=== PATIENT | female | born 1970 | race Caucasian/White ===

== ENCOUNTER → 2017-08-01 09:49 | Outpatient (CLI) | payer MEDICAID, SELFPAY ==
--- NOTE | 2017-08-01 09:52 | XR_ITS ---
XR wrist RT min 3V HISTORY pain ITS.REASON: right wrist ganglion cyst ORDERING PHYSICIAN: Max Hunter MD PATIENT AGE: 46 years COMPARISON: None FINDINGS: There is a dense area of sclerosis involving the distal aspect of the radius at the styloid process region. This measures 15 x 8 mm. No other anomalies are evident. No fracture or dislocation or significant degenerative change. IMPRESSION: Sclerotic focus of the distal radius laterally which may represent prominent bone island otherwise negative. Follow-up recommended stability
--- NOTE | 2017-08-01 09:52 | XR_ITS ---
XR hand LT min 3V HISTORY: Palpable abnormality in the right wrist with pain and edema ITS.REASON: left 4th digit ganglion cyst ORDERING PHYSICIAN: Max Hunter MD PATIENT AGE: 46 years COMPARISON: FINDINGS: No fracture or dislocation. No lytic or blastic change. There is normal mineralization.. The joint spaces are well-preserved. No significant degenerative/arthritic changes. No erosive changes evident.. IMPRESSION: Negative, no acute finding
== END ==
PROVIDERS: PCP Family Medicine; Visit Provider Orthopaedic Surgery
DX: M79.642 Pain in left hand (principal); M79.641 Pain in right hand
CPT/HCPCS: 73110; 73130

== ENCOUNTER → 2017-10-05 09:32 | Outpatient (CLI) | payer MEDICAID, SELFPAY ==
--- NOTE | 2017-10-05 09:33 | XR_ITS ---
XR ankle RT min 3V HISTORY: Right ankle pain ITS.REASON: pain ORDERING PHYSICIAN: Bouchra Larose DPM PATIENT AGE: 46 years Comparison: None FINDINGS: No fracture or dislocation. No lytic or blastic change. There is normal mineralization.. The joint spaces are well-preserved. No significant degenerative/arthritic changes. No erosive changes evident. The talar dome has an unremarkable appearance IMPRESSION: Negative ankle, no acute finding
--- NOTE | 2017-10-05 09:33 | XR_ITS ---
XR ankle LT min 3V HISTORY: ITS.REASON: pain ORDERING PHYSICIAN: Bouchra Larose DPM PATIENT AGE: 46 years Comparison: None FINDINGS: No fracture or dislocation. No lytic or blastic change. There is normal mineralization.. The joint spaces are well-preserved. No significant degenerative/arthritic changes. No erosive changes evident. The talar dome is an unremarkable appearance IMPRESSION: Negative ankle, no acute finding
== END ==
PROVIDERS: Visit Provider Podiatrist
DX: M72.2 Plantar fascial fibromatosis (principal); M76.61 Achilles tendinitis, right leg; M76.62 Achilles tendinitis, left leg; M25.571 Pain in right ankle and joints of right foot; M25.572 Pain in left ankle and joints of left foot
CPT/HCPCS: 73610

== ENCOUNTER 2017-11-13 07:56 | Outpatient (RCR) | payer MEDICAID, SELFPAY ==
--- NOTE | 2017-11-13 15:42 | HMH.PTOPEV ---
PT Outpatient Evaluation Rehab PT Outpatient Evaluation Start: 11/13/17 08:30 Freq: Status: Active Protocol: Document 11/13/17 08:46 MADAN (Rec: 11/13/17 09:02 MELODYCHUCK [id number]) Electronically Signed By Mark Reyna, PT 11/13/17 08:46 Outpatient Therapy Subjective History Subjective History Pt is a 46 year old female presenting to outpatient PT with reports of L ankle pain. Pt reports an initial inversion ankle sprain in 2004 after fall from a window at home. Diagnostics negative for fracture. Patient reports that she was previously experinecing R foot pain, but R foot no longer symptomatic since wearing a CAM walker for a short period. Most recent L ankle exacerbation started approximately 3 months ago after an episode where she tried to run and felt a twinge and symptoms progressively worsened. Comorbidities: fibromyalgia, OA, DDD, spinal stenosis, plantar fasciitis. She reports that she has been intermittently using a corset ankle brace and topical anti- inflammatory cream that has provided some relief. Chief Complaint Pain Stiff Clicks Swelling Gives out/Unstable Weakness Symptom Type Ache Sharp Stabbing Burning Symptoms Relieved By Rest/Positioning Ice Brace/Support Prior Functional Limitations None Current Functional Limitations Housework Standing Squatting Recreation Activity Walking Stairs Balance Symptom Description Intermittent Level of pain today (0-10) 0 Pain scale - at its best (0-10) 0 Pain scale -
== END 2017-11-13 07:57 | disposition home or self-care (01) ==
LOC: PT 07:56
PROVIDERS: Visit Provider Podiatrist
DX: M76.71 Peroneal tendinitis, right leg (principal); M25.572 Pain in left ankle and joints of left foot; G89.29 Other chronic pain
CPT/HCPCS: 97163

== ENCOUNTER → 2018-04-11 09:38 | Outpatient (CLI) | payer MEDICAID, SELFPAY ==
--- NOTE | 2018-04-11 09:42 | MR_ITS ---
MR ankle LT wo/w con CLINICAL INDICATION: Left ankle pain with constant swelling and instability ITS.REASON: chronic left ankle instability ORDERING PHYSICIAN: Bouchra Larose DPM PATIENT AGE: 47 years Comparison: 10/05/2017 TECHNIQUE: Multiplanar multiecho sequences performed without and with gadolinium enhancement FINDINGS: No rapture or dislocation. No bone bruise is evident. The talar dome has an unremarkable appearance. The anterior and posterior tibiofibular ligament appear intact as does the posterior talofibular ligament. The anterior talofibular ligament appears slightly thin but does appear to be intact. Lobular fluid collection is present along the anterior lateral aspect of the talus having a somewhat loculated appearance measuring up to 2.5 cm AP and 1.2 cm transverse. The posterior tibialis, flexor digitorum longus, and flexor hallucis longus tendons appear intact as does the Achilles tendon. There is some lobulation involving the peroneal longus tendon at the mid calcaneal level with thinning of the tendon distal to this region with the tendon becoming normal in appearance at the calcaneocuboid region. This is felt to be related to produce longus tendon tear with retraction as opposed to magic angle artifact. No other significant anomalies are evident. The peroneal brevis tendon has an unremarkable appearance. IMPRESSION: 1. Findings consistent with tear of the peroneal longus tendon. The tendon ends are retracted by approximately 2.5 cm 2. Small loculated fluid collection along the anterior distal lateral aspect of the talus 3. Suspect prior sprain of the ATFL
--- NOTE | 2018-04-11 10:54 | HMH.ITSHM ---
Current Home Medications as stated by this patient Jenae Lang or personal service representative. []DULOXETINE 60MG ROPINIROLE 0.5MG HYDROCHLOROTHIAZIDE 25MG OMEPRAZOLE 40MG POTASSIUM 99MG VITAMIN E VITAMIN D MAGNESIUM EQUATE MENOPAUSE SUPPORT LEGATRIN PM
== END ==
PROVIDERS: PCP Family Medicine; Visit Provider Podiatrist
DX: M25.372 Other instability, left ankle (principal); M25.572 Pain in left ankle and joints of left foot
CPT/HCPCS: 73223; A9576

== ENCOUNTER → 2018-04-16 15:57 | Outpatient (CLI) | payer MEDICAID, SELFPAY ==
--- NOTE | 2018-04-16 16:21 | XR_ITS ---
XR chest 2V HISTORY: ITS.REASON: HYPERTENSION ORDERING PHYSICIAN: Bouchra Larose DPM PATIENT AGE: 47 years COMPARISON: None FINDINGS: The cardiomediastinal silhouette and pulmonary vascularity are within normal limits. The lungs are clear without infiltrates, suspicious nodules, or pleural effusions. No acute bony abnormalities. IMPRESSION: Negative chest, no acute finding
[2018-04-16 16:49] LABS: Basophils # 0.1 K/mm3 (0-0.2); Basophils % 0.5 % (0.1-2.0); Eosinophils # 0.1 K/mm3 (0.0-0.4); Eosinophils % 1.3 % (0.1-12.0); Hematocrit 41.7 % (37.0-47.0); Hemoglobin 13.9 g/dL (12.2-16.2); Lymphocytes # 2.7 K/mm3 (0.7-4.5); Lymphocytes % 28.5 % (10-50); Mean Corpuscular HGB Conc 33.3 g/dL (31.8-35.4); Mean Corpuscular Hemoglobin 30.6 pg (27.0-31.2); Mean Platelet Volume 6.5 fl (7.4-10.4); Monocytes # 0.5 K/mm3 (0.1-1.0); Monocytes % 5.2 % (1.7-9.3); Neutrophils # 6.1 K/mm3 (1.8-7.8); Neutrophils % 64.5 % (37.0-80.0); Platelet Count 411 K/mm3 (142-424); Red Blood Count 4.53 M/mm3 (4.20-5.40); White Blood Count 9.4 K/mm3 (4.8-10.8)
[2018-04-16 17:56] LABS: Anion Gap 11.4 mEq/L (5-15); Blood Urea Nitrogen 16 mg/dL (7-18); Carbon Dioxide 30 mmol/L (21.0-32.0); Chloride 102 mmol/L (98-107); Creatinine,Serum 0.82 mg/dL (0.55-1.02); Estimated Glomerular Filt Rate 74 ml/min (>60); GFR (African American) 90 ML/MIN (>60); Glucose 104 mg/dL (74-106); Potassium 3.4 mmoL/L (3.5-5.1); Sodium 140 mmol/L (136-145)
[2018-04-16 18:02] LABS: HCG Qualitative, Serum Negative (Negative)
== END ==
PROVIDERS: Visit Provider Podiatrist
DX: Z01.818 Encounter for other preprocedural examination (principal); M76.72 Peroneal tendinitis, left leg
CPT/HCPCS: 36415; 71046; 80048; 84703; 85025; 93005

== ENCOUNTER → 2018-05-13 10:28 | Outpatient (CLI) | payer MEDICAID, SELFPAY ==
--- NOTE | 2018-05-13 10:38 | XR_ITS ---
XR foot wt bearing LT 3V HISTORY: Follow-up surgery ITS.REASON: Post-op ORDERING PHYSICIAN: Bouchra Larose DPM PATIENT AGE: 47 years COMPARISON: None FINDINGS: No fracture or dislocation. No lytic or blastic change. There is normal mineralization.. The joint spaces are well-preserved. No significant degenerative/arthritic changes. No erosive changes evident. Posterior splint has been removed IMPRESSION: Negative, no acute finding
[2018-05-13 10:45] LABS: Basophils % 0.3 % (0.1-2.0); Eosinophils # 0.1 K/mm3 (0.0-0.4); Hematocrit 36.9 % (37.0-47.0); Hemoglobin 12.7 g/dL (12.2-16.2); Lymphocytes % 17.6 % (10-50); Mean Corpuscular HGB Conc 34.3 g/dL (31.8-35.4); Mean Corpuscular Hemoglobin 31.5 pg (27.0-31.2); Mean Corpuscular Volume 91.6 fl (81-99); Mean Platelet Volume 6.7 fl (7.4-10.4); Monocytes # 0.6 K/mm3 (0.1-1.0); Monocytes % 4.9 % (1.7-9.3); Neutrophils # 8.5 K/mm3 (1.8-7.8); Neutrophils % 76.2 % (37.0-80.0); Platelet Count 347 K/mm3 (142-424); Red Blood Count 4.02 M/mm3 (4.20-5.40); Red Cell Distribution Width 13.8 % (11.5-17.5); White Blood Count 11.2 K/mm3 (4.8-10.8)
[2018-05-13 11:29] LABS: Erythrocyte Sedimentation Rate 37 mm/hr (0-20)
[2018-05-13 11:37] LABS: C-Reactive Protein 2.1 mg/L (0.0-0.9)
== END ==
PROVIDERS: PCP Family Medicine; Visit Provider Podiatrist
DX: Z98.890 Other specified postprocedural states (principal)
CPT/HCPCS: 36415; 73630; 85025; 85651; 86140

== ENCOUNTER → 2018-05-28 11:51 | Outpatient (CLI) | payer MEDICAID, SELFPAY ==
[2018-05-28 12:45] LABS: Basophils # 0.1 K/mm3 (0-0.2); Basophils % 0.5 % (0.1-2.0); Eosinophils # 0.4 K/mm3 (0.0-0.4); Eosinophils % 3.5 % (0.1-12.0); Hematocrit 40.9 % (37.0-47.0); Hemoglobin 13.6 g/dL (12.2-16.2); Lymphocytes # 2.9 K/mm3 (0.7-4.5); Lymphocytes % 27.2 % (10-50); Mean Corpuscular HGB Conc 33.2 g/dL (31.8-35.4); Mean Corpuscular Hemoglobin 30.8 pg (27.0-31.2); Mean Corpuscular Volume 92.7 fl (81-99); Mean Platelet Volume 6.9 fl (7.4-10.4); Monocytes # 0.7 K/mm3 (0.1-1.0); Monocytes % 6.3 % (1.7-9.3); Neutrophils # 6.7 K/mm3 (1.8-7.8); Neutrophils % 62.5 % (37.0-80.0); Platelet Count 408 K/mm3 (142-424); Red Blood Count 4.41 M/mm3 (4.20-5.40); Red Cell Distribution Width 13.5 % (11.5-17.5); White Blood Count 10.8 K/mm3 (4.8-10.8)
[2018-05-28 15:16] LABS: Erythrocyte Sedimentation Rate 18 mm/hr (0-20)
[2018-05-28 19:44] LABS: C-Reactive Protein < 0.2 mg/L (0.0-0.9)
== END ==
PROVIDERS: Visit Provider Podiatrist
DX: Z98.890 Other specified postprocedural states (principal)
CPT/HCPCS: 36415; 85025; 85651; 86140

== ENCOUNTER 2018-06-25 09:00 | Outpatient (RCR) | payer MEDICAID, SELFPAY ==
--- NOTE | 2018-06-17 09:25 | HMH.PTOPEV ---
PT Outpatient Evaluation Rehab PT Outpatient Evaluation Start: 06/17/18 09:17 Freq: Status: Active Protocol: Document 06/17/18 09:17 RIP (Rec: 06/17/18 09:25 RIP [id number]) Electronically Signed By Eliel James, PT 06/17/18 09:17 Outpatient Therapy Subjective History Subjective History Pt presents s/p L ankle preoneal tendon(s) repair on . Pt reports some difficulty w/incision healing and swelling, however, reports strength and ROM 'feel pretty good'. Pt reports 25% PWB on LLE, and some discomfort/pain around L lat. malleolus since sx. Chief Complaint Pain Stiff Swelling Weakness Symptom Type Ache Throb Sharp Dull Symptoms Relieved By Rest/Positioning Symptoms Aggravated By Standing Physical Activity Walking Prior Functional Limitations Standing Walking Stairs Balance Current Functional Limitations Housework Standing Walking Stairs Balance Symptom Description Constant but Variable Level of pain today (0-10) 5 Pain scale - at its best (0-10) 4 Pain scale - at its worst (0-10) 6 Ankle/Foot Eval Gait Observation General Gait Pattern Observation Antalgic Gait Decrease Weight Bear (L) Assistive Device Ambulation Assistive Device Axillary Crutches Palpation Tenderness left Ankle/Foot Palpation Findings Tenderness Ankle/Foot Palpation Overall Comment 2-3/4 ROM Ankle/Foot Dorsiflexion w/Knee Extended 0-2 Active Range Motion (degrees) Ankle/Foot Plantar Flexion Active Range 0-45 of Motion (degrees) Ankle/Foot Eversion Active Range of 0-15 Motion (degrees) Ankle/Foot Inversion Active Range of 0-35 Motion (degrees) Ankle/Foot ROM Limitations Soft Tissue Tightness Pain MMT Ankle Dorsiflexion Strength Grade 4 Good Ankle Plantarflexion Strength Grade 4 Good Foot Eversion Strength Grade 3+ Fair+ Foot Inversion Strength Grade 4- Good- Outpatient Therapy Assessment Impairments
== END 2018-06-25 09:05 | disposition home or self-care (01) ==
LOC: PT 09:00
PROVIDERS: Visit Provider Podiatrist
DX: Z98.890 Other specified postprocedural states (principal); M79.672 Pain in left foot
CPT/HCPCS: 97110; 97140; 97163

== ENCOUNTER → 2018-07-22 13:01 | Outpatient (CLI) | payer MEDICAID, SELFPAY ==
--- NOTE | 2018-07-22 | NVE_ITS ---
Venous Exam Indications: 729.81 Swelling of limb. IMPRESSIONS 1. No evidence of deep or superficial vein thrombosis involving the right lower extremity 2. No evidence of deep or superficial vein thrombosis involving the left lower extremity History: Swelling of both lower extremities. Risk factors: Recent surgery: Lt ankle Apr 2018. Complete lower extremity venous duplex evaluation. Doppler flow study including spectral analysis, color and brown scale imaging. Location: Vascular laboratory. Patient status: Outpatient. Tables: Venous flow and imaging: + +-------+ + Location Overall Flow properties + +-------+ + Right common femoral Patent Normal phasicity; spontaneous; normal augmentation; compressible + +-------+ + Right saphenofemoral junction Patent Compressible + +-------+ + Right profunda femoral Patent Compressible + +-------+ + Right femoral Patent Normal phasicity; spontaneous; normal augmentation; compressible; no reflux + +-------+ + Right greater saphenous Patent Normal phasicity; spontaneous; normal augmentation; compressible + +-------+ + Right popliteal Patent Normal phasicity; spontaneous; normal augmentation; compressible + +-------+ + Right posterior tibial Patent Compressible + +-------+ + Right peroneal Patent Compressible + +-------+ + Right gastrocnemius Patent Compressible + +-------+ + Right soleal Patent Compressible + +-------+ + Left common femoral Patent Normal phasicity; spontaneous; normal augmentation; compressible + +-------+ + Left saphenofemoral junction Patent Compressible + +-------+ + Left profunda femoral Patent Compressible + +-------+ + Left femoral Patent Normal phasicity; spontaneous; normal augmentation; compressible + +-------+ + Left greater saphenous Patent Normal phasicity; spontaneous; normal augmentation; compressible + +-------+
== END ==
PROVIDERS: PCP Nurse Practitioner Family; Visit Provider Nurse Practitioner Family
DX: M79.89 Other specified soft tissue disorders (principal); R60.0 Localized edema
CPT/HCPCS: 93970

== ENCOUNTER → 2018-09-03 06:27 | Outpatient (CLI) | payer MEDICAID, SELFPAY ==
--- NOTE | 2018-09-03 06:27 | NM_ITS ---
SPECT MYOCARDIAL PERFUSION SCAN, REST AND STRESS: EXERCISE STRESS: [facility] - BEND REVIEW QGS EF AND WALL MOTION EVALUATION: QPS - PERFUSION EVALUATION: HISTORY: Chest pain, SOB, HTN, Family history PROCEDURE: Rest imaging performed after administration of9.96 millicuries Tc MIBI. Dose administered at 6:35 a.m., with imaging thereafter. Stress imaging was then performed following5 minutes of exercise stress. The patient achieved a heart [id number] with projected heart rate of146 . Resting BP116/72 with stress 166/75. At maximum exercise stress,32.1 millicuries Tc MIBI administered at8:15 a.m. with [id number] minutes thereafter. FINDINGS: Perfusion Evaluation: The single slice spect images as well as the [facility] bull's-eye data summary were reviewed. Wall Motion and Ejection Fraction Evaluation: Gated SPECT review and analysis used to evaluate these features. There is a 62 % left ventricular ejection fraction. There seems to be good wall motion Stress images revealed decreased activity in the mid anterior apical wall while rest images reveal no significant change in the anterior apical wall however they're slightly decreased activity in a portion of the lateral wall. Patient did experience chest pain with exercise IMPRESSION: Exercise-induced chest pain. Abnormal images as described above with reverse redistribution in the lateral wall. Clinical correlation is advised normal ejection fraction normal wall motion
--- NOTE | 2018-09-03 06:27 | US_ITS ---
US Arterial Ankle Brachial Ind History: ITS.REASON: leg swelling and discoloration Claudication, rest pain ORDERING PHYSICIAN: Amelia Davila APRN PATIENT AGE: 47 years TECHNIQUE: Segmental pressures obtained of both right and left leg. These are compared to brachial blood pressure to yield index at each level sampled including summary NAMAN. The data sheets from the procedure are available in PACS FINDINGS The report is delayed due to the fact there were no images to interpret and are only made available today.. Rest study only performed today No prior studies available for comparison. Blood pressures reported are in millimeters mercury. RIGHT LEG NAMAN = 1.1. RIGHT LEG TBI=0.8 Brachial BP: 137 Thigh BP: 128 Calf BP: 131 Ankle PT: 147 Ankle DP : 140 Digit =111 LEFT LEG NAMAN = 1.0 LEFT LEG TBI= 0.8 Brachial BPD: 132 Thigh BP: 138 Calf BP: 127 Ankle PT:135 Ankle DP: 140 Digit = 105 Pulses and waveforms: Normal IMPRESSION: The ABIs as reported above are within normal limits. Waveforms and pulses are also unremarkable.
--- NOTE | 2018-09-03 06:27 | CA_ITS ---
PROCEDURE: 2-D M-mode and color Doppler study INDICATIONS FOR THE TEST: Chest pain X COPD Heart Murmur Tobacco Smoking PalpitationsX Fatigue Syncope Edema HypertensionXDiabetes Mellitus Rheumatic Fever SOBXDOE Obesity Hyperlipidemia Family History HD Additional History PATIENT INFORMATION HEIGHT: 64 WEIGHT:191 GENDER: Female B/P:133/90 2-D/M-MODE INTERPRETATION: 2-D MEASUREMENTS OBSERVED VALUES IN CMS Right Ventricular Dimension (RVDd) 1.8 Interventricular Septum (Thickness)(IVsd) 1.2 Left Ventricular Internal Dimensions(LVIDd) 4.5 Left Ventricular Posterior Wall (Thickness)(LVPWd) 1.0 Aortic Root 3.1 Aortic Cusp Separation 2.0 Left Atrial Dimensions (LAD) 3.9 2D 1. Left atrium is mildly enlarged, left ventricle is normal size, mild concentric left ventricular hypertrophy, visually estimated ejection fraction 55% with no regional wall motion abnormality. 2. The right atrium and right ventricle are normal size and contractility. 3. The aortic, mitral and tricuspid valvular grossly normal. 4. The pulmonic valve is poorly visualized. 5. No significant pericardial effusion noted. DOPPLER INTERROGATION: Doppler interrogation of the aortic, mitral and tricuspid valvular presence of mild mitral and tricuspid regurgitation, tricuspid regurgitation jet velocity is inadequate for calculation of the right ventricular systolic pressure, grade 1 diastolic dysfunction seen with tissue Doppler evidence of raised left atrial pressure. CONCLUSION: 1. Mildly enlarged left atrium, normal left ventricular size, mild concentric left ventricular hypertrophy, visually estimated ejection fraction is 55% with no regional wall motion abnormality, grade 1 diastolic dysfunction seen with tissue Doppler evidence of raised left atrial pressure. 2. Mild mitral and tricuspid regurgitation 3. No significant pericardial effusion noted.
--- NOTE | 2018-09-03 07:21 | HMH.ITSHM ---
Current Home Medications as stated by this patient Jenae Lang or leasing representative. []PANTOPRAZOLE ROPINIROLE LISINOPRIL D3 STOOL SOFTNER IBUPROFEN DULOXETINE IRON POTASSIUM PROBIOTIC LEGATRIN PM HCTZ
== END ==
PROVIDERS: PCP Family Medicine; Visit Provider Urology
DX: R07.9 Chest pain, unspecified (principal); R06.00 Dyspnea, unspecified; R00.2 Palpitations; R42 Dizziness and giddiness; R60.0 Localized edema
CPT/HCPCS: 78452; 93017; 93306; 93922; A9502

== ENCOUNTER → 2018-11-08 13:06 | Outpatient (CLI) | payer MEDICAID, SELFPAY ==
--- NOTE | 2018-11-08 13:11 | XR_ITS ---
XR foot wt bearing RT 3V HISTORY: ITS.REASON: foot and ankle pain ORDERING PHYSICIAN: Bouchra Larose DPM PATIENT AGE: 47 years COMPARISON: None FINDINGS: No fracture or dislocation. No lytic or blastic change. There is normal mineralization.. The joint spaces are well-preserved. No significant degenerative/arthritic changes. No erosive changes evident. Incidental note made of a small calcaneal spur IMPRESSION: Negative, no acute finding
--- NOTE | 2018-11-08 13:11 | XR_ITS ---
XR ankle wt bearing RT min 3V HISTORY: ITS.REASON: foot and ankle pain ORDERING PHYSICIAN: Bouchra Larose DPM PATIENT AGE: 47 years Comparison: None FINDINGS: No fracture or dislocation. No lytic or blastic change. There is normal mineralization.. The joint spaces are well-preserved. No significant degenerative/arthritic changes. No erosive changes evident. IMPRESSION: Negative ankle, no acute finding
--- NOTE | 2018-11-08 13:11 | XR_ITS ---
XR ankle wt bearing LT min 3V HISTORY: ITS.REASON: Foot and ankle pain ORDERING PHYSICIAN: Bouchra Larose DPM PATIENT AGE: 47 years Comparison: None FINDINGS: No fracture or dislocation. No lytic or blastic change. There is normal mineralization.. The joint spaces are well-preserved. No significant degenerative/arthritic changes. No erosive changes evident. IMPRESSION: Negative ankle, no acute finding
== END ==
PROVIDERS: PCP Family Medicine; Visit Provider Podiatrist
DX: M79.672 Pain in left foot (principal); M79.671 Pain in right foot
CPT/HCPCS: 73610; 73630

== ENCOUNTER 2018-12-19 09:30 | Outpatient (RCR) | payer MEDICAID, SELFPAY ==
--- NOTE | 2018-12-03 10:59 | HMH.PTOPEV ---
PT Outpatient Evaluation Rehab PT Outpatient Evaluation Start: 12/03/18 10:34 Freq: Status: Active Protocol: Document 12/03/18 10:39 YAKOV (Rec: 12/03/18 10:58 YAKOV [id number]) Electronically Signed By Teryr Ramsay PT 12/03/18 10:39 Outpatient Therapy Subjective History Subjective History 48 year old femal pt. is referred to PT for R plantar fascitis. Pt. reports that she had similar condition on L side. Pt. eventually had surgery on left foot a couple of year ago. States that pn. has been going on for a few months now. Tried old treatments that she used for L foot but they have not been working well. States that he pn. is worst when she wakes up in the morning and WB or when she is sitting for a long time and then stands up. Note and eval done by student PT Thai Dela Cruz Chief Complaint Pain Symptom Type Sharp Symptoms Relieved By Rest/Positioning,Ice Symptoms Aggravated By Standing,Physical Activity, Walking Prior Functional Limitations None Current Functional Limitations Housework,Standing,Recreation Activity,Walking Symptom Description Intermittent Level of pain today (0-10) 0 Pain scale - at its best (0-10) 0 Pain scale - at its worst (0-10) 8 Ankle/Foot Eval ROM left Ankle/Foot Dorsiflexion w/Knee Extended 5 Active Range Motion (degrees) Ankle/Foot Plantar Flexion Active Range 70 of Motion (degrees) Ankle/Foot Eversion Active Range of 10 Motion (degrees) Ankle/Foot Inversion Active Range of 30 Motion (degrees) Great Toe Metatarsophalangeal Extension WNL Active Range Motion (degrees) Great Toe Metatarsophalangeal Flexion WNL Active Range of Motion (degrees) right Ankle/Foot Dorsiflexion w/Knee Extended 5 Active Range Motion (degrees) Ankle/Foot Plantar Flexion Active Range 70 of Motion (degrees) Ankle/Foot Eversion Active Range of 30 Motion (degrees) Ankle/Foot Inversion Active Range of 40 Motion (degrees) Great Toe Metatarsophalangeal Extension WNL Active Range Motion (degrees) Great Toe Metatarsophalangeal Flexion WNL Active Range of Motion (degrees) MMT left Ankle Dorsiflexion Strength Grade 5 No
== END 2018-12-19 09:35 | disposition home or self-care (01) ==
LOC: PT 09:30
PROVIDERS: Visit Provider Podiatrist
DX: M72.2 Plantar fascial fibromatosis (principal)
CPT/HCPCS: 97033; 97035; 97110; 97140; 97163; 97760

== ENCOUNTER 2018-12-24 14:00 | Outpatient (RCR) | payer MEDICAID, SELFPAY ==
--- NOTE | 2018-12-10 10:19 | HMH.PTOPEV ---
PT Outpatient Evaluation Rehab PT Outpatient Evaluation Start: 12/10/18 09:21 Freq: Status: Active Protocol: Document 12/10/18 10:10 BRENT (Rec: 12/10/18 10:18 PHORJEANNE [id number]) Electronically Signed By Chirag Lipscomb, PT 12/10/18 10:10 Outpatient Therapy Subjective History Subjective History Pt is 48 yowf who presents with c/o pain in the low back and B LE, worse on right side, x ~ 8 yrs with steadily worsening symptoms. She reports pain is increased with prolonged standing, walking, and bending forward. She also reports intermittent numbness in B feet. She reports recent left ankle surgery which resulted in some weight gain and this has exacerbated her symptoms in the back as well. She reports hx of fibromyalgia , restless leg syndrome,. HTN, OA, myocardial bridge. Chief Complaint Pain Symptom Type Sharp,Burning Symptoms Relieved By Rest/Positioning,Heat Symptoms Aggravated By Bending/Stooping,Walking Prior Functional Limitations None Current Functional Limitations Walking,Stairs,Bending/ Stooping Symptom Description Constant but Variable Level of pain today (0-10) 2 Pain scale - at its worst (0-10) 10 Lumbopelvic Eval Palapation tenderness bilateral lumbar spinal tenderness Yes buttock tenderness Yes Lumbar/Sacral Palpation Findings Tenderness Lumbar/Sacral Palpation Overall Comment B SI very tender. Accessory Movement T-spine Vertebrae Accessory Movements [facility] [employer] [place] that [place] Symptoms L3 bilateral L4 bilateral L5 bilateral S1 bilateral Range of Motion Lumbar Spine Active Flexion Range of 0-55 Motion (degrees) Lumbar Spine Active Extension Range of 0-15 Motion (degrees) Left Lumbar Spine Lateral Flexion Active 0-15 Range of Motion (degrees) Right Lumbar Spine Lateral Flexion 0-15 Active Range of Motion (degrees) Manual Muscle Test Bilateral Knee Extension Strength Grade 5 Normal Knee Flexion Strength Grade 5 Normal Hip Flexion Strength Grade 5 Normal Hip Abduction Strength Grade 5 Normal Hip Adduction Strength Grade 5 Normal Extensor Hallucis Longus Strength Grade 5 Normal Ankle
== END 2018-12-24 14:05 | disposition home or self-care (01) ==
LOC: PT 14:00
PROVIDERS: Visit Provider Nurse Practitioner Family
DX: M54.41 Lumbago with sciatica, right side (principal); M51.26 Other intervertebral disc displacement, lumbar region; M79.7 Fibromyalgia; R20.0 Anesthesia of skin
CPT/HCPCS: 97010; 97014; 97110; 97163; G0283

== ENCOUNTER → 2019-01-06 13:19 | Outpatient (POV) | payer MEDICAID, SELFPAY | PROVIDERS: Visit Provider Specialist | DX: R20.0 Anesthesia of skin (principal) | CPT/HCPCS: 95886; 95908 ==

== ENCOUNTER 2019-05-05 23:00 | Observation (INO) ==
[2019-05-05 23:20] LABS: Basophils # 0.1 K/mm3 (0-0.2); Basophils % 0.5 % (0.1-2.0); Eosinophils # 0.2 K/mm3 (0.0-0.4); Eosinophils % 1.8 % (0.1-12.0); Hematocrit 41.1 % (37.0-47.0); Lymphocytes # 2.9 K/mm3 (0.7-4.5); Lymphocytes % 27.4 % (10-50); Mean Corpuscular HGB Conc 34.2 g/dL (31.8-35.4); Mean Corpuscular Volume 90.3 fl (81-99); Mean Platelet Volume 7.2 fl (7.4-10.4); Monocytes # 0.7 K/mm3 (0.1-1.0); Monocytes % 6.3 % (1.7-9.3); Neutrophils # 6.7 K/mm3 (1.8-7.8); Neutrophils % 64.1 % (37.0-80.0); Platelet Count 355 K/mm3 (142-424); Red Blood Count 4.55 M/mm3 (4.20-5.40); Red Cell Distribution Width 13.2 % (11.5-17.5); White Blood Count 10.4 K/mm3 (4.8-10.8)
[2019-05-05 23:36] LABS: Alanine Aminotransferase 23 U/L (12-78); Albumin Level 3.6 gm/dL (3.4-5.0); Alkaline Phosphatase 84 U/L (46-116); Aspartate Amino Transferase 13 U/L (15-37); Bilirubin,Total 0.3 mg/dL (0.2-1.0); Blood Urea Nitrogen 18 mg/dL (7-18); C-Reactive Protein 1.4 mg/dL (0.0-0.9); Calcium 8.9 mg/dL (8.5-10.1); Carbon Dioxide 26 mmol/L (21.0-32.0); Chloride 102 mmol/L (98-107); Globulin 3.5 gm/dl (1.3-3.2); Glucose 90 mg/dL (74-106); Sodium 141 mmol/L (136-145); Total Protein,Serum 7.1 gm/dL (6.4-8.2)
[2019-05-05 23:56] LABS: Erythrocyte Sedimentation Rate 26 mm/hr (0-20)
--- NOTE | 2019-05-06 00:36 | Emergency Department Note ---
ED Disposition Clinical Impression: Chest pain Qualifiers: Chest pain type: precordial pain Qualified Code(s): R07.2 - Precordial pain Disposition: Admitted as Observation Condition on Discharge: Good Referrals: Provider,Referral, [Primary Care Provider] - - Critical Care Critical Care Time: No Attestation: On 05/05/19, the high probability of a clinically significant, sudden or life threatening deterioration of the following system(s) required my full and direct attention, intervention and personal management. The time I documented below is in addition to time spent performing reported procedures but includes the following listed in this critical care notation. Medical Decision Making - Medical Records Medical records reviewed: Yes: I reviewed the patient's medical records. - Nikolai Inquiry Pt receiving controlled substance: No Vital Signs: 05/05/19 23:00 05/06/19 00:37 Temperature 98.0 F Temperature Source Oral Pulse Rate [Right Radial] 102 H 89 Respiratory Rate 18 16 Blood Pressure [Left Arm] 165/88 H 128/83 Blood Pressure Mean [Left Arm] 113 98 02 Sat by Pulse Oximetry 96 99 Oxygen Delivery Method Room Air Room Air - Lab Data Lab results reviewed: Yes: I reviewed the patient's lab results. Lab Results 05/05/19 23:11: WBC 10.4, RBC 4.55, Hgb 14.0, Hct 41.1, MCV 90.3, MCH 30.8, MCHC 34.2, RDW 13.2, Plt Count 355, MPV 7.2 L, Neut % (Auto) 64.1, Lymph % (Auto) 27.4, [place]kin % (Auto) 6.3, Eos % (Auto) 1.8, Baso % (Auto) 0.5, Neut # (Auto) 6.7, Lymph # (Auto) 2.9, [place]kin # (Auto) 0.7, Eos # (Auto) 0.2, Baso # (Auto) 0.1, ESR 26 H 05/05/19 23:11: Sodium 141, Potassium 3.0 L, Chloride 102, Carbon Dioxide 26, Anion Gap 16.0 H, BUN 18, Creatinine 0.92, Estimated Creat Clear 101, Estimated GFR 65, Est GFR ( Amer) 79, Glucose 90, Calcium 8.9, Total Bilirubin 0.3, AST 13 L, ALT 23, Alkaline Phosphatase 84, Troponin I < 0.02, C-Reactive Protein 1.4 H, Total Protein 7.1, Albumin 3.6, Globulin 3.5 H, Albumin/Globulin Ratio 1.0 L Result diagrams: 05/05/19 23:11 05/05/19 23:11 Orders (Tests/Meds): ED MEDICATIONS Generic Name Dose Route Start Last Admin Trade Name Freq PRN Reason Stop Dose Admin Nitroglycerin 0.4 mg 05/05/19 23:11 05/05/19 23:15 Nitrostat 0.4mg Sl Tablet SL 06/04/19 23:10 0.4 mg Q5MINP PRN Administration Chest Pain Discontinued Medications Generic Name Dose Route Start Last Admin Trade Name Freq PRN Reason Stop Dose Admin Aspirin 324 mg 05/05/19 23:11 05/05/19 23:16 Aspirin 81mg Chewable Tablet PO 05/05/19 23:12 324 mg ONCE ONE Administration Nitroglycerin 1 gm 05/06/19 00:12 05/06/19 00:13 Nitroglycerin 1 Inch Oint Udp TD 05/06/19 00:13 1 gm ONCE ONE Administration ORDERS Category Date Time Status XR chest 2V Stat Exams 05/05/19 23:11 Taken Troponin I Q3H Lab 05/06/19 02:15 Ordered Troponin I Q3H Lab 05/06/19 05:15 Ordered - Radiology Data #1 Image(s): Chest Image Reviewed: Yes I reviewed the patient's radiology image Preliminary Findings: Normal/NAD - ECG Data Tracing #1 Normal Sinus Rhythm: Yes Ischemic changes: non-specific ST-T wave changes - Physician Consults Physician Consulted: eugenia Reason -: Admission Chest Pain HPI - General Chief Complaint: Chest Pain Stated Complaint: chest pain Time Seen by Provider: 05/05/19 23:40 Mode of Arrival: Ambulatory Source of Information: Patient, Spouse, Medical Record Limitations: No Limitations Description of Symptoms (Recalled from ER Triage Doc. by RN): chest pain and L arm pain that started tonight [employer]. patient describes the pain as a squeezing sensation in her chest - History of Present Illness HPI narrative: this wf presented to ed with lt chest pain with nausea and vascular flush with episode of palpitations - MD complaint: chest pain indicative of cardiac Onset (ago): hour(s) Duration: intermittent Activity at onset: during rest Pain location: left chest Severity: moderate Quality: tightness Pain radiation: LUE Associated symptoms: nausea, palpitations Risk Factors for CAD: Family Hx of CAD Treatments prior to or on arrival for Cardiac Chest Pain: none - OLLIE Score for Non-Stemi Age of Patient: 40-49 years old Heart Rate: 90-109 bpm Systolic Blood Pressure: 160-199 mmHg Serum Creatinine: 0.80-1.19 mg/dl CHF Killip Class: I-No CHF Other Risk Factors: None Non-Stemi Risk Score: 57 - Related Data Prior Cardiac Testing/Procedures: Cardiac Angiogram Home Medications Medication Instructions Recorded Confirmed duloxetine 60 mg capsule,delayed 60 mg PO DAILY 30 Days #30 05/08/17 05/05/19 release ropinirole 0.5 mg tablet 0.5 mg PO DAILY 30 Days #90 05/08/17 05/05/19 cholecalciferol (vitamin D3) 3,000 2,000 unit PO ONCE tab 08/01/17 05/05/19 unit tablet potassium 99 mg tablet 99 mg PO ONCE 08/01/17 05/05/19 sennosides 25 mg tablet 25 mg PO ONCE tab 08/01/17 05/05/19 triamterene 37.5 1 tab PO DAILY #30 tab 08/21/18 05/05/19 mg-hydrochlorothiazide 25 mg tablet lisinopril 10 mg tablet 10 mg PO DAILY 10/15/18 05/05/19 ciclopirox 8 % topical solution 1 % TOPICAL DAILY #7 ml 11/25/18 05/05/19 diphenhydramine 50 1 tab PO NEEDED PRN tab 11/25/18 05/05/19 mg-acetaminophen 500 mg tablet omeprazole 40 mg capsule,delayed 40 mg PO DAILY 11/25/18 05/05/19 release Metoprolol Succinate 25 mg PO DAILY 05/05/19 05/05/19 Ranolazine [Ranolazine ER] 500 mg PO BID 05/05/19 05/05/19 Previous Rx's Medication Instructions Recorded meloxicam 7.5 mg tablet 7.5 mg PO ONCE #30 tab 02/27/19 Allergies Allergy/AdvReac Type Severity Reaction Status Date / Time desmopressin Allergy Severe Arrythmia Verified 02/27/19 13:07 amitriptyline [From Elavil] Allergy Unknown Dizziness, Verified 02/27/19 13:07 Headache cyclobenzaprine Allergy Unknown Dizziness, Verified 02/27/19 13:07 [From Flexeril] Sleepy isosorbide AdvReac Intermediate Headache Verified 02/27/19 13:07 povidone-iodine AdvReac Itchy, Verified 02/27/19 13:07 [From Betadine] Redness to the site of application soap [From Betadine] AdvReac Itchy, Verified 02/27/19 13:07 Redness to the site of application [facility] History - Hepatitis A Screen Drug use history?: No High risk sexual behaviors?: No History of sexually transmitted infection?: No Currently employed?: No Childcare worker?: No Do you have indoor plumbing?: Yes Do you have electricity?: Yes Attestation statement:: This patient has been screened for Hepatitis A risk factors. I have reviewed the patient's past medical history: Yes Medical History: Reports:: Gastroesophageal Reflux Disease(GERD), Hypertension, Migraine Denies:: Cancer, Diabetes Mellitus Type 1, Diabetes Mellitus Type 2, Internal Pacemaker, MRSA, Seizures Other Medical History: Reports: Arthritis, Fibromyalgia, Other. Denies: Blood Transfusion Reaction Comment: Spinal Stenosis, Cyst on right kidney, DJD, polyarthritis, Restless leg syndrome, Laterality Cases: Bilateral: Lumpectomy Other Surgeries: Yes: No Previous Surgery, Cardiac Catheterization, , Other. No: Pacemaker Amputation: No Fractures: No Comment: wisdom teeth removed. - Social History Smoking Status: Never smoker Tobacco Type: cigarettes # Packs/Day (cigarettes): 0 #Yrs smoked (if former smoker): 0 Alcohol Intake: never Alcohol Intake Frequency:: other Substance Use Type: denies use Occupational Status: unemployed Housing: house Household Members: spouse Family Hx:: Diabetes, Coronary Artery Disease, Cancer, Hypertension Comment: Father-NH@45. Mother-CHF ROS Obtained: Yes All systems reviewed & no additional complaints - Constitutional Constitutional: Denies fever(s) - Eyes Eyes: Denies change in vision - ENT Ears, Nose, Mouth, and Throat: Denies sore throat - Cardiovascular Cardiovascular: Reports as per HPI, Reports chest pain, Reports dyspnea - Respiratory Respiratory: No cough - Gastrointestinal Gastrointestingal: Denies: abdominal pain - Genitourinary Female Genitourinary: Denies hematuria - Musculoskeletal Musculoskeletal: Denies joint pain, Denies joint swelling - Integumentary/Breasts Skin/Breast: Denies rash - Neurologic Neurologic: Denies focal weakness, Denies seizure-like activity Physical Exam - General General appearance: alert, obese - Head Head exam: normocephalic - Eye Eye exam: Present: PERRL, EOMI. Absent: scleral icterus - ENT ENT exam: Present: mucous membranes dry - Neck Neck exam: Present: trachea midline - Respiratory Respiratory exam: Present: normal lung sounds bilaterally. Absent: respiratory distress - Cardiovascular Cardiovascular exam: Present: regular rate, systolic murmur - Abdominal Exam Abdominal exam: Present: soft - Extremities Exam Extremities exam: Present: full ROM - Neurological Exam Neurological exam: Present: alert, oriented X3, CN II-XII intact - Psychiatric Psychiatric exam: Present: normal affect - Skin Skin exam: Absent: rash
[2019-05-06 06:13] LABS: Basophils % 0.4 % (0.1-2.0); Eosinophils # 0.2 K/mm3 (0.0-0.4); Mean Corpuscular HGB Conc 33.8 g/dL (31.8-35.4); Monocytes # 0.6 K/mm3 (0.1-1.0); Monocytes % 6.6 % (1.7-9.3); Neutrophils # 6.2 K/mm3 (1.8-7.8)
[2019-05-06 06:21] LABS: Hematocrit 37.1 % (37.0-47.0); Lymphocytes # 2.3 K/mm3 (0.7-4.5); Lymphocytes % 24.2 % (10-50); Neutrophils % 66.8 % (37.0-80.0); Platelet Count 289 K/mm3 (142-424); Red Blood Count 4.08 M/mm3 (4.20-5.40); Red Cell Distribution Width 13.2 % (11.5-17.5); White Blood Count 9.4 K/mm3 (4.8-10.8)
[2019-05-06 06:23] LABS: Anion Gap 15.1 mEq/L (5-15); Calcium 8.2 mg/dL (8.5-10.1)
[2019-05-06 06:24] LABS: Hemoglobin 12.6 g/dL (12.2-16.2)
--- NOTE | 2019-05-06 07:21 | H&P/Discharge Summary ---
General - General Admission date:: 05/06/19 Discharge date: 05/06/19 *Admission Date: 05/06/19 *Chief complaint: Left shoulder and chest pain *History of present illness: 48-year-old female with thorough cardiac work-up in September 2018 presented to the emergency department yesterday evening with chest discomfort. Patient reports initially she developed an aching sensation in the left shoulder like she had some stiff muscles. As her evening progressed the sensation spread down to her chest until she felt like her heart was beating very hard. Each heartbeat had associated sharp pain. She also developed nausea and diaphoresis and had one episode of vomiting. When the chest discomfort did not resolve patient decided to come to the emergency department. In the ER patient underwent evaluation and first troponin was normal and EKG did not reveal any evidence of ischemia or infarct. Patient was admitted for observation. Patient underwent a cardiac work-up in August and September 2018 in which she had an abnormal Myoview stress test which led to left heart catheterization which revealed a myocardial bridge as well as elevated left ventricular end-diastolic pressures. Patient reports she has been compliant with medications and follow- up. Left heart catheterization findings are described below: ANGIOGRAPHIC RESULTS: 1. The left main artery normal 2. The left anterior descending artery has proximal mild luminal irregularities within mid vessel 50% myocardial bridge with systole 3. The circumflex artery nondominant normal 4. The right coronary artery dominant and normal 5. The PETERSON ventriculogram reveals normal 65% 6. The left ventricular end-diastolic pressure 20 mmHg [facility] History I have reviewed the patient's past medical history: Yes Medical History: Reports:: Gastroesophageal Reflux Disease(GERD), Hypertension, Migraine Denies:: Cancer, Diabetes Mellitus Type 1, Diabetes Mellitus Type 2, Internal Pacemaker, MRSA, Seizures *Have you ever received a pneumonia vaccine?: No *Have you received a flu vaccine this season?: No Other Medical History: Reports: Arthritis, Fibromyalgia, Other. Denies: Blood Transfusion Reaction Laterality Cases: Right: Lumpectomy Other Surgeries: Yes: No Previous Surgery, Cardiac Catheterization, , Other (Left foot tendon repair.). No: Pacemaker Amputation: No Fractures: No - *Social History Educational Level: Attended College Smoking Status: Never smoker Tobacco Type: cigarettes # Packs/Day (cigarettes): 0 #Yrs smoked (if former smoker): 0 Alcohol Intake: never Alcohol Intake Frequency:: other Substance Use Type: denies use *Occupational Status:: unemployed Housing: house Household Members: spouse *Travel in the last 8 weeks: None Family Hx:: Anemia, Asthma, Bleeding Disorder, Cancer, Diabetes, Heart Attack, Hyperlipidemia, Hypertension, Stroke, Substance abuse, Alcoholism, Mental illness Review of Systems - Review of Systems See HPI - *Neurologic Denies localized weakness, Denies seizure-like activity Exam Vital signs and Labs for Last 24 Hours: Temp Pulse Resp BP Pulse Ox 97.8 F 89 18 116/67 95 05/06/19 04:00 05/06/19 04:00 05/06/19 04:00 05/06/19 04:00 05/06/19 04:00 Laboratory Results - last 24 hr 05/05/19 23:11: WBC 10.4, RBC 4.55, Hgb 14.0, Hct 41.1, MCV 90.3, MCH 30.8, MCHC 34.2, RDW 13.2, Plt Count 355, MPV 7.2 L, Neut % (Auto) 64.1, Lymph % (Auto) 27.4, [place] % (Auto) 6.3, Eos % (Auto) 1.8, Baso % (Auto) 0.5, Neut # (Auto) 6.7, Lymph # (Auto) 2.9, [place] # (Auto) 0.7, Eos # (Auto) 0.2, Baso # (Auto) 0.1, ESR 26 H 05/05/19 23:11: Sodium 141, Potassium 3.0 L, Chloride 102, Carbon Dioxide 26, Anion Gap 16.0 H, BUN 18, Creatinine 0.92, Estimated Creat Clear 101, Estimated GFR 65, Est GFR ( Amer) 79, Glucose 90, Calcium 8.9, Total Bilirubin 0.3, AST 13 L, ALT 23, Alkaline Phosphatase 84, Troponin I < 0.02, C-Reactive Protein 1.4 H, Total Protein 7.1, Albumin 3.6, Globulin 3.5 H, Albumin/Globulin Ratio 1.0 L 05/06/19 02:10: Troponin I < 0.02 05/06/19 05:18: Troponin I < 0.02 05/06/19 05:18: WBC 9.4, RBC 4.08 L, Hgb 12.6, Hct 37.1, MCV 91.0, MCH 30.8, MCHC 33.8, RDW 13.2, Plt Count 289, MPV 7.0 L, Neut % (Auto) 66.8, Lymph % (Auto) 24.2, [place] % (Auto) 6.6, Eos % (Auto) 2.0, Baso % (Auto) 0.4, Neut # (Auto) 6.2, Lymph # (Auto) 2.3, [place] # (Auto) 0.6, Eos # (Auto) 0.2, Baso # (Auto) 0.0 05/06/19 05:18: Sodium 142, Potassium 3.1 L, Chloride 104, Carbon Dioxide 26, Anion Gap 15.1 H, BUN 14, Creatinine 0.85, Estimated Creat Clear 108, Estimated GFR 71, Est GFR ( Amer) 86, Glucose 111 H D, Calcium 8.2 L, Magnesium 2.0 I & O for Last 24 hours: Intake & Output 05/03/19 05/04/19 05/05/19 05/06/19 11:59 11:59 11:59 11:59 Intake Total 124 / 124 Balance 124 / 124 Weight 189 lb 3 oz - Constitutional no acute distress - *Routine HEENT Exam Head: Present: normocephalic Eye: Present: EOMI ENT: Present: mucous membranes moist - *Routine Neck Exam Present: supple, full ROM. Absent: JVD, carotid bruit - *Routine Respiratory Exam Present: CTA bilaterally - *Routine Cardiovascular Exam Present: RRR, Normal S1, Normal S2 - *Routine Abdominal Exam Present: soft, normoactive bowel sounds. Absent: tenderness - *Routine Extremities Exam Absent: cyanosis, clubbing, edema Hospital Course Hospital Course: Patient was admitted and ruled out for PA. Cardiology consultation the next morning resulted in medication adjustments which include discontinuation of her Ranexa, isosorbide, lisinopril and the addition of verapamil to her home regimen. Patient was discharged home Results Labs on day of discharge: Labs from last 24 hours 05/06/19 05/06/19 05/06/19 05:18 05:18 05:18 WBC 9.4 RBC 4.08 L Hgb 12.6 Hct 37.1 MCV 91.0 MCH 30.8 MCHC 33.8 RDW 13.2 Plt Count 289 MPV 7.0 L Neut % (Auto) 66.8 Lymph % (Auto) 24.2 [place] % (Auto) 6.6 Eos % (Auto) 2.0 Baso % (Auto) 0.4 Neut # (Auto) 6.2 Lymph # (Auto) 2.3 [place] # (Auto) 0.6 Eos # (Auto) 0.2 Baso # (Auto) 0.0 ESR Sodium 142 Potassium 3.1 L Chloride 104 Carbon Dioxide 26 Anion Gap 15.1 H BUN 14 Creatinine 0.85 Estimated Creat Clear 108 Estimated GFR 71 Est GFR ( Amer) 86 Glucose 111 H D Calcium 8.2 L Magnesium 2.0 Total Bilirubin AST ALT Alkaline Phosphatase Troponin I < 0.02 C-Reactive Protein Total Protein Albumin Globulin Albumin/Globulin Ratio 05/06/19 05/05/19 05/05/19 02:10 23:11 23:11 WBC 10.4 RBC 4.55 Hgb 14.0 Hct 41.1 MCV 90.3 MCH 30.8 MCHC 34.2 RDW 13.2 Plt Count 355 MPV 7.2 L Neut % (Auto) 64.1 Lymph % (Auto) 27.4 [place] % (Auto) 6.3 Eos % (Auto) 1.8 Baso % (Auto) 0.5 Neut # (Auto) 6.7 Lymph # (Auto) 2.9 [place] # (Auto) 0.7 Eos # (Auto) 0.2 Baso # (Auto) 0.1 ESR 26 H Sodium 141 Potassium 3.0 L Chloride 102 Carbon Dioxide 26 Anion Gap 16.0 H BUN 18 Creatinine 0.92 Estimated Creat Clear 101 Estimated GFR 65 Est GFR ( Amer) 79 Glucose 90 Calcium 8.9 Magnesium Total Bilirubin 0.3 AST 13 L ALT 23 Alkaline Phosphatase 84 Troponin I < 0.02 < 0.02 C-Reactive Protein 1.4 H Total Protein 7.1 Albumin 3.6 Globulin 3.5 H Albumin/Globulin Ratio 1.0 L DS: Diagnosis - Discharge Diagnosis (1) Chest pain Status: Acute (2) Coronary-myocardial bridge Status: Chronic (3) Diastolic dysfunction Status: Chronic (4) HTN (hypertension) Status: Chronic Discharge Plan - Patient Discharge Instructions ACTIVITY: Continue current activity DIET: continue same diet Patient Instructions: DI for Chest Pain - Follow up Plan Follow up with: Levi Kapoor MD [Primary Care Provider] - Efra Shaikh PA [Physician Supervisor [employer]] - Disposition: Home, Self-Retirement Medications: Home Medications Medication Instructions Recorded Confirmed Type duloxetine 60 mg capsule,delayed 60 mg PO DAILY 30 Days #30 05/08/17 05/05/19 History release ropinirole 0.5 mg tablet 0.5 mg PO TID 30 Days #90 05/08/17 05/06/19 History cholecalciferol (vitamin D3) 3,000 2,000 unit PO DAILY tab 08/01/17 05/06/19 History unit tablet potassium 99 mg tablet 100 mg PO DAILY 08/01/17 05/06/19 History sennosides 25 mg tablet 25 mg PO DAILY tab 08/01/17 05/06/19 History triamterene 37.5 1 tab PO DAILY #30 tab 08/21/18 05/06/19 History mg-hydrochlorothiazide 25 mg tablet lisinopril 10 mg tablet 10 mg PO DAILY 10/15/18 05/05/19 History ciclopirox 8 % topical solution 1 % TOPICAL QIDP PRN #7 ml 11/25/18 05/06/19 History omeprazole 40 mg capsule,delayed 40 mg PO DAILY 11/25/18 05/05/19 History release Metoprolol Succinate 25 mg PO HS 05/05/19 05/06/19 History Ranolazine [Ranolazine ER] 500 mg PO BID 05/05/19 05/05/19 History Meloxicam 7.5 mg PO DAILY 05/06/19 05/06/19 History Ubidecarenone [Coq10] 100 mg PO DAILY 05/06/19 05/06/19 History Verapamil HCl [Verapamil ER] 120 mg PO DAILY #30 cap24h.pel 05/06/19 Rx Prescriptions/Medication Reconciliation: New Verapamil HCl [Verapamil ER] 120 mg PO DAILY #30 cap24h.pel Continued duloxetine 60 mg capsule,delayed release 60 mg PO DAILY 30 Days #30 ropinirole 0.5 mg tablet 0.5 mg PO TID 30 Days #90 cholecalciferol (vitamin D3) 3,000 unit tablet 2,000 unit PO DAILY tab potassium 99 mg tablet 100 mg PO DAILY sennosides 25 mg tablet 25 mg PO DAILY tab lisinopril 10 mg tablet 10 mg PO DAILY ciclopirox 8 % topical solution 1 % TOPICAL QIDP PRN #7 ml PRN Reason: nerve pain omeprazole 40 mg capsule,delayed release 40 mg PO DAILY Metoprolol Succinate 25 mg PO HS Ubidecarenone [Coq10] 100 mg PO DAILY Discontinued triamterene 37.5 mg-hydrochlorothiazide 25 mg tablet 1 tab PO DAILY #30 tab Ranolazine [Ranolazine ER] 500 mg PO BID No Action Meloxicam 7.5 mg PO DAILY - Problem Reconciliation Problems Reviewed?: Yes
--- NOTE | 2019-05-06 07:37 | Consult Report ---
History of Present Illness Consult date: 05/06/19 Requesting physician: Levi Kapoor Consult reason: chest pain Chief complaint: chest pain Additional Medical History:: 1. History of fibromyalgia 2. History of arthritis 3. Left heart catheterization, 09/25 revealing normal coronary arteries with a mid LAD myocardial bridge with recommendation for medical therapy History of present illness: 48-year-old white female presented to the emergency department for evaluation of chest discomfort. Patient describes left shoulder discomfort that progressed to include left-sided sharp shooting chest discomfort along with a flush sensation and emesis x2. She denies any fever, chills or diarrhea. Patient was admitted through the ER after getting some improvement in symptoms with nitroglycerin sublingual. Symptoms did not resolve completely for at least a half an hour. EKG showed sinus rhythm with no acute ST segment changes and troponins overnight have returned normal. Preliminary echocardiogram this morning shows normal left ventricular ejection fraction with only mild valvular heart disease. Patient denies tobacco use or history of diabetes. She denies missing any doses of her medications or any recent history of exertional chest discomfort. [facility] History Medical History: Reports:: Gastroesophageal Reflux Disease(GERD), Hypertension, Migraine Denies:: Cancer, Diabetes Mellitus Type 1, Diabetes Mellitus Type 2, Internal Pacemaker, MRSA, Seizures *Have you ever received a pneumonia vaccine?: No *Have you received a flu vaccine this season?: No Other Medical History: Reports: Arthritis, Fibromyalgia, Other. Denies: Blood Transfusion Reaction Laterality Cases: Right: Lumpectomy Other Surgeries: Yes: No Previous Surgery, Cardiac Catheterization, , Other (Left foot tendon repair.). No: Pacemaker Amputation: No Fractures: No - *Social History Educational Level: Attended College Smoking Status: Never smoker Tobacco Type: cigarettes # Packs/Day (cigarettes): 0 #Yrs smoked (if former smoker): 0 Alcohol Intake: never Alcohol Intake Frequency:: other Substance Use Type: denies use *Occupational Status:: unemployed Housing: house Household Members: spouse *Travel in the last 8 weeks: None Family Hx:: Anemia, Asthma, Bleeding Disorder, Cancer, Diabetes, Heart Attack, Hyperlipidemia, Hypertension, Stroke, Substance abuse, Alcoholism, Mental illness Meds Home Medications Medication Instructions Recorded Confirmed Type duloxetine 60 mg capsule,delayed 60 mg PO DAILY 30 Days #30 05/08/18 05/05/19 History release ropinirole 0.5 mg tablet 0.5 mg PO TID 30 Days #90 05/08/17 05/06/19 History cholecalciferol (vitamin D3) 3,000 2,000 unit PO DAILY tab 08/01/17 05/06/19 History unit tablet potassium 99 mg tablet 100 mg PO DAILY 08/01/17 05/06/19 History sennosides 25 mg tablet 25 mg PO DAILY tab 08/01/17 05/06/19 History triamterene 37.5 1 tab PO DAILY #30 tab 08/21/18 05/06/19 History mg-hydrochlorothiazide 25 mg tablet lisinopril 10 mg tablet 10 mg PO DAILY 10/15/18 05/05/19 History ciclopirox 8 % topical solution 1 % TOPICAL QIDP PRN #7 ml 11/25/18 05/06/19 History omeprazole 40 mg capsule,delayed 40 mg PO DAILY 11/25/18 05/05/19 History release Metoprolol Succinate 25 mg PO HS 05/05/19 05/06/19 History Ranolazine [Ranolazine ER] 500 mg PO BID 05/05/19 05/05/19 History Meloxicam 7.5 mg PO DAILY 05/06/19 05/06/19 History Ubidecarenone [Coq10] 100 mg PO DAILY 05/06/19 05/06/19 History Verapamil HCl [Verapamil ER] 120 mg PO DAILY #30 [email or web address] 05/06/19 Rx Allergies Allergy/AdvReac Type Severity Reaction Status Date / Time desmopressin Allergy Severe Arrythmia Verified 05/06/19 02:01 amitriptyline [From Elavil] Allergy Unknown Dizziness, Verified 05/06/19 02:01 Headache cyclobenzaprine Allergy Unknown Dizziness, Verified 05/06/19 02:01 [From Flexeril] Sleepy isosorbide AdvReac Intermediate Headache Verified 05/06/19 02:01 povidone-iodine AdvReac Itchy, Verified 05/06/19 02:01 [From Betadine] Redness to the site of application soap [From Betadine] AdvReac Itchy, Verified 05/06/19 02:01 Redness to the site of application Review of Systems - Review of Systems Review of systems:: pertinent systems reviewed and negative unless documented below - *Cardiovascular Reports chest pain, Denies shortness of breath - *Respiratory Denies shortness of breath - *Gastrointestinal Reports vomiting, Denies loose stools, Denies nausea - *Genitourinary Denies blood in urine - *Musculoskeletal Denies joint pain, Denies back pain - *Neurologic Denies localized weakness, Denies seizure-like activity Exam Vital signs and Labs for Last 24 Hours: Temp Pulse Resp BP Pulse Ox 97.8 F 89 18 116/67 95 05/06/19 04:00 05/06/19 04:00 05/06/19 04:00 05/06/19 04:00 05/06/19 04:00 Laboratory Results - last 24 hr 05/05/19 23:11: WBC 10.4, RBC 4.55, Hgb 14.0, Hct 41.1, MCV 90.3, MCH 30.8, MCHC 34.2, RDW 13.2, Plt Count 355, MPV 7.2 L, Neut % (Auto) 64.1, Lymph % (Auto) 27.4, O'Brien % (Auto) 6.3, Eos % (Auto) 1.8, Baso % (Auto) 0.5, Neut # (Auto) 6.7, Lymph # (Auto) 2.9, O'Brien # (Auto) 0.7, Eos # (Auto) 0.2, Baso # (Auto) 0.1, ESR 26 H 05/05/19 23:11: Sodium 141, Potassium 3.0 L, Chloride 102, Carbon Dioxide 26, Anion Gap 16.0 H, BUN 18, Creatinine 0.92, Estimated Creat Clear 101, Estimated GFR 65, Est GFR ( Amer) 79, Glucose 90, Calcium 8.9, Total Bilirubin 0.3, AST 13 L, ALT 23, Alkaline Phosphatase 84, Troponin I < 0.02, C-Reactive Protein 1.4 H, Total Protein 7.1, Albumin 3.6, Globulin 3.5 H, Albumin/Globulin Ratio 1.0 L 05/06/19 02:10: Troponin I < 0.02 05/06/19 05:18: Troponin I < 0.02 05/06/19 05:18: WBC 9.4, RBC 4.08 L, Hgb 12.6, Hct 37.1, MCV 91.0, MCH 30.8, MCHC 33.8, RDW 13.2, Plt Count 289, MPV 7.0 L, Neut % (Auto) 66.8, Lymph % (Auto) 24.2, O'Brien % (Auto) 6.6, Eos % (Auto) 2.0, Baso % (Auto) 0.4, Neut # (Auto) 6.2, Lymph # (Auto) 2.3, O'Brien # (Auto) 0.6, Eos # (Auto) 0.2, Baso # (Auto) 0.0 05/06/19 05:18: Sodium 142, Potassium 3.1 L, Chloride 104, Carbon Dioxide 26, Anion Gap 15.1 H, BUN 14, Creatinine 0.85, Estimated Creat Clear 108, Estimated GFR 71, Est GFR ( Amer) 86, Glucose 111 H D, Calcium 8.2 L, Magnesium 2.0 I & O for Last 24 hours: Intake & Output 05/03/19 05/04/19 05/05/19 05/06/19 11:59 11:59 11:59 11:59 Intake Total 124 / 124 Balance 124 / 124 Weight 189 lb 3 oz - *Routine HEENT Exam Head: Present: normocephalic Eye: Present: EOMI, PERRL ENT: Present: mucous membranes moist - *Routine Neck Exam Present: supple. Absent: JVD, carotid bruit - *Routine Respiratory Exam Present: CTA bilaterally. Absent: accessory muscle use, rales, rhonchi, wheezes - *Routine Cardiovascular Exam Present: RRR. Absent: murmur, gallop, rubs - *Routine Abdominal Exam Present: soft. Absent: tenderness, distended, guarding - *Routine Extremities Exam Absent: edema, calf tenderness - *Routine Neurological Exam Present: alert, oriented X3, moving all extremities Assessment and Plan (1) Chest pain Current visit: Yes Status: Acute Qualifiers: Chest pain type: precordial pain Qualified Code(s): R07.2 - Precordial pain Category: Medical Code(s): R07.9 - Chest pain, unspecified (2) Coronary-myocardial bridge Current visit: No Status: Chronic Category: Medical Code(s): Q24.5 - Malformation of coronary vessels (3) Diastolic dysfunction Current visit: No Status: Chronic Category: Medical Code(s): I51.89 - Other ill-defined heart diseases (4) HTN (hypertension) Current visit: No Status: Chronic Qualifiers: Hypertension type: essential hypertension Qualified Code(s): I10 - Essential (primary) hypertension Category: Medical Code(s): I10 - Essential (primary) hypertension - Assessment and plan all Dx Assessment and Plan for all problems:: 1. Chest pain with shoulder discomfort, diaphoresis and emesis x2. EKG with no acute ST segment changes, troponin is normal x3 and echocardiogram with normal ejection fraction. Normal coronary arteries in September 2018 with mid myocardial bridge noted. Recommend adjusting medications including discontinuing lisinopril, ranolazine and Maxide in favor of a combination of metoprolol XL 25 mg nightly and verapamil extended release 120 mg daily. Patient is okay for discharge from cardiology standpoint. Follow-up in our office in [address] Kapoor. 2. Hypokalemia, likely related to emesis, will give one dose of KCL.
--- NOTE | 2019-05-06 07:38 | Pharmacy Consult Notes ---
[facility] Pharmacy VTE Monitoring - Patient Demographics Admission date: 05/06/19 Report Date: 05/06/19 Time: 07:38 Allergies/Adverse Reactions: Patient Allergies desmopressin Allergy (Severe, Verified 05/06/19 02:01) Arrythmia amitriptyline [From Elavil] Allergy (Unknown, Verified 05/06/19 02:01) Dizziness, Headache cyclobenzaprine [From Flexeril] Allergy (Unknown, Verified 05/06/19 02:01) Dizziness, Sleepy isosorbide Adverse Reaction (Intermediate, Verified 05/06/19 02:01) Headache povidone-iodine [From Betadine] Adverse Reaction (Verified 05/06/19 02:01) Itchy, Redness to the site of application soap [From Betadine] Adverse Reaction (Verified 05/06/19 02:01) Itchy, Redness to the site of application Height: 1.63 m Weight: 85.814 kg Patient Problems: Current Active Problems Chest pain (Acute) - VTE Risk Labs: VTE Related Lab Results Hgb 12.6 g/dL (12.2-16.2) 05/06/19 05:18 Hct 37.1 % (37.0-47.0) 05/06/19 05:18 Plt Count 289 K/mm3 (142-424) 05/06/19 05:18 BUN 14 mg/dL (7-18) 05/06/19 05:18 Creatinine 0.85 mg/dL (0.55-1.02) 05/06/19 05:18 Estimated Creat Clear 108 mL/min (50-200) 05/06/19 05:18 VTE Score: 4 VTE Risk Level: Low Risk - Prophylaxis VTE Prophylaxis Ordered?: Yes Types of VTE Prophylaxis: TEDS Knee High Location of Applied Device: Bilateral Lower Extremeties - VTE Diagnosis Confirmed Treatment or plan recommended: Continue Current Treatment
--- NOTE | 2019-05-06 08:59 | Electrocardiograph Report ---
APPROVED REPORT Exam: Resting ECG HR:100 bpm ECG Measurements Heart Rate 100 AXES WY 170 P 28 QRSd 82 QRS -24 QT 366 T3 QTc 472 <Conclusion> Normal sinus rhythm Possible Left atrial enlargement Nonspecific ST abnormality Incomplete RBBB Abnormal ECG Electronically signed by : Modesto House, 05/06/2019 08:59:28
--- NOTE | 2019-05-06 20:40 | Cardiology Report ---
APPROVED REPORT EXAM: Comprehensive 2D, Doppler, and color-flow Echocardiogram Police Dispatcher: Nneka Garcia RT(R) Ht: 5 ft 4 in Wt: 190lbs BSA: 1.91 BP: 128/83 mmHg Indications: Chest Pain, Shortness of Breath, Palpitations, Hypertension/HDD, GERD, 2D Dimensions LVOT 1.95 cm (M/F) 1.5-2.5 M-Mode Dimensions RVDd 2.06 cm (0.9-2.6)LVDd 4.87 cm (3.5-5.7) LVDs 3.10 cm (3.5-5.7)IVSd 0.84 cm (0.6-1.1) PWd 0.87 cm (0.6-1.1)EF (Teich) 65.90% FS 36.30% EDV (Teich) 111.20 mL ESV (Teich) 37.90 mL LV Diastology E/A Ratio 0.79 Mitral Valve MV A Velocity 95.00 (40-130 cm/s) Left Ventricle Left atrium is normal size, left ventricle is normal size, mild concentric left ventricular hypertrophy, visually estimated ejection fraction 55% with no regional wall motion abnormality. Grade 1 diastolic dysfunction seen without tissue Doppler evidence of raise left atrial pressure. Right Ventricle Right atrium and right ventricular normal size and contractility. Aortic Valve Aortic valve is minimally thickened and fibrosed. There is no aortic stenosis or aortic insufficiency. Mitral Valve Mitral valve grossly normal, there is mild mitral regurgitation. Tricuspid Valve Tricuspid valve is grossly normal, there is mild tricuspid regurgitation. Pulmonic Valve Pulmonic valve is poorly visualized. Great Vessels Aortic root is normal size. Pericardium No significant pericardial effusion noted. Conclusion 1. Normal left ventricular size, mild concentric left ventricular hypertrophy, visually estimated ejection fraction is 55% with no regional wall motion abnormality, grade 1 diastolic dysfunction seen without tissue Doppler evidence of raise left atrial pressure. 2. Mild mitral and tricuspid regurgitation. 3. No significant pericardial effusion noted. Electronically signed by : Paul Owens, 05/06/2019 20:39:38
== END 2019-05-06 08:55 | disposition home or self-care (01) ==
LOC: 2ND 23:00 → ER 23:00 → 2ND 05-06 01:49
PROVIDERS: ADMIT Internal Medicine Adolescent Medicine; ATTEND Family Medicine
CPT/HCPCS: 36415; 71020; 71046; 80048; 80053; 83735; 84484; 85025; 85651; 86140; 93005; 93306; 99284; G0378

== ENCOUNTER → 2019-05-13 10:36 | Outpatient (CLI) | payer OTHER, SELFPAY | PROVIDERS: Visit Provider Nurse Practitioner Family | DX: R06.02 Shortness of breath (principal); R00.2 Palpitations; R60.9 Edema, unspecified | CPT/HCPCS: 36415; 83880 ==

== ENCOUNTER → 2019-05-20 15:15 | Outpatient (CLI) | payer OTHER, SELFPAY ==
[2019-05-20 16:50] LABS: Anion Gap 10.8 mEq/L (5-15); Blood Urea Nitrogen 23 mg/dL (7-18); Carbon Dioxide 32 mmol/L (21.0-32.0); Chloride 103 mmol/L (98-107); Creatinine,Serum 1.12 mg/dL (0.55-1.02); Estimated Glomerular Filt Rate 52 ml/min (>60); GFR (African American) 63 ML/MIN (>60); Glucose 91 mg/dL (74-106); Potassium 3.8 mmoL/L (3.5-5.1); Sodium 142 mmol/L (137-145)
== END ==
PROVIDERS: Visit Provider Physician Assistant
DX: I10 Essential (primary) hypertension (principal); I51.89 Other ill-defined heart diseases; Q24.5 Malformation of coronary vessels; R06.00 Dyspnea, unspecified; R42 Dizziness and giddiness
CPT/HCPCS: 36415; 80048

== ENCOUNTER → 2019-07-31 10:55 | Outpatient (CLI) | payer OTHER, SELFPAY ==
--- NOTE | 2019-07-31 11:00 | XR_ITS ---
PROCEDURE: XR ANKLE WT BEARING RT MIN 3V CLINICAL INDICATION: ankle pain COMPARISON: ANKCMLT XR ankle LT min 3V from 10/05/2017 ANKCMRT XR ankle RT min 3V from 10/05/2017 XR FOOT WT BEARING RT 3V from 07/31/2019 FINDINGS: There is normal alignment. There is a faint density measuring approximately 3 mm along the distal aspect of the medial malleolus which could be due to small avulsion injury seen only on the AP image. There is a small calcaneal spur with minimal calcification noted anterior to the spur. No other significant anomalies are evident. IMPRESSION: 1. Small calcific density at the tip of the medial malleolus suggesting a small avulsion injury age indeterminate the not readily apparent on 10/05/2017 2. Small calcaneal spur with minimal calcification anterior to the spur which could be seen with plantar fasciitis Dictated by: Gavin Mora MD 07/31/2019 12:09 Electronically signed by Gavin Mora MD in [place] 07/31/2019 12:09
== END ==
PROVIDERS: PCP Family Medicine; Visit Provider Podiatrist
DX: M79.671 Pain in right foot (principal); M25.571 Pain in right ankle and joints of right foot
CPT/HCPCS: 73610; 73630

== ENCOUNTER → 2019-09-24 10:24 | Outpatient (CLI) | payer OTHER, SELFPAY ==
--- NOTE | 2019-09-24 10:33 | MM_ITS ---
PROCEDURE: MM DIG SCREENING MAMM BI W/CAD Digital Breast Tomosynthesis Included CLINICAL INDICATION: SCREENING There is a history of breast cancer patient's great aunt. There has been a previous biopsy right breast for benign disease. COMPARISON: DMDXUR DIG MAMM-DX UNI-RT from 02/26/2013 DMSB DIG MAMM-SCREEN ELLI from 03/19/2014 DMSB DIG MAMM-SCREEN ELLI from 08/27/2015 TECHNIQUE: Standard CC and MLO images and 3D Tomosynthesis was obtained. R2 CAD reviewed. FINDINGS: There is a markedly dense and heterogenic parenchymal pattern definitely lessening the sensitivity of mammography. Eliseo images are most helpful in evaluating the breast parenchyma. There are multiple scattered microcalcifications in each breast most of which are typical of sclerosing adenosis. There is a biopsy clip right breast. Upper outer quadrant right breast best seen on the eliseo images. There are other smaller cystic-appearing lesions in the central portion of the right breast. Eliseo images reveal small cystic-appearing lesions in the left breast centrally as well. Recommend the patient return for ultrasound survey of both breasts for additional evaluation. IMPRESSION: Markedly dense and heterogenic parenchymal pattern likely secondary to prominent fibrocystic changes BI-RAD Category: 0 Need Additional Imaging Evaluation FOLLOW-UP: IMM Immediate Follow-up Recommended (A letter has been sent to the patient regarding results of the study.) Dictated by: Dr. Nitin Howard MD 09/25/2019 08:[address] Nitin Howard MD in [place] 09/25/2019 08:40
== END ==
PROVIDERS: PCP Family Medicine; Visit Provider Nurse Practitioner Family
DX: Z12.31 Encounter for screening mammogram for malignant neoplasm of breast (principal)
CPT/HCPCS: 77063; 77067

== ENCOUNTER → 2019-10-02 14:12 | Outpatient (CLI) | payer OTHER, SELFPAY ==
--- NOTE | 2019-10-02 14:18 | US_ITS ---
PROCEDURE: US BREAST RT COMPLETE Ultrasound breast left complete CLINICAL INDICATION: ABN MAMM Follow-up abnormal mammogram COMPARISON: MM DIG SCREENING MAMM BI W/CAD from 09/24/2019 US BREAST LT COMPLETE from 10/02/2019 FINDINGS: Right breast: There are numerous cysts throughout the right breast measuring up to 2.8 cm in the 8 o'clock region. 2.2 cm cyst noted at 9 o'clock. 1.6 cm cyst at 12 o'clock. There are other smaller cyst also noted. No solid lesions evident. Left breast: Numerous cysts are present in the left breast. There is a hypoechoic nodule at 12 o'clock measuring 9 mm and may represent a complicated cyst. 14 mm cyst at 12 o'clock with some thickened lao. Complicated cyst at 3 o'clock at 5 mm with thickened wall. Complicated cyst at 4 o'clock at 16 by armendariz by 5 mm. Complicated cyst at 8 o'clock at 10 x 5 mm. Other smaller cysts are also noted. IMPRESSION: Probably benign findings. Recommend bilateral 6 month mammographic and sonographic follow-up Dictated by: Gavin Mora MD 10/10/2019 12:59 Electronically signed by Gavin Mora MD in [place] 10/10/2019 12:59
== END ==
PROVIDERS: PCP Family Medicine; Visit Provider Nurse Practitioner Family
DX: R92.8 Other abnormal and inconclusive findings on diagnostic imaging of breast (principal)
CPT/HCPCS: 76641

== ENCOUNTER → 2020-03-10 10:53 | Outpatient (CLI) | payer OTHER, SELFPAY ==
--- NOTE | 2020-03-10 10:55 | US_ITS ---
PROCEDURE: US BREAST RT COMPLETE CLINICAL INDICATION: ABN MAMM COMPARISON: MG MM DIG SCREENING MAMM BI W/CAD from 09/24/2019 US US BREAST RT COMPLETE from 10/02/2019 US BREAST LT COMPLETE from 10/02/2019 US BREAST LT COMPLETE from 03/10/2020 FINDINGS: There are numerous complicated cyst including a 8 mm complicated cyst at 12 o'clock, 7 mm complicated cyst 1 o'clock, 6 mm cyst at 6 o'clock. At 9 o'clock there is a 17 x 12 mm cyst. At 10 o'clock there is a 14 x 11 mm cyst. At 11 o'clock there is a lobulated 12 mm cyst. No suspicious nodules are evident. Left breast ultrasound: 9 x 5 mm complicated cyst at 12 o'clock. 16 x 9 mm complicated cyst at 1 o'clock. 6 mm complicated cyst 5 o'clock. 9 x 4 mm complicated cyst at 8 o'clock probably unchanged. Behind the nipple there is a 14 mm complicated cyst not demonstrated previously.. IMPRESSION: Multiple cysts of the right breast. Benign findings. BI-RADS category 2 benign. Recommend six-month mammographic follow-up to put patient back on schedule Dictated by: Gavin Mora MD 03/19/2020 18:39 Gavin Mora MD in [place] 03/19/2020 18:39
== END ==
PROVIDERS: PCP Family Medicine; Visit Provider Nurse Practitioner Family
DX: R92.8 Other abnormal and inconclusive findings on diagnostic imaging of breast (principal); Z09 Encounter for follow-up examination after completed treatment for conditions other than malignant neoplasm
CPT/HCPCS: 76641

== ENCOUNTER → 2020-04-13 11:23 | Outpatient (CLI) | payer OTHER, SELFPAY ==
--- NOTE | 2020-04-13 11:31 | XR_ITS ---
PROCEDURE: XR HAND RT MIN 3V CLINICAL INDICATION: RT HAND PAIN COMPARISON: DX [id number] XR hand LT min 3V from 08/01/2017 FINDINGS: No fracture or dislocation. No lytic or blastic change. There is normal mineralization. Mild osteoarthritic changes are present at the 2nd 3rd 4th and 5th DIP joint Other findings:There is a sclerotic focus involving the radial styloid process. This measures approximately 13 mm. IMPRESSION: Mild osteoarthritic change. Focal sclerotic focus of the radial styloid process which may be related to a bone island. Follow-up may confirm stability. Dictated by: Gavin Mora MD 04/13/2020 18:17 Gavin Mora MD in [place] 04/13/2020 18:17
--- NOTE | 2020-04-13 11:31 | XR_ITS ---
PROCEDURE: XR HAND LT MIN 3V CLINICAL INDICATION: LT HAND PAIN COMPARISON: DX [id number] XR hand LT min 3V from 08/01/2017 FINDINGS: No fracture or dislocation. No lytic or blastic change. There is normal mineralization. There are mild osteoarthritic changes at the DIP joint of the 2nd 3rd and 4th finger and to lesser extent the 5th finger. Other findings:None. IMPRESSION: Osteoarthritis Dictated by: Gavin Mora MD 04/13/2020 18:18 Gavin Mora MD in [place] 04/13/2020 18:18
--- NOTE | 2020-04-13 11:31 | XR_ITS ---
PROCEDURE: XR CERVICAL SPINE 5V CLINICAL INDICATION: CERVICALGIA COMPARISON: No exams were available for comparison FINDINGS: There is slight reversal of the upper cervical lordosis nonspecific and may be due to positioning or mild spasm. No fracture or dislocation. No lytic or blastic change. There is some mild facet hypertrophic changes at C3-C4 C5 and C6. The foramina are widely patent. Other findings:None. IMPRESSION: Mild facet arthritic change otherwise negative Dictated by: Gavin Mora MD 04/13/2020 18:10 Gavin Mora MD in [place] 04/13/2020 18:10
== END ==
PROVIDERS: PCP Nurse Practitioner Family; Visit Provider Nurse Practitioner Family
DX: M54.2 Cervicalgia (principal); M79.642 Pain in left hand; M25.642 Stiffness of left hand, not elsewhere classified; M79.641 Pain in right hand; M25.641 Stiffness of right hand, not elsewhere classified
CPT/HCPCS: 72050; 73130

== ENCOUNTER → 2020-05-05 14:16 | Outpatient (CLI) | payer OTHER, SELFPAY ==
--- NOTE | 2020-05-05 14:25 | XR_ITS ---
PROCEDURE: XR ANKLE WT BEARING RT MIN 3V CLINICAL INDICATION: pain COMPARISON: CR ANKCMLT XR ankle LT min 3V from 10/05/2017 CR ANKCMRT XR ankle RT min 3V from 10/05/2017 CR ANKCMLT XR ankle LT min 3V from 04/24/2018 CR XR ANKLE WT BEARING RT MIN 3V from 07/31/2019 CR XR FOOT WT BEARING RT 3V from 05/05/2020 FINDINGS: No fracture or dislocation. No lytic or blastic change. There is normal mineralization. The joint spaces are well-preserved. No significant degenerative/arthritic changes. No erosive changes evident. Other findings:There is faint calcification at the tip of the medial malleolus unchanged. There is also some minimal calcification along the tip of the calcaneal spur nonspecific. IMPRESSION: No acute findings. Dictated by: Gavin Mora MD 05/05/2020 16:35 Gavin Mora MD in [place] 05/05/2020 16:35
== END ==
PROVIDERS: PCP Family Medicine; Visit Provider Podiatrist
DX: M79.671 Pain in right foot (principal); M25.571 Pain in right ankle and joints of right foot
CPT/HCPCS: 73610; 73630

== ENCOUNTER → 2020-05-14 10:24 | Outpatient (CLI) | payer OTHER, SELFPAY ==
--- NOTE | 2020-05-14 10:24 | MR_ITS ---
PROCEDURE: MR ANKLE RT WO/W CON CLINICAL INDICATION: right ankle pain DIFFUSE RT ANKLE PAIN WITH INABALITY TO BEAR WEIGHT SINCE MULTIPLE FALLS IN LATE 2019. COMPARISON: CR XR ANKLE WT BEARING RT MIN 3V from 05/05/2020 TECHNIQUE: Routine multiplanar multi echo sequences are performed without and with gadolinium enhancement. FINDINGS: The tibiofibular ligaments appear intact as does the ATFL and PT FL. The deltoid ligament also appears intact. The there is diffuse increased T2 signal involving the mid to distal aspect of the calcaneus extending from subtalar region inferiorly to the plantar surface consistent with bone bruise. Faint thin irregular signal also present in this region suspicious for microfracture. The posterior tibialis, flexor digitorum longus, and flexor hallucis longus tendons appear intact. The peroneus brevis tendon appears intact. There is diffuse increased T2 signal involving the peroneal longus tendon between the calcaneal tubercle and the cuboid region some of which may be due to magic angle artifact. Partial tear and or tendon strain is also suspected. The anterior extensor tendons have an unremarkable appearance IMPRESSION: 1. Abnormal signal intensity involving the mid to aspect of the calcaneus at the central subtalar region consistent with bone bruise. Also suspect microfracture 2. Increased T2 signal of the peroneal longus tendon between the calcaneal tubercle and the cuboid region some which may be due to magic angle artifact. Also suspect either partial tear or tendon strain Dictated by: Gavin Mora MD 05/17/2020 13:15 Gavin Mora MD in [place] 05/17/2020 13:15
== END ==
PROVIDERS: PCP Family Medicine; Visit Provider Podiatrist
DX: M25.371 Other instability, right ankle (principal); M25.571 Pain in right ankle and joints of right foot; M76.71 Peroneal tendinitis, right leg
CPT/HCPCS: 73723; A9576

== ENCOUNTER 2020-06-24 13:00 | Outpatient (RCR) | payer OTHER, SELFPAY ==
--- NOTE | 2020-06-16 10:21 | HMH.PTOPEV ---
PT Outpatient Evaluation Rehab PT Outpatient Evaluation Start: 06/16/20 09:47 Freq: Status: Active Protocol: Document 06/16/20 10:11 RIP (Rec: 06/16/20 10:20 RIP [id number]) Electronically Signed By Eliel James, PT 06/16/20 10:11 Outpatient Therapy Subjective History Subjective History Pt reports insidious onset R foot, ankle, heel pain beginning around Frederic 20 . Pt reports severe pain around R calcaneus that referred pain 'up into my ankle'. Pt reports s/s have decreased significantly, however, recent MRI (05/14) shows calcaneal stress fx, peroneal and achilles tendinits on RLE. Pt reports ' very little pain now', and is ambulating w/o AD, 'just really concerned with how this how happened'. Chief Complaint Pain,Stiff,Swelling,Weakness Symptom Type Ache,Dull Symptoms Relieved By Rest/Positioning,Ice Symptoms Aggravated By Standing,Physical Activity, Walking Prior Functional Limitations Standing,Walking,Stairs Current Functional Limitations Housework,Standing,Walking, Stairs Symptom Description Constant but Variable Level of pain today (0-10) 3 Pain scale - at its best (0-10) 0 Pain scale - at its worst (0-10) 1 Ankle/Foot Eval Gait Observation General Gait Pattern Observation Antalgic Gait Assistive Device Ambulation Assistive Device None Palpation Tenderness right Ankle/Foot Palpation Findings Tenderness Ankle/Foot Palpation Overall Comment ACHILLES TENDON 2-3/4 ROM Ankle/Foot Dorsiflexion w/Knee Extended 0-12 Active Range Motion (degrees) Ankle/Foot Plantar Flexion Active Range 0-65 of Motion (degrees) Ankle/Foot Eversion Active Range of 0-25 Motion (degrees) Ankle/Foot Inversion Active Range of 0-55 Motion (degrees) MMT Ankle Dorsiflexion Strength Grade 4 Good Ankle Plantarflexion Strength Grade 4 Good Foot Eversion Strength Grade 4 Good Foot Inversion Strength Grade 4 Good Special Tests Ankle Anterior Drawer Test Negative Right Talar Tilt Test Negative Right Foot/Heel Tap/Percussion Test Negative Right Outpatient Therapy Assessment Impairments Problems/Impairmments Palpation Tenderness,Impaired Strength,Impaired Gait Pattern
== END 2020-06-24 13:05 | disposition home or self-care (01) ==
LOC: PT 13:00
PROVIDERS: PCP Family Medicine; Visit Provider Podiatrist
DX: M25.571 Pain in right ankle and joints of right foot (principal); M25.371 Other instability, right ankle; M84.374A Stress fracture, right foot, initial encounter for fracture; S86.311A Strain of muscle(s) and tendon(s) of peroneal muscle group at lower leg level, right leg, initial encounter
CPT/HCPCS: 97010; 97014; 97110; 97112; 97163; G0283

== ENCOUNTER → 2020-06-25 09:34 | Outpatient (CLI) | payer OTHER, SELFPAY ==
--- NOTE | 2020-06-25 09:36 | XR_ITS ---
PROCEDURE: XR DEXA AXIAL SKELETON CLINICAL HISTORY: STRESS FRACTURE OF RT FOOT, W/ ROUTINE HEALING COMPARISON: No exams were available for comparison FINDINGS: The right hip BMD is 0.761 with a T-score of -0.8. The left hip BMD is 0.811 with a T-score of -0.3. The lumbar spine BMD is 1.021 with a T-score of -0.2. IMPRESSION: This patient is considered normal according to the World Health Organization criteria. Fracture risk is low. Based on these results a follow-up exam is recommended in 2 year. Dictated by: Gavin Mora MD 06/26/2020 09:08 Gavin Mora MD in [place] 06/26/2020 09:08
== END ==
PROVIDERS: PCP Family Medicine; Visit Provider Nurse Practitioner Family
DX: M84.374D Stress fracture, right foot, subsequent encounter for fracture with routine healing (principal)
CPT/HCPCS: 77080

== ENCOUNTER → 2021-01-17 14:06 | Outpatient (CLI) | payer OTHER, SELFPAY ==
--- NOTE | 2021-01-17 14:08 | CT_ITS ---
PROCEDURE: CT FACIAL BONES WO CON CLINICAL HISTORY: LEFT TEMPOROMANDIBULAR JOINT DISORDER, JAW PAIN COMPARISON: No exams were available for comparison TECHNIQUE: Axial images obtained with sagittal and coronal reformats. All CT scans at the facility use one or more dose reduction, viz: automated exposure control, ma/kV adjustment per patient size (including targeted exams where dose is matched to indication, i.e. head), or iterative reconstruction technique. FINDINGS: Right TMJ has an unremarkable appearance. There are mild osteoarthritic changes of the left TMJ with loss of joint space and osteophyte formation along the head of the mandibular condyle. There is a 3 by 2 cm retention cyst in the posterior aspect of the left maxillary sinus. No air-fluid levels of the sinuses. The orbits have an unremarkable appearance. Small nodes are present in the neck on both sides. 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 3 cm left maxillary sinus retention cyst Dictated by: Gavin Mora MD 01/18/2021 13:45 Gavin Mora MD in [facility] 01/18/2021 13:45
== END ==
PROVIDERS: PCP Family Medicine; Visit Provider Nurse Practitioner Family
DX: M26.602 Left temporomandibular joint disorder, unspecified (principal); R68.84 Jaw pain
CPT/HCPCS: 70486

== ENCOUNTER → 2021-03-14 13:33 | Outpatient (CLI) | payer OTHER, SELFPAY ==
--- NOTE | 2021-03-14 13:35 | MM_ITS ---
PROCEDURE INFORMATION: Exam: MG Bilateral Diagnostic Breast Tomosynthesis Exam date and time: 03/14/2021 1:35 PM Age: 50 years old Clinical indication: Lump of axillary tail of lt breast, pain bilat breasts TECHNIQUE: Imaging protocol: Bilateral Diagnostic tomosynthesis and 2D mammography including computer-aided detection (CAD) when performed. Unilateral or bilateral exam. COMPARISON: 1. MG MM DIG SCREENING MAMM BI W/CAD 09/24/2019 10:33 AM 2. MG DMSB DIG MAMM-SCREEN ELLI 08/27/2015 9:16 AM FINDINGS: MAMMOGRAPHY: The breast tissue is extremely dense, which lowers the sensitivity of mammography. There is no stellate mass, architectural distortion or suspicious microcalcifications in either breast to suggest malignancy. Additional spot compression view of the left axillary tail does not demonstrate any suspicious masses. No skin thickening or axillary adenopathy. IMPRESSION: Patient to return for complete bilateral breast ultrasound for full evaluation of the patient's complaint of a left axillary tail palpable mass as well as for further evaluation of bilateral breast pain ASSESSMENT: BI-RADS Category 0: Incomplete- Need Additional Imaging Evaluation and/or Prior Mammograms for Comparison
== END ==
PROVIDERS: PCP Family Medicine; Visit Provider Nurse Practitioner Family
DX: N64.4 Mastodynia (principal); N63.20 Unspecified lump in the left breast, unspecified quadrant
CPT/HCPCS: 76641; 77062; 77066; G0279

== ENCOUNTER → 2021-04-01 09:21 | Outpatient (CLI) | payer OTHER, SELFPAY ==
--- NOTE | 2021-04-01 09:23 | US_ITS ---
PROCEDURE INFORMATION: Exam: US Left Breast, Complete US Right Breast, Complete Exam date and time: 04/01/2021 9:23 AM Age: 50 years old Clinical indication: Pain and palpable abnormality in the left axilla TECHNIQUE: Imaging protocol: Complete ultrasound of all four quadrants of the Left breast and the retroareolar regions, including ultrasound of the axilla when performed. Complete ultrasound of all four quadrants of the Right breast and the retroareolar regions, including ultrasound of the axilla when performed. COMPARISON: US BREAST LT COMPLETE 03/14/2021 2:10 PM FINDINGS: Breast: Sonographic images of both breasts including the retroareolar regions, all 4 quadrants and the axilla do not demonstrate any solid masses. Bilateral cystic change is present measuring to 1.0 cm in the right 10 o'clock periareolar region and to 2.3 cm in the left 12 o'clock periareolar region. No architectural distortion or acoustical shadowing. No skin thickening or axillary adenopathy. Several fat containing benign-appearing left axillary lymph nodes are noted measuring up to 3.2 cm in greatest dimension. IMPRESSION: No sonographic evidence of malignancy. Palpable abnormality in the left axilla corresponds to several fat containing benign-appearing axillary lymph nodes.Further evaluation of a palpable abnormality should be based on clinical grounds regardless of radiographic findings or lack thereof. Bilateral benign cystic change. Annual mammographic screening is recommended unless otherwise clinically indicated. ASSESSMENT: BI-RADS Category 2: Benign
== END ==
PROVIDERS: PCP Family Medicine; Visit Provider Nurse Practitioner Family
DX: R92.8 Other abnormal and inconclusive findings on diagnostic imaging of breast (principal)
CPT/HCPCS: 76641

== ENCOUNTER → 2021-04-25 09:31 | Outpatient (CLI) | payer OTHER, SELFPAY ==
[2021-04-25 09:59] LABS: Basophils # 0.1 K/mm3 (0-0.2); Basophils % 0.8 % (0.1-2.0); Eosinophils # 0.1 K/mm3 (0.0-0.4); Eosinophils % 1.1 % (0.1-12.0); Hematocrit 45.3 % (37.0-47.0); Lymphocytes # 2.2 K/mm3 (0.7-4.5); Lymphocytes % 26.5 % (10-50); Mean Corpuscular HGB Conc 33.1 g/dL (31.8-35.4); Mean Corpuscular Hemoglobin 32.3 pg (27.0-31.2); Mean Corpuscular Volume 97.4 fl (81-99); Mean Platelet Volume 7.4 fl (7.4-10.4); Monocytes # 0.5 K/mm3 (0.1-1.0); Monocytes % 6.4 % (1.7-9.3); Neutrophils # 5.5 K/mm3 (1.8-7.8); Neutrophils % 65.2 % (37.0-80.0); Platelet Count 413 K/mm3 (142-424); Red Blood Count 4.65 M/mm3 (4.20-5.40); Red Cell Distribution Width 13.4 % (11.5-17.5); White Blood Count 8.4 K/mm3 (4.8-10.8)
[2021-04-25 10:31] LABS: Chloride 100 mmol/L (98-107)
[2021-04-25 10:32] LABS: Potassium 3.9 mmoL/L (3.5-5.1); Sodium 138 mmol/L (136-145)
[2021-04-25 10:34] LABS: Blood Urea Nitrogen 19 mg/dl (7-17); Estimated Glomerular Filt Rate 105 ml/min (>60); GFR (African American) 128 ML/MIN (>60)
[2021-04-25 10:35] LABS: Anion Gap 11.9 mEq/L (5-15); Calcium 9.3 mg/dl (8.4-10.2); Carbon Dioxide 30 mmol/L (22.0-30.0); Glucose 124 mg/dl (74-100)
== END ==
PROVIDERS: PCP Nurse Practitioner Family; Visit Provider Surgery
DX: Z01.812 Encounter for preprocedural laboratory examination (principal); Z11.52 Encounter for screening for COVID-19; R22.30 Localized swelling, mass and lump, unspecified upper limb
CPT/HCPCS: 36415; 80048; 85025; C9803; U0003; U0005

== ENCOUNTER 2021-04-26 09:03 | Day surgery (SDC) | payer OTHER, SELFPAY ==
[2021-04-25 10:30] VITALS: BMI 34.9
[2021-04-26] VITALS (10 sets, daily range): BP systolic 120–168; BP diastolic 72–108; PULSE 85–93; RESP 13–19; TEMP 36.2–36.9; O2SAT 93–99
[2021-04-26 07:58] LABS: HCG Qualitative, Serum Negative (Negative)
--- NOTE | 2021-04-26 10:19 | HMH.ANESCL ---
[facility] Anesthesia Checklist - Patient Identification Patient Identification: Arm Band - Structural Data Admitted From: Home Planned Operative Procedure/s: Excision axillary mass Consent for Planned Operative Procedure(s) Verified: Yes - NPO Status Verified Time NPO: 00:00 - Additional verifications Anesthesia Reactions: No Hx Blood Transfusions: No Blood Transfusion Reaction: No - Airway Assessment C-Spine Mobility Assessed: Yes TMJ Mobility Assessed: Yes Dentition: Good Dentition - Neurological Assessment Level of Consciousness: Awake Hx Seizures: No Numbness or tingling in extremities: No - Anesthesia Plan Anesthesia Risk discussed: Yes Anesthesia Plan: Verified ASA Class: II Anesthesia Type: General [facility] History I have reviewed the patient's past medical history: Yes Medical History: Reports:: Congenital Heart Disease (Myocardial bridge), Gastroesophageal Reflux Disease(GERD), Hypertension, Migraine Denies:: Cancer, Diabetes Mellitus Type 1, Diabetes Mellitus Type 2, Internal Pacemaker, MRSA, Seizures *Have you ever received a pneumonia vaccine?: No *Have you received a flu vaccine this season?: No Other Medical History: Reports: Arthritis, Fibromyalgia, Other. Denies: Blood Transfusion Reaction Anesthesia experience/problems:: None Laterality Cases: Right: Lumpectomy Other Surgeries: Yes: No Previous Surgery, Cardiac Catheterization, , Other (Left foot tendon repair.). No: Pacemaker Amputation: No Fractures: No - *Social History Last grade of school completed: Some college Smoking Status: Never smoker Tobacco Type: cigarettes # Packs/Day (cigarettes): 0 #Yrs smoked (if former smoker): 0 Alcohol Intake: never Alcohol Intake Frequency:: other Substance Use Type: denies use *Occupational Status:: unemployed Housing: house Household Members: spouse *Travel in the last 8 weeks: None Family Hx:: Asthma, Cancer, Diabetes, Heart Attack, Hypertension, Stroke
--- NOTE | 2021-04-26 13:12 | P.OP_ITS ---
Date of procedure: 04/26/21 Pre-op Diagnosis:: Left axillary mass Post-op Diagnosis:: Same Procedure performed:: Excision of large left deep axillary mass Surgeon:: Carlton Quiñonez MD [employer]:: Wes Keller Anesthesia: HOWARD Estimated blood loss (mL): 25 Clinical Note:: Patient is a 50-year-old female referred by Elizabeth Garrett for left axillary lymph node. She states that she first noted a swelling in the left axillary, left breast upper outer quadrant, at the beginning of February. She underwent a course of antibiotics. She does state that it has significantly continued to increase in size. She underwent imaging including diagnostic mammogram and ultrasound. This revealed benign findings with benign fatty lymph nodes measuring about 3 cm. However, patient states that the area has continued to increase in size. She has had continued increasing tenderness. She also has some pain in the region of the brachiocephalic nerve. She was seen in the office yesterday on 04/25/2021. She had an obvious large palpable left axillary mass. This was felt to be possibly a large lipoma. The options were discussed with the patient and she wished to pursue excision. Operative findings:: Consistent with large fatty mass measuring 11 cm x 8 cm x 6 cm. Well- circumscribed and encapsulated. She did have some prominent fatty lymph nodes as well. Operative note:: Patient was taken to the operating room. She was given preoperative intravenous antibiotics. In the operating room she is placed in a supine position. General anesthesia was induced. The left axilla and left upper extremity were prepped and draped in the standard surgical fashion. The lesion was palpable and somewhat mobile. Curvilinear incision was made in the left axilla area anteriorly. Dissection was carried down through subcutaneous tissues and axillary fascia. Mass was encountered. It appeared to be large fatty mass encapsulated. Using mostly blunt dissection it was dissected free from the surrounding structures. The mass was ultimately delivered through the wound. Remaining attachments were incised with electrocautery. The mass measured 11 cm x 8 cm x 6 cm. It was within the deep axilla. Inspection of the axilla was carried out. There was some relatively well demarcated fatty tissue containing lymph nodes adjacent to this. This was dissected free with blunt dissection. The lymphatic vessels were clipped with hemoclips. This was sent off as specimen axillary lymph node along with the primary specimen. Wound was irrigated. Hemostasis was achieved with use of hemoclips with limited use of electrocautery. Axillary fascia was reapproximated with several interrupted 2-0 Vicryl sutures. Subdermal tissues were closed with running 3-0 Vicryl. Skin was closed with 4-0 Monocryl in a running subcuticular fashion. Bulky clean dry sterile dressing was applied. Condition: stable Disposition: PACU Specimens:: Left axillary mass and the lymph node Complications:: None immediately apparent
--- NOTE | 2021-04-26 13:14 | HMH.ANESI ---
[facility] Anesthesia Record Part I Intake, IV Amount: 1,000 Estimated blood loss (mL): 10 Urine output (mL): 0 Blood Pressure: 168/108 SaO2: 94 Pulse Rate: 93 Respiratory Rate: 16 Temperature: 97.2 F Patient is:: Drowsy, Stable Stable to PACU at:: 13:10
--- NOTE | 2021-04-26 14:27 | P.PN_ITS ---
[facility] Anesthesia Record Part II Discharge Time: 13:40 Destination: Surgical Day Care (OP Surgery) PACU nurse assessment reviewed?: Yes Patient Condition:: Good Anesthesia Complications:: None Swallowing reflex intact?: Yes Cyanosis?: No Blood Pressure: 139/87 Pulse Rate: 85 Temperature: 98.4 F Mental Status: Alert & Oriented Pain level:: 2 Nausea and/or vomitting:: None Intake, IV Amount: 0
== END 2021-04-26 14:15 | disposition home or self-care (01) ==
LOC: OR 09:04
PROVIDERS: PCP Family Medicine; Visit Provider Surgery
PROC: (CPT 38525; principal; 2021-04-26 10:45)
DX: N63.32 Unspecified lump in axillary tail of the left breast (principal); K21.9 Gastro-esophageal reflux disease without esophagitis; I10 Essential (primary) hypertension; G43.909 Migraine, unspecified, not intractable, without status migrainosus; M19.90 Unspecified osteoarthritis, unspecified site; M79.7 Fibromyalgia; Q24.5 Malformation of coronary vessels; Z82.5 Family history of asthma and other chronic lower respiratory diseases; Z80.9 Family history of malignant neoplasm, unspecified; Z83.3 Family history of diabetes mellitus; Z82.3 Family history of stroke; Z82.49 Family history of ischemic heart disease and other diseases of the circulatory system; Z88.8 Allergy status to other drugs, medicaments and biological substances
CPT/HCPCS: 38525; 84703; 96374; J2405

== ENCOUNTER → 2021-07-26 10:38 | Outpatient (CLI) | payer OTHER, SELFPAY ==
--- NOTE | 2021-07-26 10:42 | XR_ITS ---
FINAL REPORT CLINICAL HISTORY: LT KNEE SWELLING,LT KNEE INJURY left knee swelling on the lateral side x since sunday pt stated knee popped and knee has been giving out FINDINGS: Three views of the left knee reveal no evidence of fracture or dislocation. The bony alignment is normal. The joint spaces are preserved. There is no evidence of joint effusion. No localized soft tissue abnormality is seen. IMPRESSION: No acute abnormality identified. Reviewed, Interpreted and Dictated by Carlton Shukla III, MD Transcribed by Yadira Baltazar Authenticated by Carlton Shukla III, MD on 07/26/2021 12:36:20 PM [facility]
== END ==
PROVIDERS: PCP Nurse Practitioner Family; Visit Provider Nurse Practitioner Family
DX: S89.92XA Unspecified injury of left lower leg, initial encounter (principal); M25.462 Effusion, left knee
CPT/HCPCS: 73562

== ENCOUNTER 2021-08-26 10:00 | Outpatient (RCR) | payer OTHER, SELFPAY | END 2021-08-26 10:05 | disposition home or self-care (01) | LOC: PT 10:00 | PROVIDERS: PCP Nurse Practitioner Family; Visit Provider Nurse Practitioner Family | DX: M25.462 Effusion, left knee (principal); S89.92XD Unspecified injury of left lower leg, subsequent encounter | CPT/HCPCS: 97010; 97014; 97033; 97110; 97112; 97163; G0283 ==

== ENCOUNTER → 2021-10-25 09:52 | Outpatient (CLI) | payer OTHER, SELFPAY ==
--- NOTE | 2021-10-25 09:58 | XR_ITS ---
FINAL REPORT CLINICAL HISTORY: ACUTE RIGHT SIDED LOW BACK PAIN WITHOUT SOCIATICA FINDINGS: LUMBAR SPINE. Five views demonstrate no acute fracture. Mild degenerative changes are present. There is levoscoliosis. There is no malalignment. There is a 7 cm rounded mass in the medial right abdomen of uncertain etiology, could represent renal stone or other mass. IMPRESSION: The mass in the medial right abdomen as above. Recommend CT abdomen and pelvis with contrast. Reviewed, Interpreted and Dictated by Carlton Shukla III, MD Transcribed by Katie Hensley Authenticated and [facility]
== END ==
PROVIDERS: PCP Nurse Practitioner Family; Visit Provider Nurse Practitioner Family
DX: M54.50 Low back pain, unspecified (principal)
CPT/HCPCS: 72110

== ENCOUNTER → 2021-11-07 08:23 | Outpatient (CLI) | payer OTHER, SELFPAY ==
--- NOTE | 2021-11-07 08:29 | CT_ITS ---
FINAL REPORT CLINICAL HISTORY: ABDOMINAL MASS OF OTHERSITE; ABNORMAL X-RAY, COMPARISON: Lumbar spine radiographs dated 10/25/2021 FINDINGS: CT OF THE ABDOMEN AND PELVIS WITH CONTRAST Axial CT images of the abdomen and pelvis were obtained after the administration of oral and iv contrast. Coronal reformatted images were also obtained and reviewed.This study was performed with techniques to keep radiation doses as low as reasonably achievable (ALARA). Individualized dose reduction techniques using automated exposure control or adjustment of mA and/or kV according to the patient's size were employed. Abdomen: The lung bases are clear. The heart is normal in size. There are areas of fatty infiltration. The spleen is unremarkable. No adrenal mass is present. The pancreas has an unremarkable appearance. There is a 7 cm simple cyst in the medial right kidney which accounts for the abnormality on the plain radiograph. The aorta is normal in caliber. There is no free fluid or adenopathy. No mass or abnormal fluid collection is seen. Pelvis: The appendix is normal. The urinary bladder is unremarkable. There is a small umbilical hernia containing fat. There is a 1.9 cm mass in the uterus fundus. There is a 2.1 cm probable right corpus luteal cyst. There is a small cyst in the left ovary. There is no evidence of bowel obstruction. IMPRESSION: Simple cyst in the medial right kidney accounts for abnormality on plain radiograph. Bilateral ovarian cysts. Reviewed, Interpreted and Dictated by Carlton Shukla III, MD Transcribed by Yadira Baltazar Authenticated and [facility]
[2021-11-07 09:13] LABS: Blood Urea Nitrogen 18 mg/dl (7-17); Estimated Glomerular Filt Rate 88 ml/min (>60); GFR (African American) 107 ML/MIN (>60)
== END ==
PROVIDERS: PCP Nurse Practitioner Family; Visit Provider Nurse Practitioner Family
DX: R19.09 Other intra-abdominal and pelvic swelling, mass and lump (principal); R93.89 Abnormal findings on diagnostic imaging of other specified body structures
CPT/HCPCS: 36415; 74177; 82565; 84520; Q9967

== ENCOUNTER → 2021-11-24 07:24 | Outpatient (CLI) | payer OTHER, SELFPAY ==
--- NOTE | 2021-11-24 07:35 | MR_ITS ---
FINAL REPORT CLINICAL HISTORY: LEVOSCOLIOSIS OF LUMBAR SPINE. RIGHT SIDED LOW BACK PAIN X1YEAR. NO INJURY OR TRAUMA. INTERMITENT RIGHT LEG PAIN, NUMBNESS AND TINGLING. FINDINGS: MRI LUMBAR SPINE W/O CONTRAST Multiplanar MR imaging of the lumbar spine was performed without contrast. On the sagittal T2-weighted images, disc degeneration is seen at L5-S1. There is mild leftward curvature. The vertebral alignment is normal. Note is made of a hemangioma in the L3 vertebral body. There is no evidence of fracture. The conus has an unremarkable appearance. L1-2: No significant central canal stenosis or neural foraminal narrowing. L2-3: No significant central canal stenosis or neural foraminal narrowing. L3-4: No significant central canal stenosis or neural foraminal narrowing. L4-5: There is an annular disc bulge with facet arthropathy. There is mild right neural from narrowing.. L5-S1: There is an annular disc bulge with facet arthropathy. A central disc protrusion contacts the S1 nerve roots. There is mild right moderate left neural foraminal narrowing. IMPRESSION: Disc degeneration and a central disc protrusion which contacts the S1 nerve roots at L5-S1 with neural foraminal narrowing at L4-5 and L5-S1. Reviewed, Interpreted and Dictated by Carlton Shukla III, MD Transcribed by Lia Arce Authenticated and [facility]
== END ==
PROVIDERS: PCP Nurse Practitioner Family; Visit Provider Nurse Practitioner Family
DX: M41.86 Other forms of scoliosis, lumbar region (principal)
CPT/HCPCS: 72148; 76376

== ENCOUNTER 2022-02-23 08:30 | Outpatient (RCR) | payer OTHER, SELFPAY | END 2022-02-23 08:35 | disposition home or self-care (01) | LOC: PT 08:30 | PROVIDERS: PCP Nurse Practitioner Family; Visit Provider Nurse Practitioner Family | DX: M54.40 Lumbago with sciatica, unspecified side (principal); M51.26 Other intervertebral disc displacement, lumbar region; M41.86 Other forms of scoliosis, lumbar region | CPT/HCPCS: 97010; 97110; 97163 ==

== ENCOUNTER → 2022-04-24 13:46 | Outpatient (CLI) | payer OTHER, SELFPAY ==
--- NOTE | 2022-04-24 13:49 | MM_ITS ---
PROCEDURE INFORMATION: Exam: US Left Breast, Complete MG Bilateral Diagnostic Breast Tomosynthesis Exam date and time: 04/24/2022 1:57 PM Age: 51 years old Clinical indication: Left breast palpable lump; upper outer quadrant TECHNIQUE: Imaging protocol: Complete ultrasound of all four quadrants of the Left breast and the retroareolar regions, including ultrasound of the axilla when performed. Bilateral Diagnostic tomosynthesis and 2D mammography including computer-aided detection (CAD) when performed. Unilateral or bilateral exam. COMPARISON: 1. MG MM DIG MAMM BI DX W/CAD 03/14/2021 1:51 PM 2. MG MM DIG SCREENING MAMM BI W/CAD 09/24/2019 10:33 AM FINDINGS: MAMMOGRAPHY: The breast tissue is extremely dense, which lowers the sensitivity of mammography. There is no stellate mass, architectural distortion or suspicious microcalcifications in either breast to suggest malignancy. Palpable mass in the left upper outer quadrant corresponds to a lobulated 3.3 cm mass best seen on tomographic images. No skin thickening or axillary adenopathy. ULTRASOUND: Sonographic images of the left 12 o'clock axis 2 cm from the nipple demonstrates a 3.6 cm cyst corresponding to the palpable mass and lobulated mass seen on mammography. Additional few scattered subcentimeter cysts are noted in the remainder of the left breast. No axillary adenopathy. IMPRESSION: Palpable mass in the left upper outer quadrant corresponds to a benign cyst. Further evaluation of a palpable abnormality should be based on clinical grounds regardless of radiographic findings or lack thereof.No mammographic evidence of malignancy. Annual screening is recommended unless otherwise clinically indicated. ASSESSMENT: BI-RADS Category 2: Benign
== END ==
PROVIDERS: PCP Nurse Practitioner Family; Visit Provider Nurse Practitioner Family
DX: N63.21 Unspecified lump in the left breast, upper outer quadrant (principal)
CPT/HCPCS: 76641; 77062; 77066; G0279

== ENCOUNTER → 2022-07-20 10:06 | Outpatient (CLI) | payer OTHER, SELFPAY ==
--- NOTE | 2022-07-20 10:10 | XR_ITS ---
FINAL REPORT CLINICAL HISTORY: foot pain FINDINGS: LEFT FOOT Three views of the left foot demonstrate no acute fracture or dislocation. There is pes planus deformity. The joint spaces are preserved. There is a small the plantar calcaneal spur. The soft tissues are unremarkable. IMPRESSION: Pes planus deformity. No acute bony abnormality. Reviewed, Interpreted and Dictated by Carlton Shukla III, MD Transcribed by Lia Arce Authenticated and [facility]
--- NOTE | 2022-07-20 10:10 | XR_ITS ---
FINAL REPORT CLINICAL HISTORY: Foot Pain FINDINGS: RIGHT ANKLE Three views of the right ankle were obtained. There is no acute fracture or dislocation. There are mild degenerative changes. There is a plantar calcaneal spur. There is no soft tissue abnormality. IMPRESSION: Degenerative change with no acute bony abnormality. Reviewed, Interpreted and Dictated by Carlton Shukla III, MD Transcribed by Lia Arce Authenticated and [facility]
--- NOTE | 2022-07-20 10:10 | XR_ITS ---
FINAL REPORT CLINICAL HISTORY: Foot Pain FINDINGS: RIGHT FOOT Three views of the right foot demonstrate no acute fracture or dislocation. There is pes planus deformity. The joint spaces are preserved. There is a small the plantar calcaneal spur. The soft tissues are unremarkable. IMPRESSION: Pes planus deformity. No acute bony abnormality. Reviewed, Interpreted and Dictated by Carlton Shukla III, MD Transcribed by Lia Arce Authenticated and . [facility]
--- NOTE | 2022-07-20 10:10 | XR_ITS ---
FINAL REPORT CLINICAL HISTORY: ankle pain FINDINGS: LEFT ANKLE Three views of the left ankle were obtained. There is no acute fracture or dislocation. There are mild degenerative changes. There is a plantar calcaneal spur. There is no soft tissue abnormality. IMPRESSION: Mild degenerative changes with no acute bony abnormality. Reviewed, Interpreted and Dictated by Carlton Shukla III, MD Transcribed by Lia Arce Authenticated and [facility]
--- NOTE | 2022-07-20 12:16 | XR_ITS ---
FINAL REPORT CLINICAL HISTORY: LEFT HAND PAIN COMPARISON: 04/13/2020 FINDINGS: LEFT HAND Three views demonstrate no acute fracture. There is no dislocation. The visualized joint spaces are normally aligned. There are mild degenerative changes. There are small loose bodies adjacent to the 2nd and 3rd D IP joints. IMPRESSION: Mild degenerative changes with no acute bony abnormality. Reviewed, Interpreted and Dictated by Carlton Shukla III, MD Transcribed by Lia Arce Authenticated and [facility]
== END ==
PROVIDERS: PCP Nurse Practitioner Family; Visit Provider Podiatrist
DX: M79.672 Pain in left foot (principal); M79.671 Pain in right foot; M25.572 Pain in left ankle and joints of left foot; M25.571 Pain in right ankle and joints of right foot; M79.642 Pain in left hand
CPT/HCPCS: 73130; 73610; 73630

== ENCOUNTER → 2022-08-09 12:47 | Outpatient (CLI) | payer OTHER, SELFPAY ==
--- NOTE | 2022-08-09 12:47 | CA_ITS ---
FINAL REPORT TECHNIQUE: Bilateral lower extremity venous duplex was performed with augmentation and compression. CLINICAL HISTORY: venous insufficiency post op lt ankle edema FINDINGS: Proper flow is seen throughout the deep venous systems bilaterally. There is no evidence of deep venous thrombosis. IMPRESSION: No evidence of deep venous thrombosis. Reviewed, Interpreted and Dictated by Alvarez Howard MD Transcribed by Katie Hensley Authenticated and [facility]
--- NOTE | 2022-08-09 12:53 | US_ITS ---
FINAL REPORT CLINICAL HISTORY: decreased sensation post op FINDINGS: COMPLETE ANKLE/BRACHIAL INDICES BILATERAL Complete ankle/brachial indices were obtained. The right NAMAN is 1.2. The left NAMAN is 1.1. IMPRESSION: ABIs are within normal limits bilaterally. Reviewed, Interpreted and Dictated by Alvarez Howard MD Transcribed by Katie Hensley Authenticated and [facility]
== END ==
PROVIDERS: PCP Nurse Practitioner Family; Visit Provider Podiatrist
DX: R09.89 Other specified symptoms and signs involving the circulatory and respiratory systems (principal); I87.2 Venous insufficiency (chronic) (peripheral); M79.604 Pain in right leg; M79.605 Pain in left leg; R20.2 Paresthesia of skin; Z98.890 Other specified postprocedural states
CPT/HCPCS: 93923; 93970

== ENCOUNTER → 2022-08-11 10:09 | Outpatient (CLI) | payer OTHER, SELFPAY ==
--- NOTE | 2022-08-11 10:09 | MR_ITS ---
FINAL REPORT CLINICAL HISTORY: ankle pain left ankle pain and lateral swelling sx in 2019 FINDINGS: Multiplanar MR imaging of the left ankle was performed without contrast. There is a minimal plantar spur. There are mild hypertrophic changes at the intertarsal joints. The bony structures are intact without evidence of fracture, bone bruise or marrow edema. No osteochondral lesion is identified. The ligaments are intact without evidence of injury. The flexor and extensor tendons are intact. The posterior plantar aponeurosis is intact. No significant joint effusion is seen. The musculature is intact. There is no evidence of soft tissue mass or cyst. IMPRESSION: No acute focal abnormality identified. Reviewed, Interpreted and Dictated by Alvarez Howard MD Transcribed by Katie Hensley Authenticated and [facility]
--- NOTE | 2022-08-11 10:09 | MR_ITS ---
FINAL REPORT CLINICAL HISTORY: ankle pain right ankle pain FINDINGS: Multiplanar MR imaging of the right ankle was performed without contrast. There is a small plantar spur. The bony structures are intact without evidence of fracture, bone bruise or marrow edema. No osteochondral lesion is identified. The ligaments are intact without evidence of injury. The flexor and extensor tendons are intact. The posterior plantar aponeurosis is intact. No significant joint effusion is seen. The musculature is intact. There is no evidence of soft tissue mass or cyst. IMPRESSION: No focal acute abnormality identified. Reviewed, Interpreted and Dictated by Alvarez Howard MD Transcribed by Katie Hensley Authenticated and [facility]
== END ==
PROVIDERS: PCP Nurse Practitioner Family; Visit Provider Podiatrist
DX: R09.89 Other specified symptoms and signs involving the circulatory and respiratory systems (principal); I87.2 Venous insufficiency (chronic) (peripheral); M25.571 Pain in right ankle and joints of right foot; M25.572 Pain in left ankle and joints of left foot; R20.2 Paresthesia of skin; Z98.890 Other specified postprocedural states
CPT/HCPCS: 73721

== ENCOUNTER → 2023-01-02 11:10 | Outpatient (CLI) | payer OTHER, SELFPAY ==
[2023-01-02 13:30] LABS: Alanine Aminotransferase 84 U/L (12-78); Albumin Level 4.3 g/dl (3.5-5.0); Albumin/Globulin Ratio 1.5 (1.1-1.8); Alkaline Phosphatase 94 U/L (38-126); Anion Gap 17.3 mEq/L (5-15); Aspartate Amino Transferase 51 U/L (14-36); Bilirubin,Total 0.3 mg/dl (0.2-1.3); Calcium 9.3 mg/dl (8.4-10.2); Carbon Dioxide 28 mmol/L (22.0-30.0); Chloride 100 mmol/L (98-107); Globulin 2.8 g/dL (1.3-3.2); Glucose 128 mg/dl (74-100); Potassium 4.3 mmoL/L (3.5-5.1); Sodium 141 mmol/L (136-145); Total Protein,Serum 7.1 g/dl (6.3-8.2)
[2023-01-02 14:00] LABS: Thyroid Stimulating Hormone 0.96 uIU/mL (0.465-4.68)
[2023-01-02 14:19] LABS: Vitamin B12 765 pg/mL (239-931)
[2023-01-02 17:08] LABS: Blood Urea Nitrogen 15 mg/dl (7-17); Estimated Glomerular Filt Rate 88 ml/min (>60); GFR (African American) 106 ML/MIN (>60)
[2023-01-02 17:44] LABS: Ferritin 73.3 ng/ml (11.1-264)
[2023-01-03 08:52] LABS: Estradiol 16.5 pg/mL (.); FSH 34.5 mIU/mL (.); LH 42.5 mIU/mL (.)
[2023-01-09 23:37] LABS: Zinc 76 ug/dL (44-115)
== END ==
PROVIDERS: PCP Nurse Practitioner Family; Visit Provider Nurse Practitioner Family
DX: N92.6 Irregular menstruation, unspecified (principal); R23.2 Flushing; L65.9 Nonscarring hair loss, unspecified; L85.3 Xerosis cutis; L75.0 Bromhidrosis
CPT/HCPCS: 36415; 80053; 82607; 82670; 82728; 83001; 83002; 84443; 84481; 84630

== ENCOUNTER → 2023-01-18 08:19 | Outpatient (CLI) | payer OTHER, SELFPAY ==
--- NOTE | 2023-01-18 08:19 | US_ITS ---
FINAL REPORT CLINICAL HISTORY: elevted liver enzymes FINDINGS: Sonographic images of the right upper quadrant were obtained. The pancreas is partially obscured.The liver has an appearance consistent with fatty infiltration. Gallbladder wall is borderline in size at 3 mm. No gallstones are identified. There is no evidence of biliary ductal dilatation.The common duct measures 3 mm. Limited images of the right kidney demonstrate a 6.7 cm right renal cyst. IMPRESSION: Fatty infiltration of the liver. Right renal cyst. Reviewed, Interpreted and Dictated by Carlton Shukla III, MD Transcribed by Amanda Marcano Authenticated and [facility]
== END ==
PROVIDERS: PCP Nurse Practitioner Family; Visit Provider Nurse Practitioner Family
DX: R74.8 Abnormal levels of other serum enzymes (principal)
CPT/HCPCS: 76705

== ENCOUNTER → 2023-02-21 13:58 | Outpatient (CLI) | payer OTHER, SELFPAY ==
[2023-02-21 14:13] LABS: Basophils # 0.1 K/mm3 (0-0.2); Basophils % 0.9 % (0.1-2.0); Eosinophils # 0.3 K/mm3 (0.0-0.4); Eosinophils % 4.4 % (0.1-12.0); Hematocrit 45.9 % (37.0-47.0); Hemoglobin 15.9 g/dL (12.2-16.2); Lymphocytes # 2.1 K/mm3 (0.7-4.5); Lymphocytes % 29.7 % (10-50); Mean Corpuscular HGB Conc 34.6 g/dL (31.8-35.4); Mean Corpuscular Volume 95.4 fl (81-99); Mean Platelet Volume 8.4 fl (7.4-10.4); Monocytes # 0.4 K/mm3 (0.1-1.0); Monocytes % 5.5 % (1.7-9.3); Neutrophils # 4.3 K/mm3 (1.8-7.8); Neutrophils % 59.4 % (37.0-80.0); Platelet Count 306 K/mm3 (142-424); Red Blood Count 4.82 M/mm3 (4.20-5.40); Red Cell Distribution Width 13.1 % (11.5-17.5); White Blood Count 7.2 K/mm3 (4.8-10.8)
[2023-02-21 14:53] LABS: Alanine Aminotransferase 123 U/L (12-78); Albumin Level 4.7 g/dl (3.5-5.0); Albumin/Globulin Ratio 1.6 (1.1-1.8); Alkaline Phosphatase 100 U/L (38-126); Anion Gap 17.2 mEq/L (5-15); Aspartate Amino Transferase 78 U/L (14-36); Bilirubin,Total 0.3 mg/dl (0.2-1.3); Blood Urea Nitrogen 22 mg/dl (7-17); Calcium 9.4 mg/dl (8.4-10.2); Carbon Dioxide 26 mmol/L (22.0-30.0); Chloride 101 mmol/L (98-107); Estimated Glomerular Filt Rate 88 ml/min (>60); GFR (African American) 106 ML/MIN (>60); Globulin 2.9 g/dL (1.3-3.2); Glucose 176 mg/dl (74-100); Potassium 4.2 mmoL/L (3.5-5.1); Sodium 140 mmol/L (136-145); Total Protein,Serum 7.6 g/dl (6.3-8.2)
== END ==
PROVIDERS: PCP Nurse Practitioner Family; Visit Provider Nurse Practitioner Family
DX: K76.0 Fatty (change of) liver, not elsewhere classified (principal); R74.8 Abnormal levels of other serum enzymes; L65.9 Nonscarring hair loss, unspecified
CPT/HCPCS: 80053; 82728; 85025

== ENCOUNTER 2023-02-28 09:00 | Outpatient (RCR) | payer OTHER, SELFPAY ==
--- NOTE | 2023-02-02 15:02 | HMH.PTOPEV ---
PT Outpatient Evaluation Rehab PT Outpatient Evaluation Start: 02/02/23 14:35 Freq: Status: Active Protocol: Document 02/02/23 14:35 BRENT (Rec: 02/02/23 15:02 PHORJEANNE [id number]) E-signed By Chirag Lipscomb, PT Outpatient Therapy Subjective History Subjective History This is the initial PT eval for Jenae Lang, 52 yowf who presents with c/o ~ 5 mo hx of R side low back pain with insidious onset of symptoms. She reports hx of chronic LBP x ~ 6-7 yrs with DDD and lumbar disc bulge at unknown level. 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 She reports no radicular symptoms at this time. She has PMH of restless leg syndrome and HTN. New diagnosis of cancer in past 12 No months? Chief Complaint Pain Symptom Type Sharp,Stabbing Symptoms Relieved By Rest/Positioning Symptoms Aggravated By Standing,Physical Activity Prior Functional Limitations None Current Functional Limitations Housework,Standing,Walking Symptom Description Intermittent,Activity Dependent Level of pain today (0-10) 2 Pain scale - at its best (0-10) 0 Pain scale - at its worst (0-10) 8 Lumbopelvic Eval Posture Thoracic Spine Posture Standing Position Neutral Lumbar Spine Posture Standing Position Neutral Palapation tenderness right lumbar spinal tenderness Yes: 2/4 paraspinal tenderness Yes: 2/4 Lumbar/Sacral Palpation Findings Tenderness Lumbar/Sacral Palpation Overall Comment SI on R 2/4 Accessory Movement L-spine Vertebrae Accessory Movements Central P/A [place] that Elicit Symptoms L4 bilateral L5 bilateral S1 bilateral Range of Motion Lumbar Spine Active Flexion Range of 0-65 Motion (degrees) Lumbar Spine Active Extension Range of 0-20 Motion (degrees) Left Lumbar Spine Lateral Flexion Active 0-15 Range of Motion (degrees) Right Lumbar Spine Lateral Flexion 0-15 Active Range of Motion (degrees) Manual Muscle Test Bilateral Knee Extension Strength Grade 5 Normal Knee Flexion Strength Grade 5 Normal Hip Flexion Strength Grade 5 Normal Hip Abduction Strength Grade 5 Normal Hip Adduction Strength Grade 5 Normal Extensor Hallucis Longus Strength Grade 5 Normal Ankle Dorsiflexion Strength Grade 5 Normal Gastronemius/Soleus Strength Grade 5 Normal Special Tests Forward Bending Test- Standing Negative Left,Negative Right Hip Scouring (Quadrant) Test Negative Left,Negative Right Hip Jorge (PATIENCE) Test Negative Left,Negative Right Hip Piriformis Test Negative Left,Negative Right Hip Bowstring (Cram) Test Negative Left,Negative Right Sciatic Nerve Tension Test Negative Left,Negative Right Unilateral Straight Leg Raise (Lasegue) Negative Left,Negative Right Test Lumbar Long [place]otin Distraction Test/Manual Negative Traction Oswestry Index Section 1 Pain Intensity The pain comes and goes and is severe Section 2 Personal Care (Washing,Dresing) my way of washing or dressing even though it causes some pain Section 3 Lifting lifting heavy weights off the floor, but I can manage light to medium Section 4 Walking I have some pain when walking but it does not increase with distance Section 5 Sitting I can sit in my favorite chair for as long as I like Section 6 Standing I cannot stand more than 1/2 hour without increasing pain Section 7 Sleeping Because of my pain, my normal night's sleep is less than 6 hours sleep Section 8 Social Life Pain has no significant effect on my social life apart from limiting Section 9 Traveling I get extra pain while traveling, but it does not compel me to seek al Section 10 Changing Degreee of Pain My pain is gradually getting worse Score and Risk Level Oswestry Sc 24 Oswestry Risk Level Moderate Disability Outpatient Therapy Assessment Impairments Problems/Impairmments Palpation Tenderness,Impaired Endurance,Impaired Walking, Impaired Standing,Impaired Household Care,Impaired Recreational Activities, Subjective C/O Pain,Impaired Self Care/Self Management Prognosis Rehab Potential Good Clinical Impression Consistent with Diagnosis Yes Short Term Goals Number of Weeks 2 Decreased Palpation Tenderness Yes: 1/4 R side low back Increase Ability to Stand Yes: > 15 min without pain Improve Oswestry Score Yes: <20 Decrease Subjective C/O Pain Yes: 09/16 at worst Patient to be Ind w/ HEP Yes Umbrella Frame Maker Goals Number of Weeks 4 Decreased Palpation Tenderness Yes: 0/4 R side low back Increase Ability to Stand Yes: > 30 min without pain Improve Ability For Household Care Yes: without pain Improve Oswestry Score Yes: <16 Decrease Subjective C/O Pain Yes: 10 at worst Patient to be Ind w/ Advanced HEP Yes Outpatient Therapy Plan of Care Treatment Plan May Include Therapeutic Exercise Including Home Yes Exercise Program Manual Therapy Techniques Yes Neuromuscular Re-education Yes Therapeutic Activities to Return to Yes Previous Functional/Work Level ADL/Self Care Education Yes Dry Needling Yes Thermal Modalities Yes Electrical Stimulation Yes Ultrasound/Phonophoresis Yes Iontophoresis Yes Orthotics/Bracing/Splinting Yes Massage Yes Eval/Re-Eval Yes Frequency Times per week 2 Duration Number of Weeks 4 Addendums This patient is a candidate for social No or vocational rehab? Patient/Guardian verbally acknowledges Yes understanding of treatment program and consents to further treatment? Patient/Guardian verbally acknowledges Yes understanding of diagnosis, prognosis and goals for treatment? Eval Complexity PT Charges 29435 - High Complexity Shoulder/Elbow Eval Shoulder Objective Measurements Elbow Objective Measurements PHYSICIAN CERTIFICATION: I certify the specified therapy services for Jenae Lang are required, authorized, and reviewed every 30 days.
== END 2023-02-28 10:00 | disposition home or self-care (01) ==
LOC: PT 09:00
PROVIDERS: PCP Nurse Practitioner Family; Visit Provider Nurse Practitioner Family
DX: M54.41 Lumbago with sciatica, right side (principal); M54.50 Low back pain, unspecified
CPT/HCPCS: 97010; 97014; 97110; 97140; 97163; G0283

== ENCOUNTER → 2023-02-28 09:51 | Outpatient (CLI) | payer OTHER, SELFPAY ==
--- OUTSIDE RECORDS SUMMARY | 2023-02-28 09:54 | XMS_ITS ---
Care Plan - [facility], [facility] Created on: February 28, 2023 Jenae Lang : 1970 Sex: Female Author Name Unknown Address [address] [place] [address] Phone Organization [facility] Address [address] [place] [address] Phone Care Team Providers Care Chemical Plant Manager Name Role Phone OLMAN MEDINA Unavailable [phone] Tacho Oconnor MD Unavailable [phone]
--- OUTSIDE RECORDS SUMMARY | 2023-02-28 09:54 | XMS_ITS ---
Author Name Unknown Address [address] [place] [address] Phone Organization [facility] , [facility] Address [address] [place] [address] Phone Care Team Providers Care Mat Man Name Role Phone MEDINA OLMAN Unavailable [phone] Elvin GARCIA, Tacho Carrasquillo Unavailable [phone] Problems Includes: Active, inactive, and resolved Problems All Visits Onset Date Resolved Date Provider Condition S tatus Lower Back Pain 08/03/2016 Tacho Oconnor MD Act katrin Plan of Treatment Instructions to patient Lose weight Last Documented On 2 8:49AM ; [facility] Assessments Includes: Assessments for all patient encounters No Assessments Recorded Instructions Includes: Instructions for all patient encounters Instructions to patient Lose weight Last Documented On 2 8:49AM ; [facility] Medical Equipment - Implanted Devices Includes: Current and historical Devices No Medical Equipment Recorded Medications Includes: Current and historical Medications Current Medications (continue as prescribed) DULoxetine HCl 60 MG Oral Ca psule Delayed Release Particles 12/07/2021 Provider: OLMAN MEDINA
--- OUTSIDE RECORDS SUMMARY | 2023-02-28 09:55 | XMS_ITS | Clinical Summary ---
Author Name Unknown Address [address] [place] [address] Phone Organization [facility] , [facility] Address [address] [place] [address] Phone Care Team Providers Care Spout Positioner Name Role Phone OLMAN MEDINA Unavailable [phone] Elvin GARCIA, Tacho Carrasquillo Unavailable [phone] Reason for Visit and Chief Complaint The Chief Complaint is: Low back pain Problems Includes: Problems addressed during this encounter and other active Problems Current Visit Onset Date Resolved Date Provider Conditio n Status Lower Back Pain 08/03/2016 Tacho Oconnor MD Act katrin Plan of Treatment Patient was seen by myself Liborio Arce PA-C and Dr. Oconnor. He does not feel this is anything that needs surgery. Recommend referral for L5-S1 lumbar epidurals and physical therapy. We will see her back as needed - Last Documented On 08/07/2016 9:21AM ; [facility] Assessments Includes: Assessments from this encounter Findings L5-S1 DDD - Last Documented On 08/07/2016 9:21AM ; [facility] Medical Equipment - Implanted Devices Includes: Current Devices No Medical Equipment Recorded Medications Includes: Medications discussed during this encounter and other current Medications Current Medications (continue as prescribed) DULoxetine HCl 60 MG Oral Ca psule Delayed Release Particles 12/07/2021 Provider: OLMAN MEDINA
--- OUTSIDE RECORDS SUMMARY | 2023-02-28 09:55 | XMS_ITS | Clinical Summary ---
Author Name Unknown Address [address] [place] [address] Phone Organization [facility] , [facility] Address [address] [place] [address] Phone Care Team Providers Care Co Founder & Ceo Name Role Phone OLMAN MEDINA Unavailable [phone] Elvin GARCIA, Tacho Carrasquillo Unavailable [phone] Reason for Visit and Chief Complaint The Chief Complaint is: Low back pain Problems Includes: Problems addressed during this encounter and other active Problems Current Visit Onset Date Resolved Date Provider Conditio n Status Lower Back Pain 08/03/2016 Tacho Oconnor MD Act katrin Plan of Treatment Instructions to patient Lose weight Last Documented On 2 8:49AM ; [facility] Assessments Includes: Assessments from this encounter No Assessments Recorded Instructions Includes: Instructions from this encounter Instructions to patient Lose weight Last Documented On 2 8:49AM ; [facility] Medical Equipment - Implanted Devices Includes: Current Devices No Medical Equipment Recorded Medications Includes: Medications discussed during this encounter and other current Medications Current Medications (continue as prescribed) DULoxetine HCl 60 MG Oral Ca psule Delayed Re
[2023-03-01 06:00] LABS: Immunoglobulin G, Qn 691 mg/dL (586-1602)
[2023-03-01 06:14] LABS: HBsAg Screen Negative (Negative); HCV Ab Non Reactive (Non Reactive); Hep A Ab, IGM Negative (Negative); Hep B Core Ab, IgM Negative (Negative)
[2023-03-02 14:10] LABS: Liver-Kidney Microsomal Ab 2.2 Units (0.0-20.0)
[2023-03-02 15:11] LABS: Actin (Smooth Muscle) Antibody 8 Units (0-19)
[2023-03-06 09:49] LABS: Antinuclear Antibodies (ANA) Negative
== END ==
PROVIDERS: PCP Nurse Practitioner Family; Visit Provider Nurse Practitioner Family
DX: R74.8 Abnormal levels of other serum enzymes (principal)
CPT/HCPCS: 36415; 80074; 82784; 86038; 86225; 86235; 86255; 86376

== ENCOUNTER → 2023-03-28 13:32 | Outpatient (CLI) | payer OTHER, SELFPAY ==
--- OUTSIDE RECORDS SUMMARY | 2023-03-28 13:40 | XMS_ITS ---
Care Plan - [facility], [facility] Created on: March 28, 2023 Jenae Lang : 1970 Sex: Female Author Name Unknown Address [address] [place] [address] Phone Organization [facility] Address [address] [place] [address] Phone Care Team Providers Care French Translator Name Role Phone OLMAN MEDINA Unavailable [phone] Tacho Oconnor MD Unavailable [phone]
--- OUTSIDE RECORDS SUMMARY | 2023-03-28 13:40 | XMS_ITS | Clinical Summary ---
Author Name Unknown Address [address] [place] [address] Phone Organization [facility] , [facility] Address [address] [place] [address] Phone Care Team Providers Care Commercial Loan Collection Officer Name Role Phone OLMAN MEDINA Unavailable [phone] Elvin GARCIA, Tacho Carrasquillo Unavailable [phone] Reason for Visit and Chief [...] - Last Documented On 08/07/2016 9:21AM ; [facility] Assessments Includes: Assessments from this encounter Findings L5-S1 DDD - Last Documented On 08/07/2016 9:21AM ; [facility] Medical Equipment - Implanted Devices Includes: Current Devices No Medical Equipment Recorded Medications Includes: Medications discussed during this encounter and other current Medications Current Medications (continue as prescribed) DULoxetine HCl 60 MG Oral Ca psule Delayed Release Particles 12/07/2021 Provider: OLMAN MEDINA Diagnosis: Metoprolol Succinate ER 50 M G Oral Tablet Extended Release 24 Hour 11/28/2021 Provider: Cammy Moreland NP Diagnosis: Celecoxib 200 MG Oral Capsule 11/19/2021 Provider: OLMAN MEDINA Diagnosis: Omeprazole 40 MG Oral Capsule Delayed Release 11/12/19 Provider: OLMAN MEDINA Diagnosis: rOPINIRole HCl 0.5 MG Oral Tablet 11/08/2021 Provide r: OLMAN MEDINA Diagnosis: Medications Administered Includes: Administered Medications from this encounter No Administered Medications Recorded Vital Signs Includes: Vital Signs from this encounter Vital Name 08/03/2016 03:13P Height (in) 63 Weight (lb) 175 Body Mass Index (kg/m2) 31.0 Body Surface Area (m2) 1.8 Note: aco Last Documented On: 08/03/2016 3:32PM ; [facility], [facility] Results Includes: Results discussed during this encounter No Results Recorded For Specified Dates History of Present Illness Includes: History of Present Illness from this encounter GÉNESIS Lang is a 45 year old female. - Medication list reviewed. - Previous history of gradual onset pain - Sharp pain Symptoms - Stabbing Previous Treatment Medications used for this condition: Please rate pain on scale of 1 - 10: 8 Back pain that will radiates into both legs, feet, thigh areas, ongoing for a few years. It hurts to stand, bending over. Therapy did give her some temporary relief. Social History Description Last Updated Alcohol use 08/03/2016 Procedures and Surgical History Includes: Procedures from this encounter Procedures Code Diagnosis Performing Provider Service L ocation Service Date history of orthopedic options: physical therapy Medical History Includes: Medical History addressed during this encounter Description Last Updated , breast biopsy 08/03/2016 Family History Includes: Family History addressed during this encounter Description Last Updated Family history of cancer 08/03/2016 Review of Systems Includes: Review of Systems from this encounter Systemic: Feeling tired (fatigue). No recent weight loss. Recent weight gain and edema. Head: Headache. No sinus pain. Sinus pain. Eyes: No vision problems. Vision problems. No glaucomatous visual field defect. Otolaryngeal: No hearing loss, no hearing loss, and no tinnitus. No nasal symptoms. Cardiovascular: No chest pain or discomfort. Chest pain or discomfort. No palpitations. Pulmonary: No daytime asthma symptoms and no cough. Chronic cough and wheezing. Gastrointestinal: No heartburn and no heartburn. Abdominal pain. Endocrine: Hot flashes and muscle weakness. Hematologic: No easy bleeding and no tendency for easy bruising. Musculoskeletal: Lower back pain. No soft tissue swelling. Pain localized to one or more joints. Neurological: Dizziness. No convulsions. Numbness. Psychological: Anxiety, emotional lability, depression, insomnia, and crying for no reason. Skin: Dry skin. No rash. Ulcer(s). Allergic and Immunologic: Complaint of seasonal allergic reaction. Mental Status Includes: Mental Status from this encounter Description Anxiety Functional Status Includes: Functional Status from this encounter No Functional Status Recorded Physical Exam Includes: Physical Exam from this encounter Allergies Includes: Active Allergies Substance Type Reaction Onset Date Resolved Date Statu s IODINE Allergy 12/08/2021 Active Encounters Encounter Provider Location Date Check-In Time Check-Out Time Diagnosis NEW PATIENT Tacho Oconnor MD [facility] 08/04/19 17 2:56PM 4:21PM Insurance Includes: Active Insurance Policies Plan Name Member ID Group # Subscriber Relationship Effect katrin Dates 1 - [employer] [facility] [id number] Jenae Lang Self Clinical Notes Includes: Clinical Notes from this encounter No Clinical Notes Recorded
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
[2023-03-28 15:25] LABS: Alanine Aminotransferase 93 U/L (12-78); Albumin Level 4.4 g/dl (3.5-5.0); Alkaline Phosphatase 101 U/L (38-126); Aspartate Amino Transferase 61 U/L (14-36); Bilirubin,Direct 0.1 mg/dl (0.0-0.4); Bilirubin,Indirect 0.6 mg/dL (0.0-0.9); Bilirubin,Total 0.7 mg/dl (0.2-1.3); Bilirubin,Unconjugated 0.6 mg/dL (0.0-1.1); Total Protein,Serum 7.1 g/dl (6.3-8.2)
== END ==
LOC: LAB.DROPOF 13:36
PROVIDERS: PCP Nurse Practitioner Family; Visit Provider Nurse Practitioner Family
DX: R09.89 Other specified symptoms and signs involving the circulatory and respiratory systems (principal); K76.0 Fatty (change of) liver, not elsewhere classified; R74.8 Abnormal levels of other serum enzymes
CPT/HCPCS: 80076; 87635

== ENCOUNTER 2023-05-07 12:41 | Outpatient (CLI) | payer OTHER, SELFPAY ==
[2023-05-07 13:17] LABS: Alanine Aminotransferase 106 U/L (12-78); Albumin Level 4.4 g/dl (3.5-5.0); Alkaline Phosphatase 113 U/L (38-126); Aspartate Amino Transferase 71 U/L (14-36); Bilirubin,Direct 0.2 mg/dl (0.0-0.4); Bilirubin,Indirect 0.3 mg/dL (0.0-0.9); Bilirubin,Total 0.5 mg/dl (0.2-1.3); Bilirubin,Unconjugated 0.3 mg/dL (0.0-1.1)
== END 2023-05-07 23:59 ==
LOC: LAB.DROPOF 12:41
PROVIDERS: PCP Nurse Practitioner Family; Visit Provider Nurse Practitioner Family
DX: K76.0 Fatty (change of) liver, not elsewhere classified (principal); R74.8 Abnormal levels of other serum enzymes
CPT/HCPCS: 80076

== ENCOUNTER 2023-05-18 12:33 | Outpatient (CLI) | payer OTHER, SELFPAY ==
[2023-05-18 13:40] LABS: Hemoglobin A1C 7.3 % (4.0-6.0)
[2023-05-18 14:28] LABS: Magnesium 1.8 mg/dl (1.6-2.3)
[2023-05-18 14:45] LABS: 25-OH Vitamin D, Total 23.8 ng/mL (30-100)
[2023-05-18 15:00] LABS: Thyroid Stimulating Hormone 1.41 uIU/mL (0.465-4.68)
[2023-05-18 15:04] LABS: Ferritin 123 ng/ml (11.1-264)
[2023-05-18 16:38] LABS: Vitamin B12 868 pg/mL (239-931)
[2023-05-19 08:38] LABS: Triiodothyronine (T3) Free 3.2 pg/mL (2.0-4.4)
== END 2023-05-18 23:59 ==
LOC: LAB.DROPOF 12:33
PROVIDERS: PCP Nurse Practitioner Family; Visit Provider Nurse Practitioner Family
DX: M79.7 Fibromyalgia (principal); F32.A Depression, unspecified; R53.83 Other fatigue; R73.09 Other abnormal glucose; R74.8 Abnormal levels of other serum enzymes; E55.9 Vitamin D deficiency, unspecified; Z79.899 Other long term (current) drug therapy
CPT/HCPCS: 82306; 82607; 82728; 83036; 83735; 84443; 84481

== ENCOUNTER 2023-06-05 11:44 | Outpatient (CLI) | payer OTHER, SELFPAY ==
[2023-06-05 14:03] VITALS: BMI 37.3
== END 2023-06-05 23:59 ==
LOC: DIETICIAN 11:45
PROVIDERS: PCP Nurse Practitioner Family; Visit Provider Nurse Practitioner Family
DX: E11.9 Type 2 diabetes mellitus without complications (principal); K76.0 Fatty (change of) liver, not elsewhere classified; Z79.84 Long term (current) use of oral hypoglycemic drugs
CPT/HCPCS: 97802

== ENCOUNTER 2023-07-03 14:09 | Outpatient (CLI) | payer OTHER, SELFPAY ==
[2023-07-03 16:06] LABS: Chloride 102 mmol/L (98-107); Sodium 139 mmol/L (136-145)
[2023-07-03 16:07] LABS: Potassium 4.1 mmoL/L (3.5-5.1)
[2023-07-03 16:09] LABS: Alanine Aminotransferase 86 U/L (12-78); Albumin Level 4.4 g/dl (3.5-5.0); Albumin/Globulin Ratio 1.7 (1.1-1.8); Alkaline Phosphatase 107 U/L (38-126); Anion Gap 16.1 mEq/L (5-15); Aspartate Amino Transferase 61 U/L (14-36); Bilirubin,Total 0.5 mg/dl (0.2-1.3); Blood Urea Nitrogen 19 mg/dl (7-17); Carbon Dioxide 25 mmol/L (22.0-30.0); Estimated Glomerular Filt Rate 88 ml/min (>60); GFR (African American) 106 ML/MIN (>60); Globulin 2.6 g/dL (1.3-3.2)
[2023-07-03 16:10] LABS: Calcium 9.4 mg/dl (8.4-10.2); Glucose 219 mg/dl (74-100)
== END 2023-07-03 23:59 ==
LOC: LAB.DROPOF 14:10
PROVIDERS: PCP Nurse Practitioner Family; Visit Provider Nurse Practitioner Family
DX: E11.9 Type 2 diabetes mellitus without complications (principal); R74.8 Abnormal levels of other serum enzymes; Z79.84 Long term (current) use of oral hypoglycemic drugs
CPT/HCPCS: 80053

== ENCOUNTER 2023-07-19 13:23 | Outpatient (CLI) | payer OTHER, SELFPAY ==
--- OUTSIDE RECORDS SUMMARY | 2023-07-19 13:25 | XMS_ITS ---
Author Name Unknown Address [address] [place] [address] Phone Organization [facility] Address [address] [place] [address] Phone Care Team Providers Care Metal Casting Trades Worker Name Role Phone CAROL OLMAN Unavailable [phone] Elvin GARCIA, Tacho Carrasquillo Unavailable [phone] Problems Includes: Active, inactive, and resolved Problems All Visits Onset Date Resolved Date Provider Condition S tatus Lower Back Pain 08/03/2016 Tacho Oconnor MD Act katrin Last Documented On 7 3:13PM ; [facility] Plan of Treatment Instructions to patient Lose weight Last Documented On 2 8:49AM ; [facility] Assessments Includes: Assessments for all patient encounters No Assessments Recorded Instructions Includes: Instructions for all patient encounters Instructions to patient Lose weight Last Documented On 2 8:49AM ; [facility] Medical Equipment - Implanted Devices Includes: Current and historical Devices No Medical Equipment Recorded Medications Includes: Current and historical Medications Current Medications (continue as prescribed) DULoxetine HCl 60 MG Oral Ca psule Delayed Release Particles 12/07/2021 Provider: OLMAN MEDINA Diagnosis: Last Documented On 2 8:36AM By Constanza Martínez [facility], [facility] Metoprolol Succinate ER 50 M G Oral Tablet Extended Release 24 Hour 11/28/2021 Provider: Cammy Moreland NP Diagnosis: Last Documented On 2 8:36AM By Constanza Martínez [facility], [facility] Celecoxib 200 MG Oral Capsule 11/19/2021 Provider: OLMAN MEDINA Diagnosis: Last Documented On 2 8:36AM By Constanza Rodgers ; [facility], [facility] Omeprazole 40 MG Oral Capsule Delayed Release 11/12/19 Provider: OLMAN MEDINA Diagnosis: Last Documented On 2 8:48AM By Constanza Rodgers ; [facility], [facility] rOPINIRole HCl 0.5 MG Oral Tablet 11/08/2021 Provide r: OLMAN MEDINA Diagnosis: Last Documented On 2 8:48AM By Constanza Rodgers ; [facility], [facility] Medications Administered Includes: Administered Medications in patient's chart No Administered Medications Recorded Results Includes: Results from 07/18/2022 through 07/19/2023 No Results Recorded For Specified Dates History of Present Illness History of Present Illness not supported for this document type No History of Present Illness Recorded Social History Description Last Updated Tobacco non-user 12/08/2021 Last Documented On 2 8:45PM ; [facility], [facility] No recent change in diet 12/08/2021 Last Documented On 2 8:45PM ; [facility], [facility] Not a current smoker. 12/08/2021 Last Documented On 2 8:45PM ; [facility] Alcohol use: 2 drinks or less per day Last Documented On 2 8:45PM ; [facility] Never smoked 12/08/2021 Last Documented On 2 8:45PM ; [facility] Never used drugs 12/08/2021 Last Documented On 2 8:45PM ; [facility] Unemployed 12/08/2021 Last Documented On 2 8:45PM ; [facility] Alcohol use 08/03/2016 Last Documented On 7 9:21AM ; [facility] Caffeine use 08/03/2016 Last Documented On 7 9:21AM ; [facility] Exercising regularly 08/03/2016 Last Documented On 7 9:21AM ; [facility] No recent change in diet 08/03/2016 Last Documented On 7 9:21AM ; [facility] Not a current smoker 08/03/2016 Last Documented On 7 9:21AM ; [facility] Not using drugs 08/03/2016 Last Documented On 7 9:21AM ; [facility] No tobacco use 08/03/2016 Last Documented On 7 9:21AM ; [facility] Smoking status : Never smoker 08/03/2016 Last Documented On 7 9:21AM ; [facility] Procedures and Surgical History Surgical History Last Updated History of Past Surgical History: 2021 Last Documented On 2 8:45PM ; [facility] Medical History Includes: Medical History in patient's chart Description Last Updated No recent immunization for flu 2 Last Documented On 2 8:45PM ; [facility], [facility] No recent immunization for pneumococcal pneumonia 12/08/2021 Last Documented On 2 8:45PM ; [facility] Past medical history non-contributory: H igh cholesterol, acid reflux 12/08/2021 Last Documented On 2 8:45PM ; [facility] Arthritic joint problems 08/03/2016 Last Documented On 7 9:21AM ; [facility] History of depression 08/03/2016 Last Documented On 7 9:21AM ; [facility] History of osteoporosis 08/03/2016 Last Documented On 7 9:21AM ; [facility] Family History Includes: Family History in patient's chart Description Last Updated Diabetes mellitus 12/08/2021 Last Documented On 2 8:45PM ; [facility] Family history of heart disease 12/09/19 22 Last Documented On 2 8:45PM ; [facility] Stroke / Seizures 12/08/2021 Last Documented On 2 8:45PM ; [facility] Maternal grandfather's history of family history of cancer 12/08/2021 Last Documented On 2 8:45PM ; [facility] Maternal grandfather's history of Stroke / Seizures 12/08/2021 Last Documented On 2 8:45PM ; [facility] Maternal grandmother's history of diabet es mellitus 12/08/2021 Last Documented On 2 8:45PM ; [facility] Maternal grandmother's history of family history of heart disease 12/08/2021 Last Documented On 2 8:45PM ; [facility] Maternal grandmother's history of system ic hypertension 12/08/2021 Last Documented On 2 8:45PM ; [facility] Maternal history of systemic hypertensio n 12/08/2021 Last Documented On 2 8:45PM ; [facility] Paternal grandmother's history of diabet es mellitus 12/08/2021 Last Documented On 2 8:45PM ; [facility] Paternal grandmother's history of system ic hypertension 12/08/2021 Last Documented On 2 8:45PM ; [facility] Paternal history of family history of ca ncer 12/08/2021 Last Documented On 2 8:45PM ; [facility] Paternal history of Stroke / Seizures Last Documented On 2 8:45PM ; [facility] Paternal history of systemic hypertensio n 12/08/2021 Last Documented On 2 8:45PM ; [facility] Sororal history of systemic hypertension 12/08/2021 Last Documented On 2 8:45PM ; [facility] Family history of cancer 08/03/2016 Last Documented On 7 9:21AM ; [facility] Family history of hypertension 7 Last Documented On 7 9:21AM ; [facility] No significant family history stroke/sei zure 08/03/2016 Last Documented On 7 9:21AM ; [facility] Review of Systems Review of Systems not supported for this document type No Review of Systems Recorded Mental Status Description Anxiety Functional Status No Functional Status Recorded Physical Exam Physical Exam not supported for this document type No Physical Exam Recorded Allergies Includes: Active, inactive, and resolved Allergies Substance Type Reaction Onset Date Resolved Date Statu s IODINE Allergy 12/08/2021 Active Last Documented On 2 8:36AM ; [facility] Flexeril Allergy 08/03/2016 Active Last Documented On 2 8:34AM ; [facility], [facility] BETADINE Allergy 12/08/2021 Active Last Documented On 2 8:37AM ; [facility], [facility] Amitriptyline HCl Allergy 12/08/2021 A ctive Last Documented On 2 8:37AM ; [facility], [facility] Insurance Includes: Active Insurance Policies Plan Name Member ID Group # Subscriber Relationship Effect katrin Dates 1 - [employer]etna [facility] [id number] Jenae Lang Self Clinical Notes Includes: Signed Clinical Notes starting from 03/23/2022 No Clinical Notes Recorded
--- OUTSIDE RECORDS SUMMARY | 2023-07-19 13:25 | XMS_ITS ---
Care Plan - [facility], [facility] Created on: July 19, 2023 Jenae Lang : 1970 Sex: Female Author Name Unknown Address [address] [place] [address] Phone Organization [facility] Address [address] [place] [address] Phone Care Team Providers Care Director Of Marketing Communications Name Role Phone OLMAN MEDINA Unavailable [phone] Tacho Oconnor MD Unavailable [phone]
--- OUTSIDE RECORDS SUMMARY | 2023-07-19 13:25 | XMS_ITS | Clinical Summary ---
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 Role Phone OLMAN MEDINA Unavailable [phone] Elvin GARCIA, Tacho Carrasquillo Unavailable [phone] Reason for Visit and Chief Complaint The Chief Complaint is: Low back pain Problems Includes: Problems addressed during this encounter and other active Problems Current Visit Onset Date Resolved Date Provider Conditio n Status Lower Back Pain 08/03/2016 Tacho Oconnor MD Act katrin Last Documented On 7 3:13PM ; [facility], [facility] Plan of Treatment Instructions to patient Lose weight Last Documented On 2 8:49AM ; [facility] Assessments Includes: Assessments from this encounter No Assessments Recorded Instructions Includes: Instructions from this encounter Instructions to patient Lose weight Last Documented On 2 8:49AM ; [facility] Medical Equipment - Implanted Devices Includes: Current Devices No Medical Equipment Recorded Medications Includes: Medications discussed during this encounter and other current Medications Current Medications (continue as prescribed) DULoxetine HCl 60 MG Oral Ca psule Delayed Release Particles 12/07/2021 Provider: OLMAN MEDINA Diagnosis: Last Documented On 2 8:36AM By Constanza Rodgers ; [facility], [facility] Metoprolol Succinate ER 50 M G Oral Tablet Extended Release 24 Hour 11/28/2021 Provider: Cammy Moreland NP Diagnosis: Last Documented On 2 8:36AM By Constanza DENT [facility] Celecoxib 200 MG Oral Capsule 11/19/2021 Provider: OLMAN MEDINA Diagnosis: Last Documented On 2 8:36AM By Constanza Rodgers ; [facility] Omeprazole 40 MG Oral Capsule Delayed Release 11/12/19 Provider: OLMAN MEDINA Diagnosis: Last Documented On 2 8:48AM By Constanza Rodgers ; [facility] rOPINIRole HCl 0.5 MG Oral Tablet 11/08/2021 Provide r: OLMAN CAROL Diagnosis: Last Documented On 2 8:48AM By Constanza Rodgers ; [facility] Medications Administered Includes: Administered Medications from this encounter No Administered Medications Recorded Vital Signs Includes: Vital Signs from this encounter Vital Name 12/08/2021 08:46A Height (in) 63 Weight (lb) 187 Body Mass Index (kg/m2) 33.1 Body Surface Area (m2) 1.9 Note: kcunable to get bp Last Documented: On 12/08/2021 8:49AM ; [facility] Results Includes: Results discussed during this encounter No Results Recorded For Specified Dates History of Present Illness Includes: History of Present Illness from this encounter GÉNESIS Lang is a 51 year old female. [...] 12/08/2021 Last Documented On 2 8:45PM ; [facility] No recent change in diet 12/08/2021 Last Documented On 2 8:45PM ; [facility] Not a current smoker. 12/08/2021 Last Documented On 2 8:45PM ; [facility] Alcohol use: 2 drinks or less per day Last Documented On 2 8:45PM ; [facility], [facility] Never smoked 12/08/2021 Last Documented On 2 8:45PM ; [facility], [facility] Never used drugs 12/08/2021 Last Documented On 2 8:45PM ; [facility] Unemployed 12/08/2021 Last Documented On 2 8:45PM ; [facility] Alcohol use 08/03/2016 Last Documented On 2 8:34AM ; [facility] Caffeine use 08/03/2016 Last Documented On 2 8:34AM ; [facility], [facility] Exercising regularly 08/03/2016 Last Documented On 2 8:34AM ; [facility], [facility] No recent change in diet 08/03/2016 Last Documented On 2 8:34AM ; [facility], [facility] Not a current smoker 08/03/2016 Last Documented On 2 8:34AM ; [facility], [facility] Not using drugs 08/03/2016 Last Documented On 2 8:34AM ; [facility], [facility] No tobacco use 08/03/2016 Last Documented On 2 8:34AM ; [facility], [facility] Smoking status : Never smoker 08/03/2016 Last Documented On 2 8:34AM ; [facility], [facility] Procedures and Surgical History Includes: Procedures from this encounter Procedures Code Diagnosis Performing Provider Service L ocation Service Date history of orthopedic options: physical therapy Last Documented On 2 8:34AM ; [facility] use of tobacco assessment performed 1000F Last Documented On 2 8:40AM ; [facility], [facility] no influenza immunization patient refuse d Last Documented On 2 8:39AM ; [facility] an X-ray was performed 99177 Last Documented On 2 8:38AM ; [facility], [facility] history of an X-ray was performed 18038 Last Documented On 2 8:34AM ; [facility], [facility] a CT scan was performed 56240 Last Documented On 2 8:38AM ; [facility] an MRI was performed [id number] Last Documented On 2 8:38AM ; [facility] history of an MRI was performed [id number] Last Documented On 2 8:34AM ; [facility] Surgical History Last Updated History of Past Surgical History: 2021 Last Documented On 2 8:45PM ; [facility] Medical History Includes: Medical History addressed during this encounter Description Last Updated No recent immunization for flu 2 Last Documented On 2 8:45PM ; [facility] No recent immunization for pneumococcal pneumonia 12/08/2021 Last Documented On 2 8:45PM ; [facility] , breast biopsy 12/08/2021 Last Documented On 2 8:34AM ; [facility] Past medical history non-contributory: H igh cholesterol, acid reflux 12/08/2021 Last Documented On 2 8:45PM ; [facility] Arthritic joint problems 08/03/2016 Last Documented On 2 8:34AM ; [facility] History of depression 08/03/2016 Last Documented On 2 8:34AM ; [facility] History of osteoporosis 08/03/2016 Last Documented On 2 8:34AM ; [facility] Family History Includes: Family History addressed during this encounter Description Last Updated Diabetes mellitus 12/08/2021 Last Documented On 2 8:45PM ; [facility] Family history of heart disease 12/09/19 Last Documented On 2 8:45PM ; [facility] Stroke / Seizures 12/08/2021 Last Documented On 2 8:45PM ; [facility] Maternal grandfather's history of family history of cancer 12/08/2021 Last Documented On 2 8:45PM ; [facility] Maternal grandfather's history of Stroke / Seizures 12/08/2021 Last Documented On 2 8:45PM ; [facility] Maternal grandmother's history of diabet es mellitus 12/08/2021 Last Documented On 2 8:45PM ; [facility] Maternal grandmother's history of family history of heart disease 12/08/2021 Last Documented On 2 8:45PM ; [facility] Maternal grandmother's history of system ic hypertension 12/08/2021 Last Documented On 2 8:45PM ; [facility] Maternal history of systemic hypertensio n 12/08/2021 Last Documented On 2 8:45PM ; [facility] Paternal grandmother's history of diabet es mellitus 12/08/2021 Last Documented On 2 8:45PM ; [facility] Paternal grandmother's history of system ic hypertension 12/08/2021 Last Documented On 2 8:45PM ; [facility] Paternal history of family history of ca ncer 12/08/2021 Last Documented On 2 8:45PM ; [facility] Paternal history of Stroke / Seizures Last Documented On 2 8:45PM ; [facility] Paternal history of systemic hypertensio n 12/08/2021 Last Documented On 2 8:45PM ; [facility] Sororal history of systemic hypertension 12/08/2021 Last Documented On 2 8:45PM ; [facility] Family history of cancer 08/03/2016 Last Documented On 2 8:34AM ; [facility] Family history of hypertension 7 Last Documented On 2 8:34AM ; [facility] Review of Systems Includes: Review of Systems [...] Active Last Documented On 2 8:36AM ; [facility] Flexeril Allergy 08/03/2016 Active Last Documented On 2 8:34AM ; [facility] BETADINE Allergy 12/08/2021 Active Last Documented On 2 8:37AM ; [facility] Amitriptyline HCl Allergy 12/08/2021 A ctive Last Documented On 2 8:37AM ; [facility] Encounters Encounter Provider Location Date Check-In Time Check-Out Time Diagnosis Physician Specified Tacho Oconnor MD [facility] 12/09/19 22 8:32AM 9:10AM Insurance Includes: Active Insurance Policies Plan Name Member ID Group # Subscriber Relationship Effect katrin Dates 1 - [employer] [facility] [id number] Jenae Lang Self Clinical Notes Includes: Clinical Notes from this encounter No Clinical Notes Recorded
--- OUTSIDE RECORDS SUMMARY | 2023-07-19 13:25 | XMS_ITS | Clinical Summary ---
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 Oconnor. He does not feel this is anything that needs surgery. Recommend referral for L5-S1 lumbar epidurals and physical therapy. We will see her back as needed - Last Documented On 08/07/2016 9:21AM ; [facility] Assessments Includes: Assessments from this encounter Findings L5-S1 DDD - Last Documented On 08/07/2016 9:21AM ; [facility] Medical Equipment - Implanted Devices Includes: Current Devices No Medical Equipment Recorded Medications Includes: Medications discussed during this encounter and other current Medications Current Medications (continue as prescribed) DULoxetine HCl 60 MG Oral Ca psule Delayed Release Particles 12/07/2021 Provider: OLMAN MEDINA Diagnosis: Last Documented On 2 8:36AM By Constanza Rodgers ; [facility] Metoprolol Succinate ER 50 M G Oral Tablet Extended Release 24 Hour 11/28/2021 Provider: Cammy Moreland NP Diagnosis: Last Documented On 2 8:36AM By Constanza Rodgers ; [facility] Celecoxib 200 MG Oral Capsule 11/19/2021 Provider: OLMAN MEDINA Diagnosis: Last Documented On 2 8:36AM By Constanza Rodgers ; [facility] Omeprazole 40 MG Oral Capsule Delayed Release 11/12/19 Provider: OLMAN MEDINA Diagnosis: Last Documented On 2 8:48AM By Constanza Rodgers ; [facility] rOPINIRole HCl 0.5 MG Oral Tablet 11/08/2021 Provide r: OLMAN MEDINA Diagnosis: Last Documented On 2 8:48AM By Constanza Rodgers ; [facility] Medications Administered Includes: Administered Medications from this encounter No Administered Medications Recorded Vital Signs Includes: Vital Signs from this encounter Vital Name 08/03/2016 03:13P Height (in) 63 Weight (lb) 175 Body Mass Index (kg/m2) 31.0 Body Surface Area (m2) 1.8 Note: aco Last Documented: On 08/03/2016 3:32PM ; [facility] Results Includes: Results discussed during this encounter [...] History Description Last Updated Alcohol use 08/03/2016 Last Documented On 7 9:21AM ; [facility] Caffeine use 08/03/2016 Last Documented On 7 9:21AM ; [facility] Exercising regularly 08/03/2016 Last Documented On 7 9:21AM ; [facility] No recent change in diet 08/03/2016 Last Documented On 7 9:21AM ; [facility], [facility] Not a current smoker 08/03/2016 Last Documented On 7 9:21AM ; [facility], [facility] Not using drugs 08/03/2016 Last Documented On 7 9:21AM ; [facility], [facility] No tobacco use 08/03/2016 Last Documented On 7 9:21AM ; [facility], [facility] Smoking status : Never smoker 08/03/2016 Last Documented On 7 9:21AM ; [facility], [facility] Procedures and Surgical History Includes: Procedures from this encounter Procedures Code Diagnosis Performing Provider Service L ocation Service Date history of orthopedic options: physical therapy Last Documented On 7 3:29PM ; [facility] history of an X-ray was performed 94139 Last Documented On 7 3:29PM ; [facility], [facility] history of an MRI was performed [id number] Last Documented On 7 3:29PM ; [facility], [facility] Medical History Includes: Medical History addressed during this encounter Description Last Updated , breast biopsy 08/03/2016 Last Documented On 7 9:21AM ; [facility], [facility] Past medical history non-contributory: H igh cholesterol, acid reflux 08/03/2016 Last Documented On 7 9:21AM ; [facility], [facility] Arthritic joint problems 08/03/2016 Last Documented On 7 9:21AM ; [facility], [facility] History of depression 08/03/2016 Last Documented On 7 9:21AM ; [facility], [facility] History of osteoporosis 08/03/2016 Last Documented On 7 9:21AM ; [facility], [facility] Family History Includes: Family History addressed during this encounter Description Last Updated Family history of cancer 08/03/2016 Last Documented On 7 9:21AM ; [facility] Family history of hypertension 7 Last Documented On 7 9:21AM ; [facility] No significant family history stroke/sei zure 08/03/2016 Last Documented On 7 9:21AM ; [facility] Review of Systems Includes: Review of Systems [...] Active Last Documented On 2 8:36AM ; [facility] Flexeril Allergy 08/03/2016 Active Last Documented On 2 8:34AM ; [facility] BETADINE Allergy 12/08/2021 Active Last Documented On 2 8:37AM ; [facility] Amitriptyline HCl Allergy 12/08/2021 A ctive Last Documented On 2 8:37AM ; [facility] Encounters Encounter Provider Location Date Check-In Time Check-Out Time Diagnosis NEW PATIENT Tacho Oconnor MD [facility] 08/04/19 17 2:56PM 4:21PM Insurance Includes: Active Insurance Policies Plan Name Member ID Group # Subscriber Relationship Effect katrin Dates 1 - [employer] [facility] [id number] Jenae Lang Self Clinical Notes Includes: Clinical Notes from this encounter No Clinical Notes Recorded
[2023-07-19 15:35] LABS: Chloride 101 mmol/L (98-107); Potassium 3.8 mmoL/L (3.5-5.1); Sodium 138 mmol/L (136-145)
[2023-07-19 15:38] LABS: Alanine Aminotransferase 83 U/L (12-78); Albumin Level 4.3 g/dl (3.5-5.0); Albumin/Globulin Ratio 1.7 (1.1-1.8); Alkaline Phosphatase 85 U/L (38-126); Anion Gap 9.8 mEq/L (5-15); Aspartate Amino Transferase 58 U/L (14-36); Bilirubin,Total 0.6 mg/dl (0.2-1.3); Blood Urea Nitrogen 15 mg/dl (7-17); Calcium 9.8 mg/dl (8.4-10.2); Carbon Dioxide 31 mmol/L (22.0-30.0); Estimated Glomerular Filt Rate 75 ml/min (>60); GFR (African American) 91 ML/MIN (>60); Globulin 2.5 g/dL (1.3-3.2); Glucose 119 mg/dl (74-100); Total Protein,Serum 6.8 g/dl (6.3-8.2)
[2023-07-20 11:17] LABS: CEA 2.3 ng/mL (0.0-4.7)
[2023-07-24 09:35] LABS: Fibrosis Score 0.06; Fibrosis Stage F0-NO FIBROSIS; NASH Grade N1-MILD NASH; NASH Score 0.48; Steatosis Grade S2-S3; Steatosis Score 0.82
[2023-07-24 09:36] LABS: Alpha 2-Macroglobulins, Qn 137
[2023-07-24 09:39] LABS: Haptoglobin 111
[2023-07-24 09:40] LABS: Apolipoprotein A-1 140; Bilirubin, Total 0.2; GGT 32
[2023-07-24 09:41] LABS: ALT (SGPT) P5P 72; AST (SGOT) P5P 44; Cholesterol, Total 277
[2023-07-24 09:42] LABS: Glucose 122; Triglycerides 199
== END 2023-07-19 23:59 | disposition home or self-care (01) ==
PROVIDERS: PCP Nurse Practitioner Family; Visit Provider Nurse Practitioner
DX: Z79.899 Other long term (current) drug therapy (principal); E11.9 Type 2 diabetes mellitus without complications; R74.8 Abnormal levels of other serum enzymes; K76.0 Fatty (change of) liver, not elsewhere classified
CPT/HCPCS: 36415; 80053; 82378

== ENCOUNTER 2023-08-01 10:46 | Outpatient (CLI) | payer OTHER, SELFPAY ==
--- OUTSIDE RECORDS SUMMARY | 2023-08-01 10:49 | XMS_ITS ---
Author Name Unknown Address [address] [place] [address] Phone Organization [facility] , [facility] Address [address] [place] [address] Phone Care Team Providers Care Emergency Room Technician Name Role Phone CAROL OLMAN Unavailable [phone] Elvin GARCIA, Tacho Carrasquillo Unavailable [phone] Problems Includes: Active, inactive, and resolved Problems All Visits Onset Date Resolved Date Provider Condition S tatus Lower Back Pain 08/03/2016 Tacho Oconnor MD Act katrin Last Documented On 7 3:13PM ; [facility] Plan of Treatment Instructions to patient Lose weight Last Documented On 2 8:49AM ; [facility] Assessments Includes: Assessments for all patient encounters No Assessments Recorded Instructions Includes: Instructions for all patient encounters Instructions to patient Lose weight Last Documented On 2 8:49AM ; [facility] Medical Equipment - Implanted Devices Includes: Current and historical Devices No Medical Equipment Recorded Medications Includes: Current and historical Medications Current Medications (continue as prescribed) DULoxetine HCl 60 MG Oral Ca psule Delayed Release Particles 12/07/2021 Provider: OLMAN MEDINA Diagnosis: Last Documented On 2 8:36AM By Constanza Martínez [facility], [facility] Metoprolol Succinate ER 50 M G Oral Tablet Extended Release 24 Hour 11/28/2021 Provider: Cammy Moreland NP Diagnosis: Last Documented On 2 8:36AM By Constanza Martínez [facility], [facility] Celecoxib 200 MG Oral Capsule 11/19/2021 Provider: OLMAN MEDINA Diagnosis: Last Documented On 2 8:36AM By Constanza Rodgers ; [facility], [facility] Omeprazole 40 MG Oral Capsule Delayed Release 11/12/19 Provider: OLMAN MEDINA Diagnosis: Last Documented On 2 8:48AM By Constanza Rodgers ; [facility], [facility] rOPINIRole HCl 0.5 MG Oral Tablet 11/08/2021 Provide r: OLMAN MEDINA Diagnosis: Last Documented On 2 8:48AM By Constanza Rodgers ; [facility], [facility] Medications Administered Includes: Administered Medications in patient's chart No Administered Medications Recorded Results Includes: Results from 07/31/2022 through 08/01/2023 No Results Recorded For Specified Dates History of Present Illness History of Present Illness not supported for this document type No History of Present Illness Recorded Social History Description Last Updated Tobacco non-user 12/08/2021 Last Documented On 2 8:45PM ; [facility], [facility] No recent change in diet 12/08/2021 Last Documented On 2 8:45PM ; [facility], [facility] Not a current smoker. 12/08/2021 Last Documented On 2 8:45PM ; [facility], [facility] Alcohol use: 2 drinks or less per day Last Documented On 2 8:45PM ; [facility], [facility] Never smoked 12/08/2021 Last Documented On 2 8:45PM ; [facility], [facility] Never used drugs 12/08/2021 Last Documented On 2 8:45PM ; [facility], [facility] Unemployed 12/08/2021 Last Documented On 2 8:45PM ; [facility], [facility] Alcohol use 08/03/2016 Last Documented On 7 9:21AM ; [facility], [facility] Caffeine use 08/03/2016 Last Documented On 7 9:21AM ; [facility], [facility] Exercising regularly 08/03/2016 Last Documented On 7 9:21AM ; [facility], [facility] No recent change in diet 08/03/2016 Last Documented On 7 9:21AM ; [facility], [facility] Not a current smoker 08/03/2016 Last Documented On 7 9:21AM ; [facility], [facility] Not using drugs 08/03/2016 Last Documented On 7 9:21AM ; [facility], [facility] No tobacco use 08/03/2016 Last Documented On 7 9:21AM ; [facility], [facility] Smoking status : Never smoker 08/03/2016 Last Documented On 7 9:21AM ; [facility], [facility] Procedures and Surgical History Surgical History Last Updated History of Past Surgical History: 2021 Last Documented On 2 8:45PM ; [facility], [facility] Medical History Includes: Medical History in patient's chart Description Last Updated No recent immunization for flu 2 Last Documented On 2 8:45PM ; [facility], [facility] No recent immunization for pneumococcal pneumonia 12/08/2021 Last Documented On 2 8:45PM ; [facility], [facility] Past medical history non-contributory: H igh cholesterol, acid reflux 12/08/2021 Last Documented On 2 8:45PM ; [facility], [facility] Arthritic joint problems 08/03/2016 Last Documented On 7 9:21AM ; [facility], [facility] History of depression 08/03/2016 Last Documented On 7 9:21AM ; [facility], [facility] History of osteoporosis 08/03/2016 Last Documented On 7 9:21AM ; [facility], [facility] Family History Includes: Family History in patient's chart Description Last Updated Diabetes mellitus 12/08/2021 Last Documented On 2 8:45PM ; [facility], [facility] Family history of heart disease 12/09/19 22 Last Documented On 2 8:45PM ; [facility], [facility] Stroke / Seizures 12/08/2021 Last Documented On 2 8:45PM ; [facility], [facility] Maternal grandfather's history of family history of [...] 08/03/2016 Last Documented On 7 9:21AM ; [facility], [facility] Review of Systems Review of Systems not [...] Active Last Documented On 2 8:36AM ; [facility], [facility] Flexeril Allergy 08/03/2016 Active Last Documented On 2 8:34AM ; [facility], [facility] BETADINE Allergy 12/08/2021 Active Last Documented On 2 8:37AM ; [facility], [facility] Amitriptyline HCl Allergy 12/08/2021 A ctive Last Documented On 2 8:37AM ; [facility], [facility] Insurance Includes: Active Insurance Policies Plan Name Member ID Group # Subscriber Relationship Effect katrin Dates 1 - [employer] [facility] [id number] Jenae Lang Self Clinical Notes Includes: Signed Clinical Notes starting from 03/23/2022 No Clinical Notes Recorded
--- OUTSIDE RECORDS SUMMARY | 2023-08-01 10:49 | XMS_ITS ---
Care Plan - [facility], [facility] Created on: August 01, 2023 Jenae Lang : 1970 Sex: Female Author Name Unknown Address [address] [place] [address] Phone Organization [facility] Address [address] [place] [address] Phone Care Team Providers Care Car And Yard Supervisor Name Role Phone OLMAN MEDINA Unavailable [phone] Tacho Oconnor MD Unavailable [phone]
--- OUTSIDE RECORDS SUMMARY | 2023-08-01 10:49 | XMS_ITS | Clinical Summary ---
Author Name Unknown Address [address] [place] [address] Phone Organization [facility] , [facility] Address [address] [place] [address] Phone Care Team Providers Care Hris Specialist Name Role Phone OLMAN MEDINA Unavailable [phone] Elvin GARCIA, Tacho Carrasquillo Unavailable [phone] Reason for Visit and Chief Complaint The Chief Complaint is: Low back pain Problems Includes: Problems addressed during this encounter and other active Problems Current Visit Onset Date Resolved Date Provider Conditio n Status Lower Back Pain 08/03/2016 Tacho Oconnor MD Act katrin Last Documented On 7 3:13PM ; [facility], [facility] Plan of Treatment Instructions to patient Lose weight Last Documented On 2 8:49AM ; [facility] Assessments Includes: Assessments from this encounter No Assessments Recorded Instructions Includes: Instructions from this encounter Instructions to patient Lose weight Last Documented On 2 8:49AM ; [facility] Medical Equipment - Implanted Devices Includes: Current Devices No Medical Equipment Recorded Medications Includes: Medications discussed during this encounter and other current Medications Current Medications (continue as prescribed) DULoxetine HCl 60 MG Oral Ca psule Delayed Release Particles 12/07/2021 Provider: OLMAN MEDINA Diagnosis: Last Documented On 2 8:36AM By Constanza Martínez [facility], [facility] Metoprolol Succinate ER 50 M G Oral Tablet Extended Release 24 Hour 11/28/2021 Provider: Cammy Moreland NP Diagnosis: Last Documented On 2 8:36AM By Constanza DENT [facility] Celecoxib 200 MG Oral Capsule 11/19/2021 Provider: OLMAN MEDINA Diagnosis: Last Documented On 2 8:36AM By Constanza Rodgers ; [facility] Omeprazole 40 MG Oral Capsule Delayed Release 11/12/19 Provider: OLMAN MEDINA Diagnosis: Last Documented On 2 8:48AM By Constnaza Rodgers ; [facility] rOPINIRole HCl 0.5 MG Oral Tablet 11/08/2021 Provide r: OLMAN CAROL Diagnosis: Last Documented On 2 8:48AM By Constanza Rodgers ; [facility] Medications Administered Includes: Administered Medications from this encounter No Administered Medications Recorded Vital Signs Includes: Vital Signs from this encounter Vital Name 12/08/2021 08:46A Height (in) 63 Weight (lb) 187 Body Mass Index (kg/m2) 33.1 Body Surface Area (m2) 1.9 Note: kcunable to get bp Last Documented: On 12/08/2021 8:49AM ; [facility] Results Includes: Results discussed during this encounter [...] Documented On 2 8:45PM ; [facility] Alcohol use: 2 drinks or less per day Last Documented On 2 8:45PM ; [facility], [facility] Never smoked 12/08/2021 Last Documented On 2 8:45PM ; [facility], [facility] Never used drugs 12/08/2021 Last Documented On 2 8:45PM ; [facility] Unemployed 12/08/2021 Last Documented On 2 8:45PM ; [facility], [facility] Alcohol use 08/03/2016 Last Documented On 2 8:34AM ; [facility], [facility] Caffeine use 08/03/2016 Last Documented On 2 8:34AM ; [facility], [facility] Exercising regularly 08/03/2016 Last Documented On 2 8:34AM ; [facility], [facility] No recent change in diet 08/03/2016 Last Documented On 2 8:34AM ; [facility], [facility] Not a current smoker 08/03/2016 Last Documented On 2 8:34AM ; [facility], [facility] Not using drugs 08/03/2016 Last Documented On 2 8:34AM ; [facility], [facility] No tobacco use 08/03/2016 Last Documented On 2 8:34AM ; [facility], [facility] Smoking status : Never smoker 08/03/2016 Last Documented On 2 8:34AM ; [facility], [facility] Procedures and Surgical History Includes: Procedures from this encounter Procedures Code Diagnosis Performing Provider Service L ocation Service Date history of orthopedic options: physical therapy Last Documented On 2 8:34AM ; [facility], [facility] use of tobacco assessment performed 1000F Last Documented On 2 8:40AM ; [facility], [facility] no influenza immunization patient refuse d Last Documented On 2 8:39AM ; [facility], [facility] an X-ray was performed 83088 Last Documented On 2 8:38AM ; [facility], [facility] history of an X-ray was performed [id number] Last Documented On 2 8:34AM ; [facility], [facility] a CT scan was performed [id number] Last Documented On 2 8:38AM ; [facility] an MRI was performed 14644 Last Documented On 2 8:38AM ; [facility] history of an MRI was performed [id number] Last Documented On 2 8:34AM ; [facility], [facility] Surgical History Last Updated History of Past Surgical History: 2021 Last Documented On 2 8:45PM ; [facility] Medical History Includes: Medical History addressed during this encounter Description Last Updated No recent immunization for flu 2 Last Documented On 2 8:45PM ; [facility] No recent immunization for pneumococcal pneumonia 12/08/2021 Last Documented On 2 8:45PM ; [facility] , breast biopsy 12/08/2021 Last Documented On 2 8:34AM ; [facility] Past medical history non-contributory: H igh cholesterol, acid reflux 12/08/2021 Last Documented On 2 8:45PM ; [facility] Arthritic joint problems 08/03/2016 Last Documented On 2 8:34AM ; [facility] History of depression 08/03/2016 Last Documented On 2 8:34AM ; [facility] History of osteoporosis 08/03/2016 Last Documented On 2 8:34AM ; [facility] Family History Includes: Family History addressed during this encounter Description Last Updated Diabetes mellitus 12/08/2021 Last Documented On 2 8:45PM ; [facility] Family history of heart disease 12/09/19 Last Documented On 2 8:45PM ; [facility] Stroke / Seizures 12/08/2021 Last Documented On 2 8:45PM ; [facility], [facility] Maternal grandfather's history of family history of cancer 12/08/2021 Last Documented On 2 8:45PM ; [facility] Maternal grandfather's history of Stroke / Seizures 12/08/2021 Last Documented On 2 8:45PM ; [facility], [facility] Maternal grandmother's history of diabet es mellitus 12/08/2021 Last Documented On 2 8:45PM ; [facility] Maternal grandmother's history of family history of heart disease 12/08/2021 Last Documented On 2 8:45PM ; [facility] Maternal grandmother's history of system ic hypertension 12/08/2021 Last Documented On 2 8:45PM ; [facility] Maternal history of systemic hypertensio n 12/08/2021 Last Documented On 2 8:45PM ; [facility] Paternal grandmother's history of diabet es mellitus 12/08/2021 Last Documented On 2 8:45PM ; [facility] Paternal grandmother's history of system ic hypertension 12/08/2021 Last Documented On 2 8:45PM ; [facility], [facility] Paternal history of family history of ca ncer 12/08/2021 Last Documented On 2 8:45PM ; [facility], [facility] Paternal history of Stroke / Seizures Last Documented On 2 8:45PM ; [facility] Paternal history of systemic hypertensio n 12/08/2021 Last Documented On 2 8:45PM ; [facility], [facility] Sororal history of systemic hypertension 12/08/2021 Last Documented On 2 8:45PM ; [facility], [facility] Family history of cancer 08/03/2016 Last Documented On 2 8:34AM ; [facility], [facility] Family history of hypertension 7 Last Documented On 2 8:34AM ; [facility], [facility] Review of Systems Includes: Review of [...] Active Last Documented On 2 8:36AM ; [facility] Flexeril Allergy 08/03/2016 Active Last Documented On 2 8:34AM ; [facility] BETADINE Allergy 12/08/2021 Active Last Documented On 2 8:37AM ; [facility] Amitriptyline HCl Allergy 12/08/2021 A ctive Last Documented On 2 8:37AM ; [facility] Encounters Encounter Provider Location Date Check-In Time Check-Out Time Diagnosis Physician Specified Tacho Oconnor MD [facility] 12/09/19 22 8:32AM 9:10AM Insurance Includes: Active Insurance Policies Plan Name Member ID Group # Subscriber Relationship Effect katrin Dates 1 - [employer] [facility] [id number] Jenae Lang Self Clinical Notes Includes: Clinical Notes from this encounter No Clinical Notes Recorded
--- OUTSIDE RECORDS SUMMARY | 2023-08-01 10:49 | XMS_ITS | Clinical Summary ---
Author Name Unknown Address [address] [place] [address] Phone Organization [facility] , [facility] Address [address] [place] [address] Phone Care Team Providers Care Show Horse Driver Name Role Phone OLMAN MEDINA Unavailable [phone] Elvin GARCIA, Tacho Carrasquillo Unavailable [phone] Reason for Visit and Chief Complaint The Chief Complaint is: Low back pain Problems Includes: Problems addressed during this encounter and other active Problems Current Visit Onset Date Resolved Date Provider Conditio n Status Lower Back Pain 08/03/2016 Tacho Oconnor MD Act katrin Last Documented On 7 3:13PM ; [facility] Plan of Treatment Patient was seen by myself Liborio Arce PA-C and Dr. Oconnor. He does not feel this is anything that needs surgery. Recommend referral for L5-S1 lumbar epidurals and physical therapy. We will see her back as needed - Last Documented On 08/07/2016 9:21AM ; [facility] Assessments Includes: Assessments from this encounter Findings L5-S1 DDD - Last Documented On 08/07/2016 9:21AM ; [facility] Medical Equipment - Implanted Devices Includes: Current Devices No Medical Equipment Recorded Medications Includes: Medications discussed during this encounter and other current Medications Current Medications (continue as prescribed) DULoxetine HCl 60 MG Oral Ca psule Delayed Release Particles 12/07/2021 Provider: OLMAN MEDINA Diagnosis: Last Documented On 2 8:36AM By Constanza Rodgers ; [facility] Metoprolol Succinate ER 50 M G Oral Tablet Extended Release 24 Hour 11/28/2021 Provider: Cammy Moreland NP Diagnosis: Last Documented On 2 8:36AM By Constanza Rodgers ; [facility], [facility] Celecoxib 200 MG Oral Capsule 11/19/2021 Provider: OLMAN MEDINA Diagnosis: Last Documented On 2 8:36AM By Constanza Rodgers ; [facility], [facility] Omeprazole 40 MG Oral Capsule Delayed Release 11/12/19 Provider: OLMAN MEDINA Diagnosis: Last Documented On 2 8:48AM By Constanza Rodgers ; [facility], [facility] rOPINIRole HCl 0.5 MG Oral Tablet 11/08/2021 Provide r: OLMAN MEDINA Diagnosis: Last Documented On 2 8:48AM By Constanza Rodgers ; [facility], [facility] Medications Administered Includes: Administered Medications from this encounter No Administered Medications Recorded Vital Signs Includes: Vital Signs from this encounter Vital Name 08/03/2016 03:13P Height (in) 63 Weight (lb) 175 Body Mass Index (kg/m2) 31.0 Body Surface Area (m2) 1.8 Note: aco Last Documented: On 08/03/2016 3:32PM ; [facility], [facility] Results Includes: Results discussed during this [...] Last Documented On 7 9:21AM ; [facility] Caffeine use 08/03/2016 Last Documented On 7 9:21AM ; [facility], [facility] Exercising regularly 08/03/2016 Last Documented On 7 9:21AM ; [facility], [facility] No recent change in diet 08/03/2016 Last Documented On 7 9:21AM ; [facility], [facility] Not a current smoker 08/03/2016 Last Documented On 7 9:21AM ; [facility], [facility] Not using drugs 08/03/2016 Last Documented On 7 9:21AM ; [facility], [facility] No tobacco use 08/03/2016 Last Documented On 7 9:21AM ; [facility], [facility] Smoking status : Never smoker 08/03/2016 Last Documented On 7 9:21AM ; [facility], [facility] Procedures and Surgical History Includes: Procedures from this encounter Procedures Code Diagnosis Performing Provider Service L ocation Service Date history of orthopedic options: physical therapy Last Documented On 7 3:29PM ; [facility], [facility] history of an X-ray was performed 15697 Last Documented On 7 3:29PM ; [facility], [facility] history of an MRI was performed [id number] Last Documented On 7 3:29PM ; [facility], [facility] Medical History Includes: Medical History addressed during this encounter Description Last Updated , breast biopsy 08/03/2016 Last Documented On 7 9:21AM ; [facility], [facility] Past medical history non-contributory: H igh cholesterol, acid reflux 08/03/2016 Last Documented On 7 9:21AM ; [facility], [facility] Arthritic joint problems 08/03/2016 Last Documented On 7 9:21AM ; [facility], [facility] History of depression 08/03/2016 Last Documented On 7 9:21AM ; [facility], [facility] History of osteoporosis 08/03/2016 Last Documented On 7 9:21AM ; [facility], [facility] Family History Includes: Family History addressed during this encounter Description Last Updated Family history of cancer 08/03/2016 Last Documented On 7 9:21AM ; [facility], [facility] Family history of hypertension 7 Last Documented On 7 9:21AM ; [facility], [facility] No significant family history stroke/sei zure 08/03/2016 Last Documented On 7 9:21AM ; [facility] Review of Systems Includes: Review of [...] Active Last Documented On 2 8:36AM ; [facility] Flexeril Allergy 08/03/2016 Active Last Documented On 2 8:34AM ; [facility] BETADINE Allergy 12/08/2021 Active Last Documented On 2 8:37AM ; [facility] Amitriptyline HCl Allergy 12/08/2021 A ctive Last Documented On 2 8:37AM ; [facility] Encounters Encounter Provider Location Date Check-In Time Check-Out Time Diagnosis NEW PATIENT Tacho Oconnor MD [facility] 08/04/19 17 2:56PM 4:21PM Insurance Includes: Active Insurance Policies Plan Name Member ID Group # Subscriber Relationship Effect katrin Dates 1 - [employer] [facility] [id number] Jenae Lang Self Clinical Notes Includes: Clinical Notes from this encounter No Clinical Notes Recorded
--- NOTE | 2023-08-01 10:50 | XR_ITS ---
FINAL REPORT CLINICAL HISTORY: lumbago COMPARISON: None FINDINGS: 3 views of the lumbar spine were obtained. There is no evidence of fracture. There is no malalignment. There is mild lumbar scoliosis convex to the left. The vertebrae are normal in height. There is mild disc space narrowing at L5-S1. There is mild facet sclerosis in the lower lumbar spine. No paraspinous soft tissue abnormalities identified. IMPRESSION: Degenerative changes without acute bony abnormality. Reviewed, Interpreted and Dictated by Alvarez Howard MD Transcribed by Abigail Thomas Authenticated and [facility]
[2023-08-01 13:09] LABS: Basophils # 0.1 K/mm3 (0-0.2); Basophils % 0.9 % (0.1-2.0); Eosinophils # 0.2 K/mm3 (0.0-0.4); Eosinophils % 2.5 % (0.1-12.0); Hematocrit 44.7 % (37.0-47.0); Hemoglobin 14.7 g/dL (12.2-16.2); Lymphocytes # 2.3 K/mm3 (0.7-4.5); Lymphocytes % 31.7 % (10-50); Mean Corpuscular Hemoglobin 31.7 pg (27.0-31.2); Mean Corpuscular Volume 96.1 fl (81-99); Mean Platelet Volume 7.8 fl (7.4-10.4); Monocytes # 0.4 K/mm3 (0.1-1.0); Monocytes % 5.7 % (1.7-9.3); Neutrophils # 4.4 K/mm3 (1.8-7.8); Neutrophils % 59.2 % (37.0-80.0); Platelet Count 327 K/mm3 (142-424); Red Blood Count 4.65 M/mm3 (4.20-5.40); Red Cell Distribution Width 13.6 % (11.5-17.5); White Blood Count 7.4 K/mm3 (4.8-10.8)
[2023-08-01 13:27] LABS: Alanine Aminotransferase 60 U/L (12-78); Albumin Level 4.5 g/dl (3.5-5.0); Alkaline Phosphatase 87 U/L (38-126); Anion Gap 11.8 mEq/L (5-15); Aspartate Amino Transferase 41 U/L (14-36); Bilirubin,Total 0.6 mg/dl (0.2-1.3); Blood Urea Nitrogen 21 mg/dl (7-17); Calcium 9.7 mg/dl (8.4-10.2); Carbon Dioxide 29 mmol/L (22.0-30.0); Chloride 102 mmol/L (98-107); Estimated Glomerular Filt Rate 88 ml/min (>60); GFR (African American) 106 ML/MIN (>60); Globulin 2.3 g/dL (1.3-3.2); Glucose 192 mg/dl (74-100); Potassium 3.8 mmoL/L (3.5-5.1); Sodium 139 mmol/L (136-145); Total Protein,Serum 6.8 g/dl (6.3-8.2)
[2023-08-01 13:36] LABS: Hemoglobin A1C 6.9 % (4.0-6.0)
== END 2023-08-01 23:59 | disposition home or self-care (01) ==
LOC: RAD 10:47
PROVIDERS: PCP Nurse Practitioner Family; Visit Provider Nurse Practitioner Family
DX: M54.50 Low back pain, unspecified (principal); R20.0 Anesthesia of skin; R42 Dizziness and giddiness; E11.9 Type 2 diabetes mellitus without complications; Z79.84 Long term (current) use of oral hypoglycemic drugs
CPT/HCPCS: 72100; 80053; 83036; 85025

== ENCOUNTER 2023-08-10 11:08 | Outpatient (CLI) | payer OTHER, SELFPAY ==
[2023-08-10 12:31] LABS: C-Reactive Protein 10.2 mg/L (0-4)
[2023-08-11 08:16] LABS: Estradiol 6.2 pg/mL (.); Progesterone 0.1 ng/mL (.)
== END 2023-08-10 23:59 | disposition home or self-care (01) ==
LOC: LAB.DROPOF 11:09
PROVIDERS: PCP Nurse Practitioner Family; Visit Provider Nurse Practitioner Family
DX: R41.3 Other amnesia (principal)
CPT/HCPCS: 82670; 84144; 86140

== ENCOUNTER 2023-08-16 18:53 | Outpatient (CLI) | payer OTHER, SELFPAY ==
--- NOTE | 2023-08-16 19:01 | MR_ITS ---
FINAL REPORT CLINICAL HISTORY: dizziness, headaches, blurred vision FINDINGS: Multiplanar MR imaging of the brain was performed without contrast. There is no evidence of intracranial hemorrhage or mass. The ventricular size is normal. There is no evidence of shift of the midline structures. No abnormal extra-axial fluid collection is identified. The posterior fossa and brainstem have an unremarkable appearance. No area of abnormal restricted diffusion is identified. Normal major vessel vascular flow voids are seen. IMPRESSION: Unremarkable brain with no acute intracranial abnormality. Reviewed, Interpreted and Dictated by Carlton Shukla III, MD Transcribed by Yadira Baltazar Authenticated and [facility]
== END 2023-08-16 23:59 | disposition home or self-care (01) ==
LOC: RAD 18:53
PROVIDERS: PCP Nurse Practitioner Family; Visit Provider Nurse Practitioner Family
DX: R42 Dizziness and giddiness (principal); R51.9 Headache, unspecified; H53.8 Other visual disturbances
CPT/HCPCS: 70551

== ENCOUNTER 2023-10-31 15:25 | Outpatient (CLI) | payer OTHER, SELFPAY ==
--- NOTE | 2023-10-31 15:28 | XR_ITS ---
FINAL REPORT CLINICAL HISTORY: left 2nd distal finger pain, swelling, decreased ROM COMPARISON: None FINDINGS: 3 views of the left hand second digit show no evidence of an acute, displaced fracture dislocation of the visualized bony architecture. There are severe osteoarthritic changes of the second DIP joint, progressed since the prior study. There are few small juxta articular bone fragments. There is no subluxation. 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 Reviewed, Interpreted and Dictated by Win Aquino MD Transcribed by Abigail Thomas Authenticated and . [facility]
[2023-10-31 16:42] LABS: Uric Acid 6.1 mg/dl (2.5-6.2)
[2023-10-31 17:17] LABS: Ferritin 36.3 ng/ml (11.1-264)
[2023-10-31 18:23] LABS: Erythrocyte Sedimentation Rate 20 mm/hr (0-30)
[2023-11-05 18:10] LABS: Antinuclear Antibodies, IFA Negative (.)
== END 2023-10-31 23:59 | disposition home or self-care (01) ==
LOC: LAB 15:26
PROVIDERS: Specialist; PCP Nurse Practitioner Family; Visit Provider Nurse Practitioner Family
DX: M79.89 Other specified soft tissue disorders (principal); M25.541 Pain in joints of right hand; M25.542 Pain in joints of left hand; E83.10 Disorder of iron metabolism, unspecified
CPT/HCPCS: 36415; 73140; 82728; 84550; 85651; 86038; 86431

== ENCOUNTER 2023-11-20 14:54 | Outpatient (CLI) | payer OTHER, SELFPAY ==
[2023-11-20 13:31] LABS: Hemoglobin A1C 6.7 % (4.0-6.0)
[2023-11-20 13:41] LABS: Alanine Aminotransferase 26 U/L (12-78); Albumin Level 4.1 g/dl (3.5-5.0); Albumin/Globulin Ratio 1.6 (1.1-1.8); Alkaline Phosphatase 84 U/L (38-126); Aspartate Amino Transferase 23 U/L (14-36); Bilirubin,Total 0.4 mg/dl (0.2-1.3); Blood Urea Nitrogen 18 mg/dl (7-17); Calcium 9.6 mg/dl (8.4-10.2); Carbon Dioxide 29 mmol/L (22.0-30.0); Chloride 101 mmol/L (98-107); Estimated Glomerular Filt Rate 88 ml/min (>60); GFR (African American) 106 ML/MIN (>60); Globulin 2.6 g/dL (1.3-3.2); Glucose 135 mg/dl (74-100); Sodium 137 mmol/L (136-145); Total Protein,Serum 6.7 g/dl (6.3-8.2)
[2023-11-20 14:32] LABS: Vitamin B12 435 pg/mL (239-931)
== END 2023-11-20 23:59 | disposition home or self-care (01) ==
LOC: LAB.DROPOF 14:54
PROVIDERS: PCP Nurse Practitioner Family; Visit Provider Nurse Practitioner Family
DX: E11.9 Type 2 diabetes mellitus without complications (principal)
CPT/HCPCS: 80053; 82607; 83036

== ENCOUNTER 2024-01-23 11:50 | Outpatient (CLI) | payer OTHER, SELFPAY ==
[2024-01-25 16:14] LABS: Zinc 85 ug/dL (44-115)
== END 2024-01-23 23:59 | disposition home or self-care (01) ==
LOC: LAB.DROPOF 01-24 10:21
PROVIDERS: PCP Nurse Practitioner Family; Visit Provider Nurse Practitioner Family
DX: T78.40XA Allergy, unspecified, initial encounter (principal); R43.0 Anosmia
CPT/HCPCS: 83088; 84630

== ENCOUNTER 2024-02-11 09:22 | Outpatient (CLI) | payer OTHER, SELFPAY ==
[2024-02-11 12:13] LABS: Coronavirus 19, PCR Not Detected (NotDetected); Influenza A, PCR Not Detected (NotDetected); Influenza B, PCR Not Detected (NotDetected)
== END 2024-02-11 23:59 | disposition home or self-care (01) ==
LOC: LAB.DROPOF 02-12 11:18
PROVIDERS: PCP Nurse Practitioner Family; Visit Provider Nurse Practitioner Family
DX: J02.9 Acute pharyngitis, unspecified (principal); R68.89 Other general symptoms and signs; R22.1 Localized swelling, mass and lump, neck
CPT/HCPCS: 87070; 87636

== ENCOUNTER 2024-02-25 09:56 | Outpatient (CLI) | payer OTHER, SELFPAY ==
[2024-02-25 10:26] LABS: Basophils # 0.1 K/mm3 (0-0.2); Basophils % 1.4 % (0.1-2.0); Eosinophils # 0.2 K/mm3 (0.0-0.4); Hematocrit 42.2 % (37.0-47.0); Hemoglobin 15.1 g/dL (12.2-16.2); Lymphocytes # 1.9 K/mm3 (0.7-4.5); Lymphocytes % 32.4 % (10-50); Mean Corpuscular HGB Conc 35.7 g/dL (31.8-35.4); Mean Corpuscular Hemoglobin 30.3 pg (27.0-31.2); Mean Corpuscular Volume 85.1 fl (81-99); Monocytes # 0.4 K/mm3 (0.1-1.0); Monocytes % 6.4 % (1.7-9.3); Neutrophils # 3.4 K/mm3 (1.8-7.8); Neutrophils % 56.8 % (37.0-80.0); Platelet Count 345 K/mm3 (142-424); Red Blood Count 4.96 M/mm3 (4.20-5.40); Red Cell Distribution Width 13.8 % (11.5-17.5)
[2024-02-25 10:29] LABS: Hemoglobin A1C 6.4 % (4.0-6.0)
[2024-02-25 10:37] LABS: Estimated Glomerular Filt Rate 75 ml/min (>60); GFR (African American) 90 ML/MIN (>60); Globulin 2.4 g/dL (1.3-3.2)
[2024-02-25 10:41] LABS: Alanine Aminotransferase 24 U/L (12-78); Albumin Level 4.4 g/dl (3.5-5.0); Albumin/Globulin Ratio 1.8 (1.1-1.8); Alkaline Phosphatase 92 U/L (38-126); Aspartate Amino Transferase 23 U/L (14-36); Bilirubin,Total 0.6 mg/dl (0.2-1.3); Blood Urea Nitrogen 15 mg/dl (7-17); Calcium 9.5 mg/dl (8.4-10.2); Carbon Dioxide 30 mmol/L (22.0-30.0); Chloride 103 mmol/L (98-107); Chol/HDL Ratio 5.4 (1-3.5); Cholesterol 299 mg/dl (140-200); Glucose 135 mg/dl (74-100); HDL Cholesterol 55 mg/dl (40-60); Magnesium 1.8 mg/dl (1.6-2.3); Sodium 139 mmol/L (136-145); Total Protein,Serum 6.8 g/dl (6.3-8.2); Triglycerides 211 mg/dl (30-150); Uric Acid 4.7 mg/dl (2.5-6.2); VLDL Cholesterol 42 mg/dL (0-40)
[2024-02-25 10:52] LABS: Direct LDL Cholesterol 202.73 mg/dL (100-129)
[2024-02-25 11:12] LABS: Ferritin 23.3 ng/ml (11.1-264)
[2024-02-25 11:39] LABS: Erythrocyte Sedimentation Rate 34 mm/hr (0-30)
[2024-02-26 19:57] LABS: Antinuclear Antibodies, IFA Negative (.)
== END 2024-02-25 23:59 | disposition home or self-care (01) ==
LOC: LAB 09:56
PROVIDERS: PCP Nurse Practitioner Family; Visit Provider Nurse Practitioner Family
DX: M25.541 Pain in joints of right hand (principal); M25.542 Pain in joints of left hand; E83.10 Disorder of iron metabolism, unspecified; E11.9 Type 2 diabetes mellitus without complications; Z79.84 Long term (current) use of oral hypoglycemic drugs
CPT/HCPCS: 36415; 80053; 80061; 82728; 83036; 83735; 84550; 85025; 85651; 86038; 86431

== ENCOUNTER 2024-03-13 14:43 | Outpatient (CLI) | payer OTHER, SELFPAY ==
[2024-03-13 16:31] VITALS: BMI 35.8
== END 2024-03-13 23:59 | disposition home or self-care (01) ==
LOC: DIETICIAN 14:43
PROVIDERS: PCP Nurse Practitioner Family; Visit Provider Nurse Practitioner Family
DX: E11.9 Type 2 diabetes mellitus without complications (principal); E78.2 Mixed hyperlipidemia
CPT/HCPCS: 97802

== ENCOUNTER 2024-03-18 14:16 | Outpatient (CLI) | payer OTHER, SELFPAY ==
--- NOTE | 2024-03-18 14:18 | MM_ITS ---
PROCEDURE INFORMATION: Exam: MG Bilateral Screening 3D Mammography Exam date and time: 03/18/2024 2:09 PM Age: 53 years old Clinical indication: Screening examination. TECHNIQUE: Imaging protocol: Bilateral Screening tomosynthesis and 2D mammography including computer-aided detection (CAD) when performed. COMPARISON: 1. MG MM DIG MAMM BI DX W/CAD 04/24/2022 1:57 PM 2. MG MM DIG MAMM BI DX W/CAD 03/14/2021 1:51 PM FINDINGS: MAMMOGRAPHY: Breast composition: The breasts are heterogeneously dense, which may obscure small masses. Mass: None. Architectural distortion: None. Calcifications: No suspicious calcifications. Asymmetric density: None. Skin thickening: None. Axillary adenopathy: None. Surgical clips are noted in the left axillary tail region. IMPRESSION: No mammographic evidence of malignancy. Annual screening is recommended unless otherwise clinically indicated. ASSESSMENT: BI-RADS Category 2: Benign.
== END 2024-03-18 23:59 | disposition home or self-care (01) ==
LOC: RAD 14:18
PROVIDERS: PCP Nurse Practitioner Family; Visit Provider Nurse Practitioner Family
DX: Z12.31 Encounter for screening mammogram for malignant neoplasm of breast (principal)
CPT/HCPCS: 77063; 77067

== ENCOUNTER 2024-05-07 08:13 | Outpatient (CLI) | payer OTHER, SELFPAY ==
--- NOTE | 2024-05-07 08:16 | XR_ITS ---
FINAL REPORT CLINICAL HISTORY: right wrist pain COMPARISON: None FINDINGS: RIGHT WRIST Three views demonstrate no acute fracture or dislocation. The visualized joint spaces are preserved. The soft tissues are unremarkable. There is a large sclerotic focus in the radial styloid measuring 1.3 x 0.9 cm. IMPRESSION: Sclerotic focus in the radial styloid probably related to an anostosis. Reviewed, Interpreted and Dictated by Alvarez Howard MD Transcribed by Liberty Damian Authenticated and [facility]
== END 2024-05-07 23:59 | disposition home or self-care (01) ==
LOC: RAD 08:14
PROVIDERS: PCP Nurse Practitioner Family; Visit Provider Physician Assistant
DX: M25.531 Pain in right wrist (principal)
CPT/HCPCS: 73110

== ENCOUNTER 2024-05-12 14:51 | Outpatient (CLI) | payer OTHER, SELFPAY ==
--- NOTE | 2024-05-12 14:54 | XR_ITS ---
FINAL REPORT TECHNIQUE: 5 views CLINICAL HISTORY: lumbago left sided pain radiate to hip x5 days COMPARISON: None FINDINGS: LUMBAR SPINE: 5 views of the lumbar spine reveal mild scoliosis 12 degrees to the left. There is an unusual appearance on the frontal view, involving the right side of the L5 vertebral body, not seen on other views, that has an almost expansile appearance. There is moderate degenerative narrowing of the L5-S1 disc space, and facet sclerosis in the lower lumbar spine. IMPRESSION: Unusual appearance seen only on the frontal view involving the right side of the L5 vertebral body, which has an almost expansile appearance. Correlation with MRI might be helpful if clinically indicated. Mild to moderate lumbar degenerative change as described. Reviewed, Interpreted and Dictated by Alvarez Howard MD Transcribed by Bisi Curry Authenticated and [facility]
[2024-05-12 18:05] LABS: Chloride 102 mmol/L (98-107)
[2024-05-12 18:06] LABS: Potassium 3.8 mmoL/L (3.5-5.1); Sodium 139 mmol/L (136-145)
[2024-05-12 18:08] LABS: Alanine Aminotransferase 24 U/L (12-78); Alkaline Phosphatase 104 U/L (38-126); Anion Gap 15.8 mEq/L (5-15); Aspartate Amino Transferase 24 U/L (14-36); Bilirubin,Total 0.4 mg/dl (0.2-1.3); Blood Urea Nitrogen 20 mg/dl (7-17); Carbon Dioxide 25 mmol/L (22.0-30.0); Estimated Glomerular Filt Rate 87 ml/min (>60); GFR (African American) 106 ML/MIN (>60)
[2024-05-12 18:09] LABS: Albumin/Globulin Ratio 3.3 (1.1-1.8); Calcium 9.5 mg/dl (8.4-10.2); Globulin 1.5 g/dL (1.3-3.2); Glucose 118 mg/dl (74-100); Total Protein,Serum 6.5 g/dl (6.3-8.2)
== END 2024-05-12 23:59 | disposition home or self-care (01) ==
LOC: RAD 14:52
PROVIDERS: PCP Nurse Practitioner Family; Visit Provider Nurse Practitioner Family
DX: M54.32 Sciatica, left side (principal); E11.9 Type 2 diabetes mellitus without complications
CPT/HCPCS: 72110; 80053; 83036

== ENCOUNTER 2024-05-22 14:21 | Outpatient (CLI) | payer OTHER, SELFPAY ==
--- NOTE | 2024-05-22 14:22 | MR_ITS ---
PROCEDURE INFORMATION: Exam: MR Lumbar Spine Without Contrast Exam date and time: 05/22/2024 2:47 PM Age: 53 years old Clinical indication: Low back pain; Additional info: Lumbago, abnormal lumbar x-ray. Left sided hip and leg pain. Bilateral tingling TECHNIQUE: Imaging protocol: Magnetic resonance imaging of the lumbar spine without contrast. COMPARISON: MR LUMBAR SPINE WO CON 11/24/2021 7:36 AM FINDINGS: Bones/joints: The vertebral body heights alignment are maintained. There is levo scoliosis measuring 13 degrees. There is mild multilevel degenerative disc disease most notable at L5-S1 consisting loss of disc height and loss of normal disc signal. Spinal cord: Visualized cord, conus medullaris and cauda equina are unremarkable without compression. T12-L1: There is a tiny right paracentral disc protrusion without significant spinal canal or neural foraminal stenosis. L1-L2: No significant disc bulge or herniation. No severe spinal canal stenosis. No significant neural foraminal narrowing. L2-L3: No significant disc bulge or herniation. No severe spinal canal stenosis. No significant neural foraminal narrowing. L3-L4: No significant disc bulge or herniation. No severe spinal canal stenosis. No significant neural foraminal narrowing. L4-L5: There is minimal diffuse disc bulging without significant spinal or neural foraminal stenosis. L5-S1: There is a similar appearing small central disc protrusion which causes minimal mass effect on the anterior thecal sac. The protrusion appears to abut the central right S1 nerve roots in the right lateral recess. Please see image 28 of series 8. Otherwise there is no significant spinal canal stenosis. The right neural foramen appears patent. There is similar appearing [id number] left neural foraminal stenosis secondary to foraminal disc bulging and facet hypertrophy. Soft tissues: Unremarkable. Kidneys and ureters: There is a simple right exophytic renal cyst measuring 7.2 x 5.8 cm which previously measured 6.7 x 5.4 cm. IMPRESSION: Degenerative changes as described. Please see above for specific findings at each level.
== END 2024-05-22 23:59 | disposition home or self-care (01) ==
LOC: RAD 14:22
PROVIDERS: PCP Nurse Practitioner Family; Visit Provider Nurse Practitioner Family
DX: M54.42 Lumbago with sciatica, left side (principal); R93.89 Abnormal findings on diagnostic imaging of other specified body structures
CPT/HCPCS: 72148

== ENCOUNTER 2024-06-18 08:46 | Outpatient (POV) | payer OTHER, SELFPAY ==
--- NOTE | 2024-06-18 08:58 | A.OFFVIS_ITS ---
HPI Data of Consult Patient: new to practice Consult date: 06/18/24 Requesting Physician: Nel Oconnor APRN Primary Care Provider: Madison Garrett APRN Consult Narrative Reason for consult: Low back pain, bilateral hip pain History of present illness: Mrs. Lang is a 53 year old female who presents today as a new patient. She is a referral from [facility]. Today she rates her pain a 4 or 5 out of 10. Patient states that she did have low back pain that would often go into her right upper leg since 2004 when she had an accident and got hurt at work. She states it is progressively worsened since. 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 Patient states at that time she even started to have pain going into her left low back and left hip. Patient denies any radiating symptoms down that extremity. She describes it as an aching, throbbing sensation with numbness and tingling. She states that it is worse with any type of increased activity or certain positions. She cannot stand or sit for long periods of time due to the worsening pain. She states things like bending seem to worsen this. Patient states she has tried and at home's TENS unit, heating pad and topicals that will occasionally help some. Patient states that back in 2015 she saw neurosurgeon and they were not recommending surgical intervention. She has had physical therapy for multiple sessions however it never really seem to make any difference. Patient does state that she does do the physician guided exercise and stretching daily with no additional changes and has been doing this for longer than 12 weeks. Patient is currently managed with Celebrex, gabapentin, tramadol and muscle relaxers however she is unsure that any of these have really seem to do much improvement. Patient states that she is not sleeping well due to the worsening pain and it is affecting her ability perform activities of daily living such as cooking and cleaning. Patient denies any prior back surgery or injection history. She is interested in any help we may be able to provide. She does also state that she has restless leg syndrome and is on ropinirole for this. Patient is currently managed with tramadol 50 mg and pregabalin 25 mg from her primary care. Her Nikolai has been reviewed and is appropriate. CC: Nel Oconnor APRN [facility] Disclaimer: The information contained in this section may have been updated after the patient was seen, as this information can be updated by other users. 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 Renal cyst Diastolic dysfunction Coronary-myocardial bridge Surgical History Hx of right heart catheterization Hx of wisdom tooth extraction Hx of section Family History Mother Hypertension Hyperlipidemia Diabetes Father Cancer brain Hyperlipidemia Hypertension Diabetes Social History Smoking Status: Never smoker second hand exposure: No alcohol intake: former substance use type: denies use current occupational status: unemployed Travel in the last 8 weeks: Inside the [place] household members: spouse housing: house marital status: number of children: 3 education level: high school caffeine: Yes do you feel safe at home: Yes victim of physical abuse: No victim of emotional abuse: No victim of sexual abuse: No would you like helpful sources: No Review of Systems Review of Systems Review of systems:: pertinent systems reviewed and negative unless documented below Review of systems (narrative): Review of Systems: General: No recent weight changes, no fever, no sleep disturbances Respiratory: No cough, no shortness of air, no recurring pulmonary infections Cardiovascular/peripheral vascular: No chest pain, no palpitations, no edema, no shortness of breath Gastrointestinal: No new onset incontinence, normal bowel movements reported Genitourinary: No new onset incontinence Musculoskeletal: Low back pain, bilateral hip pain Psychiatric: [Normal mood/affect] Neurological: [Denies weakness in extremities], [denies balance issues] Meds Home Medications and Allergies Home Medications ?Medication ?Instructions ?Recorded ?Confirmed ?Type nitroglycerin 0.4 mg sublingual 0.4 mg sublingual Q5M PRN chest 05/20/19 06/09/24 Rx tablet pain #25 tabs potassium 99 mg tablet 99 mg PO DAILY Supplement 08/17/20 06/09/24 History omega 7-avd-jri-fish oil 1,000 mg 2 cap PO DAILY 02/21/23 06/09/24 History (120 mg-180 mg) capsule (Fish Oil) ondansetron 4 mg disintegrating 4 mg PO Q8H PRN nausea and 02/21/23 06/09/24 Rx tablet vomiting #30 tabs blood sugar diagnostic (FreeStyle #100 ea 05/25/23 06/09/24 Rx Lite Strips) blood-glucose meter (FreeStyle #1 ea 05/25/23 06/09/24 Rx Lite Meter kit) lancets 28 gauge (FreeStyle #100 ea 01/01/24 06/09/24 Rx Lancets) duloxetine 60 mg capsule,delayed 60 mg PO DAILY mood 30 days #30 02/04/24 06/09/24 Rx release caps metoprolol succinate 25 mg 25 mg PO DAILY #30 tabs 02/04/24 06/09/24 Rx tablet,extended release 24 hr celecoxib 200 mg capsule (Celebrex) 200 mg PO BID #60 caps 02/25/24 06/09/24 Rx lamotrigine 100 mg tablet 100 mg PO DAILY 30 days #30 tabs 02/29/24 06/09/24 Rx metformin 500 mg tablet,extended 500 mg PO DAILY #30 tabs 03/03/24 06/09/24 Rx release 24 hr ubrogepant 100 mg tablet (Ubrelvy) 100 mg PO .COMPLEX PRN headache 03/14/24 06/09/24 Rx #20 tabs tizanidine 4 mg tablet See Rx Instructions .Route 03/17/24 06/09/24 Rx .COMPLEX #30 tabs pregabalin 25 mg capsule (Lyrica) 25 mg PO BID #60 caps 05/05/24 06/09/24 Rx ropinirole 0.5 mg tablet See Rx Instructions .Route 05/05/24 06/09/24 Rx .COMPLEX #90 tabs ropinirole 1 mg tablet 1 mg PO HS restless leg syndrome 05/05/24 06/09/24 Rx 30 days #30 tabs omeprazole 40 mg capsule,delayed See Rx Instructions .Route 05/07/24 06/09/24 Rx release .COMPLEX #90 caps ketorolac 10 mg tablet 10 mg PO Q6H PRN pain 5 days #20 05/12/24 06/09/24 Rx tabs oxymetazoline 0.05 % nasal spray 2 spray intranasal Q12H PRN 05/12/24 06/09/24 History (Vicks Sinex 12-Hour) atorvastatin 20 mg tablet See Rx Instructions .Route 05/19/24 06/09/24 Rx .COMPLEX #30 tabs hydrochlorothiazide 12.5 mg tablet See Rx Instructions .Route 05/26/24 06/09/24 Rx .COMPLEX #30 tabs clobetasol 0.05 % topical foam 1 applic topical BID 2 weeks #100 06/09/24 06/09/24 Rx (Olux) grams tramadol 50 mg tablet 50 mg PO Q6H PRN pain #30 tabs 06/09/24 06/09/24 Rx New Prescriptions to Start Prescriptions: Allergies Allergy/AdvReac Type Severity Reaction Status Date / Time desmopressin Allergy Severe Arrythmia Verified 06/09/24 13:56 amitriptyline (From Elavil) Allergy Unknown Dizziness, Verified 06/09/24 13:56 Headache isosorbide AdvReac Intermediate Headache Verified 06/09/24 13:56 gabapentin AdvReac Mild Other Verified 06/09/24 13:56 povidone-iodine (From AdvReac Itchy, Verified 06/09/24 13:56 Betadine) Redness to the site of application soap (From Betadine) AdvReac Itchy, Verified 06/09/24 13:56 Redness to the site of application Objective Narrative: Physical Exam: General: Alert and oriented x3, no acute distress, pleasant and cooperative Lungs: Respirations even and unlabored, symmetrical chest expansion Eyes: PERRL Musculoskeletal: Flexion and extension of lumbar [spine] somewhat guarded secondary to pain, [antalgic gait noted] point tenderness along bilateral SIs with positive bilateral Carol's, Christian's, Gaenslen's, compression and distraction exam Neurological: Speech clear, no gross sensory deficit Additional findings Additional findings: FINDINGS: Bones/joints: The vertebral body heights alignment are maintained. There is levo scoliosis measuring 13 degrees. There is mild multilevel degenerative disc disease most notable at L5-S1 consisting loss of disc height and loss of normal disc signal. Spinal cord: Visualized cord, conus medullaris and cauda equina are unremarkable without compression. T12-L1: There is a tiny right paracentral disc protrusion without significant spinal canal or neural foraminal stenosis. L1-L2: No significant disc bulge or herniation. No severe spinal canal stenosis. No significant neural foraminal narrowing. L2-L3: No significant disc bulge or herniation. No severe spinal canal stenosis. No significant neural foraminal narrowing. L3-L4: No significant disc bulge or herniation. No severe spinal canal stenosis. No significant neural foraminal narrowing. L4-L5: There is minimal diffuse disc bulging without significant spinal or neural foraminal stenosis. L5-S1: There is a similar appearing small central disc protrusion which causes minimal mass effect on the anterior thecal sac. The protrusion appears to abut the central right S1 nerve roots in the right lateral recess. Please see image 28 of series 8. Otherwise there is no significant spinal canal stenosis. The right neural foramen appears patent. There is similar appearing svsa-sd-gyiwoeqg left neural foraminal stenosis secondary to foraminal disc bulging and facet hypertrophy. Soft tissues: Unremarkable. Kidneys and ureters: There is a simple right exophytic renal cyst measuring 7.2 x 5.8 cm which previously measured 6.7 x 5.4 cm. IMPRESSION: Degenerative changes as described. Please see above for specific findings at each level. Assessment and Plan *Assessment and plan (1) Degenerative disc disease: Status: Acute Category: Medical (2) Bilateral sacroiliitis: Status: Acute Category: Medical Code(s): M46.1 - Sacroiliitis, not elsewhere classified (3) Lumbago: Status: Acute Category: Medical Code(s): M54.50 - Low back pain, unspecified (4) Bilateral hip pain: Status: Acute Category: Medical Code(s): M25.551 - Pain in right hip; M25.552 - Pain in left hip Plan Patient is experiencing worsening pain along the low back and bilateral hips. They did have limited range of motion of the lumbar spine along with point tenderness along bilateral SI joints and a positive bilateral Carol's, Christian's, Gaenslen's, compression and distraction exam. I did discuss with the patient that I do believe they would benefit from bilateral SI injections. Risk and benefits were discussed with the patient and they would like to proceed forward with this option. Patient has tried and failed conservative therapy including continued at home stretching exercise for longer than 12 weeks that was physician guided. Patient has had this pain going on for longer than 3 months and has progressively worsened. Patient has multiple sessions of physical therapy with no additional changes and has been seen by neurosurgery in the past and was not a surgical candidate. I will order the patient a compounded cream. Patient will be scheduled for bilateral SI injections under fluoroscopy. Patient has been instructed to contact the clinic with any concerns before the next appointment. Dr. Guadalupe has reviewed this note and agrees with this plan of care. This note was dictated using voice recognition software and make contain errors or omissions. All injections are used with Lidocaine or Bupivacaine and Depo Medrol. Patient has been instructed to contact the clinic with any concerns before the next appointment. Dr. Guadalupe has reviewed this note and agrees with this plan of care. This note was dictated using voice recognition software and make contain errors or omissions. All injections are used with Lidocaine, Bupivacaine and Depo Medrol. Occasionally urine drug screen is needed to verify patient's compliance with our office pain contract. This is ordered based off specific treatments related to chronic pain with the potential to abuse certain medications.
[2024-06-18 09:37] VITALS: BP 123/77; PULSE 85; RESP 18; O2SAT 95; BMI 32.9
== END 2024-06-18 23:59 | disposition home or self-care (01) ==
LOC: SC.PAIN 08:47
PROVIDERS: PCP Nurse Practitioner Family; Visit Provider Nurse Practitioner Family
DX: M46.1 Sacroiliitis, not elsewhere classified (principal); M54.50 Low back pain, unspecified; M25.551 Pain in right hip; M25.552 Pain in left hip; Z73.89 Other problems related to life management difficulty; Z79.899 Other long term (current) drug therapy
CPT/HCPCS: 99202; G0463

== ENCOUNTER 2024-07-15 10:58 | Day surgery (SDC) | payer OTHER, SELFPAY ==
[2024-07-15 10:59] VITALS: BP 132/85; PULSE 86; RESP 17; O2SAT 96; BMI 33.3
[2024-07-15] MEDS: BUPIVACAINE 0.25% 10ML INJ 25 MG IJ (11:15)
[2024-07-15] MEDS: methylPREDNISolone ACETATE 80MG/ML VIAL 80 MG (11:15)
[2024-07-15 11:17] VITALS: BP 133/86; PULSE 88; RESP 18; O2SAT 95
[2024-07-15] MEDS: LIDOCAINE 1% 5ML PF VIAL 5 ML (11:17)
[2024-07-15 11:19] VITALS: BP 133/86; PULSE 81; RESP 18; O2SAT 96
[2024-07-15 11:24] VITALS: BP 139/82; PULSE 86; RESP 18; O2SAT 96
--- NOTE | 2024-07-15 12:35 | P.PCN_ITS ---
Procedure Date: 07/15/24 Time: 10:45 Anesthesiologist:: Jorge Zhang CRNA Complications:: None Pre-procedure Diagnosis:: Bilateral sacroiliitis Post-procedure Diagnosis:: Same Indications for Procedure:: Patient is a very pleasant 53-year-old female who comes our clinic today for bilateral sacroiliac joint injections cortisone and local anesthetic. Patient describes low lumbar back pain off the midline bilaterally. Bilateral posterior hip pain. Difficulty transitioning from sitting to standing. She rates her pain 7/10. Procedure Details:: Procedure: Bilateral sacroiliac joint injections under fluoroscopy Informed consent was obtained and the risks and benefits of the procedure were explained to the patient.~ The patient was taken to the procedure room and noninvasive monitors were placed including a noninvasive blood pressure cuff and pulse oximeter.~ The patient was placed prone on the procedure table. Both hips were cleansed using Betadine as a cleansing solution. C-arm fluoroscopy was used to view the right sacroiliac joint.~ The skin and subcutaneous tissues were anesthetized using lidocaine 1.5% and a 25-gauge needle.~ After this, a 22-gauge spinal needle was inserted under fluoroscopic guidance into the inferior aspect of the right sacroiliac joint.~ Omnipaque dye was injected and good spread was seen throughout the joint.~ After this, approximately 5 mL of bupivacaine, 0.25% and Depo-Medrol, 40 mg was incrementally injected into the right sacroiliac joint. We then moved to the left sacroiliac joint.~ The skin and subcutaneous tissues were anesthetized using lidocaine 1.5% and a 25-gauge needle.~ After this, a 22- gauge spinal needle was inserted under fluoroscopic guidance into the inferior aspect of the left sacroiliac joint.~ Omnipaque dye was injected and good spread was seen throughout the joint. After this, approximately 5 mL of bupivacaine, 0.25% and Depo-Medrol, 40 mg was incrementally injected into the left sacroiliac joint.~ The patient tolerated the procedure well with no complications. The patient was observed in the Pain Clinic and then was discharged home neurologically intact. Plan and Disposition:: Patient was discharged without incident.
== END 2024-07-15 11:24 | disposition home or self-care (01) ==
LOC: SC.PAINP 10:58
PROVIDERS: PCP Nurse Practitioner Family; Visit Provider Nurse Anesthetist, Certified Registered
DX: M46.1 Sacroiliitis, not elsewhere classified (principal)
CPT/HCPCS: 27096; G0260; J1010

== ENCOUNTER 2024-08-07 11:25 | Outpatient (POV) | payer OTHER, SELFPAY ==
--- OUTSIDE RECORDS SUMMARY | 2024-08-07 11:28 | XMS_ITS | Clinical Summary ---
Author Organization [facility] Address [address] [place] [address] Phone Care Team Providers Care Deliverer Pharmacy Name Role Phone MEDINAYU VELASQUEZNIE Unavailable [phone] Elvin GARCIA, Tacho Carrasquillo Unavailable [phone] Reason for Visit and Chief Complaint The Chief Complaint is: Low back pain Problems Includes: Problems addressed during this encounter and other active Problems Current Visit Onset Date Resolved Date Provider Jazlyn michel Status Lower Back Pain 08/03/2016 Tacho Oconnor MD Act katrin Last Documented On 7 3:13PM ; [facility] Plan of Treatment Instructions to patient Lose weight Last Documented On 2 8:49AM ; [facility] Assessments Includes: Assessments from this encounter No Assessments Recorded Instructions Includes: Instructions from this encounter Instructions to patient Lose weight Last Documented On 2 8:49AM ; [facility] Medical Equipment - Implanted Devices Includes: Current Devices No Medical Equipment Recorded Medications Includes: Medications discussed during this encounter and other current Medications Current Medications (continue as prescribed) DULoxetine HCl 60 MG Oral Ca psule Delayed Release Particles 12/07/2021 Provider: OLMAN MEDINA Diagnosis: Last Documented On 2 8:36AM By Constanza Martínez [facility] Metoprolol Succinate ER 50 M G Oral Tablet Extended Release 24 Hour 11/28/2021 Provider: Cammy Moreland NP Diagnosis: Last Documented On 2 8:36AM By Constanza Martínez [facility] Celecoxib 200 MG Oral Capsule 11/19/2021 Provider: OLMAN MEDINA Diagnosis: Last Documented On 2 8:36AM By Constanza DENT [facility] Omeprazole 40 MG Oral Capsule Delayed Release 11/12/19 Provider: OLMAN MEDINA Diagnosis: Last Documented On 2 8:48AM By Constanza DENT [facility] rOPINIRole HCl 0.5 MG Oral Tablet 11/08/2021 Provide r: OLMAN MEDINA Diagnosis: Last Documented On 2 8:48AM By Constanza Rodgers ; [facility] Medications Administered Includes: Administered Medications from this encounter No Administered Medications Recorded Vital Signs Includes: Vital Signs from this encounter Vital Name 12/08/2021 08:46A Height (in) 63 Weight (lb) 187 Body Mass Index (kg/m2) 33.1 Body Surface Area (m2) 1.9 Note: kcunable to get bp Last Documented: On 12/08/2021 8:49AM ; [facility] Results Includes: Results discussed during this [...] Documented On 2 8:45PM ; [facility] No recent change in diet 12/08/2021 Last Documented On 2 8:45PM ; [facility] Not a current smoker. 12/08/2021 Last Documented On 2 8:45PM ; [facility] Alcohol use: 2 drinks or less per day Last Documented On 2 8:45PM ; [facility] ALICE[facility] Never smoked 12/08/2021 Last Documented On 2 8:45PM ; [facility], [facility] Never used drugs 12/08/2021 Last Documented On 2 8:45PM ; [facility] Unemployed 12/08/2021 Last Documented On 2 8:45PM ; [facility] Alcohol use 08/03/2016 Last Documented On 2 8:34AM ; [facility] Caffeine use 08/03/2016 Last Documented On 2 8:34AM ; [facility], [facility] Exercising regularly 08/03/2016 Last Documented On 2 8:34AM ; [facility], [facility] No recent change in diet 08/03/2016 Last Documented On 2 8:34AM ; [facility], [facility] Not a current smoker 08/03/2016 Last Documented On 2 8:34AM ; [facility], [facility] Not using drugs 08/03/2016 Last Documented On 2 8:34AM ; [facility], [facility] No tobacco use 08/03/2016 Last Documented On 2 8:34AM ; [facility], [facility] Smoking status : Never smoker 08/03/2016 Last Documented On 2 8:34AM ; [facility], [facility] Procedures and Surgical History Includes: Procedures from this encounter Procedures Code Diagnosis Performing Provider Service L ocation Service Date history of orthopedic options: physical therapy Last Documented On 2 8:34AM ; [facility], [facility] use of tobacco assessment performed 1000F Last Documented On 2 8:40AM ; [facility], [facility] no influenza immunization patient refuse d Last Documented On 2 8:39AM ; [facility], [facility] an X-ray was performed 19402 Last Documented On 2 8:38AM ; [facility], [facility] history of an X-ray was performed 67008 Last Documented On 2 8:34AM ; [facility], [facility] a CT scan was performed 18501 Last Documented On 2 8:38AM ; [facility], [facility] an MRI was performed 40188 Last Documented On 2 8:38AM ; [facility], [facility] history of an MRI was performed 24542 Last Documented On 2 8:34AM ; [facility] Surgical History Last Updated History of Past Surgical History: 2021 Last Documented On 2 8:45PM ; [facility], [facility] Medical History Includes: Medical History addressed during this encounter Description Last Updated No recent immunization for flu 2 Last Documented On 2 8:45PM ; [facility], [facility] No recent immunization for pneumococcal pneumonia 12/08/2021 Last Documented On 2 8:45PM ; [facility] , breast biopsy 12/08/2021 Last Documented On 2 8:34AM ; [facility], [facility] Past medical history non-contributory: H igh cholesterol, acid reflux 12/08/2021 Last Documented On 2 8:45PM ; [facility] Arthritic joint problems 08/03/2016 Last Documented On 2 8:34AM ; [facility] History of depression 08/03/2016 Last Documented On 2 8:34AM ; [facility] History of osteoporosis 08/03/2016 Last Documented On 2 8:34AM ; [facility], [facility] Family History Includes: Family History addressed during this encounter Description Last Updated Diabetes mellitus 12/08/2021 Last Documented On 2 8:45PM ; [facility] Family history of heart disease 12/09/19 22 Last Documented On 2 8:45PM ; [facility], [facility] Stroke / Seizures 12/08/2021 Last Documented On 2 8:45PM ; [facility], [facility] Maternal grandfather's history of family history of cancer 12/08/2021 Last Documented On 2 8:45PM ; [facility], [facility] Maternal grandfather's history of Stroke / Seizures 12/08/2021 Last Documented On 2 8:45PM ; [facility] Maternal grandmother's history of diabet es mellitus 12/08/2021 Last Documented On 2 8:45PM ; [facility], [facility] Maternal grandmother's history of family history of heart disease 12/08/2021 Last Documented On 2 8:45PM ; [facility] Maternal grandmother's history of system ic hypertension 12/08/2021 Last Documented On 2 8:45PM ; [facility] Maternal history of systemic hypertensio n 12/08/2021 Last Documented On 2 8:45PM ; [facility], [facility] Paternal grandmother's history of diabet es mellitus 12/08/2021 Last Documented On 2 8:45PM ; [facility], [facility] Paternal grandmother's history of system ic hypertension 12/08/2021 Last Documented On 2 8:45PM ; [facility], [facility] Paternal history of family history of ca ncer 12/08/2021 Last Documented On 2 8:45PM ; [facility], [facility] Paternal history of Stroke / Seizures Last Documented On 2 8:45PM ; [facility], [facility] Paternal history of systemic hypertensio n 12/08/2021 Last Documented On 2 8:45PM ; [facility], [facility] Sororal history of systemic hypertension 12/08/2021 Last Documented On 2 8:45PM ; [facility], [facility] Family history of cancer 08/03/2016 Last Documented On 2 8:34AM ; [facility], [facility] Family history of hypertension 7 Last Documented On 2 8:34AM ; [facility], [facility] Review of Systems Includes: Review [...] Active Last Documented On 2 8:36AM ; [facility] Flexeril Allergy 08/03/2016 Active Last Documented On 2 8:34AM ; [facility] BETADINE Allergy 12/08/2021 Active Last Documented On 2 8:37AM ; [facility] Amitriptyline HCl Allergy 12/08/2021 A ctive Last Documented On 2 8:37AM ; [facility] Encounters Encounter Provider Location Date Check-In Time Check-Out Time Diagnosis Physician Specified Tacho Oconnor MD [facility] 12/09/19 22 8:32AM 9:10AM Insurance Includes: Active Insurance Policies Plan Name Member ID Group # Subscriber Relationship Effect katrin Dates 1 - [employer] [facility] [id number] Jenae Lang Self Clinical Notes Includes: Clinical Notes from this encounter No Clinical Notes Recorded
--- OUTSIDE RECORDS SUMMARY | 2024-08-07 11:28 | XMS_ITS ---
Care Plan - [facility], [facility] Created on: August 07, 2024 Jenae Lang : 1970 Sex: Female Author Organization [facility] Address [address] [place] [address] Phone Care Team Providers Care Shoe Parts Molder Name Role Phone OLMAN MEDINA Unavailable [phone] Elvin GARCIA, Tacho Carrasquillo Unavailable [phone]
--- OUTSIDE RECORDS SUMMARY | 2024-08-07 11:29 | XMS_ITS ---
Author Organization [facility] , [facility] Address [address] [place] [address] Phone Care Team Providers Care Director Underwriter Sales Name Role Phone OLMAN MEDINA Unavailable [phone] Elvin GARCIA, Tacho Carrasquillo Unavailable [phone] Problems Includes: Active, inactive, and resolved Problems All Visits Onset Date Resolved Date Provider Condition S tatus Lower Back Pain 08/03/2016 Tacho Oconnor MD Act katrin Last Documented On 7 3:13PM ; [facility], [facility] Plan of Treatment Instructions to patient Lose weight Last Documented On 2 8:49AM ; [facility] Assessments Includes: Assessments for all patient encounters [...] Documented On 2 8:36AM By Constanza Martínez [facility], [facility] Metoprolol Succinate ER 50 M G Oral Tablet Extended Release 24 Hour 11/28/2021 Provider: Cammy Moreland NP Diagnosis: Last Documented On 2 8:36AM By Constanza Rodgers ; [facility], [facility] Celecoxib 200 MG Oral Capsule 11/19/2021 Provider: OLMAN MEDINA Diagnosis: Last Documented On 2 8:36AM By Constanza Rodgers ; [facility], [facility] Omeprazole 40 MG Oral Capsule Delayed Release 11/12/19 Provider: OLMAN MEDINA Diagnosis: Last Documented On 2 8:48AM By Constanza Rodgers ; [facility], [facility] rOPINIRole HCl 0.5 MG Oral Tablet 11/08/2021 Provide r: OLMAN MEDINA Diagnosis: Last Documented On 2 8:48AM By Constanza Rodgers ; [facility], [facility] Medications Administered Includes: Administered Medications in patient's chart No Administered Medications Recorded Results Includes: Results from 08/08/2023 through 08/07/2024 No Results Recorded For Specified Dates History of Present Illness History of Present Illness not supported for this document type No History of Present Illness Recorded Social History Description Last Updated Tobacco non-user 12/08/2021 Last Documented On 2 8:45PM ; [facility], [facility] No recent change in diet 12/08/2021 Last Documented On 2 8:45PM ; [facility], [facility] Not a current smoker. 12/08/2021 Last Documented On 2 8:45PM ; [facility], [facility] Alcohol use: 2 drinks or less per day Last Documented On 2 8:45PM ; [facility], [facility] Never smoked 12/08/2021 Last Documented On 2 8:45PM ; [facility], [facility] Never used drugs 12/08/2021 Last Documented On 2 8:45PM ; [facility], [facility] Unemployed 12/08/2021 Last Documented On 2 8:45PM ; [facility], [facility] Alcohol use 08/03/2016 Last Documented On 7 9:21AM ; [facility], [facility] Caffeine use 08/03/2016 Last Documented On 7 9:21AM ; [facility], [facility] Exercising regularly 08/03/2016 Last Documented On 7 9:21AM ; [facility], [facility] No recent change in diet 08/03/2016 Last Documented On 7 9:21AM ; [facility], [facility] Not a current smoker 08/03/2016 Last Documented On 7 9:21AM ; [facility], [facility] Not using drugs 08/03/2016 Last Documented On 7 9:21AM ; [facility], [facility] No tobacco use 08/03/2016 Last Documented On 7 9:21AM ; [facility], [facility] Smoking status : Never smoker 08/03/2016 Last Documented On 7 9:21AM ; [facility], [facility] Procedures and Surgical History Surgical History Last Updated History of Past Surgical History: 2021 Last Documented On 2 8:45PM ; [facility], [facility] Medical History Includes: Medical History in patient's chart Description Last Updated No recent immunization for flu 2 Last Documented On 2 8:45PM ; [facility], [facility] No recent immunization for pneumococcal pneumonia 12/08/2021 Last Documented On 2 8:45PM ; [facility], [facility] Past medical history non-contributory: H igh cholesterol, acid reflux 12/08/2021 Last Documented On 2 8:45PM ; [facility], [facility] Arthritic joint problems 08/03/2016 Last Documented On 7 9:21AM ; [facility], [facility] History of depression 08/03/2016 Last Documented On 7 9:21AM ; [facility], [facility] History of osteoporosis 08/03/2016 Last Documented On 7 9:21AM ; [facility], [facility] Family History Includes: Family History in patient's chart Description Last Updated Diabetes mellitus 12/08/2021 Last Documented On 2 8:45PM ; [facility], [facility] Family history of heart disease 12/09/19 Last Documented On 2 8:45PM ; [facility], [facility] Stroke / Seizures 12/08/2021 Last Documented On 2 8:45PM ; [facility], [facility] Maternal grandfather's history of family history of cancer 12/08/2021 Last Documented On 2 8:45PM ; [facility], [facility] Maternal grandfather's history of Stroke / Seizures 12/08/2021 Last Documented On 2 8:45PM ; [facility] Maternal grandmother's history of diabet es mellitus 12/08/2021 Last Documented On 2 8:45PM ; [facility] Maternal grandmother's history of family history of heart disease 12/08/2021 Last Documented On 2 8:45PM ; [facility] Maternal grandmother's history of system ic hypertension 12/08/2021 Last Documented On 2 8:45PM ; [facility], [facility] Maternal history of systemic hypertensio n 12/08/2021 Last Documented On 2 8:45PM ; [facility] Paternal grandmother's history of diabet es mellitus 12/08/2021 Last Documented On 2 8:45PM ; [facility], [facility] Paternal grandmother's history of system ic hypertension 12/08/2021 Last Documented On 2 8:45PM ; [facility], [facility] Paternal history of family history of ca ncer 12/08/2021 Last Documented On 2 8:45PM ; [facility], [facility] Paternal history of Stroke / Seizures Last Documented On 2 8:45PM ; [facility], [facility] Paternal history of systemic hypertensio n 12/08/2021 Last Documented On 2 8:45PM ; [facility], [facility] Sororal history of systemic hypertension 12/08/2021 Last Documented On 2 8:45PM ; [facility], [facility] Family history of cancer 08/03/2016 Last Documented On 7 9:21AM ; [facility], [facility] Family history of hypertension 7 Last Documented On 7 9:21AM ; [facility], [facility] No significant family history stroke/sei zure 08/03/2016 Last Documented On 7 9:21AM ; [facility], [facility] Review of Systems Review of Systems not [...] Active Last Documented On 2 8:36AM ; [facility] Flexeril Allergy 08/03/2016 Active Last Documented On 2 8:34AM ; [facility] BETADINE Allergy 12/08/2021 Active Last Documented On 2 8:37AM ; [facility] Amitriptyline HCl Allergy 12/08/2021 A ctive Last Documented On 2 8:37AM ; [facility] Insurance Includes: Active Insurance Policies Plan Name Member ID Group # Subscriber Relationship Effect katrin Dates 1 - [employer] [facility] [id number] Jenae Lang Self Clinical Notes Includes: Signed Clinical Notes starting from 03/23/2022 No Clinical Notes Recorded
--- OUTSIDE RECORDS SUMMARY | 2024-08-07 11:29 | XMS_ITS | Clinical Summary ---
Author Organization [facility] , [facility] Address [address] [place] [address] Phone Care Team Providers Care Pilot Control Operator Name Role Phone CAROL OLMAN Unavailable [phone] Elvin GARCIA, Tacho Carrasquillo Unavailable [phone] Reason for Visit and Chief Complaint The Chief Complaint is: Low back pain Problems Includes: Problems addressed during this encounter and other active Problems Current Visit Onset Date Resolved Date Provider Jazlyn michel Status Lower Back Pain 08/03/2016 Tacho Oconnor MD Act katrin Last Documented On 7 3:13PM ; [facility] Plan of Treatment Patient was seen by myself Liborio Arce PA-C and Dr. Oconnor. He does not feel this is anything that needs surgery. Recommend referral for L5-S1 lumbar epidurals and physical therapy. We will see her back as needed - Last Documented On 08/07/2016 9:21AM ; [facility] Assessments Includes: Assessments from this encounter Findings L5-S1 DDD - Last Documented On 08/07/2016 9:21AM ; [facility] Medical Equipment - Implanted Devices Includes: Current Devices No Medical Equipment Recorded Medications Includes: Medications discussed during this encounter and other current Medications Current Medications (continue as prescribed) DULoxetine HCl 60 MG Oral Ca psule Delayed Release Particles 12/07/2021 Provider: OLMAN MEDINA Diagnosis: Last Documented On 2 8:36AM By Constanza Rodgers ; [facility] Metoprolol Succinate ER 50 M G Oral Tablet Extended Release 24 Hour 11/28/2021 Provider: Cammy Moreland NP Diagnosis: Last Documented On 2 8:36AM By Constanza Rodgers ; [facility] Celecoxib 200 MG Oral Capsule 11/19/2021 Provider: OLMAN MEDINA Diagnosis: Last Documented On 2 8:36AM By Constanza Rodgers ; [facility], [facility] Omeprazole 40 MG Oral Capsule Delayed Release 11/12/19 Provider: OLMAN MEDINA Diagnosis: Last Documented On 2 8:48AM By Constanza Rodgers ; [facility], [facility] rOPINIRole HCl 0.5 MG Oral Tablet 11/08/2021 Provide r: OLMAN ZAPATANER Diagnosis: Last Documented On 2 8:48AM By Constanza Rodgers ; [facility], [facility] Medications Administered Includes: Administered Medications from this encounter No Administered Medications Recorded Vital Signs Includes: Vital Signs from this encounter Vital Name 08/03/2016 03:13P Height (in) 63 Weight (lb) 175 Body Mass Index (kg/m2) 31.0 Body Surface Area (m2) 1.8 Note: aco Last Documented: On 08/03/2016 3:32PM ; [facility] Results Includes: Results discussed during this encounter [...] On 7 9:21AM ; [facility] Caffeine use 08/03/2016 Last Documented On 7 9:21AM ; [facility], [facility] Exercising regularly 08/03/2016 Last Documented On 7 9:21AM ; [facility], [facility] No recent change in diet 08/03/2016 Last Documented On 7 9:21AM ; [facility], [facility] Not a current smoker 08/03/2016 Last Documented On 7 9:21AM ; [facility], [facility] Not using drugs 08/03/2016 Last Documented On 7 9:21AM ; [facility], [facility] No tobacco use 08/03/2016 Last Documented On 7 9:21AM ; [facility], [facility] Smoking status : Never smoker 08/03/2016 Last Documented On 7 9:21AM ; [facility], [facility] Procedures and Surgical History Includes: Procedures from this encounter Procedures Code Diagnosis Performing Provider Service L ocation Service Date history of orthopedic options: physical therapy Last Documented On 7 3:29PM ; [facility], [facility] history of an X-ray was performed [id number] Last Documented On 7 3:29PM ; [facility], [facility] history of an MRI was performed [id number] Last Documented On 7 3:29PM ; [facility], [facility] Medical History Includes: Medical History addressed during this encounter Description Last Updated , breast biopsy 08/03/2016 Last Document[facility] On 7 9:21AM ; [facility] Past medical history non-contributory: H igh cholesterol, acid reflux 08/03/2016 Last Documented On 7 9:21AM ; [facility] Arthritic joint problems 08/03/2016 Last Documented On 7 9:21AM ; [facility] History of depression 08/03/2016 Last Documented On 7 9:21AM ; [facility] History of osteoporosis 08/03/2016 Last Documented On 7 9:21AM ; [facility], [facility] Family History Includes: Family History addressed during this encounter Description Last Updated Family history of cancer 08/03/2016 Last Documented On 7 9:21AM ; [facility], [facility] Family history of hypertension 7 Last Documented On 7 9:21AM ; [facility], [facility] No significant family history stroke/sei zure 08/03/2016 Last Documented On 7 9:21AM ; [facility], [facility] Review of Systems Includes: Review of Systems [...] Active Last Documented On 2 8:36AM ; [facility] Flexeril Allergy 08/03/2016 Active Last Documented On 2 8:34AM ; [facility] BETADINE Allergy 12/08/2021 Active Last Documented On 2 8:37AM ; [facility] Amitriptyline HCl Allergy 12/08/2021 A ctive Last Documented On 2 8:37AM ; [facility], [facility] Encounters Encounter Provider Location Date Check-In Time Check-Out Time Diagnosis NEW PATIENT Tacho Oconnor MD [facility] 08/04/19 17 2:56PM 4:21PM Insurance Includes: Active Insurance Policies Plan Name Member ID Group # Subscriber Relationship Effect katrin Dates 1 - [employer] [facility] [id number] Jenae Lang Self Clinical Notes Includes: Clinical Notes from this encounter No Clinical Notes Recorded
--- NOTE | 2024-08-07 12:00 | EXP.PAIN.SOA ---
[facility] Disclaimer: The information contained in this section may have been updated after the patient was seen, as this information can be updated by other users. 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 Renal cyst Diastolic dysfunction Coronary-myocardial bridge Surgical History Hx of right heart catheterization Hx of wisdom tooth extraction Hx of section Family History Mother Hypertension Hyperlipidemia Diabetes Father Cancer brain Hyperlipidemia Hypertension Diabetes Social History Smoking Status: Never smoker second hand exposure: No alcohol intake: former substance use type: denies use current occupational status: unemployed Travel in the last 8 weeks?: None household members: spouse housing: house marital status: number of children: 3 education level: high school caffeine: Yes do you feel safe at home: Yes victim of physical abuse: No victim of emotional abuse: No victim of sexual abuse: No would you like helpful sources: No PM Subjective & Objective Subjective Subjective:: Patient is a pleasant 53-year-old female who presents today for follow-up of bilateral SI injections on 07/15/2024. Today she rates her pain a 7 out of 10. Patient does state that she was getting significant relief with her prior injections however then she went to lift a box and it did aggravate her overall back symptoms. Patient does state that it is still across her back but is not really going into her hips as significantly. Patient does state the pain is worse with certain movements such as bending, twisting or lifting. Patient does state the pain is interfering with her ability perform activities of daily living such as cooking and cleaning. From her last visit she does state that she has tried the compounded cream and it did seem to help. She is prescribed pregabalin and ropinirole along with muscle relaxers from her primary care. Patient states that she has been given the tramadol in the past however she does not like taking this and does not really take it now. Her Nikolai has been reviewed and is appropriate. Review of Systems: General: No recent weight changes, no fever, no sleep disturbances Respiratory: No cough, no shortness of air, no recurring pulmonary infections Cardiovascular/peripheral vascular: No chest pain, no palpitations, no edema, no shortness of breath Gastrointestinal: No new onset incontinence, normal bowel movements reported Genitourinary: No new onset incontinence Musculoskeletal: Low back pain Psychiatric: [Normal mood/affect] Neurological: [Denies weakness in extremities], [denies balance issues] Pain at rest (0-10 scale): 7 Objective Objective:: Physical Exam: General: Alert and oriented x3, no acute distress, pleasant and cooperative Lungs: Respirations even and unlabored, symmetrical chest expansion Eyes: PERRL Musculoskeletal: Flexion and extension of lumbar [spine] somewhat guarded secondary to pain, [antalgic gait noted] positive Kemps test Neurological: Speech clear, no gross sensory deficit Has patient had previous pain injection?: Yes Percent improvement in pain since last injection: Significant for 1 week Conservative treatment options previously tried: Home exercise plan Length of treatment: Longer than 12 weeks Meds Home Medications and Allergies Home Medications ?Medication ?Instructions ?Recorded ?Confirmed ?Type nitroglycerin 0.4 mg sublingual 0.4 mg sublingual Q5M PRN chest 05/20/19 07/15/24 Rx tablet pain #25 tabs potassium 99 mg tablet 99 mg PO DAILY Supplement 08/17/20 07/15/24 History omega 7-ojp-qqt-fish oil 1,000 mg 2 cap PO DAILY 02/21/23 07/15/24 History (120 mg-180 mg) capsule (Fish Oil) ondansetron 4 mg disintegrating 4 mg PO Q8H PRN nausea and 02/21/23 07/15/24 Rx tablet vomiting #30 tabs blood sugar diagnostic (FreeStyle #100 ea 05/25/23 07/15/24 Rx Lite Strips) blood-glucose meter (FreeStyle #1 ea 05/25/23 07/15/24 Rx Lite Meter kit) lancets 28 gauge (FreeStyle #100 ea 01/01/24 07/15/24 Rx Lancets) lamotrigine 100 mg tablet 100 mg PO DAILY 30 days #30 tabs 02/29/24 07/15/24 Rx metformin 500 mg tablet,extended 500 mg PO DAILY #30 tabs 03/03/24 07/15/24 Rx release 24 hr tizanidine 4 mg tablet See Rx Instructions .Route 03/17/24 07/15/24 Rx .COMPLEX #30 tabs pregabalin 25 mg capsule (Lyrica) 25 mg PO BID #60 caps 05/05/24 07/15/24 Rx ropinirole 1 mg tablet 1 mg PO HS restless leg syndrome 05/05/24 07/15/24 Rx 30 days #30 tabs ketorolac 10 mg tablet 10 mg PO Q6H PRN pain 5 days #20 05/12/24 07/15/24 Rx tabs oxymetazoline 0.05 % nasal spray 2 spray intranasal Q12H PRN . 05/12/24 07/15/24 History (Vicks Sinex 12-Hour) clobetasol 0.05 % topical foam 1 applic topical BID 2 weeks #100 06/09/24 07/15/24 Rx (Olux) grams tramadol 50 mg tablet 50 mg PO Q6H PRN pain #30 tabs 06/09/24 07/15/24 Rx atorvastatin 20 mg tablet 20 mg PO DAILY 30 days #30 tabs 06/27/24 07/15/24 Rx celecoxib 200 mg capsule (Celebrex) 200 mg PO BID #60 caps 06/27/24 07/15/24 Rx hydrochlorothiazide 12.5 mg tablet 12.5 mg PO DAILY 30 days #30 tabs 06/27/24 07/15/24 Rx ropinirole 0.5 mg tablet See Rx Instructions .Route 06/27/24 07/15/24 Rx .COMPLEX #90 tabs semaglutide 0.25 mg or 0.5 mg (2 0.25 mg (0.368 mL) SQ WEEKLY #3 mL 07/18/24 Rx mg/3 mL) subcutaneous pen injector (Ozempic) duloxetine 60 mg capsule,delayed 60 mg PO DAILY mood 30 days #30 07/25/24 Rx release caps ubrogepant 100 mg tablet (Ubrelvy) 100 mg PO .COMPLEX PRN headache 07/25/24 Rx #20 tabs metoprolol succinate 25 mg 25 mg PO DAILY #30 tabs 07/28/24 Rx tablet,extended release 24 hr omeprazole 40 mg capsule,delayed See Rx Instructions .Route 08/04/24 Rx release .COMPLEX #90 caps New Prescriptions to Start Prescriptions: Allergies Allergy/AdvReac Type Severity Reaction Status Date / Time desmopressin Allergy Severe Arrythmia Verified 07/15/24 10:59 amitriptyline (From Elavil) Allergy Unknown Dizziness, Verified 07/15/24 10:59 Headache isosorbide AdvReac Intermediate Headache Verified 07/15/24 10:59 gabapentin AdvReac Mild Other Verified 07/15/24 10:59 povidone-iodine (From AdvReac Itchy, Verified 07/15/24 10:59 Betadine) Redness to the site of application soap (From Betadine) AdvReac Itchy, Verified 07/15/24 10:59 Redness to the site of application Assessment and Plan *Assessment and plan (1) Lumbar facet arthropathy: Status: Acute Category: Medical Code(s): M47.816 - Spondylosis without myelopathy or radiculopathy, lumbar region Plan Patient is experiencing significant pain in her low back that is worse with bending, twisting or lifting. Patient did have limited range of motion of her lumbar spine with a positive Kemps test during today's visit. I did discuss with the patient that I do believe she would benefit from a lumbar medial branch block. Risk and benefits were discussed with the patient and she would like to proceed forward with this plan of care. Patient has tried and failed conservative therapy including oral medications, heat and ice, topicals, at home stretching exercise for longer than 12 weeks. Patient has been experiencing low back pain for longer than 6 months. Patient was counseled that if she does get significant relief with her first lumbar medial branch block that we will plan on repeating it with the plan to progress forward to a lumbar RFA at a later date. Patient agrees with this plan of care. Patient will be scheduled for her first diagnostic lumbar medial branch block bilaterally L4-L5 and L5-S1 under fluoroscopy. Patient has been instructed to contact the clinic with any concerns before the next appointment. Dr. Guadalupe has reviewed this note and agrees with this plan of care. This note was dictated using voice recognition software and make contain errors or omissions. All injections are used with Lidocaine, Bupivacaine and dexamethasone. Occasionally urine drug screen is needed to verify patient's compliance with our office pain contract. This is ordered based off specific treatments related to chronic pain with the potential to abuse certain medications.
[2024-08-07 14:35] VITALS: BP 134/79; PULSE 83; RESP 18; O2SAT 97; BMI 33.6
== END 2024-08-07 23:59 | disposition home or self-care (01) ==
LOC: SC.PAIN 11:27
PROVIDERS: PCP Nurse Practitioner Family; Visit Provider Nurse Practitioner Family
DX: M47.816 Spondylosis without myelopathy or radiculopathy, lumbar region (principal); Z73.89 Other problems related to life management difficulty; Z79.899 Other long term (current) drug therapy
CPT/HCPCS: 99212; G0463

== ENCOUNTER 2024-08-11 15:32 | Outpatient (CLI) | payer OTHER, SELFPAY ==
[2024-08-11 14:15] LABS: Albumin Level 4.5 g/dl (3.5-5.0); Creatinine,Urine Random 236 mg/dL (Not Estab.)
[2024-08-11 14:16] LABS: Chloride 104 mmol/L (98-107); Potassium 4.1 mmoL/L (3.5-5.1); Sodium 137 mmol/L (136-145)
[2024-08-11 14:18] LABS: Alanine Aminotransferase 32 U/L (12-78); Aspartate Amino Transferase 25 U/L (14-36); Blood Urea Nitrogen 19 mg/dl (7-17); Estimated Glomerular Filt Rate 87 ml/min (>60); GFR (African American) 106 ML/MIN (>60)
[2024-08-11 14:19] LABS: Alkaline Phosphatase 88 U/L (38-126); Anion Gap 10.1 mEq/L (5-15); Bilirubin,Total 0.5 mg/dl (0.2-1.3); Calcium 9.5 mg/dl (8.4-10.2); Carbon Dioxide 27 mmol/L (22.0-30.0); Chol/HDL Ratio 3.9 (1-3.5); Cholesterol 208 mg/dl (140-200); Globulin 2.2 g/dL (1.3-3.2); Glucose 123 mg/dl (74-100); HDL Cholesterol 53 mg/dl (40-60); Magnesium 1.7 mg/dl (1.6-2.3); Total Protein,Serum 6.7 g/dl (6.3-8.2); Triglycerides 134 mg/dl (30-150); VLDL Cholesterol 27 mg/dL (0-40)
[2024-08-11 14:50] LABS: Thyroid Stimulating Hormone 0.73 uIU/mL (0.465-4.68)
[2024-08-11 14:54] LABS: Ferritin 36.4 ng/ml (11.1-264)
[2024-08-11 15:32] LABS: Vitamin B12 420 pg/mL (239-931)
[2024-08-11 21:53] LABS: Hemoglobin A1C 6.5 % (4.0-6.0)
== END 2024-08-11 23:59 | disposition home or self-care (01) ==
LOC: LAB.DROPOF 15:32
PROVIDERS: PCP Nurse Practitioner Family; Visit Provider Nurse Practitioner Family
DX: R20.0 Anesthesia of skin (principal); R20.2 Paresthesia of skin; E11.9 Type 2 diabetes mellitus without complications
CPT/HCPCS: 80053; 80061; 82043; 82570; 82607; 82728; 83036; 83735; 84443

== ENCOUNTER 2024-08-27 08:28 | Outpatient (POV) | payer OTHER, SELFPAY ==
[2024-08-27 09:56] VITALS: BP 113/80; PULSE 83; RESP 18; O2SAT 98; BMI 32.5
--- NOTE | 2024-08-27 10:59 | A.OFFVIS_ITS ---
[facility] Disclaimer: The information contained in this section may have been updated after the patient was seen, as this information can be updated by other users. 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 Renal cyst Diastolic dysfunction Coronary-myocardial bridge Surgical History Hx of right heart catheterization Hx of wisdom tooth extraction Hx of section Family History Mother Hypertension Hyperlipidemia Diabetes Father Cancer brain Hyperlipidemia Hypertension Diabetes Social History Smoking Status: Never smoker second hand exposure: Yes (as a child, but not currently) alcohol intake: former substance use type: denies use current occupational status: unemployed Travel in the last 8 weeks?: None household members: spouse housing: house marital status: number of children: 3 education level: high school caffeine: Yes do you feel safe at home: Yes victim of physical abuse: No victim of emotional abuse: No victim of sexual abuse: No would you like helpful sources: No Have you lived/traveled outside US in past 30 days?: No Contact w/someone who lives/traveled outside US past 30 days?: No Exposure to someone with infectious disease in past 14 days?: No Do you have a fever (greater than 100.4 F or 38 C)?: No Have you tested positive for COVID-19?: No Exposed to someone with COVID-19 in past 14 days?: No Do you have a sore throat?: No Do you have a cough?: No Do you have any weakness?: No Do you have any diarrhea?: No Are you experiencing any unusual bleeding?: No Do you have any muscle aches/pain?: No Do you have any abdominal pain?: No Are you experiencing loss of taste or smell?: No PM Subjective & Objective Subjective Subjective:: Patient is a pleasant 53-year-old female who presents today for insurance denial. She states she is still having the same overall back pain from her last visit and denies any radiating symptoms into her legs. Patient states the pain is worse with lifting, bending or twisting. Patient does state it interferes with her ability perform activities of daily living such as cooking and cleaning. Patient has been prescribed pregabalin, ropinirole and muscle relaxers from her primary care and compounded cream from our office. Her Nikolai has been reviewed and is appropriate. Review of Systems: General: No recent weight changes, no fever, no sleep disturbances Respiratory: No cough, no shortness of air, no recurring pulmonary infections Cardiovascular/peripheral vascular: No chest pain, no palpitations, no edema, no shortness of breath Gastrointestinal: No new onset incontinence, normal bowel movements reported Genitourinary: No new onset incontinence Musculoskeletal: Low back pain Psychiatric: [Normal mood/affect] Neurological: [Denies weakness in extremities], [denies balance issues] Pain at rest (0-10 scale): 5 Objective Objective:: Physical Exam: General: Alert and oriented x3, no acute distress, pleasant and cooperative Lungs: Respirations even and unlabored, symmetrical chest expansion Eyes: PERRL Musculoskeletal: Flexion and extension of lumbar [spine] somewhat guarded secondary to pain, [antalgic gait noted] positive Kemps test Neurological: Speech clear, no gross sensory deficit Has patient had previous pain injection?: No Conservative treatment options previously tried: Home exercise plan Length of treatment: Longer than 12 weeks Meds Home Medications and Allergies Home Medications ?Medication ?Instructions ?Recorded ?Confirmed ?Type nitroglycerin 0.4 mg sublingual 0.4 mg sublingual Q5M PRN chest 05/20/19 08/27/24 Rx tablet pain #25 tabs potassium 99 mg tablet 99 mg PO DAILY Supplement 08/17/20 08/27/24 History omega 1-jqg-ued-fish oil 1,000 mg 2 cap PO DAILY 02/21/23 08/27/24 History (120 mg-180 mg) capsule (Fish Oil) ondansetron 4 mg disintegrating 4 mg PO Q8H PRN nausea and 02/21/23 08/27/24 Rx tablet vomiting #30 tabs blood sugar diagnostic (FreeStyle #100 ea 05/25/23 08/27/24 Rx Lite Strips) blood-glucose meter (FreeStyle #1 ea 05/25/23 08/27/24 Rx Lite Meter kit) lancets 28 gauge (FreeStyle #100 ea 01/01/24 08/27/24 Rx Lancets) metformin 500 mg tablet,extended 500 mg PO DAILY #30 tabs 03/03/24 08/27/24 Rx release 24 hr ropinirole 1 mg tablet 1 mg PO HS restless leg syndrome 05/05/24 08/27/24 Rx 30 days #30 tabs atorvastatin 20 mg tablet 20 mg PO DAILY 30 days #30 tabs 06/27/24 08/27/24 Rx celecoxib 200 mg capsule (Celebrex) 200 mg PO BID #60 caps 06/27/24 08/27/24 Rx hydrochlorothiazide 12.5 mg tablet 12.5 mg PO DAILY 30 days #30 tabs 06/27/24 08/27/24 Rx ropinirole 0.5 mg tablet See Rx Instructions .Route 06/27/24 08/27/24 Rx .COMPLEX #90 tabs semaglutide 0.25 mg or 0.5 mg (2 0.25 mg (0.368 mL) SQ WEEKLY #3 mL 07/18/24 08/27/24 Rx mg/3 mL) subcutaneous pen injector ([employer]) duloxetine 60 mg capsule,delayed 60 mg PO DAILY mood 30 days #30 07/25/24 08/27/24 Rx release caps ubrogepant 100 mg tablet (Ubrelvy) 100 mg PO .COMPLEX PRN headache 07/25/24 08/27/24 Rx #20 tabs metoprolol succinate 25 mg 25 mg PO DAILY #30 tabs 07/28/24 08/27/24 Rx tablet,extended release 24 hr omeprazole 40 mg capsule,delayed See Rx Instructions .Route 08/04/24 08/27/24 Rx release .COMPLEX #90 caps tizanidine 4 mg tablet See Rx Instructions .Route 08/08/24 08/27/24 Rx .COMPLEX #30 tabs mupirocin 2 % topical ointment 1 applic topical TID 10 days #22 08/11/24 08/27/24 Rx grams lamotrigine 150 mg tablet 150 mg PO DAILY 30 days #30 tabs 08/15/24 08/27/24 Rx New Prescriptions to Start Prescriptions: Allergies Allergy/AdvReac Type Severity Reaction Status Date / Time desmopressin Allergy Severe Arrythmia Verified 08/14/24 13:11 amitriptyline (From Elavil) Allergy Unknown Dizziness, Verified 08/14/24 13:11 Headache isosorbide AdvReac Intermediate Headache Verified 08/14/24 13:11 gabapentin AdvReac Mild Other Verified 08/14/24 13:11 povidone-iodine (From AdvReac Itchy, Verified 08/14/24 13:11 Betadine) Redness to the site of application soap (From Betadine) AdvReac Itchy, Verified 08/14/24 13:11 Redness to the site of application Assessment and Plan *Assessment and plan (1) Lumbar facet arthropathy: Status: Acute Category: Medical Code(s): M47.816 - Spondylosis without myelopathy or radiculopathy, lumbar region (2) Lumbago: Status: Acute Category: Medical Code(s): M54.50 - Low back pain, unspecified Plan Patient is still experiencing significant pain in her low back that is worse with bending, twisting or lifting. Patient did have limited range of motion of her lumbar spine with a positive Kemps test during today's visit. I did discuss with the patient that I do believe she would benefit from a lumbar medial branch block. Risk and benefits were discussed with the patient and she would like to proceed forward with this plan of care. Patient has tried and failed conservative therapy including oral medications, heat and ice, topicals, at home stretching exercise for longer than 12 weeks. Patient has been experiencing chronic low back pain for years. Patient was counseled that if she does get significant relief with her first lumbar medial branch block that we will plan on repeating it with the plan to progress forward to a lumbar RFA at a later date. Patient agrees with this plan of care. Patient has had chronic back pain for longer than 6 months. Patient will be scheduled for her first diagnostic lumbar medial branch block bilaterally L4-L5 and L5-S1 under fluoroscopy. Patient has been instructed to contact the clinic with any concerns before the next appointment. Dr. Guadalupe has reviewed this note and agrees with this plan of care. This note was dictated using voice recognition software and make contain errors or omissions. All injections are used with Lidocaine, Bupivacaine and dexamethasone unless diagnostic in which there is no steroids injected. Occasionally urine drug screen is needed to verify patient's compliance with our office pain contract. This is ordered based off specific treatments related to chronic pain with the potential to abuse certain medications.
== END 2024-08-27 23:59 | disposition home or self-care (01) ==
LOC: SC.PAIN 08:29
PROVIDERS: PCP Nurse Practitioner Family; Visit Provider Nurse Practitioner Family
DX: M47.816 Spondylosis without myelopathy or radiculopathy, lumbar region (principal); M54.50 Low back pain, unspecified; Z73.89 Other problems related to life management difficulty; Z79.899 Other long term (current) drug therapy
CPT/HCPCS: 99212; G0463

== ENCOUNTER 2024-09-02 08:32 | Day surgery (SDC) | payer OTHER, SELFPAY ==
[2024-09-02 08:39] VITALS: BP 131/81; PULSE 83; RESP 16; TEMP 36.9; O2SAT 99; BMI 32.8
[2024-09-02 09:03] VITALS: BP 135/81; PULSE 92; RESP 18; O2SAT 95
[2024-09-02] MEDS: LIDOCAINE 1% 5ML PF VIAL 5 ML (09:03)
[2024-09-02] MEDS: BUPIVACAINE 0.25% 10ML INJ 25 MG IJ (09:03)
[2024-09-02] MEDS: DEXAMETHASONE 10MG/ML 1ML VIAL 10 MG (09:03)
[2024-09-02 09:05] VITALS: BP 135/81; PULSE 84; RESP 18; O2SAT 97
--- NOTE | 2024-09-02 09:08 | P.PCN_ITS ---
Procedure Date: 09/02/24 Time: 09:00 Anesthesiologist:: Jorge Zhang CRNA Complications:: None Pre-procedure Diagnosis:: Degenerative disc lumbar spine multilevels. Lumbar radiculopathy. Lumbar spondylosis. Multilevel lumbar facet arthropathy. Post-procedure Diagnosis:: Same. Indications for Procedure:: Patient is a very pleasant 53-year-old female who comes our clinic today for ROUND TWO of lumbar medial branch blocks/facet injections of bilateral L4-5, L5- S1 level. Patient reports significant improvement terms of her overall low lumbar back symptoms with previous injection same level. Today she describes low lumbar back pain which affects lumbar flexion, extension, left and right rotation. Also, difficulty standing for any length of time. She rates her pain 6/10. Procedure Details:: Informed consent was obtained and the risk and benefits of the procedure was explained to the patient. Patient was taken to the procedure room where noninvasive monitors were placed, including noninvasive blood pressure cuff as well as pulse oximeter. The area over the lumbar spine was cleansed using chlorhexidine as a cleansing solution. I anesthetized the skin and subcutaneous tissues with 1% Lidocaine. I placed 22-gauge spinal needles into the facet joint/ medial branches of [L3-L4, L4-L5, and L5-S1] bilaterally. Needle placement was confirmed with fluoroscopy. After confirmation of needle placement, each site was injected with 1 mL of 1% lidocaine and 0.25 % Marcaine and 10 mg of Depo-Medrol. A total of 80 mg of depo medrol was used for bilateral medial branch blocks of [L3-L4, L4-L5, and L5-S1] bilaterally. Patient tolerated the procedure without difficulty. There were no complications. Plan and Disposition:: Patient was discharged without incident.
[2024-09-02 09:12] VITALS: BP 118/86; PULSE 89; RESP 16; O2SAT 97
== END 2024-09-02 09:12 | disposition home or self-care (01) ==
PROVIDERS: PCP Nurse Practitioner Family; Visit Provider Nurse Anesthetist, Certified Registered
DX: M47.816 Spondylosis without myelopathy or radiculopathy, lumbar region (principal); M51.369 Other intervertebral disc degeneration, lumbar region without mention of lumbar back pain or lower extremity pain
CPT/HCPCS: 64493; 64494; J1100

== ENCOUNTER 2024-09-22 10:03 | Outpatient (POV) | payer OTHER, SELFPAY ==
--- OUTSIDE RECORDS SUMMARY | 2024-09-22 10:14 | XMS_ITS | Clinical Summary ---
Author Organization [facility] Address [address] [place] [address] Care Team Providers Care Carpenter Mold Name Role Phone Levi Kapoor MD Primary Care Provider [phone] Family History Medical History Relation Name Comments Alcohol abuse Father Brain Tumor Father Heart attack Father Brain Tumor Other 1 COPD Other 2 Alcohol abuse Other 3 Heart failure Other 4 Diabetes Other 5 Emphysema Other 6 Conversions - Other Other 7 fluid ov erload Hypertension Other 8 Heart attack Other 9 Relation Name Status Comments Father Other 1 Other 2 Other 3 Other 4 Other 5 Other 6 Other 7 Other 8 Other 9 Social History Tobacco Use Types Packs/Day Years Used Date Smoking Tobacco: Never Alcohol Use Standard Drinks/Week Comments No 0 (1 standard drink = 0.6 oz pur e alcohol) Comments Unknown Sex and Gender Information Value Date Recorded Sex Assigned at Not on file Legal Sex Female 6:52 PM EDT Gender Identity Not on file Sexual Orientation Not on file Last Filed Vital Signs Vital Sign Reading Time Taken Comments Blood Pressure 136/83 12/14/2017 10:17 AM EDT Pulse 94 12/14/2017 10:17 AM EDT Temperature 36.4 C (97.6 F) 12/14/2017 10:17 AM EDT Respiratory Rate 14 12/14/2017 10:1 7 AM EDT Oxygen Saturation - - Inhaled Oxygen Concentration - - Weight 79.3 kg (174 lb 13.2 oz) 018 10:17 AM EDT Height 162.6 cm (5' 4 ) 12/14/2017 10:1 7 AM EDT Body Mass Index 30.01 12/14/2017 10:17 AM EDT Plan of Treatment Health Maintenance Due Date Last Done Comments [facility]-Depression Screening 1969 [facility]-Infant/Child/Adol SDOH Screenings 1969 [facility]- SDOH Screenings 11/25/1987 [facility]-Adult SDOH Screenings 11/25/1987 [facility]-Hepatitis B Vaccines (1 of 3 - 19+ 3-dose series) 1988 [facility]-Pap Smear 1990 [facility]-Cervical Cancer Screening 11/25/1999 [facility]-HPV/Cotest 11/25/1999 CT Colonography 2014 Colonoscopy 2014 FIT-DNA 2014 FIT 2014 FOBT 2014 Sigmoidoscopy 2014 [facility]-Colorectal Cancer Screening 2014 [facility]-Pneumococcal Vaccine: 50 + Years (1 of 1 - PCV) 11/25/2019 [facility]-Zoster Vaccines (1 of 2) 11/25/2019 [id number] Vaccine ( - 20 24- season) 2023 [facility]-DTaP,Tdap,and Td Vaccine s (2 - Td or Tdap) 07/01/2024 07/01/2014 [facility]-Influenza Vaccine (Seas[place] n Ended) 2024 [facility]-Hepatitis A Vaccines Aged Out 03/29/2018 No longer eligible based on patient's age to complete this topic HPV Vaccines Aged Out No longer eligi ble based on patient's age to complete this topic [facility]-HIB Vaccines Aged Out No longer e ligible based on patient's age to complete this topic [facility]-IPV Vaccines Aged Out No longer e ligible based on patient's age to complete this topic [facility]-Rotavirus Vaccines Aged Out No lo nger eligible based on patient's age to complete this topic Insurance [facility] Care Teams Carpenter Mold Relationship Specialty Start Date End Date Levi Kapoor MD [address] [facility] [place] [address] PCP - General 08/20/20
--- OUTSIDE RECORDS SUMMARY | 2024-09-22 10:14 | XMS_ITS | Encounter Summary ---
Author Organization Healthcare Address [address] [place] [address] Care Team Providers Care Oracle Consultant Name Role Phone Levi Kapoor MD Primary Care Provider [phone] Encounter Details Date Type Department Care Team (Latest Contact Info) Description 01/28/2021 Community [facility] Community Practice [address] [place] [address] Madison Garrett, MA[employer]GER [employer] [address] [place], [place] [id number] Osteoarthritis of temporomandibular joint (Primary Dx) Social History Tobacco Use Types Packs/Day Years Used Date Smoking Tobacco: Never Alcohol Use Standard Drinks/Week Comments No 0 (1 standard drink = 0.6 oz pur e alcohol) Comments Unknown Sex and Gender Information Value Date Recorded Sex Assigned at Not on file Legal Sex Female 6:52 PM EDT Gender Identity Not on file Sexual Orientation Not on file documented as of this encounter Plan of Treatment Not on file documented as of this encounter Visit Diagnoses Diagnosis Osteoarthritis of temporomandibular joint- Primary documented in this encounter Care Teams Oracle Consultant Relationship Specialty Start Date End Date Levi Kapoor MD [facility] [place] [address] PCP - General 08/20/20 documented as of this encounter
--- NOTE | 2024-09-22 10:42 | A.OFFVIS_ITS ---
[facility] Disclaimer: The information contained in this section may have been updated after the patient was seen, as this information can be updated by other users. 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 Renal cyst Diastolic dysfunction Coronary-myocardial bridge Surgical History Hx of right heart catheterization Hx of wisdom tooth extraction Hx of section Family History Mother Hypertension Hyperlipidemia Diabetes Father Cancer brain Hyperlipidemia Hypertension Diabetes Social History (Reviewed 09/11/24 @ 14:47 by Becky Lancaster [facility]) Smoking Status: Never smoker second hand exposure: Yes (as a child, but not currently) alcohol intake: former substance use type: denies use current occupational status: unemployed Travel in the last 8 weeks?: None household members: spouse housing: house marital status: number of children: 3 education level: high school caffeine: Yes do you feel safe at home: Yes victim of physical abuse: No victim of emotional abuse: No victim of sexual abuse: No would you like helpful sources: No PM Subjective & Objective Subjective Subjective:: Patient is a pleasant 53-year-old female who presents today for follow-up of her first lumbar medial branch block on 09/02/2024. Today she only states about 20 to 30% improvement. Patient felt like it only lasted 3 to 4 hours. Patient states that the numbing medication did not even numb it just more so dulled the pain. Patient does state her pain today is a 7 out of 10 and states it is primarily on the right side into her hip and buttocks. Patient does feel like nothing is seeming to add much improvement including her medications from her primary care. Patient has been prescribed pregabalin, ropinirole and tizanidine. Patient has been prescribed compounded cream from our office and states that it is no longer seeming to make much of a difference. She does state that when she is up longer she does feel like she has pains into her legs and is unsure if it is coming from her back. Her Nikolai has been reviewed and is appropriate. Review of Systems: General: No recent weight changes, no fever, no sleep disturbances Respiratory: No cough, no shortness of air, no recurring pulmonary infections Cardiovascular/peripheral vascular: No chest pain, no palpitations, no edema, no shortness of breath Gastrointestinal: No new onset incontinence, normal bowel movements reported Genitourinary: No new onset incontinence Musculoskeletal: Low back pain, right hip pain, right buttocks pain Psychiatric: [Normal mood/affect] Neurological: [Denies weakness in extremities], [denies balance issues] Pain at rest (0-10 scale): 7 Objective Objective:: Physical Exam: General: Alert and oriented x3, no acute distress, pleasant and cooperative Lungs: Respirations even and unlabored, symmetrical chest expansion Eyes: PERRL Musculoskeletal: Flexion and extension of lumbar [spine] somewhat guarded secondary to pain, [antalgic gait noted] Neurological: Speech clear, no gross sensory deficit Has patient had previous pain injection?: Yes Percent improvement in pain since last injection: 20 to 30% Conservative treatment options previously tried: Home exercise plan Length of treatment: Longer than 12 weeks Meds Home Medications and Allergies Home Medications ?Medication ?Instructions ?Recorded ?Confirmed ?Type nitroglycerin 0.4 mg sublingual 0.4 mg sublingual Q5M PRN chest 05/20/19 09/11/24 Rx tablet pain #25 tabs potassium 99 mg tablet 99 mg PO DAILY Supplement 09/11/24 History omega 8-eoi-woi-fish oil 1,000 mg 2 cap PO DAILY 02/2109/11/24 History (120 mg-180 mg) capsule (Fish Oil) ondansetron 4 mg disintegrating 4 mg PO Q8H PRN nausea and 02/21/23 09/11/24 Rx tablet vomiting #30 tabs blood sugar diagnostic (FreeStyle #100 ea 05/25/2308/31 Rx Lite Strips) blood-glucose meter (FreeStyle #1 ea 05/25/23 09/11/24 Rx Lite Meter kit) lancets 28 gauge (FreeStyle #100 ea 01/01/24 09/11/24 Rx Lancets) metformin 500 mg tablet,extended 500 mg PO DAILY #30 t abs 03/03/24 09/11/24 Rx release 24 hr ropinirole 1 mg tablet 1 mg PO HS restless leg synd ernesto 05/05/24 09/11/24 Rx 30 days #30 tabs atorvastatin 20 mg tablet 20 mg PO DAILY 30 days #30 t abs 06/27/24 09/11/24 Rx hydrochlorothiazide 12.5 mg tablet 12.5 mg PO DAILY 30 days #30 tabs 06/27/24 09/11/24 Rx ropinirole 0.5 mg tablet See Rx Instructions .Route 0 06/27/24 09/11/24 Rx .COMPLEX #90 tabs semaglutide 0.25 mg or 0.5 mg (2 0.25 mg (0.368 mL) SQ WEEKLY #3 mL 07/18/24 09/11/24 Rx mg/3 mL) subcutaneous pen injector ([employer]) duloxetine 60 mg capsule,delayed 60 mg PO DAILY mood 3 0 days #30 07/25/24 Rx release caps ubrogepant 100 mg tablet (Ubrelvy) 100 mg PO .COMPLEX PRN headache 07/25/24 09/11/24 Rx #20 tabs metoprolol succinate 25 mg 25 mg PO DAILY #30 tabs 09/11/24 Rx tablet,extended release 24 hr omeprazole 40 mg capsule,delayed See Rx Instructions . Route 08/04/24 09/11/24 Rx release .COMPLEX #90 caps tizanidine 4 mg tablet See Rx Instructions .Route 0 08/08/24 09/11/24 Rx .COMPLEX #30 tabs mupirocin 2 % topical ointment 1 applic topical TID 10 days #22 08/11/24 09/11/24 Rx grams lamotrigine 150 mg tablet 150 mg PO DAILY 30 days #30 tabs 08/15/24 09/11/24 Rx celecoxib 200 mg capsule See Rx Instructions .Route 0 09/15/24 Rx .COMPLEX #60 caps New Prescriptions to Start Prescriptions: Allergies Allergy/AdvReac Type Severity Reaction Status Date / Time desmopressin Allergy Severe Arrythmia Verified 09/11/24 14:46 amitriptyline (From Elavil) Allergy Unknown Dizziness, Verified 09/11/24 14:46 Headache isosorbide AdvReac Intermediate Headache Verified 09/11/24 14:46 gabapentin AdvReac Mild Other Verified 09/11/24 14:46 povidone-iodine (From AdvReac Itchy, Verified 09/11/24 14:46 Betadine) Redness to the site of application soap (From Betadine) AdvReac Itchy, Verified 09/11/24 14:46 Redness to the site of application Assessment and Plan *Assessment and plan (1) Degenerative disc disease: Status: Acute Category: Medical Plan I did discuss with the patient in future she may benefit from additional SI injections or even the possibility of a lumbar epidural. We will follow-up with her in 6 weeks for reevaluation of symptoms and plan of care. Patient has been instructed to contact the clinic with any concerns before the next appointment. Dr. Guadalupe has reviewed this note and agrees with this plan of care. This note was dictated using voice recognition software and make contain errors or omissions. All injections are used with Lidocaine, Bupivacaine and dexamethasone. Occasionally urine drug screen is needed to verify patient's compliance with our office pain contract. This is ordered based off specific treatments related to chronic pain with the potential to abuse certain medications.
[2024-09-22 11:47] VITALS: BP 127/90; PULSE 87; RESP 18; O2SAT 97; BMI 32.9
== END 2024-09-22 23:59 | disposition home or self-care (01) ==
LOC: SC.PAIN 10:04
PROVIDERS: PCP Nurse Practitioner Family; Visit Provider Nurse Practitioner Family
DX: M51.360 Other intervertebral disc degeneration, lumbar region with discogenic back pain only (principal); Z79.899 Other long term (current) drug therapy; Z98.890 Other specified postprocedural states
CPT/HCPCS: 99212; G0463

== ENCOUNTER 2024-10-24 10:28 | Outpatient (CLI) | payer OTHER, SELFPAY ==
[2024-10-24 14:36] LABS: Thyroid Stimulating Hormone 0.97 uIU/mL (0.465-4.68)
[2024-10-25 10:18] LABS: FSH 66.7 mIU/mL (.); LH 48.2 mIU/mL (.)
--- OUTSIDE RECORDS SUMMARY | 2024-10-27 09:33 | XMS_ITS | Encounter Summary ---
Author Organization Healthcare Address [address] [place] [address] Care Team Providers Care Housekeeping Lead Name Role Phone Levi Kapoor MD Primary Care Provider Encounter Details Date Type Department Care Team (Latest Contact Info) Description 01/28/2021 Community [facility] Community Practice [address] [place] [address] Madison Garrett, [employer] CONSULTANT [address] [place], [place] [id number] Osteoarthritis of temporomandibular joint (Primary Dx) Social [...] Primary documented in this encounter Care Teams Housekeeping Lead Relationship Specialty Start Date End Date Levi Kapoor MD [facility] [place] [address] [place] [address] PCP - General 08/20/20 documented as of this encounter
--- OUTSIDE RECORDS SUMMARY | 2024-10-27 09:33 | XMS_ITS | Clinical Summary ---
Author Organization [employer] ([place], [place], [place], [place]) Address [address] [place] [address] Care Team Providers Care Rn Placement Name Role Phone Unavailable Primary Care Provider Unavailabl e Allergies Active Allergy Reactions Criticality Noted Date Comments Amitriptyline Other (See Comments) 08/19/2024 Extreme drowsiness Povidone-Iodine Rash Low 08/19/2024 Desmopressin Palpitations Low 08/19/2024 Gabapentin Other (See Comments) 08/19/2024 Extreme drowsiness Medications Ventolin HFA 90 mcg/actuation inhaler 2 puffs. 05/13/2024 Active atorvastatin (LIPITOR) 20 MG tablet Take 1 tablet (20 mg total) by mouth daily. 08/18/2024 Active celecoxib (CeleBREX) 200 MG capsule Take by mouth 2 (two) times daily. 08/18/2024 Active DULoxetine (CYMBALTA) 60 MG capsule Take 1 capsule (60 mg total) by mouth daily. 07/26/2024 Active hydroCHLOROthia zide (HYDRODIURIL) 12.5 MG tablet Take 1 tablet (12.5 mg total) by mouth daily. 07/24/2024 Active lamoTRIgine (LaMICtal) 150 MG tablet Take 1 tablet (150 mg total) by mouth daily. 08/15/2024 Active metFORMIN (GLUCOPHAGE-XR) 500 MG 24 hr tablet Take 1 tablet (500 mg total) by mouth daily. 08/18/2024 Active metoprolol succinate (TOPROL-XL) 25 MG 24 hr tablet Take 1 tablet (25 mg total) by mouth daily. 07/28/2024 Active omeprazole (PriLOSEC) 40 MG capsule Take 1 capsule (40 mg total) by mouth daily. 08/04/2024 Active rOPINIRole (REQUIP) 0.5 MG tablet Take 1 tablet (0.5 mg total) by mouth 3 (three) times daily. 07/26/2024 Active rOPINIRole (REQUIP) 1 MG tablet Take 1 tablet (1 mg total) by mouth nightly. 08/16/2024 Active Ozempic 0.25 mg or 0.5 mg (2 mg/3 mL) pnij SMARTSI.2 5 Milligram(s) SUB-Q Once a Week 08/07/2024 Active tiZANidine (ZANAFLEX) 4 MG tablet Take 1 tablet (4 mg total) by mouth every night as needed. 08/08/2024 Active Ubrelvy 100 mg tab Take by mouth. 07/26/2024 Active nitroglycerin (NITRODUR) 0.1 mg/hr patch Place 1 patch on the skin daily. Active Encounters Date Type Department Care Team Description 09/10/2024 Abstract [facility] [address] Johan Beasley APRN 08/27/2024 Orders Only [address] [address] Johan Beasley APRN SI (sacroiliac) joint dysfunction (Primary Dx) 08/19/2024 10:00 AM EDT Office Visit [facility] [address] [address] Johan Beasley APRN SI (sacroiliac) joint dysfunction (Primary Dx); Low back pain 08/19/2024 9:56 AM EDT - 08/19/2024 11:59 PM EDT Hospital Encounter [facility] Diagnostic Imaging - [address] [place] [address] Johan Beasley APRN Low back pain Discharge Disposition: Home or Self Care 07/28/2024 Orders Only [address] [place] [address] Provider, MD Diana from Last 3 Months Family History Medical History Relation Name Comments Brain cancer Father Cancer Father High blood pressure Father Asthma Mother Emphysema Mother Heart failure Mother High blood pressure Mother High blood pressure Sister Relation Name Status Comments Father Mother Sister Alive Social History Tobacco Use Types Packs/Day Years Used Date Smoking Tobacco: Never Smokeless Tobacco: Never Tobacco Cessation:Counseling Given: Not Answered Alcohol Use Standard Drinks/Week Comments Never 0 (1 standard drink = 0.6 oz pur e alcohol) Comments Unknown Sex and Gender Information Value Date Recorded Sex Assigned at Not on file Legal Sex Female 9:03 PM CDT Gender Identity Not on file Sexual Orientation Not on file Last Filed Vital Signs Vital Sign Reading Time Taken Comments Blood Pressure 115/79 08/19/2024 10:23 AM EDT Pulse 74 08/19/2024 10:23 AM EDT Temperature - - Respiratory Rate - - Oxygen Saturation - - Inhaled Oxygen Concentration - - Weight 84.4 kg (186 lb) 08/19/2024 10:23 AM EDT Height 160 cm (5' 3 ) 08/19/2024 10:23 AM EDT Body Mass Index 32.95 08/19/2024 10:23 AM EDT Plan of Treatment Health Maintenance Due Date Last Done Comments CT Colonography 1969 Colonoscopy 1969 Colorectal Cancer Screening 1969 FOBT/FIT 1969 Fit-DNA (Cologuard) 1969 Sigmoidoscopy 1969 Depression Screening (12+) 1981 HIV Screening 1984 Hepatitis C Screening 11/25/1987 Pap Smear 1990 Breast Cancer Screening 2009 Lipid Panel 2014 Pneumococcal 50+ years (1 of 1 - PCV) 11/25/2019 Shingles Vaccine (Zoster) (1 of 2) 11/25/2019 COVID-19 VACCINE (1 - 2023- season) 2023 DTAP/TDAP/TD VACCINES (2 - Td or Tdap) 07/01/2024 Influenza Vaccine (#1) 2024 Tobacco Cessation Counseling and Screening (12+) 08/1908/19/2024 Procedures Procedure Name Priority Date/Time Associated Diagnosis Comments XR LUMBAR SPINE AP LATERAL FLEXION AND EXTENSION Routine 08/19/2024 10:18 AM EDT Low back pain from Last 3 Months Results * X-ray lumbar spine AP lateral flexion and extension (08/19/2024 10:18 AM EDT) Anatomical Region Laterality Modality L-spine, T-spine, Abdomen, Pelvis X-Ray 08/20/2024 8:30 AM EDT Impressions 08/20/2024 8:32 AM EDT Minimal spondylolisthesis L4 on L5 with flexion. Mild disc disease. Narrative 08/20/2024 8:32 AM EDT Lumbar spine with flexion and extension views HISTORY: Low back pain FINDINGS: 5 films. No prior studies. There is a slight left convexity scoliosis. There are normal vertebral body heights. There is normal alignment on the neutral lateral view. There is slight less than grade 1 spondylolisthesis of L4 on L5 with flexion which corrects with extension. There is mild narrowing of the L3-4 through L5-S1 disc interspaces. There is minimal spurring. Procedure Note Tova Zamora MD - 08/20/2024 Lumbar spine with flexion and extension views HISTORY: Low back pain FINDINGS: 5 films. No prior studies. There is a slight left convexity scoliosis. There are normal vertebral body heights. There is normal alignment on the neutral lateral view. There is slight less than grade 1 spondylolisthesis of L4 on L5 with flexion which corrects with extension. There is mild narrowing of the L3-4 through L5-S1 disc interspaces. There is minimal spurring. IMPRESSION: Minimal spondylolisthesis L4 on L5 with flexion. Mild disc disease. Johan Beasley APRN IMG DIAGNOSTIC IMAGING ORDER LAUREN Final Result from Last 3 Months Insurance AETNA [facility] [place]
--- OUTSIDE RECORDS SUMMARY | 2024-10-27 09:34 | XMS_ITS | Encounter Summary ---
Author Organization [employer] ([place], [place], [place], [place]) Address [address] [place] [address] Care Team Providers Care Rfid Engineer Name Role Phone Unavailable Primary Care Provider Unavailabl e Encounter Details Date Type Department Care Team (Late st Contact Info) Description 09/10/2024 Abstract [facility] Orthopedics - [facility] [address] [place] [address] Johan Beasley, BUMPER AND PAINTER [address] [place] [address] Social History Tobacco Use Types Packs/Day Years Used Date Smoking Tobacco: Never Smokeless Tobacco: Never Alcohol Use Standard Drinks/Week Comments Never 0 [...] documented as of this encounter Visit Diagnoses Not on filedocumented in this encounter
--- OUTSIDE RECORDS SUMMARY | 2024-10-27 09:34 | XMS_ITS | Clinical Summary ---
Author Organization [facility] Address [address] [place] [address] Care Team Providers Care Communication Studies Professor Name Role Phone Levi Kapoor MD Primary Care Provider [phone] Family History Medical History Relation Name Comments [...] 11/25/2019 [facility]-Zoster Vaccines (1 of 2) 11/25/2019 [id number] Vaccine (1 - 20 24- season) 2023 [facility]-DTaP,Tdap,and Td Vaccine s (2 - Td or Tdap) 07/01/2024 07/01/2014 [facility]-Influenza Vaccine (#1) 2024 [facility]-Hepatitis A Vaccines Aged Out 03/29/2018 [...] patient's age to complete this topic [facility] AETNA [facility] MEDICAID Care Teams Communication Studies Professor Relationship Specialty Start Date End Date Levi Kapoor MD [address] [place] [address] PCP - General 08/20/20
--- OUTSIDE RECORDS SUMMARY | 2024-10-27 09:34 | XMS_ITS | Referral Summary ---
Author Organization [employer] ([place], [place], [place], [place]) Address [address] [place] [address] Care Team Providers Care Admin Secretary Name Role Phone Unavailable Primary Care Provider Unavailabl e Encounters Date Type Department Care Team Description 09/10/[address] [address] Johan Beasley APRN 08/27/2024 Orders Only [address] [address] Johan Beasley APRN SI (sacroiliac) joint dysfunction (Primary Dx) 08/19/2024 9:56 AM EDT - 08/19/2024 11:59 PM EDT Hospital Encounter [facility] Diagnostic Imaging - [facility] [address] [facility] [address] [place] [address] Johan Beasley APRN Low back pain Discharge Disposition: Home or Self Care 08/19/2024 10:00 AM EDT Office Visit [facility] Orthopedics - [facility] [address] [place] [address] Johan Beasley APRN SI (sacroiliac) joint dysfunction (Primary Dx); Low back pain 07/28/2024 Orders Only [address] [address] Provider, MD Diana from Last 3 Months Allergies Active Allergy Reactions Criticality Noted Date [...] 1 patch on the skin daily. Active Social History Tobacco Use Types Packs/Day Years [...] 08/19/2024 10:23 AM EDT Plan of Treatment Not on file Procedures Procedure Name Priority Date/Time Associated Diagnosis [...] flexion. Mild disc disease. Johan Beasley APRN IM DIAGNOSTIC IMAGING ORDER LAUREN Final Result from Last 3 Months Insurance AETNA [facility]
[2024-10-28 13:19] LABS: Testosterone,Free 0.6 pg/mL (0.0-4.2)
== END 2024-10-24 23:59 | disposition home or self-care (01) ==
LOC: LAB.DROPOF 10-27 09:29
PROVIDERS: PCP Nurse Practitioner Family; Visit Provider Nurse Practitioner Family
DX: R23.2 Flushing (principal)
CPT/HCPCS: 82670; 83001; 83002; 84144; 84402; 84443

== ENCOUNTER 2025-01-06 14:27 | Outpatient (CLI) | payer OTHER, SELFPAY ==
--- OUTSIDE RECORDS SUMMARY | 2025-01-06 14:29 | XMS_ITS | Clinical Summary ---
Author Organization [employer] ([place], [place], [place], [place]) Address [address] [place] [address] Care Team Providers Care Customer Success Advocate Name Role Phone Unavailable Primary Care Provider [...] 1 patch on the skin daily. Active Family History Medical History Relation Name Comments [...] Shingles Vaccine (Zoster) (1 of 2) 11/25/2019 DTAP/TDAP/TD VACCINES (2 - Td or Tdap) 07/01/2024 COVID-19 VACCINE (1 - season) 2024 Influenza Vaccine (#1) 2024 Tobacco Cessation Counseling and Screening (12+) 08/1908/19/2024 Insurance AETNA [facility]
--- OUTSIDE RECORDS SUMMARY | 2025-01-06 14:29 | XMS_ITS | Encounter Summary ---
Author Organization Healthcare Address [address] [place] [address] Care Team Providers Care Bed And Breakfast Innkeeper Name Role Phone Lvei Kapoor MD Primary Care Provider Encounter Details Date Type Department Care Team (Latest Contact Info) Description 01/28/2021 Community [facility] Community Practice [address] [place] [address] [place] Garrett, APPLICATION SECURITY CONSULTANT [address] [place], [place] [id number] Osteoarthritis of temporomandibular joint (Primary Dx) Social [...] Primary documented in this encounter Care Teams Bed And Breakfast Innkeeper Relationship Specialty Start Date End Date Levi Kapoor MD [facility] [place] [address] PCP - General 08/20/20 documented as of this encounter
--- OUTSIDE RECORDS SUMMARY | 2025-01-06 14:29 | XMS_ITS | Clinical Summary ---
Author Organization [facility] Address [address] [place] [address] Care Team Providers Care Paint Stock Clerk Name Role Phone Levi Kapoor MD Primary Care Provider [phone] Family History Medical History Relation Name Comments [...] Date Last Done Comments [facility]-Depression Screening 1969 [facility]-/Child/Adol SDOH Screenings 1969 [facility]- SDOH Screenings 11/25/1987 [...] 11/25/2019 [facility]-Zoster Vaccines (1 of 2) 11/25/2019 [facility]-DTaP,Tdap,and Td Vaccine s (2 - Td or Tdap) 07/01/2024 07/01/2014 [id number] Vaccine (1 - 20 24-25 season) 2024 [facility]-Influenza Vaccine (#1) 2024 [facility]-Hepatitis A Vaccines [...] patient's age to complete this topic Insurance [facility] MEDICAID DENTAL AETNA [facility] MEDICAID Care Teams Paint Stock Clerk Relationship Specialty Start Date End Date Levi Kapoor MD [address] [place] [address] PCP - General 08/20/20
--- OUTSIDE RECORDS SUMMARY | 2025-01-06 14:29 | XMS_ITS | Referral Summary ---
Author Organization [employer] ([place], [place], [place], [place]) Address [address] [place] [address] Care Team Providers Care Legal Billing Clerk Name Role Phone Unavailable Primary Care Provider [...] EDT Plan of Treatment Not on file Insurance AETNA [facility]
--- NOTE | 2025-01-06 14:30 | MR_ITS ---
FINAL REPORT CLINICAL HISTORY: LUMBAR SPINE PAIN right sided lbp right leg burning x 2 months no injury/trauma COMPARISON: 05/22/2024 FINDINGS: Multiplanar MR imaging of the lumbar spine was performed without contrast. On the sagittal T2-weighted images, there is abnormal decreased signal of the L5-S1 disc level. The vertebrae are of normal height. The vertebral alignment is normal. 2 hemangiomas are noted in the L3 vertebra. Large cyst arising from the medial left kidney measuring 6.7 cm in greatest dimension is similar to the prior study. L1-2: There is no significant canal stenosis or neural foraminal narrowing. L2-3: There is no significant canal stenosis or neural foraminal narrowing. L3-4: There is no significant canal stenosis or neural foraminal narrowing. L4-5: Mild bilateral facet hypertrophy. Neural foramina are adequately patent. L5-S1: Small midline disc protrusion. Mild spinal canal compromise. Endplate hypertrophy. Moderate left neural foraminal narrowing, more evident than on the prior exam. IMPRESSION: Midline disc protrusion L5-S1 with mild spinal canal compromise and moderate left neural foraminal narrowing. Stable right renal cyst. Reviewed, Interpreted and Dictated by Alvarez Howard MD Transcribed by Abigail Thomas Authenticated and [facility]
== END 2025-01-06 23:59 | disposition home or self-care (01) ==
LOC: RAD 14:27
PROVIDERS: PCP Nurse Practitioner Family; Visit Provider Orthopaedic Surgery
DX: M51.27 Other intervertebral disc displacement, lumbosacral region (principal); M48.07 Spinal stenosis, lumbosacral region; N28.1 Cyst of kidney, acquired
CPT/HCPCS: 72148

== ENCOUNTER 2025-02-10 10:55 | Outpatient (CLI) | payer OTHER, SELFPAY ==
[2025-02-10 13:59] LABS: Hemoglobin A1C 5.3 % (4.0-6.0)
[2025-02-10 14:09] LABS: Alanine Aminotransferase 16 U/L (12-78); Albumin Level 4.2 g/dl (3.5-5.0); Albumin/Globulin Ratio 1.7 (1.1-1.8); Alkaline Phosphatase 87 U/L (38-126); Anion Gap 10.2 mEq/L (5-15); Aspartate Amino Transferase 21 U/L (14-36); Bilirubin,Total 0.5 mg/dl (0.2-1.3); Blood Urea Nitrogen 14 mg/dl (7-17); Calcium 8.9 mg/dl (8.4-10.2); Carbon Dioxide 27 mmol/L (22.0-30.0); Chloride 104 mmol/L (98-107); Cholesterol 160 mg/dl (140-200); Creatinine,Serum 0.70 mg/dl (0.52-1.04); Estimated Glomerular Filt Rate 87 ml/min (>60); GFR (African American) 105 ML/MIN (>60); Globulin 2.5 g/dL (1.3-3.2); Glucose 82 mg/dl (74-100); HDL Cholesterol 52 mg/dl (40-60); Potassium 4.2 mmoL/L (3.5-5.1); Sodium 137 mmol/L (136-145); Total Protein,Serum 6.7 g/dl (6.3-8.2); Triglycerides 85 mg/dl (30-150)
[2025-02-10 14:24] LABS: 25-OH Vitamin D, Total 46.7 ng/mL (30-100)
[2025-02-10 14:38] LABS: Thyroid Stimulating Hormone 1.02 uIU/mL (0.465-4.68)
--- OUTSIDE RECORDS SUMMARY | 2025-02-11 21:00 | XMS_ITS | Encounter Summary ---
Author Organization Healthcare Address [address] [place] [address] Care Team Providers Care Renewable Energy Project Manager Name Role Phone Levi Kapoor MD Primary Care Provider Encounter Details Date Type Department Care Team (Latest Contact Info) Description 01/28/2021 Community [facility] Community Practice [address] [place] [address] [place] Garrett, SUPERVISOR TRAIN OPERATIONS [address] [place], [place] [id number] Osteoarthritis of temporomandibular joint (Primary Dx) Social [...] Primary documented in this encounter Care Teams Renewable Energy Project Manager Relationship Specialty Start Date End Date Levi Kapoor MD [facility] [address] PCP - General 08/20/20 documented as of this encounter
--- OUTSIDE RECORDS SUMMARY | 2025-02-11 21:00 | XMS_ITS | Clinical Summary ---
Author Organization [facility] , [facility] Address [address] [place] [address] Phone Care Team Providers Care Process Coordinator Name Role Phone OLMAN MEDINA Unavailable [phone] Elvin GARCIA, Tacho Carrasquillo Unavailable [phone] Reason for Visit and Chief Complaint The Chief Complaint is: lower back pain Problems Includes: Problems addressed during this encounter and other active Problems Current Visit Onset Date Resolved Date Provider Jazlyn michel Status Lower Back Pain 08/03/2016 Tacho Oconnor MD Act katrin Last Documented On 7 3:13PM ; [facility] Plan of Treatment Patient was seen by myself and Dr. Elvin Arce PA-C. Patient will follow up new lumbar spine MRI before we consider right SI joint fusion since she has this new symptom with the right leg pain - Last Documented On 12/25/2024 2:42PM ; [facility] Pending Tests Order Diagnosis Results Due Ordering P rovider Radiology - MRI MRI Lumbar Spine Low back pain 01/08/25 Tacho Oconnor MD Last Documented On 5 2:42PM ; [facility], [facility] Future Appointments Date Time Location [facility] 03/11/2025 8:15AM Surger y Tacho Oconnor MD Last Documented On 5 3:34PM ; [facility] Post Op 03/25/2025 1:45PM [facility] ATMA[place] Arce PA-C Last Documented On 5 3:35PM ; [facility], [facility] Instructions to patient Lose weight Last Documented On 5 2:06PM ; [facility], [facility] Assessments Includes: Assessments from this encounter Findings - Overweight - Last Documented On 12/25/2024 2:42PM ; [facility], [facility] Back and right leg pain - Last Documented On 12/25/2024 2:42PM ; [facility], [facility] Right SI joint pain - Last Documented On 12/25/2024 2:42PM ; [facility], [facility] Instructions Includes: Instructions from this encounter Instructions to patient Lose weight Last Documented On 5 2:06PM ; [facility], [facility] Medical Equipment - Implanted Devices Includes: Current Devices No Medical Equipment Recorded Medications Includes: Medications discussed during this encounter and other current Medications Current Medications (continue as prescribed) Atorvastatin Calcium 20 MG Oral Tablet 10/17/2024 Pr ovider: OLMAN MEDINA Diagnosis: Last Documented On 11:17AM By Tacho Oconnor ; [facility], [facility] hydroCHLOROthiazide 12.5 MG Oral Tablet 10/17/2024 Azra garcia: OLMAN MEDINA Diagnosis: Last Documented On 11:17AM By Tacho Oconnor ; [facility], [facility] metFORMIN HCl ER 500 MG Oral Tablet Extended Release 24 Hour 10/16/2024 Provider: OLMAN MEDINA Diagnosis: Last Documented On 5 11:17AM By Tacho Oconnor ; [facility], [facility] rOPINIRole HCl 1 MG Oral Tablet 10/16/2024 Provider: OLMAN MEDIAN Diagnosis: Last Documented On 5 11:17AM By Tacho Oconnor ; [facility], [facility] Celecoxib 200 MG Oral Capsule 10/13/2024 Provider: OLMAN MEDINA Diagnosis: Last Documented On 5 11:17AM By Tacho Oconnor ; [facility], [facility] lamoTRIgine 150 MG Oral Tablet 10/08/2024 Provider: Diagnosis: Last Documented On 5 11:17AM By Tacho Oconnor ; [facility], [facility] Ozempic (0.25 or 0.5 MG/DOSE ) 2 MG/3ML Subcutaneous Solution Pen-injector 09/29/2024 Provider: BRAD MEDINA Diagnosis: Last Documented On 11:17AM By Tacho Oconnor ; [facility] Nitroglycerin 0.4 MG Sublingual Tablet Sublingual 09/07 Provider: OLMAN MEDINA Diagnosis: Last Documented On 11:17AM By Tacho Oconnor ; [facility] Medications Administered Includes: Administered Medications from this encounter No Administered Medications Recorded Vital Signs Includes: Vital Signs from this encounter Vital Name 12/25/2024 01:59P Height (in) 63 Weight (lb) 172 Body Mass Index 30.5 Body Surface Area 1.8 Pain Level 8 Last Documented: On 12/25/2024 1:59PM ; [facility] Results Includes: Results discussed during this encounter No Results Recorded For Specified Dates History of Present Illness Includes: History of Present Illness from this encounter GÉNESIS Lang is a 54 year old female. - Symptoms Heating pad and rest makes symptoms better. Bending, twisting and walking makes symptoms worse. - Allergy list reviewed - Problem list reviewed - Medication list reviewed - Medication list reviewed with patient - Previous history of new onset pain 04/2024 - Sharp pain Symptoms - Stabbing - Patient pain level from 1-10: 7 - History of Physical Therapy - History of Home Exercise - History of Injections - - Review of medications documented Medications used for this condition: Patient is here today for follow up she had her 2nd SI joint injection gave her 75-80% relief for 5-6 days but she says after the injection some things have changed and now she is complaining of right leg pain radiates down to the ankle. She did some physical therapy with this also but therapy was making it worse we were working her up to do a right SI joint fusion for her since she has had 2 now right SI joint injections that did help and now she is complaining of this pain with the right leg this seems to be worse her previous MRIs May did not show any right L5-S1 abnormality. Pain level 8/10 sitting standing up and long car rides since make this worse. Social History Description Last Updated Not exercising regularly 10/24/2024 Last Documented On 5 2:06PM ; [facility] Recent change in diet 10/24/2024 Last Documented On 5 2:06PM ; [facility], [facility] Tobacco non-user 12/08/2021 Last Documented On 5 2:06PM ; [facility], [facility] Not a current smoker. 12/08/2021 Last Documented On 5 2:06PM ; [facility], [facility] Alcohol use: 2 drinks or less per day Last Documented On 5 2:06PM ; [facility], [facility] Never smoked 12/08/2021 Last Documented On 5 2:06PM ; [facility], [facility] Never used drugs 12/08/2021 Last Documented On 5 2:06PM ; [facility] Unemployed 12/08/2021 Last Documented On 5 2:06PM ; [facility], [facility] Alcohol use 08/03/2016 Last Documented On 5 2:06PM ; [facility], [facility] Caffeine use 08/03/2016 Last Documented On 5 2:06PM ; [facility], [facility] No recent change in diet 08/03/2016 Last Documented On 5 2:06PM ; [facility], [facility] Not a current smoker 08/03/2016 Last Documented On 5 2:06PM ; [facility], [facility] Not using drugs 08/03/2016 Last Documented On 5 2:06PM ; [facility], [facility] No tobacco use 08/03/2016 Last Documented On 5 2:06PM ; [facility], [facility] Smoking status : Never smoker 08/03/2016 Last Documented On 5 2:06PM ; [facility], [facility] Procedures and Surgical History Includes: Procedures from this encounter Procedures Code Diagnosis Performing Provider Service L ocation Service Date history of orthopedic options: physical therapy Last Documented On 5 2:06PM ; [facility], [facility] use of tobacco assessment performed 1000F Last Documented On 5 2:06PM ; [facility], [facility] an X-ray was performed 50240 Last Documented On 5 2:06PM ; [facility], [facility] history of an X-ray was performed [id number] Last Documented On 5 2:06PM ; [facility] a CT scan was performed 42949 Last Documented On 5 2:06PM ; [facility] an MRI was performed [id number] Last Documented On 5 2:06PM ; [facility] history of an MRI was performed [id number] Last Documented On 5 2:06PM ; [facility] brace Last Documented On 5 2:06PM ; [facility] Surgical History Last Updated History of Previous Fractures 10/24/2024 Last Documented On 5 2:06PM ; [facility] Past Surgical History: Foot surgery / Breast biopsy / Lumpectomy / / [place] Teeth Removal / Heart Cath 10/24/2024 Last Documented On 5 2:06PM ; [facility] History of Past Surgical History: 2021 Last Documented On 5 2:06PM ; [facility] Medical History Includes: Medical History addressed during this encounter Description Last Updated Past medical history non-contributory: H igh cholesterol, acid reflux 02/06/2025 Last Documented On 5 2:06PM ; [facility] No recent immunization for flu 2 Last Documented On 5 2:06PM ; [facility] No recent immunization for pneumococcal pneumonia 12/08/2021 Last Documented On 5 2:06PM ; [facility] Arthritic joint problems 08/03/2016 Last Documented On 5 2:06PM ; [facility] History of depression 08/03/2016 Last Documented On 5 2:06PM ; [facility] History of osteoporosis 08/03/2016 Last Documented On 5 2:06PM ; [facility] Family History Includes: Family History addressed during this encounter Description Last Updated Diabetes mellitus 12/08/2021 Last Documented On 5 2:06PM ; [facility] Family history of heart disease 12/09/19 Last Documented On 5 2:06PM ; [facility] Stroke / Seizures 12/08/2021 Last Documented On 5 2:06PM ; [facility] Maternal grandfather's history of family history of cancer 12/08/2021 Last Documented On 5 2:06PM ; [facility] Maternal grandfather's history of Stroke / Seizures 12/08/2021 Last Documented On 5 2:06PM ; [facility] Maternal grandmother's history of diabet es mellitus 12/08/2021 Last Documented On 5 2:06PM ; [facility] Maternal grandmother's history of family history of heart disease 12/08/2021 Last Documented On 5 2:06PM ; [facility] Maternal grandmother's history of system ic hypertension 12/08/2021 Last Documented On 5 2:06PM ; [facility] Maternal history of systemic hypertensio n 12/08/2021 Last Documented On 5 2:06PM ; [facility] Paternal grandmother's history of diabet es mellitus 12/08/2021 Last Documented On 5 2:06PM ; [facility] Paternal grandmother's history of system ic hypertension 12/08/2021 Last Documented On 5 2:06PM ; [facility] Paternal history of family history of ca ncer 12/08/2021 Last Documented On 5 2:06PM ; [facility] Paternal history of Stroke / Seizures Last Documented On 5 2:06PM ; [facility] Paternal history of systemic hypertensio n 12/08/2021 Last Documented On 5 2:06PM ; [facility] Sororal history of systemic hypertension 12/08/2021 Last Documented On 5 2:06PM ; [facility] Family history of cancer 08/03/2016 Last Documented On 5 2:06PM ; [facility] Family history of hypertension 7 Last Documented On 5 2:06PM ; [facility] No significant family history stroke/sei zure 08/03/2016 Last Documented On 5 2:06PM ; [facility] Review of Systems Includes: Review of Systems from this encounter Systemic: Feeling tired and feeling tired. No recent weight loss and no recent weight gain. Recent weight gain and edema. Head: Headache. No sinus pain. Sinus pain. Eyes: Vision problems. No glaucomatous visual field defect. No Cataracts. Glasses/Contacts. No Glaucoma. Otolaryngeal: No hearing loss. Tinnitus and tinnitus. No nasal symptoms. Cardiovascular: No chest pain or discomfort. Chest pain or discomfort. No palpitations. Palpitations, Hypertension, and High Cholesterol. Pulmonary: No daytime asthma symptoms, no cough, and no chronic cough. No wheezing. Gastrointestinal: Heartburn. No abdominal pain. No Indigestion, no Peptic Ulcer, no GI Stomach Bleed, and no Ulcers. Acid Reflux. Endocrine: Hot flashes, muscle weakness, and Diabetes. No Hypothyroid and no Hyperthyroid. Hematologic: No easy bleeding, no tendency for easy bruising, and no Anemia. Musculoskeletal: Arthritis and lower back pain. No soft tissue swelling. Pain localized to one or more joints. Neurological: Dizziness, convulsions, and numbness. Psychological: Anxiety, anxiety, emotional lability, depression, and depression. No insomnia. Not crying for no reason. Skin: No dry skin. No Ulcers. Scars. No rash. Ulcer(s). Allergic and Immunologic: Complaint of seasonal allergic reaction. Mental Status Includes: Mental Status from this encounter Description Anxiety Functional Status Includes: Functional Status from this encounter No Functional Status Recorded Physical Exam Includes: Physical Exam from this encounter Allergies Includes: Active Allergies Substance Type Reaction Onset Date Resolved Date Statu s IODINE Allergy 12/08/2021 Active Last Documented On 5 3:07PM ; [facility] Flexeril Allergy 08/03/2016 Active Last Documented On 5 3:07PM ; [facility] BETADINE Allergy 12/08/2021 Active Last Documented On 5 3:07PM ; [facility] Amitriptyline HCl Allergy 12/08/2021 A ctive Last Documented On 5 3:07PM ; [facility], [facility] Encounters Encounter Provider Location Date Check-In Time Check-Out Time Diagnosis Follow Up Tacho Oconnor MD [facility] 5 1:43PM 2:23PM Overweight Insurance Includes: Active Insurance Policies Plan Name Member ID Group # Subscriber Relationship Effect katrin Dates 1 - [employer] [facility] [id number] Jenae Lang Self Clinical Notes Includes: Clinical Notes from this encounter * Progress note Date Encounter Last Documented by 12/25/2024 Follow Up Last documented on 12/25/2024; 2:42 PM, Tacho Oconnor MD; [facility], [facility] Active Problems & Conditions - Lower Back Pain Chief Complaint - lower back pain Referred Here Referred by PCP. History of Present Illness Jenae Lang is a 54 year old female. - Symptoms Heating pad and rest makes symptoms better. Bending, twisting and walking makes symptoms worse. - Allergy list reviewed - Problem list reviewed - Medication list reviewed - Medication list reviewed with patient - Previous history of new onset pain 04/2024 - Sharp pain Symptoms - Stabbing - Patient pain level from 1-10: 7 - History of Physical Therapy - History of Home Exercise - History of Injections - - Review of medications documented Medications used for this condition: Patient is here today for follow up she had her 2nd SI joint injection gave her 75-80% relief for 5-6 days but she says after the injection some things have changed and now she is complaining of right leg pain radiates down to the ankle. She did some physical therapy with this also but therapy was making it worse we were working her up to do a right SI joint fusion for her since she has had 2 now right SI joint injections that did help and now she is complaining of this pain with the right leg this seems to be worse her previous MRIs May did not show any right L5-S1 abnormality. Pain level 8/10 sitting standing up and long car rides since make this worse. Current Medication - Atorvastatin Calcium 20 MG Oral Tablet 30 days, 0 refills - Celecoxib 200 MG Oral Capsule 30 days, 0 refills - hydroCHLOROthiazide 12.5 MG Oral Tablet 30 days, 0 refills - lamoTRIgine 150 MG Oral Tablet 30 days, 0 refills - metFORMIN HCl ER 500 MG Oral Tablet Extended Release 24 Hour 30 days, 0 refills - Nitroglycerin 0.4 MG Sublingual Tablet Sublingual 5 days, 0 refills - Ozempic (0.25 or 0.5 MG/DOSE) 2 MG/3ML Subcutaneous Solution Pen-injector 56 days, 0 refills - rOPINIRole HCl 1 MG Oral Tablet 30 days, 0 refills Past Medical/Surgical History Reported: Medical: Arthritic joint problems. Immunization History: No recent immunization for flu and not for pneumococcal pneumonia. Diagnoses: Osteoporosis. Depressive disorder Past medical history non-contributory: High cholesterol, acid reflux. Surgical: - Past Surgical History: Foot surgery / Breast biopsy / Lumpectomy / / [place] Teeth Removal / Heart Cath - Past Surgical History: - Previous Fractures Previous Therapy - History of orthopedic options: physical therapy Social History Not a current smoker. Current diet: No recent change in diet. Recent change in diet. Behavioral: Tobacco non-user. Not a current smoker. Caffeine: Caffeine use. Tobacco use: No tobacco use. Never smoked. Smoking status: Never smoker. Alcohol: Alcohol use alcohol use: 2 drinks or less per day. Drug Use: Not using drugs. Never used drugs. Habits: Not exercising regularly. Work: Unemployed. Allergies - Amitriptyline HCl - BETADINE - Flexeril - IODINE Family History Malignant neoplasm Heart disease No significant family history stroke/seizure Stroke / Seizures Diabetes mellitus Systemic hypertension Paternal: Malignant neoplasm Stroke / Seizures Systemic hypertension Maternal: Systemic hypertension Paternal grandmother's: Systemic hypertension Diabetes mellitus Maternal grandfather's: Malignant neoplasm Stroke / Seizures Maternal grandmother's: Heart disease Systemic hypertension Diabetes mellitus Sororal: Systemic hypertension Review Of Systems Systemic: Feeling tired and feeling tired. No recent weight loss and no recent weight gain. Recent weight gain and edema. Head: Headache. No sinus pain. Sinus pain. Eyes: Vision problems. No glaucomatous visual field defect. No Cataracts. Glasses/Contacts. No Glaucoma. Otolaryngeal: No hearing loss. Tinnitus and tinnitus. No nasal symptoms. Cardiovascular: No chest pain or discomfort. Chest pain or discomfort. No palpitations. Palpitations, Hypertension, and High Cholesterol. Pulmonary: No daytime asthma symptoms, no cough, and no chronic cough. No wheezing. Gastrointestinal: Heartburn. No abdominal pain. No Indigestion, no Peptic Ulcer, no GI Stomach Bleed, and no Ulcers. Acid Reflux. Endocrine: Hot flashes, muscle weakness, and Diabetes. No Hypothyroid and no Hyperthyroid. Hematologic: No easy bleeding, no tendency for easy bruising, and no Anemia. Musculoskeletal: Arthritis and lower back pain. No soft tissue swelling. Pain localized to one or more joints. Neurological: Dizziness, convulsions, and numbness. Psychological: Anxiety, anxiety, emotional lability, depression, and depression. No insomnia. Not crying for no reason. Skin: No dry skin. No Ulcers. Scars. No rash. Ulcer(s). Allergic and Immunologic: Complaint of seasonal allergic reaction. Physical Findings - Vitals taken 12/25/2024 01:59 pm Height 63 in Weight 172 lbs Body Mass Index 30.5 kg/m2 Body Surface Area 1.8 m2 Pain Level 8 She is tender over the right SI joint She does have pain with Carol's testing in does have positive straight leg raise on the right side 4+ out of 5 EHL gastrocs tibialis anterior strength bilaterally Sensation intact 1+ Achilles and patellar reflexes Assessment - Overweight Back and right leg pain Right SI joint pain Previous Tests Imaging: X-Ray: X-ray. X-ray. CT Scan: CT scan. MRI Scan: An MRI was performed. An MRI was performed. Basic Management Procedures And Services: - Brace Available previous imaging studies were reviewed Available previous history reviewed Counseling/Education - Tobacco non-user - Use of tobacco assessment performed - Lose weight Plan StartCited - Low back pain Radiology/MRI: MRI Lumbar Spine EndCited Patient was seen by myself and Dr. Elvin Arce PA-C. Patient will follow up new lumbar spine MRI before we consider right SI joint fusion since she has this new symptom with the right leg pain Notes This dictation was done with voice recognition software and may contain errors and omissions. Practice Management Use of tobacco assessment performed. Care Team - OLMAN MEDINA Health Reminders - Assess BMI satisfied 12/25/2024. - Assess Tobacco Use satisfied 08/03/2016. - Follow Up Plan BMI Management satisfied 12/25/2024.
--- OUTSIDE RECORDS SUMMARY | 2025-02-11 21:00 | XMS_ITS | Clinical Summary ---
Author Organization [facility] Address [address] [place] [address] Phone Care Team Providers Care Recycling Program Manager Name Role Phone OLMAN MEDINA Unavailable [phone] Elvin GARCIA, Tacho Carrasquillo Unavailable [phone] Reason for Visit and Chief Complaint SI joint injection Problems Includes: Problems addressed during this encounter and other active Problems All Visits Onset Date Resolved Date Provider Condition S tatus Lower Back Pain 08/03/2016 Tacho Oconnor MD Act katrin Last Documented On 7 3:13PM ; [facility] Plan of Treatment Diagnosis: SI Joint OA Procedure: Patient presents today for injection into the RIGHT SI joint under fluoroscopy. Patient was placed on the fluoroscopy table. Patient was examined determining the localized area of pain over the RIGHT SI joint. Once this was performed the skin was then prepped with ChloraPrep and skin anesthetized with 1% lidocaine. Fluoroscopic guidance was used to place the 22-gauge needle into the sacroiliac joint at the most painful area. At that point a small amount of contrast was injected to confirm placement within the joint. And once confirmed an injection of bupivacaine and 40 mg of Kenalog was injected. Patient tolerated the procedure well. Sterile dressing was placed over the puncture site. And patient left the procedure room in stable condition. Follow-up evaluation approximately 10 minutes postprocedure revealing pain relief - Last Documented On 11/25/2024 10:40AM ; [facility] Future Appointments Date Time Location [facility] 03/11/2025 8:15AM Surger y Tacho Oconnor MD Last Documented On 5 3:34PM ; [facility] Post Op 03/25/2025 1:45PM [facility] Arce PA-C Last Documented On 5 3:35PM ; [facility] Assessments Includes: Assessments from this encounter No Assessments Recorded Medical Equipment - Implanted Devices Includes: Current Devices No Medical Equipment Recorded Medications Includes: Medications discussed during this encounter and other current Medications Current Medications (continue as prescribed) Atorvastatin Calcium 20 MG Oral Tablet 10/17/2024 Pr ovider: OLMAN MEDINA Diagnosis: Last Documented On 11:17AM By Tacho Oconnor ; [facility] hydroCHLOROthiazide 12.5 MG Oral Tablet 10/17/2024 Azra garcia: OLMAN MEDINA Diagnosis: Last Documented On 5 11:17AM By Tacho Oconnor ; [facility] metFORMIN HCl ER 500 MG Oral Tablet Extended Release 24 Hour 10/16/2024 Provider: OLMAN MEDINA Diagnosis: Last Documented On 5 11:17AM By Tacho Oconnor ; [facility] rOPINIRole HCl 1 MG Oral Tablet 10/16/2024 Provider: OLMAN MEDINA Diagnosis: Last Documented On 5 11:17AM By Tacho Oconnor ; [facility] Celecoxib 200 MG Oral Capsule 10/13/2024 Provider: OLMAN MEDINA Diagnosis: Last Documented On 5 11:17AM By Tacho Oconnor ; [facility] lamoTRIgine 150 MG Oral Tablet 10/08/2024 Provider: Diagnosis: Last Documented On 5 11:17AM By Tacho Oconnor ; [facility] Ozempic (0.25 or 0.5 MG/DOSE ) 2 MG/3ML Subcutaneous Solution Pen-injector 09/29/2024 Provider: BRAD MEDINA Diagnosis: Last Documented On 5 11:17AM By Tacho Oconnor ; [facility] Nitroglycerin 0.4 MG Sublingual Tablet Sublingual 09/07 Provider: OLMAN MEDINA Diagnosis: Last Documented On 5 11:17AM By Tacho Oconnor ; [facility] Medications Administered Includes: Administered Medications from this encounter No Administered Medications Recorded Results Includes: Results discussed during this encounter No Results Recorded For Specified Dates History of Present Illness Includes: History of Present Illness from this encounter No History of Present Illness Recorded Social History No Social History Recorded - Smoking Status Unknown Medical History Includes: Medical History addressed during this encounter No Medical History Recorded Family History Includes: Family History addressed during this encounter No Family History Recorded Review of Systems Includes: Review of Systems from this encounter No Review of Systems Recorded Mental Status Includes: Mental Status from this encounter No Mental Status Recorded Functional Status Includes: Functional Status from this encounter No Functional Status Recorded Physical Exam Includes: Physical Exam from this encounter No Physical Exam Recorded Allergies Includes: Active Allergies Substance Type Reaction Onset Date Resolved Date Statu s IODINE Allergy 12/08/2021 Active Last Documented On 5 3:07PM ; [facility] Flexeril Allergy 08/03/2016 Active Last Documented On 5 3:07PM ; [facility] BETADINE Allergy 12/08/2021 Active Last Documented On 5 3:07PM ; [facility] Amitriptyline HCl Allergy 12/08/2021 A ctive Last Documented On 5 3:07PM ; [facility] Encounters Encounter Provider Location Date Check-In Time Check-Out Time Diagnosis SI joint injection Johan Zhang CRNA 11/25/2024 2:15PM 11:59PM Insurance Includes: Active Insurance Policies Plan Name Member ID Group # Subscriber Relationship Effect katrin Dates 1 - [employer] [facility] [id number] Jenae Bestephen Self Clinical Notes Includes: Clinical Notes from this encounter * Progress note Date Encounter Last Documented by 11/25/2024 SI joint injection Last document ed on 11/25/2024; 10:40 AM, Johan Zhang CRNA; [facility] Plan Diagnosis: SI Joint OA Procedure: Patient presents today for injection into the RIGHT SI joint under fluoroscopy. Patient was placed on the fluoroscopy table. Patient was examined determining the localized area of pain over the RIGHT SI joint. Once this was performed the skin was then prepped with ChloraPrep and skin anesthetized with 1% lidocaine. Fluoroscopic guidance was used to place the 22-gauge needle into the sacroiliac joint at the most painful area. At that point a small amount of contrast was injected to confirm placement within the joint. And once confirmed an injection of bupivacaine and 40 mg of Kenalog was injected. Patient tolerated the procedure well. Sterile dressing was placed over the puncture site. And patient left the procedure room in stable condition. Follow-up evaluation approximately 10 minutes postprocedure revealing pain relief Notes This dictation was done with voice recognition software and may contain errors and omissions.
--- OUTSIDE RECORDS SUMMARY | 2025-02-11 21:00 | XMS_ITS | Clinical Summary ---
Author Organization [facility] Address [address] [place] [address] Phone Care Team Providers Care Automatic Drill Operator Name Role Phone CAROL OLMAN Unavailable [phone] Elvin GARCIA, Tacho Carrasquillo Unavailable [phone] Reason for Visit and Chief Complaint [Patient Encounter] Problems Includes: Problems addressed during this encounter and other active Problems All Visits Onset Date Resolved Date Provider Condition S tatus Lower Back Pain 08/03/2016 Tacho Oconnor MD Act katrin Last Documented On 7 3:13PM ; [facility], [facility] Plan of Treatment Pending Tests Order Diagnosis Results Due Ordering P rovider Radiology - MRI MRI Lumbar Spine Low back pain 01/08/25 Tacho Oconnor MD Last Documented On 5 2:42PM ; [facility] Future Appointments Date Time Location [facility] 03/11/2025 8:15AM Surger y Tacho Oconnor MD Last Documented On 5 3:34PM ; [facility] Post Op 03/25/2025 1:45PM [facility] Liborio Arce PA-C Last Documented On 5 3:35PM ; [facility] Assessments Includes: Assessments from this encounter No Assessments Recorded Medical Equipment - Implanted Devices Includes: Current Devices No Medical Equipment Recorded Medications Includes: Medications discussed during this encounter and other current Medications Current Medications (continue as prescribed) Atorvastatin Calcium 20 MG Oral Tablet 10/17/2024 Pr ovider: OLMAN MEDINA Diagnosis: Last Documented On 5 11:17AM By Tacho Oconnor ; [facility], [facility] hydroCHLOROthiazide 12.5 MG Oral Tablet 10/17/2024 Azra garcia: OLMANLEI MEDINA Diagnosis: Last Documented On 5 11:17AM By Tacho Oconnor ; [facility] metFORMIN HCl ER 500 MG Oral Tablet Extended Release 24 Hour 10/16/2024 Provider: OLMAN MEDINA Diagnosis: Last Documented On 5 11:17AM By Tacho Oconnor ; [facility], [facility] rOPINIRole HCl 1 MG Oral Tablet 10/16/2024 Provider: OLMAN MEDINA Diagnosis: Last Documented On 5 11:17AM By Tacho Oconnor ; [facility], [facility] Celecoxib 200 MG Oral Capsule 10/13/2024 Provider: OLMAN MEDINA Diagnosis: Last Documented On 5 11:17AM By Tacho Oconnor ; [facility], [facility] lamoTRIgine 150 MG Oral Tablet 10/08/2024 Provider: Diagnosis: Last Documented On 5 11:17AM By Tacho Oconnor ; [facility], [facility] Ozempic (0.25 or 0.5 MG/DOSE ) 2 MG/3ML Subcutaneous Solution Pen-injector 09/29/2024 Provider: BRAD MEDINA Diagnosis: Last Documented On 5 11:17AM By Tacho Oconnor ; [facility], [facility] Nitroglycerin 0.4 MG Sublingual Tablet Sublingual 09/07 Provider: OLMAN MEDINA Diagnosis: Last Documented On 5 11:17AM By Tacho Oconnor ; [facility], [facility] Medications Administered Includes: Administered Medications from this [...] Active Last Documented On 5 3:07PM ; [facility] Flexeril Allergy 08/03/2016 Active Last Documented On 5 3:07PM ; [facility] BETADINE Allergy 12/08/2021 Active Last Documented On 5 3:07PM ; [facility] Amitriptyline HCl Allergy 12/08/2021 A ctive Last Documented On 5 3:07PM ; [facility] Encounters Encounter Provider Location Date Check-In Time Check-Out Time Diagnosis [Patient Encounter] Tacho Oconnor MD 10/31/2024 11:21AM 11:59PM Insurance Includes: Active Insurance Policies Plan Name Member ID Group # Subscriber Relationship Effect katrin Dates 1 - [employer] [facility] [id number] Jenae Lang Self Clinical Notes Includes: Clinical Notes from this encounter No Clinical Notes Recorded
--- OUTSIDE RECORDS SUMMARY | 2025-02-11 21:00 | XMS_ITS ---
Care Plan - [facility], [facility] Created on: February 11, 2025 Jenae Lang : 1970 Sex: Female Author Organization [facility] Address [address] [place] [address] Phone Care Team Providers Care Habilitative Interventionist Name Role Phone OLMAN MEDINA Unavailable [phone] Elvin GARCIA, Tacho Carrasquillo Unavailable [phone]
--- OUTSIDE RECORDS SUMMARY | 2025-02-11 21:00 | XMS_ITS | Clinical Summary ---
Author Organization [facility] Address [address] [place] [address] Care Team Providers Care Supervisor Keymodule Assembly Name Role Phone Levi Kapoor MD Primary Care Provider [phone] Family History Medical History Relation Name Comments [...] (2 - Td or Tdap) 07/01/2024 07/01/2014 [id number] Vaccine (1 - 20 24-25 season) 2024 [...] patient's age to complete this topic Insurance [employer] [facility] MEDICAID [facility] Medicaid Dental Care Teams Supervisor Keymodule Assembly Relationship Specialty Start Date End Date Levi Kapoor MD [address] [place] [address] PCP - General 08/20/20
--- OUTSIDE RECORDS SUMMARY | 2025-02-11 21:00 | XMS_ITS ---
Author Organization [facility] Address [address] [place] [address] Phone Care Team Providers Care Pilot Plant Supervisor Name Role Phone OLMAN MEDINA Unavailable [phone] Elvin GARCIA, Tacho Carrasquillo Unavailable [phone] Problems Includes: Active, inactive, and resolved Problems All Visits Onset Date Resolved Date Provider Condition S tatus Lower Back Pain 08/03/2016 Tacho Oconnor MD Act katrin Last Documented On 7 3:13PM ; [facility] Plan of Treatment Pending Tests Order Diagnosis Results Due Ordering P rovider Radiology - MRI MRI Lumbar Spine Low back pain 01/08/25 Tacho Oconnor MD Last Documented On 5 2:42PM ; [facility] Future Appointments Date Time Location [facility] 03/11/2025 8:15AM Surger y Tacho Oconnor MD Last Documented On 5 3:34PM ; [facility] Post Op 03/25/2025 1:45PM [facility] Liboroi Arce PA-C Last Documented On 5 3:35PM ; [facility] Instructions to patient Lose weight Last Documented On 5 3:07PM ; [facility] Lose weight Last Documented On 5 2:06PM ; [facility] Lose weight Last Documented On 5 1:08PM ; [facility] Lose weight Last Documented On 2 8:49AM ; [facility] Assessments Includes: Assessments for all patient encounters Findings Encounter Date Overweight Follow Up with Tacho Oconnor MD 02/05/2025 Last Documented On 5 12:33PM ; [facility] Overweight Follow Up with Tacho Oconnor MD 12/25/2024 Last Documented On 5 2:42PM ; [facility] Overweight SECOND OPINION with Tacho daniel MD 10/16/2024 Last Documented On 5 10:15AM ; [facility] Instructions Includes: Instructions for all patient encounters Instructions to patient Lose weight Last Documented On 5 3:07PM ; [facility] Lose weight Last Documented On 5 2:06PM ; [facility] Lose weight Last Documented On 5 1:08PM ; [facility] Lose weight Last Documented On 2 8:49AM ; [facility] Medical Equipment - Implanted Devices Includes: Current and historical Devices No Medical Equipment Recorded Medications Includes: Current and historical Medications Current Medications (continue as prescribed) Atorvastatin Calcium 20 MG Oral Tablet 10/17/2024 Pr ovider: OLMAN MEDIAN Diagnosis: Last Documented On 5 11:17AM By Tacho Oconnor ; [facility] hydroCHLOROthiazide 12.5 MG Oral Tablet 10/17/2024 P zanderder: OLMAN MEDINA Diagnosis: Last Documented On 5 11:17AM By Tacho Oconnor ; [facility] metFORMIN HCl ER 500 MG Oral Tablet Extended Release 24 Hour 10/16/2024 Provider: OLMAN MEDINA Diagnosis: Last Documented On 5 11:17AM By Tacho Oconnor ; [facility] rOPINIRole HCl 1 MG Oral Tablet 10/16/2024 Provider: OLMAN MEDINA Diagnosis: Last Documented On 5 11:17AM By Tacho Oconnor ; [facility] Celecoxib 200 MG Oral Capsule 10/13/2024 Provider: OLMAN MEDINA Diagnosis: Last Documented On 5 11:17AM By Tacho Oconnor ; [facility] lamoTRIgine 150 MG Oral Tablet 10/08/2024 Provider: Diagnosis: Last Documented On 5 11:17AM By Tacho Oconnor ; [facility] Ozempic (0.25 or 0.5 MG/DOSE ) 2 MG/3ML Subcutaneous Solution Pen-injector 09/29/2024 Provider: BRAD MEDINA Diagnosis: Last Documented On 5 11:17AM By Tacho Oconnor ; [facility] Nitroglycerin 0.4 MG Sublingual Tablet Sublingual 09/07 Provider: OLMAN MEDINA Diagnosis: Last Documented On 5 11:17AM By Tacho Oconnor ; [facility] Past Medications on file DULoxetine HCl 60 MG Oral Ca psule Delayed Release Particles 12/07/2021 - 10/16/2024 Provider: OLMAN COSTELLO Diagnosis: Last Documented On 5 11:15AM By Tacho Oconnor ; [facility] Metoprolol Succinate ER 50 M G Oral Tablet Extended Release 24 Hour 11/28/2021 - 10/16/2024 Provider: Cammy Moreland NP Diagnosis: Last Documented On 5 11:15AM By Tacho Oconnor ; [facility] Celecoxib 200 MG Oral Capsule 11/19/2021 - 10/16/2024 Provider: OLMAN MEDINA Diagnosis: Last Documented On 5 11:15AM By Tacho Oconnor ; [facility] Omeprazole 40 MG Oral Capsul e Delayed Release 11/11/2021 - 10/16/2024 Provider: OLMAN MEDINA Diagnosis: Last Documented On 5 11:15AM By Tacho Oconnor ; [facility] rOPINIRole HCl 0.5 MG Oral Tablet 11/08/2021 - 025 Provider: OLMAN MEDINA Diagnosis: Last Documented On 5 11:15AM By Tacho Oconnor ; [facility] Medications Administered Includes: Administered Medications in patient's chart No Administered Medications Recorded Vital Signs Includes: Vital Signs from 02/12/2024 through 02/11/2025 Vital Name 02/05/2025 02:59P 12/25/2024 01:59P 10/16 01:04P Height (in) 63 63 63 Weight (lb) 171 172 182 Body Mass Index 30.3 30.5 32.2 Body Surface Area 1.8 1.8 1.9 Pain Level 6 8 7 Last Documented: On 02/05/2025 2:59PM ; [facility] On 12/25/2024 1:59PM ; [facility] On 10/16/2024 1:04PM ; [facility] Results Includes: Results from 02/12/2024 through 02/11/2025 No Results Recorded For Specified Dates History of Present Illness History of Present Illness not supported for this document type No History of Present Illness Recorded Social History Description Last Updated Not exercising regularly 10/24/2024 Last Documented On 5 10:15AM ; [facility] Recent change in diet 10/24/2024 Last Documented On 5 10:15AM ; [facility] Tobacco non-user 12/08/2021 Last Documented On 2 8:45PM ; [facility] Not a current smoker. 12/08/2021 Last Documented On 2 8:45PM ; [facility] Alcohol use: 2 drinks or less per day Last Documented On 2 8:45PM ; [facility] Never smoked 12/08/2021 Last Documented On 2 8:45PM ; [facility] Never used drugs 12/08/2021 Last Documented On 2 8:45PM ; [facility] Unemployed 12/08/2021 Last Documented On 2 8:45PM ; [facility] Alcohol use 08/03/2016 Last Documented On 7 9:21AM ; [facility] Caffeine use 08/03/2016 Last Documented On 7 9:21AM ; [facility] No recent change in diet 08/03/2016 Last Documented On 7 9:21AM ; [facility] Not a current smoker 08/03/2016 Last Documented On 7 9:21AM ; [facility] Not using drugs 08/03/2016 Last Documented On 7 9:21AM ; [facility] No tobacco use 08/03/2016 Last Documented On 7 9:21AM ; [facility] Smoking status : Never smoker 08/03/2016 Last Documented On 7 9:21AM ; [facility] Procedures and Surgical History Includes: Procedures from 02/12/2024 through 02/11/2025 Procedures Code Diagnosis Performing Provider Service Location Service Date No Charge NC001 Sacroiliitis, no t elsewhere classified Alvin Monroe PT [facility] 12/03/2024 Last Documented On 5 1:32PM ; [facility] NEUROMUSCULAR REEDUCATION (GP) 85755 Sacroiliitis, not elsewhere classified Alvin Monroe PT [facility] 12/01/2024 Last Documented On 5 2:14PM ; [facility] Triamcinolone/Kenalog, 10mg per cc [id number] Sacroiliitis, not elsewhere classified Johan Zhang CASEY SAW OPERATOR [facility] 11/25/2024 Last Documented On 5 9:21AM ; [facility] INJECT SACROILIAC JOINT (RIGHT) 39603 Sacroiliitis, not elsewhere classified Johan Zhang CASEY SAW OPERATOR [facility] 11/25/2024 Last Documented On 5 11:09AM ; [facility] NEUROMUSCULAR REEDUCATION (GP) 67248 Sacroiliitis, not elsewhere classified Alvin Monroe PT [facility] 11/17/2024 Last Documented On 5 1:50PM ; [facility] NEUROMUSCULAR REEDUCATION (GP) 50208 Sacroiliitis, not elsewhere classified Alvin Monroe PT [facility] 11/14/2024 Last Documented On 5 2:52PM ; [facility] NEUROMUSCULAR REEDUCATION (GP) 79760 Sacroiliitis, not elsewhere classified Alvin Monore PT [facility] 11/11/2024 Last Documented On 5 4:49PM ; [facility] PT Eval - Mod - Complexity (GP) 80761 Sacroiliitis, not elsewhere classified Alvin Monroe PT [facility] 11/11/2024 Last Documented On 5 4:49PM ; [facility] X-RAY EXAM OF PELVIS 1-2 VIEWS 28114 Other intervertebral disc displacement, lumbar region Tacho Oconnor MD [facility] 10/16/2024 Last Documented On 5 12:11PM ; [facility] Surgical History Last Updated History of Previous Fractures 10/24/2024 Last Documented On 5 10:15AM ; [facility] Past Surgical History: Foot surgery / Breast biopsy / Lumpectomy / / [place] Teeth Removal / Heart Cath 10/24/2024 Last Documented On 5 10:15AM ; [facility] History of Past Surgical History: 2021 Last Documented On 2 8:45PM ; [facility] Medical History Includes: Medical History in patient's chart Description Last Updated History of Heartburn / Acid Reflux 02/06 Last Documented On 5 12:33PM ; [facility] Past medical history non-contributory: H igh cholesterol 02/06/2025 Last Documented On 5 12:33PM ; [facility] No recent immunization for flu 2 Last Documented On 2 8:45PM ; [facility] No recent immunization for pneumococcal pneumonia 12/08/2021 Last Documented On 2 8:45PM ; [facility] Arthritic joint problems 08/03/2016 Last Documented On 7 9:21AM ; [facility] History of depression 08/03/2016 Last Documented On 7 9:21AM ; [facility] History of osteoporosis 08/03/2016 Last Documented On 05/01/201 7 9:21AM ; [facility] Family History Includes: Family History in patient's chart Description Last Updated Diabetes mellitus 12/08/2021 Last Documented On 2 8:45PM ; [facility] Family history of heart disease 12/09/19 22 Last Documented On 2 8:45PM ; [facility] Stroke / Seizures 12/08/2021 Last Documented On 2 8:45PM ; [facility] Maternal grandfather's history of family [...] 12/08/2021 Last Documented On 2 8:45PM ; [facility] Sororal history of systemic hypertension 12/08/2021 Last Documented On 2 8:45PM ; [facility] Family history of cancer 08/03/2016 Last Documented On 7 9:21AM ; [facility] Family history of hypertension 7 Last Documented On 7 9:21AM ; [facility] No significant family history stroke/sei zure 08/03/2016 Last Documented On 7 9:21AM ; [facility] Review of Systems Review of [...] Active Last Documented On 5 3:07PM ; [facility] Flexeril Allergy 08/03/2016 Active Last Documented On 5 3:07PM ; [facility] BETADINE Allergy 12/08/2021 Active Last Documented On 5 3:07PM ; [facility] Amitriptyline HCl Allergy 12/08/2021 A ctive Last Documented On 5 3:07PM ; [facility] Encounters Includes: Encounters from 02/12/2024 through 02/11/2025 Encounter Provider Location Date Check-In Time Check-Out Time Diagnosis Follow Up Tacho Oconnor MD [facility] 02/06/20 2:48PM 3:24PM Overweight Follow Up Tacho Oconnor MD [facility] 12/26/19 1:43PM 2:23PM Overweight SI joint injection Johan Zhang CRNA 11/26/19 25 10/16/2024 2:15PM 10/16/2024 11:59PM SI joint injection Johan Zhang CASEY SAW OPERATOR [facility] 11/26/19 9:53AM 10:05AM [Patient Encounter] Tacho Oconnor MD 11/01/1910/16/2024 11:21AM 10/16/2024 11:59PM [Patient Encounter] Tacho Oconnor MD 10/25/19 25 10/16/2024 11:38AM 10/16/2024 11:59PM SECOND OPINION Tacho Oconnor MD [facility] 10/17/19 12:38PM 2:16PM Overweight Insurance Includes: Active Insurance Policies Plan Name Member ID Group # Subscriber Relationship Effect katrin Dates 1 - Aet [facility] [id number] Jenae Lang Self Clinical Notes Includes: Signed Clinical Notes starting from 03/23/2022 * Progress note Date Encounter Last Documented by 02/05/2025 Follow Up Last documented on 02/06/2025; 12:33 PM, Tacho Oconnor MD; [facility] Active Problems & Conditions - Lower [...] medications documented Medications used for this condition: Current Medication - Atorvastatin Calcium 20 MG [...] flu and not for pneumococcal pneumonia. Diagnoses: Heartburn / Acid Reflux. Osteoporosis. Depressive disorder Past medical history non-contributory: High cholesterol. Surgical: - Past Surgical History: Foot surgery / Breast biopsy / Lumpectomy / / [place] Teeth Removal / Heart Cath - Past [...] allergic reaction. Physical Findings - Vitals taken 02/05/2025 02:59 pm Height 63 in Weight 171 lbs Body Mass Index 30.3 kg/m2 Body Surface Area 1.8 m2 Pain Level 6 Assessment - Overweight Previous Tests Imaging: X-Ray: X-ray. X-ray. CT Scan: CT scan. MRI Scan: An MRI was performed. An MRI was performed. Basic Management Procedures And Services: - Brace Available previous imaging studies were reviewed Available previous history reviewed Counseling/Education - Tobacco non-user - Use of tobacco assessment performed - Lose weight Notes This dictation was done with voice recognition software and may contain errors and omissions. Patient is here for follow-up of her lumbar MRI for right leg pain that radiates down to her ankle on the right side. Her she has weakness in EHL on the right side and positive straight leg raise. 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 She has had multiple injections physical therapy and now she is on pregabalin which does take the edge off. She would like to get this fixed. We discussed the risks benefits alternatives of a right L4-5 MIS decompression and she wishes to proceed Practice Management Use of tobacco assessment performed. Care Team - OLMAN MEDINA Health Reminders - Assess BMI satisfied 02/05/2025. - Assess Tobacco Use satisfied 08/03/2016. - Follow Up Plan BMI Management satisfied 02/05/2025. * Progress note Date Encounter Last Documented by 12/25/2024 Follow Up Last documented on 12/25/2024; 2:42 PM, Tacho Oconnor MD; [facility] Active Problems & Conditions - Lower [...] / Breast biopsy / Lumpectomy / / [place] Teeth Removal / Heart Cath - Past [...] Follow Up Plan BMI Management satisfied 12/25/2024. * Progress note Date Encounter Last Documented by 11/25/2024 SI joint injection Last document ed on 11/25/2024; 10:40 AM, Johan Zhang CASEY SAW OPERATOR; [facility] Plan Diagnosis: SI Joint OA Procedure: [...] software and may contain errors and omissions. * Progress note Date Encounter Last Documented by 10/16/2024 SECOND OPINION Last documented on 11/20/2024; 10:15 AM, Tacho Oconnor MD; [facility] Active Problems & Conditions - Lower Back Pain Chief Complaint The Chief Complaint is: Lower back pain. Referred Here Referred by PCP. History of Present Illness Jenae Lang is a 53 year old female. - Symptoms Heating pad [...] Home Exercise - History of Injections - Review of medications documented Medications used for this condition: Patient is here today complaints of right SI joint pain. She had a SI joint injection with the physician Dr. Orozco was lasted a week in gave her some relief with it. This is worse when she is sitting or being active. She has had previous back injections before in the past which have not helped she is here today to discuss options since she would like to proceed with a SI joint fusion and she did not want to have it 2 hours away. She has done previous physical therapy 2-3 years ago which did not help. She also has a left SI joint injection at the time of the right SI joint injection. Does have a history of restless legs on this right side also Current Medication - Celecoxib 200 MG Oral Capsule 30 days, 0 refills - lamoTRIgine 150 [...] Medical/Surgical History Reported: Medical: Arthritic joint problems. Diagnoses: Osteoporosis. Depression Procedural: Past Surgical History: Foot surgery / Breast biopsy / Lumpectomy / / [place] Teeth Removal / Heart Cath Past medical history non-contributory: High cholesterol, acid reflux. Surgical: - Previous Fractures Previous Therapy - History of orthopedic options: physical therapy Social History Not a current smoker. Current diet: Recent change in diet. Behavioral: Not a current smoker. Caffeine: Caffeine use. Tobacco use: Smoking status: Never smoker. Alcohol: Alcohol use: 2 drinks or less per day. Drug Use: Never used drugs. Habits: Not exercising regularly. Work: Unemployed. Allergies - Amitriptyline HCl - BETADINE - Flexeril - IODINE Family History Paternal: Cancer Stroke / Seizures Systemic hypertension Maternal: Systemic hypertension Paternal grandmother's: Systemic hypertension Diabetes mellitus Maternal grandfather's: Cancer Stroke / Seizures Maternal grandmother's: Heart disease Systemic hypertension Diabetes mellitus Sororal: Systemic hypertension Review Of Systems Systemic: Feeling tired and feeling tired. No recent weight loss and no recent weight gain. Recent weight gain and edema. Head: Headache. No sinus pain. Sinus pain. Eyes: Vision problems and vision problems. No glaucomatous visual field defect. No [...] allergic reaction. Physical Findings - Vitals taken 10/16/2024 01:04 pm Height 63 in Weight 182 lbs Body Mass Index 32.2 kg/m2 Body Surface Area 1.9 m2 Pain Level 7 She is tender over the right SI joint She has 5/5 EHL gastrocs quadriceps tibialis anterior strength bilaterally Positive Carol's positive Gaenslen and SI joint compression Tests MRI lumbar spine shows degenerative disc at L5-S1 X-rays of her pelvis show some degenerative changes of the right SI joint one view 10/16/2024 Assessment - Overweight Right sacroiliitis Previous Tests Imaging: X-Ray: X-ray. X-ray. CT Scan: CT scan. MRI Scan: An MRI was performed. An MRI was performed. Basic Management Procedures And Services: Brace. Available previous imaging studies were reviewed Available previous history reviewed Counseling/Education Tobacco non-user. use of tobacco assessment performed. - Lose weight Plan Patient was seen by myself and Dr. Elvin Arce PA-C. Patient will follow up post surgery plan will be for right SI joint fusion she understands all benefits risks and alternatives surgery consents to proceed. Addendum. Patient had 50% relief with first SI joint injection. She has had therapy which has not changed her symptoms. We are requestion a second SI joint injection per insurance since her surgery was denied. Insurance is also requesting recent therapy so she will be setup with that. Marlo Arce PA-C Notes This dictation was done with voice recognition software and may contain errors and omissions. Practice Management Use of tobacco assessment performed. Care Team - OLMAN MEDINA Health Reminders - Assess BMI satisfied 10/16/2024. - Assess Tobacco Use satisfied 08/03/2016. - Follow Up Plan BMI Management satisfied 10/16/2024.
--- OUTSIDE RECORDS SUMMARY | 2025-02-11 21:00 | XMS_ITS | Clinical Summary ---
Author Organization [facility] ([place], [place], [place], [place], [place]) Address [address] [place] [address] Care Team Providers Care Water Softener Servicer Name Role Phone Unavailable Primary Care Provider [...] Counseling and Screening (12+) 08/1908/19/2024 Insurance AETNA [facility]
--- OUTSIDE RECORDS SUMMARY | 2025-02-11 21:00 | XMS_ITS | Referral Summary ---
Author Organization [facility] ([place], [place], [place], [place], [place]) Address [address] [place] [address] Care Team Providers Care Clinical Laboratory Assistant Name Role Phone Unavailable Primary Care Provider [...] of Treatment Not on file Insurance AETNA [facility]
== END 2025-02-10 23:59 | disposition home or self-care (01) ==
LOC: LAB.DROPOF 02-11 20:58
PROVIDERS: PCP Nurse Practitioner Family; Visit Provider Nurse Practitioner Family
DX: E55.9 Vitamin D deficiency, unspecified (principal); E78.5 Hyperlipidemia, unspecified; E11.9 Type 2 diabetes mellitus without complications
CPT/HCPCS: 80053; 80061; 82043; 82306; 83036; 84443

== ENCOUNTER 2025-02-23 13:50 | Outpatient (CLI) | payer OTHER, SELFPAY ==
--- NOTE | 2025-02-23 14:00 | ECG_ITS ---
APPROVED REPORT Exam: Resting ECG HR:79 bpm ECG Measurements Heart Rate 79 AXES NE 189 P 50 QRSd 98 QRS -20 QT 373 T 67 QTc 408 Conclusion SINUS RHYTHM INCOMPLETE RIGHT BUNDLE BRANCH BLOCK [90+ ms QRS DURATION, TERMINAL R IN V1/V2, 40+ ms S IN I/aVL/V4/V5/V6] BORDERLINE ECG UNCONFIRMED REPORT Electronically signed by : Levi Asencio MD 02/24/2025 15:06:48
[2025-02-23 16:03] LABS: Chloride 102 mmol/L (98-107); Sodium 138 mmol/L (136-145)
[2025-02-23 16:04] LABS: Potassium 3.6 mmoL/L (3.5-5.1)
[2025-02-23 16:06] LABS: Blood Urea Nitrogen 14 mg/dl (7-17); Creatinine,Serum 0.80 mg/dl (0.52-1.04); Estimated Glomerular Filt Rate 74 ml/min (>60); GFR (African American) 90 ML/MIN (>60)
[2025-02-23 16:07] LABS: Anion Gap 10.6 mEq/L (5-15); Calcium 9.0 mg/dl (8.4-10.2); Carbon Dioxide 29 mmol/L (22.0-30.0); Glucose 85 mg/dl (74-100)
--- OUTSIDE RECORDS SUMMARY | 2025-02-23 20:43 | XMS_ITS | Encounter Summary ---
Author Organization [facility] Address [address] [place] [address] Care Team Providers Care Brand Marketing Specialist Name Role Phone Levi Kapoor MD Primary Care Provider [phone] Encounter Details Date Type Department Care Team (Latest Contact Info) Description 01/28/2021 Community [facility] [address] [place] [address] Madison Garrett, SENIOR ELECTRICAL DESIGN ENGINEER [address] [place], [place] [id number] Osteoarthritis of temporomandibular joint (Primary Dx) Social [...] Primary documented in this encounter Care Teams Brand Marketing Specialist Relationship Specialty Start Date End Date Levi Kapoor MD [facility] [place] [address] PCP - General 08/20/20 documented as of this encounter
--- OUTSIDE RECORDS SUMMARY | 2025-02-23 20:43 | XMS_ITS | Clinical Summary ---
Author Organization [facility] Address [address] [place] [address] Care Team Providers Care Photovoltaic Technician Name Role Phone Levi Kapoor MD Primary Care Provider [phone] Family History Medical History Relation Name Comments [...] (2 - Td or Tdap) 07/01/2024 07/01/2014 [id number] Vaccine (1 - 20 25-26 season) 2024 [facility]-Influenza Vaccine (#1) 2024 [facility]-Hepatitis [...] age to complete this topic Insurance AETNA [facility] MEDICAID [facility] Medicaid Dental Care Teams Photovoltaic Technician Relationship Specialty Start Date End Date Levi Kapoor MD [address] [place] [address] PCP - General 08/20/20
== END 2025-02-23 23:59 | disposition home or self-care (01) ==
LOC: LAB 13:51
PROVIDERS: PCP Nurse Practitioner Family; Visit Provider Orthopaedic Surgery
DX: Z01.810 Encounter for preprocedural cardiovascular examination (principal); Z01.812 Encounter for preprocedural laboratory examination; I45.19 Other right bundle-branch block; R94.31 Abnormal electrocardiogram [ECG] [EKG]; M54.50 Low back pain, unspecified
CPT/HCPCS: 36415; 80048; 93005

== ENCOUNTER 2025-03-12 12:58 | Outpatient (CLI) | payer OTHER, SELFPAY ==
--- NOTE | 2025-03-12 13:01 | XR_ITS ---
FINAL REPORT CLINICAL HISTORY: right wrist pain COMPARISON: 05/07/2024 FINDINGS: RIGHT WRIST Three views demonstrate no acute fracture or dislocation. There is abnormal sclerosis of the radial styloid which is stable. The visualized joint spaces are normally aligned. The soft tissues are unremarkable. IMPRESSION: No acute bony abnormality. Reviewed, Interpreted and Dictated by Alvarez Howard MD Transcribed by Abigail Thomas Authenticated and [facility]
--- NOTE | 2025-03-12 13:01 | XR_ITS ---
FINAL REPORT CLINICAL HISTORY: right knee pain COMPARISON: None FINDINGS: Three views of the right knee were obtained. There is no acute fracture or dislocation. There is medial compartment joint space narrowing. No significant hypertrophic changes. Soft tissues are unremarkable. IMPRESSION: Chronic changes without acute bony abnormality. Reviewed, Interpreted and Dictated by Alvarez Howard MD Transcribed by Abigail Thomas Authenticated and [facility]
--- OUTSIDE RECORDS SUMMARY | 2025-03-12 13:03 | XMS_ITS | Clinical Summary ---
Author Organization [facility] Address [address] [place] [address] Care Team Providers Care Blending Coordinator Name Role Phone Levi Kapoor MD Primary Care Provider [phone] Family History Medical History Relation Name Comments [...] (2 - Td or Tdap) 07/01/2024 07/01/2014 [id number] Vaccine (1 - 20 25-26 season) 2024 [...] age to complete this topic Insurance AETNA [facility] [place]ICAID [facility] [place] Dental Care Teams Blending Coordinator Relationship Specialty Start Date End Date Levi Kapoor MD [address] [place] [address] PCP - General 08/20/20
--- OUTSIDE RECORDS SUMMARY | 2025-03-12 13:03 | XMS_ITS | Encounter Summary ---
Author Organization Healthcare Address [address] [place] [address] Care Team Providers Care Horse And Wagon Driver Name Role Phone Levi Kapoor MD Primary Care Provider [phone] Encounter Details Date Type Department Care Team (Latest Contact Info) Description 01/28/2021 Community [facility] [address] [place] [address] Madison Garrett, COPING MACHINE OPERATOR [address] [place], [place] [id number] Osteoarthritis of temporomandibular joint (Primary Dx) Social [...] Primary documented in this encounter Care Teams Horse And Wagon Driver Relationship Specialty Start Date End Date Levi Kapoor MD [facility] [place] [address] PCP - General 08/20/20 documented as of this encounter
== END 2025-03-12 23:59 | disposition home or self-care (01) ==
LOC: RAD 12:59
PROVIDERS: PCP Nurse Practitioner Family; Visit Provider Physician Assistant
DX: G56.01 Carpal tunnel syndrome, right upper limb (principal); M25.861 Other specified joint disorders, right knee; M25.561 Pain in right knee
CPT/HCPCS: 73110; 73562

== ENCOUNTER 2025-03-26 14:13 | Outpatient (CLI) | payer OTHER, SELFPAY ==
--- NOTE | 2025-03-26 14:17 | MR_ITS ---
FINAL REPORT CLINICAL HISTORY: CEVLCALGIA bilateral arm tingling and numbness COMPARISON: None FINDINGS: Multi planar MR imaging was obtained of the cervical spine. There is abnormal decreased signal throughout the cervical discs. The vertebrae are of normal height. There is no malalignment. The cervical cord demonstrates normal signal and configuration. A hemangioma is noted at the T3 level. C2-C3: There is no evidence of significant disc bulge or protrusion. There is no significant facet hypertrophy. C3-C4: There is no evidence of significant disc bulge or protrusion. There is no significant facet hypertrophy. C4-C5: A mild annular bulge is present with mild bilateral neural foraminal narrowing. There is no central canal stenosis. C5-C6: There is a mild to moderate annular bulge with moderate bilateral neural foraminal narrowing. There is no central canal stenosis. C6-C7: A mild to moderate annular bulge is present, with a right posterolateral disc protrusion, mild to moderate right and mild left neural foraminal narrowing. C7-T1: There is no evidence of significant disc bulge or protrusion. There is no significant facet hypertrophy. IMPRESSION: Mid cervical degenerative change is present, most pronounced at the C5-6 and C6-7 levels. Reviewed, Interpreted and Dictated by Alvarez Howard MD Transcribed by Bisi Curry Authenticated and . [facility]
--- OUTSIDE RECORDS SUMMARY | 2025-03-26 14:28 | XMS_ITS | Clinical Summary ---
Author Organization [facility] Address [address] [place] [address] Phone Care Team Providers Care International Freight Forwarder Name Role Phone OLMAN MEDINA Unavailable [phone] Elvin GARCIA, Tacho Carrasquillo Unavailable [phone] Reason for Visit and Chief Complaint The Chief Complaint is: lower back pain Problems Includes: Problems addressed during this encounter and other active Problems Current Visit Onset Date Date of Diagnosis Resolved Date Provider Condition Status Lower Back Pain 08/03/2016 08/03/2016 Tacho Oconnor MD Active Last Documented On 5 1:38AM ; [facility], [facility] Past Visits Onset Date Date of Diagnosis Resolved Date Provi chuyita Condition Status Neck Pain 03/18/2025 03/18/2025 Liborio Arce PA-C Active Last Documented On 5 1:43AM ; [facility], [facility] Joint Pain Shoulder Bilateral 03/18/2025 03/18/2025 Liborio Arce PA-C Active Last Documented On 5 1:43AM ; [facility], [facility] Plan of Treatment Patient was seen by myself and Dr. Elvin Arce PA-C. Patient will follow up new lumbar spine MRI before we consider right SI joint fusion since she has this new symptom with the right leg pain - Last Documented On 12/25/2024 2:42PM ; [facility] Pending Tests Order Diagnosis Results Due Ordering P rovider Radiology - MRI MRI Lumbar Spine Low back pain 01/08/25 Tacho Oconnor MD Last Documented On 5 2:42PM ; [facility] Instructions to patient Lose weight Last Documented On 5 2:06PM ; [facility] Assessments Includes: Assessments from this encounter Findings - Overweight - Last Documented On 12/25/2024 2:42PM ; [facility] Back and right leg pain - Last Documented On 12/25/2024 2:42PM ; [facility] Right SI joint pain - Last Documented On 12/25/2024 2:42PM ; [facility] Instructions Includes: Instructions from this encounter Instructions to patient Lose weight Last Documented On 5 2:06PM ; [facility] Medical Equipment - Implanted Devices Includes: Current Devices No Medical Equipment Recorded Medications Includes: Medications discussed during this encounter and other current Medications Current Medications (continue as prescribed) tiZANidine HCl 4 MG Oral Tablet 02/25/2025 Provider: OLMAN MEDINA Diagnosis: Last Documented On 5 9:31AM By Ger Corona ; [facility] Pregabalin 25 MG Oral Capsule 01/07/2025 Provider: OLMAN MEDINA Diagnosis: Last Documented On 5 9:31AM By Ger Corona ; [facility] DULoxetine HCl 60 MG Oral Ca psule Delayed Release Particles 12/16/2024 Provider: OLMAN MEDINA Diagnosis: Last Documented On 5 9:31AM By Ger Corona ; [facility] Omeprazole 40 MG Oral Capsule Delayed Release 11/01/19 Provider: OLMAN MEDINA Diagnosis: Last Documented On 5 9:31AM By Ger Corona ; [facility] DULoxetine HCl 60 MG Oral Ca psule Delayed Release Particles 10/27/2024 Provider: OLMAN MEDINA Diagnosis: Last Documented On 5 9:31AM By Ger Coorna ; [facility] Metoprolol Succinate ER 25 M G Oral Tablet Extended Release 24 Hour 10/23/2024 Provider: OLMAN MEDINA Diagnosis: Last Documented On 5 9:31AM By Ger Corona ; [facility] Atorvastatin Calcium 20 MG Oral Tablet 10/17/2024 Pr ovider: OLMAN ZAPATANER Diagnosis: Last Documented On 5 11:17AM By Tacho Oconnor ; [facility] hydroCHLOROthiazide 12.5 MG Oral Tablet 10/17/2024 Azra garcia: OLMAN ZAPATANER Diagnosis: Last Documented On 5 11:17AM By Tacho Oconnor ; [facility] metFORMIN HCl ER 500 MG Oral Tablet Extended Release 24 Hour 10/16/2024 Provider: OLMAN MEDINA Diagnosis: Last Documented On 5 11:17AM By Tacho Oconnor ; [facility] rOPINIRole HCl 1 MG Oral Tablet 10/16/2024 Provider: OLMAN MEDINA Diagnosis: Last Documented On 5 11:17AM By Tacho Oconnor ; [facility] Celecoxib 200 MG Oral Capsule 10/13/2024 Provider: OLMAN MEDINA Diagnosis: Last Documented On 5 11:17AM By Tacho Oconnor ; [facility] lamoTRIgine 150 MG Oral Tablet 10/08/2024 Provider: Diagnosis: Last Documented On 5 11:17AM By Tacho Oconnor ; [facility] Ozempic (0.25 or 0.5 MG/DOSE ) 2 MG/3ML Subcutaneous Solution Pen-injector 09/29/2024 Provider: BRAD MEDINA Diagnosis: Last Documented On 5 11:17AM By Tacho Oconnor ; [facility] Nitroglycerin 0.4 MG Sublingual Tablet Sublingual 09/07 Provider: OLMAN MEDINA Diagnosis: Last Documented On 5 11:17AM By Tacho Oconnor ; [facility] Medications Administered Includes: Administered Medications from this encounter No Administered Medications Recorded Vital Signs Includes: Vital Signs from this encounter Vital Name 12/25/2024 01:59P Height (in) 63 Weight (lb) 172 Body Mass Index 30.5 Body Surface Area 1.8 Pain Level 8 Last Documented: On 12/25/2024 1:59PM ; [facility] Results Includes: Results discussed during this encounter No Results Recorded For Specified Dates History of Present Illness Includes: History of Present Illness from this encounter HPI Jenae Lang is a 54 year old [...] 10/24/2024 Last Documented On 5 2:06PM ; [facility] Recent change in diet 10/24/2024 Last Documented On 5 2:06PM ; [facility] Tobacco non-user 12/08/2021 Last Documented On 5 2:06PM ; [facility] Not a current smoker. 12/08/2021 Last Documented On 5 2:06PM ; [facility] Alcohol use: 2 drinks or less per day Last Documented On 5 2:06PM ; [facility] Never smoked 12/08/2021 Last Documented On 5 2:06PM ; [facility] Never used drugs 12/08/2021 Last Documented On 5 2:06PM ; [facility] Unemployed 12/08/2021 Last Documented On 5 2:06PM ; [facility] Alcohol use 08/03/2016 Last Documented On 5 2:06PM ; [facility] Caffeine use 08/03/2016 Last Documented On 5 2:06PM ; [facility] No recent change in diet 08/03/2016 Last Documented On 5 2:06PM ; [facility] Not a current smoker 08/03/2016 Last Documented On 5 2:06PM ; [facility] Not using drugs 08/03/2016 Last Documented On 5 2:06PM ; [facility] No tobacco use 08/03/2016 Last Documented On 5 2:06PM ; [facility] Smoking status : Never smoker 08/03/2016 Last Documented On 5 2:06PM ; [facility] Sex - Female 03/23/2025 Last Documented On 5 2:17PM ; [facility] Procedures and Surgical History Includes: Procedures from this encounter Procedures Code Diagnosis Performing Provider Service L ocation Service Date history of orthopedic options: physical therapy Last Documented On 5 2:06PM ; [facility] use of tobacco assessment performed 1000F Last Documented On 5 2:06PM ; [facility] an X-ray was performed 59193 Last Documented On 5 2:06PM ; [facility] history of an X-ray was performed 66349 Last Documented On 5 2:06PM ; [facility] a CT scan was performed 18302 Last Documented On 5 2:06PM ; [facility] an MRI was performed [id number] Last Documented On 5 2:06PM ; [facility] history of an MRI was performed [id number] Last Documented On 5 2:06PM ; [facility] brace Last Documented On 5 2:06PM ; [facility] Surgical History Last Updated History of Previous Fractures 10/24/2024 Last Documented On 5 2:06PM ; [facility] Past Surgical History: Foot surgery / Breast biopsy / Lumpectomy / / [place] Teeth Removal / Heart Cath 10/24/2024 Last Documented On 5 2:06PM ; [facility] History of Past Surgical History: 2021 Last Documented On 5 2:06PM ; [facility] Medical History Includes: Medical History addressed during this encounter Description Last Updated Past medical history non-contributory: H igh cholesterol, acid reflux 02/06/2025 Last Documented On 5 2:06PM ; [facility] No recent immunization for flu Last Documented On 5 2:06PM ; [facility] No recent immunization for pneumococcal pneumonia 12/08/2021 Last Documented On 5 2:06PM ; [facility] Arthritic joint problems 08/03/2016 Last Documented On 5 2:06PM ; [facility] History of depression 08/03/2016 Last Documented On 5 2:06PM ; [facility] History of osteoporosis 08/03/2016 Last Documented On 5 2:06PM ; [facility] Family History Includes: Family History addressed during this encounter Description Last Updated Diabetes mellitus 12/08/2021 Last Documented On 5 2:06PM ; [facility] Family history of heart disease 12/09/19 Last Documented On 5 2:06PM ; [facility] Stroke / Seizures 12/08/2021 Last Documented On 5 2:06PM ; [facility] Maternal grandfather's history of family history of cancer 12/08/2021 Last Documented On 5 2:06PM ; [facility] Maternal grandfather's history of Stroke / Seizures 12/08/2021 Last Documented On 5 2:06PM ; [facility] Maternal grandmother's history of diabet es mellitus 12/08/2021 Last Documented On 5 2:06PM ; [facility] Maternal grandmother's history of family history of heart disease 12/08/2021 Last Documented On 5 2:06PM ; [facility] Maternal grandmother's history of system ic hypertension 12/08/2021 Last Documented On 5 2:06PM ; [facility] Maternal history of systemic hypertensio n 12/08/2021 Last Documented On 5 2:06PM ; [facility] Paternal grandmother's history of diabet es mellitus 12/08/2021 Last Documented On 5 2:06PM ; [facility] Paternal grandmother's history of system ic hypertension 12/08/2021 Last Documented On 5 2:06PM ; [facility] Paternal history of family history of ca ncer 12/08/2021 Last Documented On 5 2:06PM ; [facility] Paternal history of Stroke / Seizures Last Documented On 5 2:06PM ; [facility] Paternal history of systemic hypertensio n 12/08/2021 Last Documented On 5 2:06PM ; [facility] Sororal history of systemic hypertension 12/08/2021 Last Documented On 5 2:06PM ; [facility] Family history of cancer 08/03/2016 Last Documented On 5 2:06PM ; [facility] Family history of hypertension 7 Last Documented On 5 2:06PM ; [facility] No significant family history stroke/sei zure 08/03/2016 Last Documented On 5 2:06PM ; [facility] Review of Systems Includes: Review of [...] Mental Status from this encounter Description Anxiety Last Documented On 5 2:06PM ; [facility] Physical Exam Includes: Physical Exam from this encounter Allergies Includes: Active Allergies Substance Type Reaction Onset Date Resolved Date Statu s IODINE Allergy 12/08/2021 Active Last Documented On 5 9:32AM ; [facility] Flexeril Allergy 08/03/2016 Active Last Documented On 5 9:32AM ; [facility] BETADINE Allergy 12/08/2021 Active Last Documented On 5 9:32AM ; [facility] Amitriptyline HCl Allergy 12/08/2021 A ctive Last Documented On 5 9:32AM ; [facility] Care International Freight Forwarder Name (Identifier) Role/Relation Location/Telecom Last Documented By OLMAN MEDINA ([id number]) [address] [place] [address], [address] tel:[phone] Last Documented On 12/08/2021 8:40AM ; [facility] Tacho Oconnor MD ([id number]) Assigned practitioner (occupation) [address] [place] [address], [id number] tel:[phone] Last Documented On 03/23/2025 2:17PM ; [facility] Encounters Encounter Provider Location (Healthcare Service Location) Date Check-In Time Check-Out Time Diagnosis Encounter Disposition Follow Up Tacho Oconnor MD [facility] 2024 1:43PM 2:23PM Overweight Payer Includes: Active Insurance Policies Plan Name (Payer ID) Coverage Type Member ID Group # Subscriber (ID) Relationship Effective Dates 1 - [employer] [facility] ([id number]) [id number] Jenae Lang Self (Checked on 02/02/2025) Last Documented On 2:07PM ; [facility] Clinical Notes Includes: Clinical Notes from this encounter * Progress note Date Encounter Last Documented by 12/25/2024 Follow Up Last documented on 12/25/2024; 2:42 PM, Tacho Oconnor MD; [facility] Active Problems & Conditions - Lower [...] / Breast biopsy / Lumpectomy / / [place] Teeth Removal / Heart Cath - Past [...]
--- OUTSIDE RECORDS SUMMARY | 2025-03-26 14:28 | XMS_ITS ---
Care Plan - [facility] Created on: March 26, 2025 Jenae Lang : 1970 Sex: Female Author Organization [facility] Address [address] [place] [address] Phone Care Team Providers Care High Frequency Mill Operator Name Role Phone OLMAN MEDINA Unavailable [phone] Tacho Oconnor MD Unavailable [phone]
--- OUTSIDE RECORDS SUMMARY | 2025-03-26 14:28 | XMS_ITS | Encounter Summary ---
Author Organization Healthcare Address [address] [place] [address] Care Team Providers Care Grease Refining Supervisor Name Role Phone Levi Kapoor MD Primary Care Provider Encounter Details Date Type Department Care Team (Latest Contact Info) Description 01/28/2021 Community [facility] [address] [place] [address] Madison Garrett, SECURITY AND COMPLIANCE ANALYST [address] [place], [place] [id number] Osteoarthritis of temporomandibular joint (Primary Dx) Social [...] Primary documented in this encounter Care Teams Grease Refining Supervisor Relationship Specialty Start Date End Date Levi Kapoor MD [facility] [place] [address] PCP - General 08/20/20 documented as of this encounter
--- OUTSIDE RECORDS SUMMARY | 2025-03-26 14:28 | XMS_ITS | Clinical Summary ---
Author Organization [facility] Address [address] [place] [address] Phone Care Team Providers Care Lgsw Name Role Phone OLMAN MEDINA Unavailable [phone] Elvin GARCIA, Tacho Carrasquillo Unavailable [phone] Reason for Visit and Chief Complaint The Chief Complaint is: Bob shoulder, poss neck pain Problems Includes: Problems addressed during this encounter and other active Problems Current Visit Onset Date Date of Diagnosis Resolved Date Provider Condition Status Neck Pain 03/18/2025 03/18/2025 Liborio Arce PA-C Active Last Documented On 5 1:43AM ; [facility] Joint Pain Shoulder Bilateral 03/18/2025 03/18/2025 Liborio Arce PA-C Active Last Documented On 5 1:43AM ; [facility] Lower Back Pain 08/03/2016 08/03/2016 Tacho daniel MD Active Last Documented On 5 1:38AM ; [facility] Plan of Treatment Patient was seen by myself Liborio Arce PA-C. Patient will follow up cervical spine MRI myself and Dr. Oconnor. - Last Documented On 03/18/2025 9:53AM ; [facility] Pending Tests Order Diagnosis Results Due Ordering P rovider Radiology - MRI MRI Cervical Spine Cervicalgia 04/01/25 Liborio Arce PA-C Last Documented On 5 9:53AM ; [facility] Instructions to patient Lose weight Last Documented On 5 9:32AM ; [facility] Assessments Includes: Assessments from this encounter Findings - Overweight - Last Documented On 03/18/2025 9:53AM ; [facility] Right arm radiculopathy - Last Documented On 03/18/2025 9:53AM ; [facility] Instructions Includes: Instructions from this encounter Instructions to patient Lose weight Last Documented On 9:32AM ; [facility] Medical Equipment - Implanted Devices Includes: Current Devices No Medical Equipment Recorded Medications Includes: Medications discussed during this encounter and other current Medications Current Medications (continue as prescribed) tiZANidine HCl 4 MG Oral Tablet 02/25/2025 Provider: OLMAN MEDINA Diagnosis: Last Documented On 9:31AM By Ger Corona ; [facility] Pregabalin 25 MG Oral Capsule 01/07/2025 Provider: OLMAN MEDINA Diagnosis: Last Documented On 9:31AM By Ger Corona ; [facility] DULoxetine HCl 60 MG Oral Ca psule Delayed Release Particles 12/16/2024 Provider: OLMAN MEDINA Diagnosis: Last Documented On 9:31AM By Ger Corona ; [facility] Omeprazole 40 MG Oral Capsule Delayed Release 11/01/19 Provider: OLMAN MEDINA Diagnosis: Last Documented On 9:31AM By Ger Corona ; [facility] DULoxetine HCl 60 MG Oral Ca psule Delayed Release Particles 10/27/2024 Provider: OLMAN MEDINA Diagnosis: Last Documented On 5 9:31AM By Ger Corona ; [facility] Metoprolol Succinate ER 25 M G Oral Tablet Extended Release 24 Hour 10/23/2024 Provider: OLMAN MEDINA Diagnosis: Last Documented On 5 9:31AM By Ger Corona ; [facility] Atorvastatin Calcium 20 MG Oral Tablet 10/17/2024 Pr ovider: OLMAN MEDINA Diagnosis: Last Documented On 11:17AM By Tacho Oconnor ; [facility] hydroCHLOROthiazide 12.5 MG Oral Tablet 10/17/2024 Azra garcia: OLMAN MEDINA Diagnosis: Last Documented On 5 11:17AM By Tacho Oconnor ; [facility] metFORMIN HCl ER 500 MG Oral Tablet Extended Release 24 Hour 10/16/2024 Provider: OLMAN MEDINA Diagnosis: Last Documented On 5 11:17AM By Tacho Oconnor ; [facility] rOPINIRole HCl 1 MG Oral Tablet 10/16/2024 Provider: OLMAN MEDINA Diagnosis: Last Documented On 5 11:17AM By Tacho Oconnor ; [facility] Celecoxib 200 MG Oral Capsule 10/13/2024 Provider: OLMAN MEDINA Diagnosis: Last Documented On 5 11:17AM By Tacho Oconnor ; [facility] lamoTRIgine 150 MG Oral Tablet 10/08/2024 Provider: Diagnosis: Last Documented On 5 11:17AM By Tacho Oconnor ; [facility] Ozempic (0.25 or 0.5 MG/DOSE ) 2 MG/3ML Subcutaneous Solution Pen-injector 09/29/2024 Provider: BRAD MEDINA Diagnosis: Last Documented On 5 11:17AM By Tacho Oconnor ; [facility] Nitroglycerin 0.4 MG Sublingual Tablet Sublingual 09/07 Provider: OLMAN MEDINA Diagnosis: Last Documented On 5 11:17AM By Tacho Oconnor ; [facility] Medications Administered Includes: Administered Medications from this encounter No Administered Medications Recorded Vital Signs Includes: Vital Signs from this encounter Vital Name 03/18/2025 09:32A Height (in) 63 Weight (lb) 168 Body Mass Index 29.8 Body Surface Area 1.8 Pain Level 8 Last Documented: On 03/18/2025 9:33AM ; [facility] Results Includes: Results discussed during this encounter No Results Recorded For Specified Dates History of Present Illness Includes: History of Present Illness from this encounter GÉNESIS Lang is a 54 year old female. - Allergy list reviewed - Problem list reviewed - Medication list reviewed - Medication list reviewed with patient - New onset pain 9 months of pain - Stabbing - Pain is dull, aching - Yes, previous treatment. 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 She denies any balance issues bowel or bladder issues pain level 8/10 she has difficulty trying to cut food. No other treatment Social History Description Last Updated Not exercising regularly 10/24/2024 Last Documented On 5 9:32AM ; [facility] Recent change in diet 10/24/2024 Last Documented On 5 9:32AM ; [facility] Tobacco non-user 12/08/2021 Last Documented On 5 9:32AM ; [facility] Not a current smoker. 12/08/2021 Last Documented On 5 9:32AM ; [facility] Alcohol use: 2 drinks or less per day Last Documented On 5 9:32AM ; [facility] Never smoked 12/08/2021 Last Documented On 5 9:32AM ; [facility] Never used drugs 12/08/2021 Last Documented On 5 9:32AM ; [facility] Unemployed 12/08/2021 Last Documented On 5 9:32AM ; [facility] Alcohol use 08/03/2016 Last Documented On 5 9:32AM ; [facility] Caffeine use 08/03/2016 Last Documented On 5 9:32AM ; [facility] No recent change in diet 08/03/2016 Last Documented On 5 9:32AM ; [facility] Not a current smoker 08/03/2016 Last Documented On 5 9:32AM ; [facility] Not using drugs 08/03/2016 Last Documented On 5 9:32AM ; [facility] No tobacco use 08/03/2016 Last Documented On 5 9:32AM ; [facility] Smoking status : Never smoker 08/03/2016 Last Documented On 5 9:32AM ; [facility] Sex - Female 03/23/2025 Last Documented On 5 2:17PM ; [facility] Procedures and Surgical History Includes: Procedures from this encounter Procedures Code Diagnosis Performing Provider Service Location Service Date X-RAY EXAM OF NECK SPINE 2 VIEWS 69605 Radiculopathy, cervical region Liborio Arce PA-C [facility] 03/18/2025 Last Documented On 5 9:53AM ; [facility] history of orthopedic options: physical therapy Last Documented On 5 9:32AM ; [facility] use of tobacco assessment performed 1000F Last Documented On 5 9:32AM ; [facility] an X-ray was performed 46748 Last Documented On 5 9:32AM ; [facility] history of an X-ray was performed 41151 Last Documented On 5 9:32AM ; [facility] a CT scan was performed 20319 Last Documented On 5 9:32AM ; [facility] an MRI was performed 15008 Last Documented On 5 9:32AM ; [facility] history of an MRI was performed 16432 Last Documented On 5 9:32AM ; [facility] brace Last Documented On 5 9:32AM ; [facility] Surgical History Last Updated History of Previous Fractures 10/24/2024 Last Documented On 5 9:32AM ; [facility] Past Surgical History: Foot surgery / Breast biopsy / Lumpectomy / / Brisbin Teeth Removal / Heart Cath 10/24/2024 Last Documented On 5 9:32AM ; [facility] History of Past Surgical History: 2021 Last Documented On 5 9:32AM ; [facility] Medical History Includes: Medical History addressed during this encounter Description Last Updated History of Heartburn / Acid Reflux 02/06 Last Documented On 5 9:32AM ; [facility] Past medical history non-contributory: H igh cholesterol 02/06/2025 Last Documented On 5 9:32AM ; [facility] No recent immunization for flu 2 Last Documented On 5 9:32AM ; [facility] No recent immunization for pneumococcal pneumonia 12/08/2021 Last Documented On 5 9:32AM ; [facility] Arthritic joint problems 08/03/2016 Last Documented On 5 9:32AM ; [facility] History of depression 08/03/2016 Last Documented On 5 9:32AM ; [facility] History of osteoporosis 08/03/2016 Last Documented On 5 9:32AM ; [facility] Family History Includes: Family History addressed during this encounter Description Last Updated Diabetes mellitus 12/08/2021 Last Documented On 5 9:32AM ; [facility] Family history of heart disease 12/09/19 22 Last Documented On 5 9:32AM ; [facility] Stroke / Seizures 12/08/2021 Last Documented On 5 9:32AM ; [facility] Maternal grandfather's history of family history of cancer 12/08/2021 Last Documented On 5 9:32AM ; [facility] Maternal grandfather's history of Stroke / Seizures 12/08/2021 Last Documented On 5 9:32AM ; [facility] Maternal grandmother's history of diabet es mellitus 12/08/2021 Last Documented On 5 9:32AM ; [facility] Maternal grandmother's history of family history of heart disease 12/08/2021 Last Documented On 5 9:32AM ; [facility] Maternal grandmother's history of system ic hypertension 12/08/2021 Last Documented On 5 9:32AM ; [facility] Maternal history of systemic hypertensio n 12/08/2021 Last Documented On 5 9:32AM ; [facility] Paternal grandmother's history of diabet es mellitus 12/08/2021 Last Documented On 5 9:32AM ; [facility] Paternal grandmother's history of system ic hypertension 12/08/2021 Last Documented On 5 9:32AM ; [facility] Paternal history of family history of ca ncer 12/08/2021 Last Documented On 5 9:32AM ; [facility] Paternal history of Stroke / Seizures Last Documented On 5 9:32AM ; [facility] Paternal history of systemic hypertensio n 12/08/2021 Last Documented On 5 9:32AM ; [facility] Sororal history of systemic hypertension 12/08/2021 Last Documented On 5 9:32AM ; [facility] Family history of cancer 08/03/2016 Last Documented On 5 9:32AM ; [facility] Family history of hypertension 7 Last Documented On 5 9:32AM ; [facility] No significant family history stroke/sei zure 08/03/2016 Last Documented On 5 9:32AM ; [facility] Review of Systems Includes: Review of Systems [...] this encounter Description Anxiety Last Documented On 9:32AM ; [facility] Physical Exam Includes: Physical Exam from this encounter Allergies Includes: Active Allergies Substance Type Reaction Onset Date Resolved Date Statu s IODINE Allergy 12/08/2021 Active Last Documented On 5 9:32AM ; [facility] Flexeril Allergy 08/03/2016 Active Last Documented On 5 9:32AM ; [facility] BETADINE Allergy 12/08/2021 Active Last Documented On 5 9:32AM ; [facility] Amitriptyline HCl Allergy 12/08/2021 A ctive Last Documented On 5 9:32AM ; [facility] Care Lgsw Name (Identifier) Role/Relation Location/Telecom Last Documented By OLMAN MEDINA ([id number]) [address] [place] [address], [place], [address] tel:[phone] Last Documented On 12/08/2021 8:40AM ; [facility] Tacho Oconnor MD ([id number]) Assigned practitioner (occupation) [address] [place] [address], , [id number] tel:[phone] Last Documented On 03/23/2025 2:17PM ; [facility] Encounters Encounter Provider Location (Healthcare Service Location) Date Check-In Time Check-Out Time Diagnosis Encounter Disposition NEW PROBLEM/EST PT Liborio Arce PA-C [facility] 2024 9:14AM 9:47AM Overweight Payer Includes: Active Insurance Policies Plan Name (Payer ID) Coverage Type Member ID Group # Subscriber (ID) Relationship Effective Dates 1 - [employer] [facility] ([id number]) [id number] Jenae Lang Self (Checked on 02/02/2025) Last Documented On 5 2:07PM ; [facility] Clinical Notes Includes: Clinical Notes from this encounter * Progress note Date Encounter Last Documented by 03/18/2025 NEW PROBLEM/EST PT Last document ed on 03/18/2025; 9:53 AM, Liborio Arce PA-C; [facility] Active Problems & Conditions - Joint Pain Shoulder Bilateral - Lower Back Pain - Neck Pain Chief Complaint - Bob shoulder, poss neck pain Referred Here Referred by PCP. History of Present Illness Jenae Lang is a 54 year old female. - Allergy list reviewed - Problem list reviewed - Medication list reviewed - Medication list reviewed with patient - New onset pain 9 months of pain - Stabbing - Pain is dull, aching - Yes, previous treatment. 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 She denies any balance issues bowel or bladder issues pain level 8/10 she has difficulty trying to cut food. No other treatment Current Medication - Atorvastatin Calcium 20 MG Oral Tablet 30 days, 0 refills - Celecoxib 200 MG Oral Capsule 30 days, 0 refills - DULoxetine HCl 60 MG Oral Capsule Delayed Release Particles 30 days, 0 refills - DULoxetine HCl 60 MG Oral Capsule Delayed Release Particles 30 days, 0 refills - hydroCHLOROthiazide 12.5 MG Oral Tablet 30 days, 0 refills - lamoTRIgine 150 MG Oral Tablet 30 days, 0 refills - metFORMIN HCl ER 500 MG Oral Tablet Extended Release 24 Hour 30 days, 0 refills - Metoprolol Succinate ER 25 MG Oral Tablet Extended Release 24 Hour 30 days, 0 refills - Nitroglycerin 0.4 MG Sublingual Tablet Sublingual 5 days, 0 refills - Omeprazole 40 MG Oral Capsule Delayed Release 90 days, 0 refills - Ozempic (0.25 or 0.5 MG/DOSE) 2 MG/3ML Subcutaneous Solution Pen-injector 56 days, 0 refills - Pregabalin 25 MG Oral Capsule 30 days, 0 refills - rOPINIRole HCl 1 MG Oral Tablet 30 days, 0 refills - tiZANidine HCl 4 MG Oral Tablet 30 days, 0 refills Past Medical/Surgical History Reported: Medical: Arthritic joint problems. Immunization History: No recent immunization for flu and not for pneumococcal pneumonia. Diagnoses: Heartburn / Acid Reflux. Osteoporosis. Depressive disorder Past medical history non-contributory: High cholesterol. Surgical: - Past Surgical History: Foot surgery / Breast biopsy / Lumpectomy / / Brisbin Teeth Removal / Heart Cath - Past [...] allergic reaction. Physical Findings - Vitals taken 03/18/2025 09:32 am Height 63 in Weight 168 lbs Body Mass Index 29.8 kg/m2 Body Surface Area 1.8 m2 Pain Level 8 She is pleasant oriented x3 Cervical range motion was full with the some limitation with the right rotation She has 4/5 biceps 4/5 wrist extension on the right 5/5 triceps wrist flexion deltoid strength no long tract findings Tests Two views cervical spine x-rays were negative 03/18/2025 Assessment - Overweight Right arm radiculopathy Previous Tests Imaging: X-Ray: X-ray. X-ray. CT Scan: CT scan. MRI Scan: An MRI was performed. An MRI was performed. Basic Management Procedures And Services: - Brace Available previous imaging studies were reviewed Available previous history reviewed Counseling/Education - Tobacco non-user - Use of tobacco assessment performed - Lose weight Plan StartCited - Cervicalgia Radiology/MRI: MRI Cervical Spine EndCited Patient was seen by myself Liborio Arce PA-C. Patient will follow up cervical spine MRI myself and Dr. Oconnor. Notes This dictation was done with voice recognition software and may contain errors and omissions. Practice Management Use of tobacco assessment performed. Care Team - OLMAN MEDINA Health Reminders - Assess BMI satisfied 03/18/2025. - Assess Tobacco Use satisfied 08/03/2016. - Follow Up Plan BMI Management satisfied 03/18/2025.
--- OUTSIDE RECORDS SUMMARY | 2025-03-26 14:28 | XMS_ITS | Referral Summary ---
Author Organization [employer] ([place], [place], [place], [place], [place]) Address [address] [place] [address] Care Team Providers Care Mechanical Technical Service Specialist Name Role Phone Unavailable Primary Care Provider [...] of Treatment Not on file Insurance [employer] [facility]
--- OUTSIDE RECORDS SUMMARY | 2025-03-26 14:28 | XMS_ITS | Clinical Summary ---
Author Organization [facility] Address [address] [place] [address] Phone Care Team Providers Care Leasing Assistant Name Role Phone OLMAN MEDINA Unavailable [phone] Elvin GARCIA, Tacho Carrasquillo Unavailable [phone] Reason for Visit and Chief Complaint SI joint injection Problems Includes: Problems addressed during this encounter and other active Problems All Visits Onset Date Date of Diagnosis Resolved Date Provid er Condition Status Neck Pain 03/18/2025 03/18/2025 Liborio Arce PA-C Active Last Documented On 5 1:43AM ; [facility] Joint Pain Shoulder Bilateral 03/18/2025 03/18/2025 Liborio Arce PA-C Active Last Documented On 5 1:43AM ; [facility] Lower Back Pain 08/03/2016 08/03/2016 Tacho daniel MD Active Last Documented On 5 1:38AM ; [facility] Plan of Treatment Diagnosis: SI Joint OA [...] - Last Documented On 11/25/2024 10:40AM ; [facility], [facility] Assessments Includes: Assessments from this encounter No Assessments Recorded Medical Equipment - Implanted Devices Includes: Current Devices No Medical Equipment Recorded Medications Includes: Medications discussed during this encounter and other current Medications Current Medications (continue as prescribed) tiZANidine HCl 4 MG Oral Tablet 02/25/2025 Provider: OLMAN MEDINA Diagnosis: Last Documented On 9:31AM By Ger Corona ; [facility] Pregabalin 25 MG Oral Capsule 01/07/2025 Provider: OLMAN MEDINA Diagnosis: Last Documented On 9:31AM By Ger Corona ; [facility] DULoxetine HCl 60 MG Oral Ca psule Delayed Release Particles 12/16/2024 Provider: OLMAN MEDINA Diagnosis: Last Documented On 5 9:31AM By Ger Corona ; [facility] Omeprazole 40 MG Oral Capsule Delayed Release 11/01/19 Provider: OLMAN MEDINA Diagnosis: Last Documented On 5 9:31AM By Ger Corona ; [facility] DULoxetine HCl 60 MG Oral Ca psule Delayed Release Particles 10/27/2024 Provider: OLMAN MEDINA Diagnosis: Last Documented On 9:31AM By Ger Corona ; [facility] Metoprolol Succinate ER 25 M G Oral Tablet Extended Release 24 Hour 10/23/2024 Provider: OLMAN MEDINA Diagnosis: Last Documented On 9:31AM By Ger Corona ; [facility], [facility] Atorvastatin Calcium 20 MG Oral Tablet 10/17/2024 Pr ovider: OLMAN MEDINA Diagnosis: Last Documented On 5 11:17AM By Tacho Oconnor ; [facility], [facility] hydroCHLOROthiazide 12.5 MG Oral Tablet 10/17/2024 P rovider: OLMAN MEDINA Diagnosis: Last Documented On 11:17AM By Tacho Oconnor ; [facility], [facility] metFORMIN HCl ER 500 MG Oral Tablet Extended Release 24 Hour 10/16/2024 Provider: OLMAN MEDINA Diagnosis: Last Documented On 5 11:17AM By Tacho Oconnor ; [facility], [facility] rOPINIRole HCl 1 MG Oral Tablet 10/16/2024 Provider: OLMAN MEDINA Diagnosis: Last Documented On 5 11:17AM By Tacho Oconnor ; [facility], [facility] Celecoxib 200 MG Oral Capsule 10/13/2024 Provider: OLMAN MEDINA Diagnosis: Last Documented On 5 11:17AM By Tacho Oconnor ; [facility], [facility] lamoTRIgine 150 MG Oral Tablet 10/08/2024 Provider: Diagnosis: Last Documented On 5 11:17AM By Tacho Oconnor ; [facility], [facility] Ozempic (0.25 or 0.5 MG/DOSE ) 2 MG/3ML Subcutaneous Solution Pen-injector 09/29/2024 Provider: BRAD MEDINA Diagnosis: Last Documented On 5 11:17AM By Tacho Oconnor ; [facility], [facility] Nitroglycerin 0.4 MG Sublingual Tablet Sublingual 09/07 Provider: OLMAN MEDINA Diagnosis: Last Documented On 5 11:17AM By Tacho Oconnor ; [facility], [facility] Medications Administered Includes: Administered Medications from this encounter No Administered Medications Recorded Results Includes: Results discussed during this encounter No Results Recorded For Specified Dates History of Present Illness Includes: History of Present Illness from this encounter No History of Present Illness Recorded Social History Description Last Updated Sex - Female 03/23/2025 Last Documented On 5 2:17PM ; [facility], [facility] Smoking Status Unknown Medical History Includes: Medical History addressed during this encounter No Medical History Recorded Family History Includes: Family History addressed during this encounter No Family History Recorded Review of Systems Includes: Review of Systems from this encounter No Review of Systems Recorded Physical Exam Includes: Physical Exam from this encounter No Physical Exam Recorded Allergies Includes: Active Allergies Substance Type Reaction Onset Date Resolved Date Statu s IODINE Allergy 12/08/2021 Active Last Documented On 5 9:32AM ; [facility] Flexeril Allergy 08/03/2016 Active Last Documented On 5 9:32AM ; [facility] BETADINE Allergy 12/08/2021 Active Last Documented On 5 9:32AM ; [facility] Amitriptyline HCl Allergy 12/08/2021 A ctive Last Documented On 5 9:32AM ; [facility] Care Leasing Assistant Name (Identifier) Role/Relation Location/Telecom Last Documented By OLMAN MEDINA ([id number]) [address] [place] [address], [place], [address] tel:[phone] Last Documented On 12/08/2021 8:40AM ; [facility] Tacho Oconnor MD ([id number]) Assigned practitioner (occupation) [address] [place] [address], [place], [address] tel:[phone] Last Documented On 03/23/2025 2:17PM ; [facility] Encounters Encounter Provider Location (Healthcare Service Location) Date Check-In Time Check-Out Time Diagnosis Encounter Disposition SI joint injection Johan Zhang CRNA 2024 2:15PM 11:59PM Payer Includes: Active Insurance Policies Plan Name (Payer ID) Coverage Type Member ID Group # Subscriber (ID) Relationship Effective Dates 1 - Aetna [facility] ([id number]) [id number] Jenae Lang Self (Checked on 02/02/2025) Last Documented On 5 2:07PM ; [facility] Clinical Notes Includes: Clinical Notes from this encounter * Progress note Date Encounter Last Documented by 11/25/2024 SI joint injection Last document ed on 11/25/2024; 10:40 AM, Johan Zhang CRNA; [facility] Plan Diagnosis: SI Joint OA Procedure: Patient [...]
--- OUTSIDE RECORDS SUMMARY | 2025-03-26 14:28 | XMS_ITS | Clinical Summary ---
Author Organization [facility] Address [address] [place] [address] Care Team Providers Care Blind Lacer Name Role Phone Levi Kapoor MD Primary Care Provider [phone] Family History Medical History Relation Name Comments [...] (2 - Td or Tdap) 07/01/2024 07/01/2014 [id number] Vaccine (1 - 20 25- season) 2024 [facility]-Influenza Vaccine (#1) 2024 [facility]-Hepatitis A Vaccines Aged Out 03/29/2018 No longer eligible based on patient's age to complete this topic HPV Vaccines (No Doses Required) Completed [facility]-HIB Vaccines Aged Out No longer e ligible based on patient's age to complete this topic [facility]-IPV Vaccines Aged Out No longer e ligible based on patient's age to complete this topic [facility]-Rotavirus Vaccines Aged Out No lo nger eligible based on patient's age to complete this topic Insurance AETNA [facility] MEDICAID [employer] Medicaid Dental Care Teams Blind Lacer Relationship Specialty Start Date End Date Levi Kapoor MD [address] [facility] [place] [address] PCP - General 08/20/20
--- OUTSIDE RECORDS SUMMARY | 2025-03-26 14:28 | XMS_ITS | Clinical Summary ---
Author Organization [facility] Address [address] [place] [address] Phone Care Team Providers Care Bleach Boiler Puller Name Role Phone OLMAN MEDINA Unavailable [phone] Elvin GARCIA, Tacho Carrasquillo Unavailable [phone] Reason for Visit and Chief Complaint The Chief Complaint is: lower back pain Problems Includes: Problems addressed during this encounter and other active Problems Current Visit Onset Date Date of Diagnosis Resolved Date Provider Condition Status Lower Back Pain 08/03/2016 08/03/2016 Tacho Oconnor MD Active Last Documented On 5 1:38AM ; [facility] Past Visits Onset Date Date of Diagnosis Resolved Date Provi chuyita Condition Status Neck Pain 03/18/2025 03/18/2025 Liborio Arce PA-C Active Last Documented On 5 1:43AM ; [facility] Joint Pain Shoulder Bilateral 03/18/2025 03/18/2025 Liborio Arce PA-C Active Last Documented On 5 1:43AM ; [facility] Plan of Treatment Pending Tests Order Diagnosis Results Due Ordering P rovider Radiology - MRI MRI Lumbar Spine Low back pain 01/08/25 Tacho Oconnor MD Last Documented On 5 2:42PM ; [facility], [facility] Instructions to patient Lose weight Last Documented On 5 3:07PM ; [facility] Assessments Includes: Assessments from this encounter Findings - Overweight - Last Documented On 02/06/2025 12:33PM ; [facility] Instructions Includes: Instructions from this encounter Instructions to patient Lose weight Last Documented On 5 3:07PM ; [facility] Medical Equipment - Implanted Devices Includes: Current Devices No Medical Equipment Recorded Medications Includes: Medications discussed during this encounter and other current Medications Current Medications (continue as prescribed) tiZANidine HCl 4 MG Oral Tablet 02/25/2025 Provider: OLMAN MEDINA Diagnosis: Last Documented On 5 9:31AM By Ger Corona ; [facility] Pregabalin 25 MG Oral Capsule 01/07/2025 Provider: OLMAN MEDINA Diagnosis: Last Documented On 9:31AM By Ger Corona ; [facility] DULoxetine HCl 60 MG Oral Ca psule Delayed Release Particles 12/16/2024 Provider: OLMAN MEDINA Diagnosis: Last Documented On 5 9:31AM By Ger Corona ; [facility] Omeprazole 40 MG Oral Capsule Delayed Release 11/01/19 Provider: OLMAN MEDINA Diagnosis: Last Documented On 5 9:31AM By Ger Corona ; [facility] DULoxetine HCl 60 MG Oral Ca psule Delayed Release Particles 10/27/2024 Provider: OLMAN MEDINA Diagnosis: Last Documented On 5 9:31AM By Ger Corona ; [facility] Metoprolol Succinate ER 25 M G Oral Tablet Extended Release 24 Hour 10/23/2024 Provider: OLMAN MEDINA Diagnosis: Last Documented On 5 9:31AM By Ger Corona ; [facility] Atorvastatin Calcium 20 MG Oral Tablet 10/17/2024 Pr ovider: OLMAN MEDINA Diagnosis: Last Documented On 11:17AM By Tacho Oconnor ; [facility] hydroCHLOROthiazide 12.5 MG Oral Tablet 10/17/2024 P jose: OLMAN MEDINA Diagnosis: Last Documented On 11:17AM By Tacho cOonnor ; [facility] metFORMIN HCl ER 500 MG Oral Tablet Extended Release 24 Hour 10/16/2024 Provider: OLMAN MEDINA Diagnosis: Last Documented On 5 11:17AM By Tacho Oconnor ; [facility] rOPINIRole HCl 1 MG Oral Tablet 10/16/2024 Provider: OLMAN MEDINA Diagnosis: Last Documented On 5 11:17AM By Tacho Oconnor ; [facility] Celecoxib 200 MG Oral Capsule 10/13/2024 Provider: OLMAN MEDINA Diagnosis: Last Documented On 5 11:17AM By Tacho Oconnor ; [facility] lamoTRIgine 150 MG Oral Tablet 10/08/2024 Provider: Diagnosis: Last Documented On 5 11:17AM By Tacho Oconnor ; [facility] Ozempic (0.25 or 0.5 MG/DOSE ) 2 MG/3ML Subcutaneous Solution Pen-injector 09/29/2024 Provider: BRAD MEDINA Diagnosis: Last Documented On 5 11:17AM By Tacho Oconnor ; [facility] Nitroglycerin 0.4 MG Sublingual Tablet Sublingual 09/07 Provider: OLMAN MEDINA Diagnosis: Last Documented On 5 11:17AM By Tacho Oconnor ; [facility] Medications Administered Includes: Administered Medications from this encounter No Administered Medications Recorded Vital Signs Includes: Vital Signs from this encounter Vital Name 02/05/2025 02:59P Height (in) 63 Weight (lb) 171 Body Mass Index 30.3 Body Surface Area 1.8 Pain Level 6 Last Documented: On 02/05/2025 2:59PM ; [facility], [facility] Results Includes: Results discussed during [...] medications documented Medications used for this condition: Social History Description Last Updated Not exercising regularly 10/24/2024 Last Documented On 5 3:07PM ; [facility], [facility] Recent change in diet 10/24/2024 Last Documented On 5 3:07PM ; [facility] Tobacco non-user 12/08/2021 Last Documented On 5 3:07PM ; [facility] Not a current smoker. 12/08/2021 Last Documented On 5 3:07PM ; [facility] Alcohol use: 2 drinks or less per day Last Documented On 5 3:07PM ; [facility] Never smoked 12/08/2021 Last Documented On 5 3:07PM ; [facility] Never used drugs 12/08/2021 Last Documented On 5 3:07PM ; [facility] Unemployed 12/08/2021 Last Documented On 5 3:07PM ; [facility] Alcohol use 08/03/2016 Last Documented On 5 3:07PM ; [facility] Caffeine use 08/03/2016 Last Documented On 5 3:07PM ; [facility], [facility] No recent change in diet 08/03/2016 Last Documented On 5 3:07PM ; [facility] Not a current smoker 08/03/2016 Last Documented On 5 3:07PM ; [facility] Not using drugs 08/03/2016 Last Documented On 5 3:07PM ; [facility] No tobacco use 08/03/2016 Last Documented On 5 3:07PM ; [facility] Smoking status : Never smoker 08/03/2016 Last Documented On 5 3:07PM ; [facility] Sex - Female 03/23/2025 Last Documented On 5 2:17PM ; [facility], [facility] Procedures and Surgical History Includes: Procedures from this encounter Procedures Code Diagnosis Performing Provider Service L ocation Service Date history of orthopedic options: physical therapy Last Documented On 5 3:07PM ; [facility] use of tobacco assessment performed 1000F Last Documented On 3:07PM ; [facility] an X-ray was performed 17396 Last Documented On 5 3:07PM ; [facility] history of an X-ray was performed 07482 Last Documented On 5 3:07PM ; [facility] a CT scan was performed 64584 Last Documented On 5 3:07PM ; [facility] an MRI was performed 80340 Last Documented On 5 3:07PM ; [facility] history of an MRI was performed 34143 Last Documented On 5 3:07PM ; [facility] brace Last Documented On 3:07PM ; [facility] Surgical History Last Updated History of Previous Fractures 10/24/2024 Last Documented On 3:07PM ; [facility] Past Surgical History: Foot surgery / Breast biopsy / Lumpectomy / / [place] Teeth Removal / Heart Cath 10/24/2024 Last Documented On 5 3:07PM ; [facility] History of Past Surgical History: 2021 Last Documented On 3:07PM ; [facility] Medical History Includes: Medical History addressed during this encounter Description Last Updated History of Heartburn / Acid Reflux 02/06 Last Documented On 12:33PM ; [facility] Past medical history non-contributory: H igh cholesterol 02/06/2025 Last Documented On 12:33PM ; [facility] No recent immunization for flu Last Documented On 5 3:07PM ; [facility] No recent immunization for pneumococcal pneumonia 12/08/2021 Last Documented On 5 3:07PM ; [facility] Arthritic joint problems 08/03/2016 Last Documented On 5 3:07PM ; [facility] History of depression 08/03/2016 Last Documented On 5 3:07PM ; [facility] History of osteoporosis 08/03/2016 Last Documented On 5 3:07PM ; [facility] Family History Includes: Family History addressed during this encounter Description Last Updated Diabetes mellitus 12/08/2021 Last Documented On 5 3:07PM ; [facility] Family history of heart disease 12/09/19 Last Documented On 5 3:07PM ; [facility] Stroke / Seizures 12/08/2021 Last Documented On 5 3:07PM ; [facility] Maternal grandfather's history of family history of cancer 12/08/2021 Last Documented On 5 3:07PM ; [facility] Maternal grandfather's history of Stroke / Seizures 12/08/2021 Last Documented On 5 3:07PM ; [facility] Maternal grandmother's history of diabet es mellitus 12/08/2021 Last Documented On 5 3:07PM ; [facility] Maternal grandmother's history of family history of heart disease 12/08/2021 Last Documented On 5 3:07PM ; [facility] Maternal grandmother's history of system ic hypertension 12/08/2021 Last Documented On 5 3:07PM ; [facility] Maternal history of systemic hypertensio n 12/08/2021 Last Documented On 5 3:07PM ; [facility] Paternal grandmother's history of diabet es mellitus 12/08/2021 Last Documented On 5 3:07PM ; [facility] Paternal grandmother's history of system ic hypertension 12/08/2021 Last Documented On 5 3:07PM ; [facility] Paternal history of family history of ca ncer 12/08/2021 Last Documented On 5 3:07PM ; [facility] Paternal history of Stroke / Seizures Last Documented On 5 3:07PM ; [facility] Paternal history of systemic hypertensio n 12/08/2021 Last Documented On 5 3:07PM ; [facility] Sororal history of systemic hypertension 12/08/2021 Last Documented On 5 3:07PM ; [facility] Family history of cancer 08/03/2016 Last Documented On 5 3:07PM ; [facility] Family history of hypertension 7 Last Documented On 5 3:07PM ; [facility] No significant family history stroke/sei zure 08/03/2016 Last Documented On 5 3:07PM ; [facility] Review of Systems Includes: Review of [...] encounter Description Anxiety Last Documented On 5 3:07PM ; [facility] Physical Exam Includes: Physical Exam from this encounter Allergies Includes: Active Allergies Substance Type Reaction Onset Date Resolved Date Statu s IODINE Allergy 12/08/2021 Active Last Documented On 5 9:32AM ; [facility] Flexeril Allergy 08/03/2016 Active Last Documented On 5 9:32AM ; [facility] BETADINE Allergy 12/08/2021 Active Last Documented On 5 9:32AM ; [facility] Amitriptyline HCl Allergy 12/08/2021 A ctive Last Documented On 5 9:32AM ; [facility] Care Bleach Boiler Puller Name (Identifier) Role/Relation Location/Telecom Last Documented By OLMAN MEDINA ([id number]) [address] [place] [address], [address] tel:[phone] Last Documented On 12/08/2021 8:40AM ; [facility] Tacho Oconnor MD ([id number]) Assigned practitioner (occupation) [address] [place] [address], , [id number] tel:[phone] Last Documented On 03/23/2025 2:17PM ; [facility] Encounters Encounter Provider Location (Healthcare Service Location) Date Check-In Time Check-Out Time Diagnosis Encounter Disposition Follow Up Tacho Oconnor MD [facility] 2024 2:48PM 3:24PM Overweight Payer Includes: Active Insurance Policies Plan Name (Payer ID) Coverage Type Member ID Group # Subscriber (ID) Relationship Effective Dates 1 - [employer]na [facility] ([id number]) [id number] Jenae Lang Self (Checked on 02/02/2025) Last Documented On 5 2:07PM ; [facility] Clinical Notes Includes: Clinical Notes from this encounter * Progress note Date Encounter Last Documented by 02/05/2025 Follow Up Last documented on 02/06/2025; 12:33 PM, Tacho Oconnor MD; [facility] Active Problems & Conditions - [...]
--- OUTSIDE RECORDS SUMMARY | 2025-03-26 14:28 | XMS_ITS | Clinical Summary ---
Author Organization [employer] ([place], [place], [place], [place], [place]) Address [address] [place] [address] Care Team Providers Care Rehabilitation Engineer Name Role Phone Unavailable Primary Care [...] Counseling and Screening (12+) 08/1908/19/2024 Insurance AETNA [facility]
--- OUTSIDE RECORDS SUMMARY | 2025-03-26 14:28 | XMS_ITS | Clinical Summary ---
Author Organization [facility] , [facility] Address [address] [place] [address] Phone Care Team Providers Care Tick Eradicator Name Role Phone OLMAN MEDINA Unavailable [phone] Elvin GARCIA, Tacho Carrasquillo Unavailable [phone] Reason for Visit and Chief Complaint SI joint injection Problems Includes: Problems addressed during this encounter and other active Problems All Visits Onset Date Date of Diagnosis Resolved Date Provid er Condition Status Neck Pain 03/18/2025 03/18/2025 Liborio Arce PA-C Active Last Documented On 5 1:43AM ; [facility] Joint Pain Shoulder Bilateral 03/18/2025 03/18/2025 Liborio Arce PA-C Active Last Documented On 5 1:43AM ; [facility] Lower Back Pain 08/03/2016 08/03/2016 Tacho daniel MD Active Last Documented On 5 1:38AM ; [facility] Plan of Treatment No Plan of Treatment Recorded Assessments Includes: Assessments from this encounter No Assessments Recorded Medical Equipment - Implanted Devices Includes: Current Devices No Medical Equipment Recorded Medications Includes: Medications discussed during this encounter and other current Medications Current Medications (continue as prescribed) tiZANidine HCl 4 MG Oral Tablet 02/25/2025 Provider: OLMAN MEDINA Diagnosis: Last Documented On 9:31AM By Ger Corona ; [facility] Pregabalin 25 MG Oral Capsule 01/07/2025 Provider: OLMAN MEDINA Diagnosis: Last Documented On 5 9:31AM By Ger Corona ; [facility], [facility] DULoxetine HCl 60 MG Oral Ca psule Delayed Release Particles 12/16/2024 Provider: OLMAN MEDINA Diagnosis: Last Documented On 5 9:31AM By Ger Corona ; [facility] Omeprazole 40 MG Oral Capsule Delayed Release 11/01/19 Provider: OLMAN MEDINA Diagnosis: Last Documented On 5 9:31AM By Ger Corona ; [facility], [facility] DULoxetine HCl 60 MG Oral Ca psule Delayed Release Particles 10/27/2024 Provider: OLMAN MEDINA Diagnosis: Last Documented On 5 9:31AM By Ger Corona ; [facility], [facility] Metoprolol Succinate ER 25 M G Oral Tablet Extended Release 24 Hour 10/23/2024 Provider: OLMAN MEDINA Diagnosis: Last Documented On 5 9:31AM By Ger Corona ; [facility], [facility] Atorvastatin Calcium 20 MG Oral Tablet 10/17/2024 Pr ovider: OLMAN MEDINA Diagnosis: Last Documented On 5 11:17AM By Tacho Oconnor ; [facility], [facility] hydroCHLOROthiazide 12.5 MG Oral Tablet 10/17/2024 P zanderder: OLMAN MEDINA Diagnosis: Last Documented On 5 11:17AM By Tacho Oconnor ; [facility], [facility] metFORMIN HCl ER 500 MG Oral Tablet Extended Release 24 Hour 10/16/2024 Provider: OLMAN MEDINA Diagnosis: Last Documented On 5 11:17AM By Tacho Oconnor ; [facility], [facility] rOPINIRole HCl 1 MG Oral Tablet 10/16/2024 Provider: OLMAN MEDINA Diagnosis: Last Documented On 5 11:17AM By Tacho Oconnor ; [facility], [facility] Celecoxib 200 MG Oral Capsule 10/13/2024 Provider: OLMAN MEDINA Diagnosis: Last Documented On 5 11:17AM By Tacho Oconnor ; [facility], [facility] lamoTRIgine 150 MG Oral Tablet 10/08/2024 Provider: Diagnosis: Last Documented On 5 11:17AM By Tacho Oconnor ; [facility] Ozempic (0.25 or 0.5 MG/DOSE ) 2 MG/3ML Subcutaneous Solution Pen-injector 09/29/2024 Provider: BRAD MEDINA Diagnosis: Last Documented On 5 11:17AM By Tacho Oconnor ; [facility], [facility] Nitroglycerin 0.4 MG Sublingual Tablet Sublingual 09/07 Provider: OLMAN MEDINA Diagnosis: Last Documented On 5 11:17AM By Tacho Oconnor ; [facility], [facility] Medications Administered Includes: Administered Medications from this encounter No Administered Medications Recorded Results Includes: Results discussed during this encounter No Results Recorded For Specified Dates History of Present Illness Includes: History of Present Illness from this encounter No History of Present Illness Recorded Social History Description Last Updated Sex - Female 03/23/2025 Last Documented On 5 2:17PM ; [facility] Smoking Status Unknown Procedures and Surgical History Includes: Procedures from this encounter Procedures Code Diagnosis Performing Provider Service Location Service Date INJECT SACROILIAC JOINT (RIGHT) 23728 Sacroiliitis, not elsewhere classified Johan Zhang CRNA [facility] 11/25/2024 Last Documented On 5 11:09AM ; [facility] Triamcinolone/Kenalog, 10mg per cc [id number] Sacroiliitis, not elsewhere classified Johan Zhang CRNA [facility] 11/25/2024 Last Documented On 5 9:21AM ; [facility] Medical History Includes: Medical History addressed [...] Active Last Documented On 5 9:32AM ; [facility], [facility] Flexeril Allergy 08/03/2016 Active Last Documented On 5 9:32AM ; [facility] BETADINE Allergy 12/08/2021 Active Last Documented On 9:32AM ; [facility] Amitriptyline HCl Allergy 12/08/2021 A ctive Last Documented On 9:32AM ; [facility] Care Tick Eradicator Name (Identifier) Role/Relation Location/Telecom Last Documented By OLMAN MEDINA ([id number]) [address] [place] [address], , [id number] tel:[phone] Last Documented On 12/08/2021 8:40AM ; [facility] Tacho Oconnor MD ([id number]) Assigned practitioner (occupation) [address] [place] [address], [place], [address] tel:[phone] Last Documented On 03/23/2025 2:17PM ; [facility], [facility] Encounters Encounter Provider Location (Healthcare Service Location) Date Check-In Time Check-Out Time Diagnosis Encounter Disposition SI joint injection Johan Zhang CRNA [facility] 2024 9:53AM 10:05AM Payer Includes: Active Insurance Policies Plan Name (Payer ID) Coverage Type Member ID Group # Subscriber (ID) Relationship Effective Dates 1 - [employer] [facility] ([id number]) [id number] Jenae Lang Self (Checked on 02/02/2025) Last Documented On 2:07PM ; [facility]
--- OUTSIDE RECORDS SUMMARY | 2025-03-26 14:28 | XMS_ITS ---
Author Organization [facility] Address [address] [place] [address] Phone Care Team Providers Care Assembler Tractor Name Role Phone OLMAN MEDINA Unavailable [phone] Elvin GARCIA, Tacho Carrasquillo Unavailable [phone] Problems Includes: Active, inactive, and resolved Problems All Visits Onset Date Date of Diagnosis Resolved Date Provid er Condition Status Neck Pain 03/18/2025 03/18/2025 Liborio Arce PA-C Active Last Documented On 5 1:43AM ; [facility] Joint Pain Shoulder Bilateral 03/18/2025 03/18/2025 Liborio Arce PA-C Active Last Documented On 5 1:43AM ; [facility] Lower Back Pain 08/03/2016 08/03/2016 Tacho daniel MD Active Last Documented On 5 1:38AM ; [facility] Plan of Treatment Pending Tests Order Diagnosis Results Due Ordering P rovider Radiology - MRI MRI Lumbar Spine Low back pain 01/08/25 Tacho Oconnor MD Last Documented On 5 2:42PM ; [facility] Radiology - MRI MRI Cervical Spine Cervicalgia 04/01/25 Liborio Arce PA-C Last Documented On 5 9:53AM ; [facility] Instructions to patient Lose weight Last Documented On 5 9:32AM ; [facility] Lose weight Last Documented On 5 3:07PM ; [facility] Lose weight Last Documented On 5 2:06PM ; [facility] Lose weight Last Documented On 5 1:08PM ; [facility] Lose weight Last Documented On 2 8:49AM ; [facility] Assessments Includes: Assessments for all patient encounters Findings Encounter Date Overweight NEW PROBLEM/EST PT with Liborio Arce PA-C 03/18/2025 Last Documented On 5 9:32AM ; [facility] Overweight Follow Up with Tacho Oconnor MD 02/05/2025 Last Documented On 5 3:07PM ; [facility] Overweight Follow Up with Tacho Oconnor MD 12/25/2024 Last Documented On 5 2:06PM ; [facility] Overweight SECOND OPINION with Tacho daniel MD 10/16/2024 Last Documented On 5 11:21AM ; [facility] Instructions Includes: Instructions for all patient encounters Instructions to patient Lose weight Last Documented On 5 9:32AM ; [facility] Lose weight Last Documented On 5 3:07PM ; [facility] Lose weight Last Documented On 5 2:06PM ; [facility] Lose weight Last Documented On 5 1:08PM ; [facility] Lose weight Last Documented On 2 8:49AM ; [facility] Medical Equipment - Implanted Devices Includes: Current and historical Devices No Medical Equipment Recorded Medications Includes: Current and historical Medications Current Medications (continue as prescribed) tiZANidine HCl 4 MG Oral Tablet 02/25/2025 Provider: OLMAN MEDINA Diagnosis: Last Documented On 5 9:31AM By Ger Corona ; [facility] Pregabalin 25 MG Oral Capsule 01/07/2025 Provider: OLMAN MEDINA Diagnosis: Last Documented On 5 9:31AM By Ger Corona ; [facility] DULoxetine HCl 60 MG Oral Ca psule Delayed Release Particles 12/16/2024 Provider: OLMAN MEDINA Diagnosis: Last Documented On 5 9:31AM By Ger Corona ; [facility] Omeprazole 40 MG Oral Capsule Delayed Release 11/01/19 Provider: OLMAN MEDINA Diagnosis: Last Documented On 5 9:31AM By Ger Corona ; [facility] DULoxetine HCl 60 MG Oral Ca psule Delayed Release Particles 10/27/2024 Provider: OLMAN MEDINA Diagnosis: Last Documented On 5 9:31AM By Ger Corona ; [facility] Metoprolol Succinate ER 25 M G Oral Tablet Extended Release 24 Hour 10/23/2024 Provider: OLMAN MEDINA Diagnosis: Last Documented On 5 9:31AM By Ger Corona ; [facility] Atorvastatin Calcium 20 MG Oral Tablet 10/17/2024 Pr ovider: OLMAN MEDINA Diagnosis: Last Documented On 5 11:17AM By Tacho Oconnor ; [facility] hydroCHLOROthiazide 12.5 MG Oral Tablet 10/17/2024 P zanderder: OLMAN MEDINA Diagnosis: Last Documented On 5 11:17AM By Tacho Oconnor ; [facility] metFORMIN HCl ER 500 MG Oral Tablet Extended Release 24 Hour 10/16/2024 Provider: OLMAN MEDINA Diagnosis: Last Documented On 5 11:17AM By Tacho Oconnor ; [facility] rOPINIRole HCl 1 MG Oral Tablet 10/16/2024 Provider: OLMAN MEDINA Diagnosis: Last Documented On 5 11:17AM By Tacho Oconnor ; [facility] Celecoxib 200 MG Oral Capsule 10/13/2024 Provider: OLMAN MEDINA Diagnosis: Last Documented On 5 11:17AM By Tacho Oconnor ; [facility] lamoTRIgine 150 MG Oral Tablet 10/08/2024 Provider: Diagnosis: Last Documented On 5 11:17AM By Tacho Oconnor ; [facility] Ozempic (0.25 or 0.5 MG/DOSE ) 2 MG/3ML Subcutaneous Solution Pen-injector 09/29/2024 Provider: BRAD MEDINA Diagnosis: Last Documented On 5 11:17AM By Tacho Oconnor ; [facility] Nitroglycerin 0.4 MG Sublingual Tablet Sublingual 09/07 Provider: OLMAN MEDINA Diagnosis: Last Documented On 5 11:17AM By Tacho Oconnor ; [facility] Past Medications on file DULoxetine HCl 60 MG Oral Ca psule Delayed Release Particles 12/07/2021 - 10/16/2024 Provider: OLMAN COSTELLO Diagnosis: Last Documented On 5 11:15AM By Tacho Oconnor ; [facility] Metoprolol Succinate ER 50 M G Oral Tablet Extended Release 24 Hour 11/28/2021 - 10/16/2024 Provider: Cammy Moreland NP Diagnosis: Last Documented On 5 11:15AM By Tacho Oconnor ; [facility] Celecoxib 200 MG Oral Capsule 11/19/2021 - 10/16/2024 Provider: OLMAN MEDINA Diagnosis: Last Documented On 5 11:15AM By Tacho Oconnor ; [facility] Omeprazole 40 MG Oral Capsul e Delayed Release 11/11/2021 - 10/16/2024 Provider: LOMAN MEDINA Diagnosis: Last Documented On 5 11:15AM By Tacho Oconnor ; [facility] rOPINIRole HCl 0.5 MG Oral Tablet 11/08/2021 - 025 Provider: OLMAN MEDINA Diagnosis: Last Documented On 5 11:15AM By Tacho Oconnor ; [facility] Medications Administered Includes: Administered Medications in patient's chart No Administered Medications Recorded Vital Signs Includes: Vital Signs from 03/26/2024 through 03/26/2025 Vital Name 03/18/2025 09:32A 02/05/2025 02:59P 12/25/2024 01:59P 10/16/2024 01:04P Height (in) 63 63 63 63 Weight (lb) 168 171 172 182 Body Mass Index 29.8 30.3 30.5 32.2 Body Surface Area 1.8 1.8 1.8 1.9 Pain Level 8 6 8 7 Last Documented: On 03/18/2025 9:33AM ; [facility] On 02/05/2025 2:59PM ; [facility] On 12/25/2024 1:59PM ; [facility] On 10/16/2024 1:04PM ; [facility] Results Includes: Results from 03/26/2024 through 03/26/2025 No Results Recorded For Specified Dates Social History Description Last Updated Not exercising regularly 10/24/2024 Last Documented On 5 10:15AM ; [facility] Recent change in diet 10/24/2024 Last Documented On 5 10:15AM ; [facility] Tobacco non-user 12/08/2021 Last Documented On 2 8:45PM ; [facility] Not a current smoker. 12/08/2021 Last Documented On 2 8:45PM ; [facility] Alcohol use: 2 drinks or less per day Last Documented On 2 8:45PM ; [facility] Never smoked 12/08/2021 Last Documented On 2 8:45PM ; [facility] Never used drugs 12/08/2021 Last Documented On 2 8:45PM ; [facility] Unemployed 12/08/2021 Last Documented On 2 8:45PM ; [facility] Alcohol use 08/03/2016 Last Documented On 7 9:21AM ; [facility] Caffeine use 08/03/2016 Last Documented On 7 9:21AM ; [facility] No recent change in diet 08/03/2016 Last Documented On 7 9:21AM ; [facility] Not a current smoker 08/03/2016 Last Documented On 7 9:21AM ; [facility] Not using drugs 08/03/2016 Last Documented On 7 9:21AM ; [facility] No tobacco use 08/03/2016 Last Documented On 7 9:21AM ; [facility] Smoking status : Never smoker 08/03/2016 Last Documented On 7 9:21AM ; [facility] Sex - Female 03/23/2025 Last Documented On 5 2:17PM ; [facility] Procedures and Surgical History Includes: Procedures from 03/26/2024 through 03/26/2025 Procedures Code Diagnosis Performing Provider Service Location Service Date X-RAY EXAM OF NECK SPINE 2 VIEWS 78643 Radiculopathy, cervical region Liborio Arce PA-C [facility] 03/18/2025 Last Documented On 5 9:53AM ; [facility] No Charge NC001 Sacroiliitis, no t elsewhere classified Alvin Monroe PT [facility] 12/03/2024 Last Documented On 5 1:32PM ; [facility] NEUROMUSCULAR REEDUCATION (GP) 85064 Sacroiliitis, not elsewhere classified Alvin Monroe PT [facility] 12/01/2024 Last Documented On 5 2:14PM ; [facility] Triamcinolone/Kenalog, 10mg per cc [id number] Sacroiliitis, not elsewhere classified Johan Zhang PARAGLIDING INSTRUCTOR [facility] 11/25/2024 Last Documented On 5 9:21AM ; [facility] INJECT SACROILIAC JOINT (RIGHT) 72922 Sacroiliitis, not elsewhere classified Johan Zhang PARAGLIDING IN[employer] [facility] 11/25/2024 Last Documented On 5 11:09AM ; [facility] NEUROMUSCULAR REEDUCATION (GP) 41208 Sacroiliitis, not elsewhere classified Alvin Monroe PT [facility] 11/17/2024 Last Documented On 5 1:50PM ; [facility] NEUROMUSCULAR REEDUCATION (GP) 67446 Sacroiliitis, not elsewhere classified Alvin Monroe PT [facility] 11/14/2024 Last Documented On 5 2:52PM ; [facility] NEUROMUSCULAR REEDUCATION (GP) 68994 Sacroiliitis, not elsewhere classified Alvin Monroe PT [facility] 11/11/2024 Last Documented On 5 4:49PM ; [facility] PT Eval - Mod - Complexity (GP) 25028 Sacroiliitis, not elsewhere classified Alvin Monroe PT [facility] 11/11/2024 Last Documented On 5 4:49PM ; [facility] X-RAY EXAM OF PELVIS 1-2 VIEWS [id number] Other intervertebral disc displacement, lumbar region Tacho Oconnor MD [facility] 10/16/2024 Last Documented On 5 12:11PM ; [facility] Surgical History Last Updated History of Previous Fractures 10/24/2024 Last Documented On 5 10:15AM ; [facility] Past Surgical History: Foot surgery / Breast biopsy / Lumpectomy / / [place] Teeth Removal / Heart Cath 10/24/2024 Last Documented On 5 10:15AM ; [facility] History of Past Surgical History: 2021 Last Documented On 2 8:45PM ; [facility] Medical History Includes: Medical History in patient's chart Description Last Updated History of Heartburn / Acid Reflux 02/06 Last Documented On 5 12:33PM ; [facility] Past medical history non-contributory: H igh cholesterol 02/06/2025 Last Documented On 5 12:33PM ; [facility] No recent immunization for flu 2 Last Documented On 2 8:45PM ; [facility] No recent immunization for pneumococcal pneumonia 12/08/2021 Last Documented On 2 8:45PM ; [facility] Arthritic joint problems 08/03/2016 Last Documented On 7 9:21AM ; [facility] History of depression 08/03/2016 Last Documented On 7 9:21AM ; [facility] History of osteoporosis 08/03/2016 Last Documented On 7 9:21AM ; [facility] Family History Includes: Family History in patient's chart Description Last Updated Diabetes mellitus 12/08/2021 Last Documented On 2 8:45PM ; [facility] Family history of heart disease 12/09/19 Last Documented On 2 8:45PM ; [facility] Stroke / Seizures [...] Seizures Last Documented On 2 8:45PM ; [facility] Paternal history of systemic hypertensio n 12/08/2021 Last Documented On 2 8:45PM ; [facility] Sororal history of systemic hypertension 12/08/2021 Last Documented On 2 8:45PM ; [facility] Family history of cancer 08/03/2016 Last Documented On 7 9:21AM ; [facility] Family history of hypertension 7 Last Documented On 7 9:21AM ; [facility] No significant family history stroke/sei zure 08/03/2016 Last Documented On 7 9:21AM ; [facility] Mental Status Description Anxiety Last Documented On 5 9:32AM ; [facility] Anxiety Last Documented On 5 3:07PM ; [facility] Anxiety Last Documented On 5 2:06PM ; [facility] Anxiety Last Documented On 5 1:08PM ; [facility] Anxiety Last Documented On 2 8:34AM ; [facility] Anxiety Last Documented On 7 3:32PM ; [facility] Allergies Includes: Active, inactive, and resolved Allergies Substance Type Reaction Onset Date Resolved Date Statu s IODINE Allergy 12/08/2021 Active Last Documented On 5 9:32AM ; [facility] Flexeril Allergy 08/03/2016 Active Last Documented On 5 9:32AM ; [facility] BETADINE Allergy 12/08/2021 Active Last Documented On 5 9:32AM ; [facility] Amitriptyline HCl Allergy 12/08/2021 A ctive Last Documented On 5 9:32AM ; [facility] Care Assembler Tractor Name (Identifier) Role/Relation Location/Telecom Last Documented By OLMAN MEDINA ([id number]) [address] [place] [address], , [id number] tel: Last Documented On 12/08/2021 8:40AM ; [facility] Tacho Oconnor MD ([id number]) Assigned practitioner (occupation) Graeme Karimi, [place], [place], , [phone] tel: Last Documented On 03/23/2025 2:17PM ; [facility] Encounters Includes: Encounters from 03/26/2024 through 03/26/2025 Encounter Provider Location (Healthcare Service Location) Date Check-In Time Check-Out Time Diagnosis Encounter Disposition NEW PROBLEM/EST PT Liborio Arce PA-C [facility] 2024 9:14AM 9:47AM Overweight Follow Up Tacho Oconnor MD [facility] 2024 2:48PM 3:24PM Overweight Follow Up Tacho Oconnor MD [facility] 2024 1:43PM 2:23PM Overweight SI joint injection Johan Zhang CRNA 202410/16/2024 2:15PM 10/16/2024 11:59PM SI joint injection Johan Zhang PARAGLIDING INSTRUCTOR [facility] 2024 9:53AM 10:05AM [Patient Encounter] Tacho Oconnor MD 202410/16/2024 11:21AM 10/16/2024 11:59PM [Patient Encounter] Tacho Oconnor MD 202410/16/2024 11:38AM 10/16/2024 11:59PM SECOND OPINION Tacho Oconnor MD [facility] 2024 12:38PM 2:16PM Overweight Payer Includes: Active Insurance Policies Plan Name (Payer ID) Coverage Type Member ID Group # Subscriber (ID) Relationship Effective Dates 1 - [employer] [facility] ([id number]) [id number] Jenae Lang Self (Checked on 02/02/2025) Last Documented On 2:07PM ; [facility] Clinical Notes Includes: Signed Clinical Notes starting from 03/23/2022 * Progress note Date Encounter Last Documented by 03/18/2025 NEW PROBLEM/EST PT Last document ed on 03/18/2025; 9:53 AM, Liborio Arce PA-C; [facility] Active Problems & Conditions - Joint [...] aching - Yes, previous treatment. 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 * Progress note Date Encounter Last Documented by 02/05/2025 Follow Up Last documented on 02/06/2025; 12:33 PM, Tacho Oconnor MD; [facility] Active Problems & Conditions - Lower [...] / Breast biopsy / Lumpectomy / / [place] Teeth Removal / Heart Cath - Past [...] 12/25/2024; 2:42 PM, Tacho Oconnor MD; [facility] Active Problems & Conditions - Lower [...] / Breast biopsy / Lumpectomy / / [place] Teeth Removal / Heart Cath - Past [...] on 11/25/2024; 10:40 AM, Johan Zhang CRNA; [facility] Plan Diagnosis: SI Joint OA Procedure: [...] 11/20/2024; 10:15 AM, Tacho Oconnor MD; [facility] Active Problems & Conditions - Lower [...] / Breast biopsy / Lumpectomy / / [place] Teeth Removal / Heart Cath Past medical [...]
== END 2025-03-26 23:59 | disposition home or self-care (01) ==
LOC: RAD 14:13
PROVIDERS: PCP Nurse Practitioner Family; Visit Provider Specialist/Technologist Athletic Trainer
DX: M50.321 Other cervical disc degeneration at C4-C5 level (principal); M50.322 Other cervical disc degeneration at C5-C6 level; M50.323 Other cervical disc degeneration at C6-C7 level; M50.223 Other cervical disc displacement at C6-C7 level; D18.09 Hemangioma of other sites
CPT/HCPCS: 72141